=== PATIENT | female | born 1935 | race Caucasian/White ===

== ENCOUNTER 2020-09-04 14:04 | Inpatient (IN) | payer MEDICARE, MEDICAID, SELFPAY ==
[2020-09-04] VITALS (8 sets, daily range): BP systolic 106–151; BP diastolic 47–77; PULSE 71–148; RESP 16–20; TEMP 36.4–37.6; O2SAT 96–99; BMI 22.6
--- NOTE | 2020-09-04 15:43 | ED_ITS ---
HPI - Weakness General Chief complaint: Dizziness Stated complaint: dizzy,sob Time Seen by Provider: 09/04/20 15:42 Source: family Mode of arrival: ambulatory Limitations: no limitations History of Present Illness Complaint: generalized weakness Onset (ago): week(s) (1) Duration: constant Severity: moderate Exacerbating factors: movement Associated symptoms: shortness of breath Related Data Allergies Allergy/AdvReac Type Severity Reaction Status Date / Time ibuprofen [From Motrin] Allergy Mild RASH Verified 09/04/20 16:01 penicillin G [Penicillin G] Allergy Mild RASH Verified 09/04/20 16:01 penicillin V Allergy Unknown Rash Verified 09/04/20 16:01 Motrin Allergy Unknown Rash Uncoded 09/04/20 16:01 Review of Systems Constitutional: Constitutional: Reports no additional constitutional complaints Eyes: Eyes: Reports no additional eye complaints ENT: Reports dizziness Comments: lightheaded Cardiovascular: Cardiovascular: Reports no additional cardiovascular complaints Respiratory: Respiratory: Reports as per HPI Gastrointestinal: Gastrointestinal: Reports no additional gastrointestinal complaints Genitourinary: Genitourinary: Reports no additional female genitourinary complaints Musculoskeletal: Musculoskeletal: Reports no additional musculoskeletal complaints Integumentary/Breasts: Skin/Breast: Denies rash Neurologic: Reports system reviewed and no additional complaints, except as documented, Reports dizziness and Denies Sensory deficit (Neuro) Psychiatric: Psychiatric: Denies anxiety PMF Past Medical History Medical History (Updated 09/04/20 @ 16:46 by Richie Larios MD) Alzheimer's disease Asthma Cardiac arrhythmia Dementia Dizziness H/O cardiac pacemaker Ulcer Social History Social History Alcohol intake: never Smoking Status: Former smoker Use of substances other than those prescribed or required for medical reasons: No Advance Directives: No Advance Directives Information Provided: Yes Physical Exam Vital Signs and I&O and Narrative: Vital Signs and I&O: Vital Signs Temp 97.5 F 09/04/20 16:48 Pulse 83 09/04/20 18:58 Resp 16 09/04/20 18:58 BP 107/47 L 09/04/20 18:58 Pulse Ox 96 09/04/20 18:58 Intake & Output 09/04/20 09/04/20 09/05/20 06:59 18:59 06:59 Weight 50.802 kg Body Mass Index 22.6 Const: Other: elderly General: healthy appearing Nutritional Appearance: average body habitus Orientation/consciousness: oriented to person and patient oriented x3 Limitations: no limitations HENMT: Head: Yes normal to inspection Ears: external ears normal General nose exam: Normal external nose present Mouth: Normal oral and palatal mucosa present and oropharynx normal Throat: Yes posterior oropharynx normal Eyes: General: appearance normal, both eyes and all related structures Neck: Other: supple Neck: Yes normal visual inspection Chest: Chest palpation & inspection: normal inspection of the chest Resp: Auscultation: clear to auscultation bilaterally Cardio: Jugular venous distension: no JVD Rate: tachycardic and Other (Irregular) Rhythm: regular rhythm and abnormal rhythm Heart sounds: S1 normal heart sound present, S2 normal heart sound present and Other heart sounds present (2/6 CATHRYN) GI: Inspection: Yes normal to inspection Palpation (GI): Soft to palpation, nontender and No hepatosplenomegaly present Auscultation: normal bowel sounds : General: Yes no CVA tenderness Back/Spine/Pelvis: Back: no CVA tenderness Skin: General skin exam: no rashes or lesions noted Neuro: General: oriented to person and patient oriented x3 Cranial nerves: Yes CN's II-XII intact bilaterally Motor exam (neuro): 5/5 motor strength present throughout Sensory Exam: No Sensory deficit (Neuro) Extrem: Other: no edema General: Yes normal to inspection Psych: Appearance: grossly normal Course Course Course Narrative: patients heart rate down will give po cardizem and lovenox. Will admit for positive troponins Reevaluation(s) Reevaluation #1: second ekg: atrial fib rate of 80, RBBB, no st or twave changes Reevaluation #2: spoke with Susan Solomon Time: 19:23 MDM - Weakness MDM Narrative Medical decision making narrative: Patient with new afib and NonSTEMI will admit Lab Data Result diagrams: 09/04/20 15:51 09/04/20 15:51 Labs: Lab Results 09/04/20 09/04/20 09/04/20 Range/Units 15:51 15:51 15:51 WBC 6.4 (4.8-10.8) X10*3/uL RBC 3.97 L (4.20-5.50) X10*6/uL Hgb 12.3 (12.0-16.0) g/dl Hct 36.4 L (37-47) % MCV 91.7 (80-98) fL MCH 31.0 (27.0-33.0) pg MCHC 33.8 (31.0-35.0) g/dl RDW 13.0 (11.0-16.0) % Plt Count 251 (160-400) X10*3/uL MPV 9.8 (9.4-12.3) fL Immature Gran % (Auto) 0.3 (0.0-0.4) % Neut % (Auto) 57.4 (45-73) % Lymph % (Auto) 31.6 (20-40) % [place] % (Auto) 8.8 (2-11) % Eos % (Auto) 1.3 (0-4) % Baso % (Auto) 0.6 (0-2) % Neut # (Auto) 3.7 (2.0-8.3) X10*3/uL Lymph # (Auto) 2.0 (1.2-4.9) X10*3/uL [place] # (Auto) 0.6 (0.1-1.2) X10*3/uL Eos # (Auto) 0.1 (0.0-0.4) X10*3/uL Baso # (Auto) 0.0 (0.0-0.2) X10*3/uL Abs Immat Gran (auto) 0.02 (0.00-0.03) X10*3/uL Absolute Nucleated RBC 0.000 (0.0-0.012) X10*3/uL Nucleated RBC % (auto) 0.0 (0.0-0.2) /100WBC Sodium 141 (135-145) mmol/L Potassium 3.3 (3.3-5.1) mmol/l Chloride 103 (96-108) mmol/L Carbon Dioxide 27 (22-29) mmol/L Anion Gap 14 (12-20) BUN 16 (9-16) mg/dL Creatinine 1.11 (0.5-1.4) mg/dL Estim Creat Clear Calc 25.2 Estimated GFR 47 Random Glucose 139 H (60-115) mg/dL Calcium 9.6 (8.4-10.2) mg/dL Troponin I High Sens 441.0 H (<3.5-17.0) ng/L ECG Data Attestation: I personally reviewed and interpreted this ECG as follows: (Initial EKG was afib, rate 150, RBBB, no st or twave changes) ECG interpretation date: 09/04/20 ECG interpretation time: 15:09 Critical Care Time Critical Care Time Critical Care Time: Yes Total Critical Care Time: 35 Attestation: critical care time for reevaluation, speaking to hospitalist and talking to the family Discharge Plan Discharge Clinical Impression: Non-ST elevated myocardial infarction (non-STEMI) Atrial fibrillation Qualifiers: Atrial fibrillation type: unspecified Qualified Code(s): I48.91 - Unspecified atrial fibrillation Patient Disposition: Admitted As Inpatient
--- NOTE | 2020-09-04 15:46 | ECG_ITS ---
Test Reason : REPEAT Blood Pressure : / mmHG Vent. Rate : 082 BPM Atrial Rate : 394 BPM P-R Int : 000 ms QRS Dur : 130 ms QT Int : 402 ms P-R-T Axes : 000 -20 032 degrees QTc Int : 469 ms Atrial fibrillation with occasional ventricular-paced complexes Right bundle branch block Abnormal ECG When compared with ECG of 04-SEP-2020 15:36, Vent. rate has decreased Referred By: Richie Larios Electronically Signed By:HORACIO NATHAN
[2020-09-04 15:57] LABS: MANUAL DIFF FLAG NO
[2020-09-04 15:59] LABS: Basophils Percent Auto 0.6 % (0-2); Eosinophils Absolute Auto 0.1 X10*3/uL (0.0-0.4); Eosinophils Percent Auto 1.3 % (0-4); Hematocrit 36.4 % (37-47); Hemoglobin 12.3 g/dl (12.0-16.0); Imm Gran Abs Auto 0.02 X10*3/uL (0.00-0.03); Imm Gran Pct Auto 0.3 % (0.0-0.4); Lymphocytes Percent Auto 31.6 % (20-40); Mean Corpuscular HGB Conc 33.8 g/dl (31.0-35.0); Mean Corpuscular Volume 91.7 fL (80-98); Mean Platelet Volume 9.8 fL (9.4-12.3); Monocytes Absolute Auto 0.6 X10*3/uL (0.1-1.2); Monocytes Percent Auto 8.8 % (2-11); Neutrophils Absolute Auto 3.7 X10*3/uL (2.0-8.3); Neutrophils Percent Auto 57.4 % (45-73); Platelet Count 251 X10*3/uL (160-400); Red Blood Count 3.97 X10*6/uL (4.20-5.50); White Blood Count 6.4 X10*3/uL (4.8-10.8)
[2020-09-04] MEDS: dilTIAZem HCL 25 MG/5 ML VIAL 10 MG IVPUSH (16:02)
[2020-09-04 16:21] LABS: Anion Gap 14 (12-20); Blood Urea Nitrogen 16 mg/dL (9-16); Calcium 9.6 mg/dL (8.4-10.2); Carbon Dioxide 27 mmol/L (22-29); Chloride 103 mmol/L (96-108); Creatinine Clr Calc Pharmacy 25.2; Estimated Glomerular Filt Rate 47; Glucose Random 139 mg/dL (60-115); Potassium 3.3 mmol/l (3.3-5.1); Sodium 141 mmol/L (135-145)
--- NOTE | 2020-09-04 16:48 | ECG_ITS ---
Test Reason : HIGH HEART RATE Blood Pressure : / mmHG Vent. Rate : 154 BPM Atrial Rate : 153 BPM P-R Int : 000 ms QRS Dur : 126 ms QT Int : 318 ms P-R-T Axes : 000 -37 028 degrees QTc Int : 509 ms Undetermined rhythm Left axis deviation Right bundle branch block Abnormal ECG When compared with ECG of 23-MAY-2019 22:40, Current undetermined rhythm precludes rhythm comparison, needs review Right bundle branch block is now Present Heart rate has increased Referred By: Richie Larios Electronically Signed By:HORACIO NATHAN
[2020-09-04] MEDS: dilTIAZem HCL CD 120 MG CAP.ER.DEG PO (17:21)
[2020-09-04] MEDS: Aspirin Enteric Coated 325 MG TABLET.DR PO (17:22)
[2020-09-04] MEDS: Enoxaparin Sodium 60 MG/0.6 ML SYRINGE 50 MG SUBCUT (17:22)
--- NOTE | 2020-09-04 18:58 | PC.NURSE ---
Report taken from [place], this RN resuming care. Pt found sitting upright in bed with family at bedside, pt is CAOx4, speaking full sentences, denies pain/discomfort. Pt and family aware of plan to repeat EKG and plan for admission. VSS. Continue to monitor.
--- NOTE | 2020-09-04 19:42 | PC.NURSE ---
This RN calling to give report, RN to call back for report.
--- NOTE | 2020-09-04 20:16 | PC.NURSE ---
Report given to [facility] JAMAAL Leone.
--- NOTE | 2020-09-04 20:19 | PC.NURSE ---
Per MD, no repeat Troponin needed prior to transport to floor.
[2020-09-04 21:56] LABS: Hematocrit 32.1 % (37-47); Hemoglobin 10.8 g/dl (12.0-16.0); Mean Corpuscular HGB Conc 33.6 g/dl (31.0-35.0); Mean Corpuscular Volume 92.2 fL (80-98); Mean Platelet Volume 9.9 fL (9.4-12.3); Platelet Count 253 X10*3/uL (160-400); Red Blood Count 3.48 X10*6/uL (4.20-5.50); White Blood Count 6.3 X10*3/uL (4.8-10.8)
[2020-09-04 22:07] LABS: Partial Thromboplastin Time 39.2 SEC (24.1-38.0)
[2020-09-04 22:30] LABS: Troponin-I High Sensitivity 424.8 ng/L (<3.5-17.0)
[2020-09-05] VITALS (10 sets, daily range): BP systolic 116–145; BP diastolic 65–89; PULSE 57–100; RESP 16–20; TEMP 36.4–37.1; O2SAT 93–98
[2020-09-05] MEDS: Enoxaparin Sodium 60 MG/0.6 ML SYRINGE 50 MG SUBCUT (04:57)
[2020-09-05 06:49] LABS: Hematocrit 31.5 % (37-47); Hemoglobin 10.5 g/dl (12.0-16.0); Mean Corpuscular HGB Conc 33.3 g/dl (31.0-35.0); Mean Corpuscular Hemoglobin 30.7 pg (27.0-33.0); Mean Corpuscular Volume 92.1 fL (80-98); Mean Platelet Volume 10.3 fL (9.4-12.3); Platelet Count 246 X10*3/uL (160-400); Red Blood Count 3.42 X10*6/uL (4.20-5.50); Red Cell Distribution Width 12.9 % (11.0-16.0); White Blood Count 5.4 X10*3/uL (4.8-10.8)
[2020-09-05 06:50] LABS: INTERNATIONAL NORM RATIO 1.3 (0.9-1.1); Prothrombin Time 15.5 SEC (10.8-13.0)
[2020-09-05] MEDS: Omeprazole 20 MG CAPSULE.DR 40 MG PO (08:06)
[2020-09-05] MEDS: Multivitamin TABLET 1 TAB PO (08:07)
[2020-09-05] MEDS: Sertraline HCL 50 MG TABLET PO (08:07)
[2020-09-05] MEDS: Aspirin 81 MG TAB.CHEW PO (08:07)
[2020-09-05] MEDS: Atorvastatin Calcium 40 MG TABLET PO (08:10)
--- NOTE | 2020-09-05 09:27 | HP_ITS ---
DATE OF SERVICE: 09/04/2020 CHIEF COMPLAINT: Dizziness. HISTORY OF PRESENT ILLNESS: 85-year-old Yi-speaking woman presenting to the ER with complaints of dizziness. She was accompanied by her daughter, who lives with the patient and takes care of her. According to the patient's daughter, today the patient was giving her a plate and the daughter noticed that she had been using her hands to walk and finally patient told her that she was feeling dizzy. Unfortunately, the patient has Alzheimer and according to the patient's daughter, she does not report abnormal symptoms sometimes. She denied that the patient had any chest pain, shortness of breath, abdominal pain, nausea, vomiting, or diarrhea. Upon arrival to the ER, patient was found to be in atrial fibrillation with rapid ventricular response. Heart rate was in the 120s. The patient does have a history of valve replacement. At that time, she developed a block and a pacemaker was placed. She is currently on Eliquis at home. In the ER, she was given IV diltiazem, full-dose aspirin, therapeutic dose of Lovenox. Her heart rate seemed to stabilize. Repeat echocardiogram showed undetermined rhythm with right bundle-branch block which is chronic. The patient also had an elevated troponin of 441. However, the patient had no complaints of chest pain. The patient will be admitted for further management and treatment of NSTEMI and atrial fibrillation with rapid ventricular response. PAST MEDICAL HISTORY: 1. Diabetes mellitus. 2. Hypertension. 3. Hyperlipidemia. 4. Chronic diastolic congestive heart failure. 5. History of colon polyps. 6. Aortic valve replacement. 7. Pacemaker placement. 8. Cardiac catheterization showing no coronary artery disease. 9. EGD with biopsy. SOCIAL HISTORY: Her daughter lives with her. She does not use any alcohol, tobacco, or illicit drugs. FAMILY HISTORY: No cardiac disease. ALLERGIES: TO IBUPROFEN, PENICILLIN G, AND PENICILLIN V. MEDICATIONS: 1. Atorvastatin calcium 40 mg daily. 2. Clindamycin 300 mg take 2 tablets prior to dental appointments. 3. Bisacodyl 5 mg twice a day as needed. 4. Daily vitamin daily. 5. Dicyclomine 20 mg 3 times a day as needed. 6. Diltiazem 180 mg. 7. Diltiazem CD 120 mg daily. 8. Aricept 5 mg p.o. daily. 9. Eliquis 1 tab b.i.d. 10. Ferrous sulfate 325 mg 3 times a week. 11. Furosemide 20 mg 1 tab daily. 12. Lisinopril 20 mg daily. 13. Pantoprazole sodium. 14. MiraLAX. 15. . 16. Sertraline 50 mg p.o. daily. 17. Ventolin inhaler 2 puffs every 4 to 6 hours as needed. REVIEW OF SYSTEMS: CONSTITUTIONAL: Denies recent fever, chills, or decrease in appetite. RESPIRATORY: Denies any shortness of breath, cough, or sputum production. CARDIOVASCULAR: See HPI. GASTROINTESTINAL: Denies any dysphagia, abdominal pain, nausea, vomiting, or diarrhea. GENITOURINARY: Denies any dysuria, frequency, hematuria. MUSCULOSKELETAL: Denies any joint pain or swelling. NEUROPSYCH: Denies any weakness or seizures. All other systems are reviewed and are negative. PHYSICAL EXAMINATION: CONSTITUTIONAL: Resting in bed. No acute distress. VITAL SIGNS: 107/47, 83, 16, 96% on room air. SKIN: Intact without rash or open sores. HEENT: Head is normocephalic, atraumatic. Eyes, pupils are PERRLA. Sclerae anicteric. Mouth, mucous membranes are intact and moist. NECK: Supple. No lymphadenopathy. No JVD noted. CHEST: Clear to auscultation without wheezes, rhonchi, or rales. HEART: Irregularly irregular; clear S1, S2. No murmurs, rubs, gallops. ABDOMEN: Positive bowel sounds. Soft, nontender. No hepatomegaly or splenomegaly noted. NEURO: Patient is alert and oriented to self. No focal deficits noted. LABORATORY DATA: WBC 6.4, hemoglobin 12.3, hematocrit 36.4, platelets 251. Sodium is 141, potassium is 3.3, chloride is 103, anion gap is 14, BUN is 16, creatinine is 1.11, glucose is 116. Troponin is 441. BNP is 145. ASSESSMENT AND PLAN: 85-year-old woman who was admitted and found to have new onset atrial fibrillation with rapid ventricular response. She also was noted to have possible [id number] elevation myocardial infarction, possibly related to atrial fibrillation versus ischemic changes. EKG does not show any acute ischemic changes at this time and the patient has had no complaints of chest pain. 1. Atrial fibrillation with rapid ventricular response. Likelly the casue of dizziness. The patient received several doses of IV diltiazem. Heart rate seems to be better controlled at this time, but still in atrial fibrillation. She will be admitted to telemetry, Cardiology to consult, echocardiogram, EKG in the morning, trend troponin. The patient is on therapeutic Lovenox, was given initial dose in the ER. 2. Jro-GF-[id number] elevation myocardial infarction. Likeley demand ischemia. Therapeutic Lovenox, Cardiology to follow, echo, aspirin, statin, EKG in the morning. One point is that she did have a clean cath in 2019 so she will likely not need to be on Lovenox. Discuss with cardiology. 3. Diabetes mellitus sliding scale, ADA diet. 4. Hypertension. Low blood pressure. Hold any antihypertensives at this time. 5. History of congestive heart failure. No overt failure at this time. We will hold diuretic due to low blood pressure at this time. 6. Deep vein thrombosis prophylaxis with therapeutic Lovenox. 7. Case discussed with Dr. Michelle. 8. Full code. ANUJA Howell JR/ALEXI / [id number]
--- NOTE | 2020-09-05 09:47 | PM.CNCAR ---
History of Present Illness History of Present Illness Date of Consult: September 05, 2020 Requesting physician: Shay Brown Consult reason: atrial fibrillation Chief complaint: dizzy,sob Narrative: This patient is well-known to me. She has a history of transcatheter aortic valve replacement. Her last appointment in our office was in May this year. At that time, she was doing quite well. Current admission is for complaints of feeling dizzy. Patient states that she has just been feeling very dizzy and this led to the ER visit where she was found to be in atrial fibrillation with rapid rate. Otherwise, she denies any specific symptoms like anginal-type chest pains or shortness of breath or leg swelling or syncopal episodes. It seems that she got some IV Cardizem and then she was admitted. Currently she still atrial fibrillation but she is no longer dizzy. Review of Systems ENT: Reports dizziness Neurologic: Reports system reviewed and no additional complaints, except as documented and Reports dizziness PMFSH Past Medical History Medical History (Updated 09/05/20 @ 09:54 by Max Chaves MD) (HFpEF) heart failure with preserved ejection fraction Alzheimer's disease Asthma Cardiac arrhythmia Dementia Dizziness H/O cardiac pacemaker Mitral valve disease Ulcer Family History Family History (Updated 09/05/20 @ 09:57 by Max Chaves MD) Other Patient's mother is Surgical History Surgical History Status post transcatheter aortic valve replacement (TAVR) using bioprosthesis Social History Social History Household Members: Children Housing: Apartment Do you presently have visiting nurse or other home services: No Alcohol intake: never Smoking Status: Former smoker Tobacco Type: Cigarette Smoked in Last 30 Days: No Patient Interested in Nicotine Replacement: No Patient Given Instructions on How to Stop Smoking: No Second Hand Smoke Exposure: No Use of substances other than those prescribed or required for medical reasons: No Currently Displaying Signs/Symptoms of Drug Intoxication Withdrawal: No Have you been hit, kicked, punched, or otherwise hurt by someone within the past year? If so, by whom?: No Do you feel safe in your current relationship?: No Current Relationship Is there a partner from a previous relationship who is making you feel unsafe now?: No Are you made to feel afraid or neglected: No Advance Directives: No Advance Directives Information Provided: Yes Advance Directives on File: Yes Do you have thoughts of harming others: None Do you have a plan to hurt others: No Plan Recently lost weight without trying: No Meds Allergies Allergy/AdvReac Type Severity Reaction Status Date / Time ibuprofen [From Motrin] Allergy Mild RASH Verified 09/04/20 16:01 penicillin G [Penicillin G] Allergy Mild RASH Verified 09/04/20 16:01 penicillin V Allergy Unknown Rash Verified 09/04/20 16:01 Home Medications Medication Instructions Recorded Confirmed Type albuterol sulfate [Ventolin HFA] 2 puff PO Q4-6H PRN 09/04/20 09/04/20 History apixaban [Eliquis] 2.5 mg PO BID 09/04/20 09/04/20 History atorvastatin 40 mg PO DAILY 09/04/20 09/04/20 History dicyclomine 20 mg PO TID PRN 09/04/20 09/04/20 History diltiazem HCl [Tiadylt ER] 300 mg PO DAILY 09/04/20 09/04/20 History furosemide 20 mg PO DAILY 09/04/20 09/04/20 History lisinopril 40 mg PO DAILY 09/04/20 09/04/20 History multivitamin [Daily-Heather] 1 tab PO DAILY 09/04/20 09/04/20 History pantoprazole 40 mg PO DAILY 09/04/20 09/04/20 History sertraline 50 mg PO DAILY 09/04/20 09/04/20 History Physical Exam Vital Signs and I&O and Narrative: Vital Signs and I&O: Vital Signs Temp 98.0 F 09/05/20 07:52 Pulse 98 09/05/20 07:52 Resp 18 09/05/20 07:52 BP 126/89 09/05/20 07:52 Pulse Ox 98 09/05/20 08:00 Intake & Output 09/04/20 09/05/20 09/05/20 18:59 06:59 18:59 Intake Total 120 / 120 Output Total 200 / 200 Balance -80 / -80 Urine Output (Aver age ml/kg/hr) 0.33 Weight 112 lb 111 lb 15.917 oz Intake: Intake, Oral Brooke unt 120 / 120 Output: Output, Urine Am ount 200 / 200 Other: Number of Unmeas ured Voids 3 Urine Bathroom Urine Color Yellow Stool Bathroom Body Mass Index 22.6 Const: General: cooperative, comfortable and no acute distress Orientation/consciousness: patient oriented x3 HENMT: Other: Unremarkable Neck: Neck: Yes normal visual inspection Chest: Chest palpation & inspection: normal inspection of the chest Resp: Auscultation: clear to auscultation bilaterally, no crackles and no wheezes Cardio: Jugular venous distension: no JVD Palpation: normal PMI Heart sounds: S1 normal heart sound present, S2 normal heart sound present, no gallops, Murmur heart sound present (2/6 CATHRYN aortic area) and no rubs GI: Palpation (GI): Soft to palpation Back/Spine/Pelvis: Other: unremarkable Skin: General skin exam: no rashes or lesions noted Neuro: General: patient oriented x3 Extrem: General: Yes no clubbing, cyanosis or edema Psych: Mental Status: mental status grossly normal Results Labs and Meds Result diagrams: 09/05/20 05:28 09/04/20 15:51 Lab results: Laboratory Results - last 24 hr 09/04/20 09/04/20 09/04/20 15:51 15:51 15:51 WBC 6.4 RBC 3.97 L Hgb 12.3 Hct 36.4 L MCV 91.7 MCH 31.0 MCHC 33.8 RDW 13.0 Plt Count 251 MPV 9.8 Immature Gran % (Auto) 0.3 Neut % (Auto) 57.4 Lymph % (Auto) 31.6 [place] % (Auto) 8.8 Eos % (Auto) 1.3 Baso % (Auto) 0.6 Neut # (Auto) 3.7 Lymph # (Auto) 2.0 [place] # (Auto) 0.6 Eos # (Auto) 0.1 Baso # (Auto) 0.0 Abs Immat Gran (auto) 0.02 Absolute Nucleated RBC 0.000 Nucleated RBC % (auto) 0.0 PT INR APTT Sodium 141 Potassium 3.3 Chloride 103 Carbon Dioxide 27 Anion Gap 14 BUN 16 Creatinine 1.11 Estim Creat Clear Calc 25.2 Estimated GFR 47 Random Glucose 139 H Calcium 9.6 Troponin I High Sens 441.0 H 09/04/20 09/04/2009/04/20 21:23 21:23 21:23 WBC 6.3 RBC 3.48 L Hgb 10.8 L Hct 32.1 L MCV 92.2 MCH 31.0 MCHC 33.6 RDW 13.0 Plt Count 253 MPV 9.9 Immature Gran % (Auto) Neut % (Auto) Lymph % (Auto) [place] % (Auto) Eos % (Auto) Baso % (Auto) Neut # (Auto) Lymph # (Auto) [place] # (Auto) Eos # (Auto) Baso # (Auto) Abs Immat Gran (auto) Absolute Nucleated RBC 0.000 Nucleated RBC % (auto) 0.0 PT INR APTT 39.2 H Sodium Potassium Chloride Carbon Dioxide Anion Gap BUN Creatinine Estim Creat Clear Calc Estimated GFR Random Glucose Calcium Troponin I High Sens 424.8 H 09/05/20 09/05/20 05:28 05:28 WBC 5.4 RBC 3.42 L Hgb 10.5 L Hct 31.5 L MCV 92.1 MCH 30.7 MCHC 33.3 RDW 12.9 Plt Count 246 MPV 10.3 Immature Gran % (Auto) Neut % (Auto) Lymph % (Auto) [place] % (Auto) Eos % (Auto) Baso % (Auto) Neut # (Auto) Lymph # (Auto) [place] # (Auto) Eos # (Auto) Baso # (Auto) Abs Immat Gran (auto) Absolute Nucleated RBC 0.000 Nucleated RBC % (auto) 0.0 PT 15.5 H INR 1.3 H APTT Sodium Potassium Chloride Carbon Dioxide Anion Gap BUN Creatinine Estim Creat Clear Calc Estimated GFR Random Glucose Calcium Troponin I High Sens Assessment and Plan (1) Persistent atrial fibrillation: Status: Acute (2) Non-ST elevated myocardial infarction (non-STEMI): Status: Acute (3) Dizziness: Status: Acute (4) Normally functioning cardiac pacemaker present: Status: Acute (5) Status post transcatheter aortic valve replacement (TAVR) using bioprosthesis: Status: Acute (6) (HFpEF) heart failure with preserved ejection fraction: Status: Acute (7) Mitral valve disease: Status: Acute Patient's dizziness is most likely from her atrial fibrillation with rapid rate. Continue diltiazem. Add digoxin. Continue her home dose of Eliquis. No need for any aspirin. Otherwise, based on the last echocardiogram, no evidence of any prosthetic valve dysfunction. With regard to the elevated troponins, most likely demand related. She underwent cardiac catheterization in 2019. that did not reveal any significant coronary disease. Minimal luminal irregularities only. Can stop the Lovenox. We will follow up with you.
--- NOTE | 2020-09-05 12:13 | MHC.CM.PN ---
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
[2020-09-05] MEDS: Digoxin 0.25 MG TABLET PO ×2 (13:00→17:17)
--- NOTE | 2020-09-05 16:22 | PM.IMPN ---
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 pt reports her dizziness is resolved denies chest pain or sob Review of Systems General - no fevers or chills Cardiovascular - no chest pain, no dizziness Respiratory - no shortness of breath or cough Abdominal- no abdominal pain, nausea, vomiting, diarrhea Physical Exam Vital Signs and I&O and Narrative: Vital Signs and I&O: Vital Signs Temp 98.7 F 09/05/20 12:00 Pulse 100 09/05/20 13:00 Resp 20 09/05/20 12:00 BP 116/87 09/05/20 12:00 Pulse Ox 98 09/05/20 12:00 Intake & Output 09/04/20 09/05/20 09/05/20 18:59 06:59 18:59 Intake Total 120 / 120 240 / 240 Output Total 200 / 200 Balance -80 / -80 240 / 240 Urine Output (Aver age ml/kg/hr) 0.33 0.33 Weight 50.802 kg 50.8 kg Intake: Intake, Oral Brooke unt 120 / 120 240 / 240 Output: Output, Urine Am ount 200 / 200 Other: Breakfast % Eate n 50% Lunch % Eaten 75% Number of Unmeas ured Voids 3 1 Urine Bathroom Bathroom Urine Color Yellow Yellow Stool Bathroom Body Mass Index 22.6 General - no acute distress, appears comfortable Cardiovascular - IRR, S1-S2 Lungs - normal respiratory effort, clear to auscultation bilaterally, no wheezing Abdomen - soft, nontender, no rebound regarding Extremities - no edema bilaterally Neuro - awake and alert, no focal deficits Objective Data Current Medications Generic Name Dose Route Start Last Admin Trade Name Freq PRN Reason Stop Dose Admin Albuterol Sulfate 2 puff 09/04/20 21:16 Albuterol Sulfate 90 Mcg 18 Gm Inhaler INHALE Q4H PRN Shortness Of Breath Atorvastatin Calcium 40 mg 09/05/20 09:00 09/05/20 08:10 Atorvastatin Calcium 40 Mg Tablet PO 40 mg DAILY ANA Administration Digoxin 0.25 mg 09/05/20 11:00 09/05/20 13:00 Digoxin 0.25 Mg Tablet PO 09/06/20 05:01 0.25 mg Q6H ANA Administration Multivitamins/Vitamin C 1 tab 09/05/20 09:00 09/05/20 08:07 Multivitamin Tablet PO 1 tab DAILY ANA Administration Non-Formulary Medication 20 mg 09/04/20 21:16 Dicyclomine PO TID PRN ibs Omeprazole 40 mg 09/05/20 09:00 09/05/20 08:06 Omeprazole 20 Mg Capsule.Dr PO 40 mg DAILY ANA Administration Sertraline HCl 50 mg 09/05/20 09:00 09/05/20 08:07 Sertraline Hcl 50 Mg Tablet PO 50 mg DAILY ANA Administration Labs CBC & Chem 7: 09/05/20 05:28 09/04/20 15:51 Labs: Laboratory Results - last 24 hr 09/04/20 09/04/20 09/04/20 15:51 15:51 21:23 MCV MCH MCHC RDW Plt Count MPV Absolute Nucleated RBC Nucleated RBC % (auto) PT INR APTT Anion Gap 14 Estim Creat Clear Calc 25.2 Estimated GFR 47 Random Glucose 139 H Calcium 9.6 Troponin I High Sens 441.0 H 424.8 H 09/04/20 09/04/20 09/05/20 21:23 21:23 05:28 MCV 92.2 92.1 MCH 31.0 30.7 MCHC 33.6 33.3 RDW 13.0 12.9 Plt Count 253 246 MPV 9.9 10.3 Absolute Nucleated RBC 0.000 0.000 Nucleated RBC % (auto) 0.0 0.0 PT INR APTT 39.2 H Anion Gap Estim Creat Clear Calc Estimated GFR Random Glucose Calcium Troponin I High Sens 09/05/20 05:28 MCV MCH MCHC RDW Plt Count MPV Absolute Nucleated RBC Nucleated RBC % (auto) PT 15.5 H INR 1.3 H APTT Anion Gap Estim Creat Clear Calc Estimated GFR Random Glucose Calcium Troponin I High Sens Progress Note: A&P (1) Atrial fibrillation: Status: Acute Assessment and Plan: This is a 85-year-old female who presented to the hospital with complaints of dizziness and was found to be in AFib with RVR. She is admitted for further workup. 1. Atrial fibrillation with rapid ventricular response PO dig load Cardizem 120mg cd stop lovenox, resume eliquis 2.5mg BID cardiology input appreciated 2. NSTEMI, type 2 likely 2/2 to demand ischemia lovenox stopped 3. DM sliding scale, ADA diet not on any home meds 4. HTN cardizem soft -- hold lisinopril 5. CHF, euvolemic Lasix Full code DVT prophylaxis, Carmelina
[2020-09-05] MEDS: dilTIAZem HCL CD 120 MG CAP.ER.DEG PO (17:17)
[2020-09-05 18:58] LABS: INTERNATIONAL NORM RATIO 1.2 (0.9-1.1); Prothrombin Time 14.5 SEC (10.8-13.0)
[2020-09-05] MEDS: Apixaban 2.5 MG TABLET PO (20:26)
--- NOTE | 2020-09-05 21:45 | P.EN_ITS ---
Event Note Event Note: Admission note: 85 y/o female who presented from home with dizziness. To be admitted due to Afib with RVR. ROS and Physical as documented on H/P. 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
[2020-09-06] VITALS (8 sets, daily range): BP systolic 112–152; BP diastolic 67–70; PULSE 72–88; RESP 17–20; TEMP 36.1–36.8; O2SAT 94–98
[2020-09-06] MEDS: Digoxin 0.25 MG TABLET PO ×2 (00:26→05:52)
[2020-09-06 06:37] LABS: MANUAL DIFF FLAG NO
[2020-09-06 06:54] LABS: Basophils Percent Auto 0.6 % (0-2); Eosinophils Absolute Auto 0.2 X10*3/uL (0.0-0.4); Eosinophils Percent Auto 3.1 % (0-4); Hematocrit 31.8 % (37-47); Hemoglobin 10.7 g/dl (12.0-16.0); Imm Gran Abs Auto 0.03 X10*3/uL (0.00-0.03); Imm Gran Pct Auto 0.4 % (0.0-0.4); Lymphocytes Absolute Auto 1.6 X10*3/uL (1.2-4.9); Lymphocytes Percent Auto 24.1 % (20-40); Mean Corpuscular HGB Conc 33.6 g/dl (31.0-35.0); Mean Corpuscular Hemoglobin 31.5 pg (27.0-33.0); Mean Corpuscular Volume 93.5 fL (80-98); Mean Platelet Volume 10.1 fL (9.4-12.3); Monocytes Absolute Auto 0.6 X10*3/uL (0.1-1.2); Monocytes Percent Auto 8.6 % (2-11); Neutrophils Absolute Auto 4.2 X10*3/uL (2.0-8.3); Neutrophils Percent Auto 63.2 % (45-73); Platelet Count 250 X10*3/uL (160-400); Red Cell Distribution Width 12.8 % (11.0-16.0); White Blood Count 6.7 X10*3/uL (4.8-10.8)
[2020-09-06 07:21] LABS: Blood Urea Nitrogen 7 mg/dL (9-16); Calcium 9.1 mg/dL (8.4-10.2); Creatinine Clr Calc Pharmacy 35.4; Estimated Glomerular Filt Rate > 60; Glucose Fasting 107 mg/dL (60-99)
[2020-09-06 07:35] LABS: Anion Gap 16 (12-20); Carbon Dioxide 25 mmol/L (22-29); Chloride 104 mmol/L (96-108); Potassium 4.3 mmol/l (3.3-5.1); Sodium 141 mmol/L (135-145)
[2020-09-06] MEDS: Omeprazole 20 MG CAPSULE.DR 40 MG PO (09:22)
[2020-09-06] MEDS: Sertraline HCL 50 MG TABLET PO (09:23)
[2020-09-06] MEDS: Multivitamin TABLET 1 TAB PO (09:23)
[2020-09-06] MEDS: Apixaban 2.5 MG TABLET PO (09:23)
[2020-09-06] MEDS: dilTIAZem HCL CD 120 MG CAP.ER.DEG PO (09:23)
[2020-09-06] MEDS: Atorvastatin Calcium 40 MG TABLET PO (09:24)
--- NOTE | 2020-09-06 12:02 | PM.PNCARD ---
Subjective Subjective Interval history: She states that she is no longer feeling dizzy. Denies other complaints like chest pain or shortness of breath or in fact any other cardiac complaints at this time. Physical Exam Vital Signs and I&O: Vital Signs Temp 97 F 09/06/20 11:06 Pulse 72 09/06/20 11:06 Resp 18 09/06/20 11:06 BP 152/70 H 09/06/20 11:06 Pulse Ox 97 09/06/20 11:06 Comfortable, no distress No pallor, icterus or cyanosis HEENT -unremarkable JVD- normal Cardiac- normal heart sounds, 2/6 CATHRYN aortic area Respiratory-normal breath sounds bilaterally, no crackles, no wheeze Abdomen- soft, nontender Neuro- alert and oriented Lower extremities- no significant edema, warm well perfused Progress Note: A&P Assessment and plan (1) Persistent atrial fibrillation: Status: Acute (2) Non-ST elevated myocardial infarction (non-STEMI): Status: Acute (3) Dizziness: Status: Acute (4) Normally functioning cardiac pacemaker present: Status: Acute (5) Status post transcatheter aortic valve replacement (TAVR) using bioprosthesis: Status: Acute (6) (HFpEF) heart failure with preserved ejection fraction: Status: Acute (7) Mitral valve disease: Status: Acute Assessment and Plan: Patient's dizziness is most likely from her atrial fibrillation with rapid rate. Continue diltiazem. Add digoxin. Continue her home dose of Eliquis. No need for any aspirin. Otherwise, based on the last echocardiogram, no evidence of any prosthetic valve dysfunction. With regard to the elevated troponins, most likely demand related. She underwent cardiac catheterization in 2019. that did not reveal any significant coronary disease. Minimal luminal irregularities only. Can stop the Lovenox. Upon discharge, we will arrange followup. Fall Risk Details Current Medications: Current Medications Generic Name Dose Route Start Last Admin Trade Name Freq PRN Reason Stop Dose Admin Albuterol Sulfate 2 puff 09/04/20 21:16 Albuterol Sulfate 90 Mcg 18 Gm Inhaler INHALE Q4H PRN Shortness Of Breath Apixaban 2.5 mg 09/05/20 21:00 09/06/20 09:23 Apixaban 2.5 Mg Tablet PO 2.5 mg BID ANA Administration Atorvastatin Calcium 40 mg 09/05/20 09:00 09/06/20 09:24 Atorvastatin Calcium 40 Mg Tablet PO 40 mg DAILY ANA Administration Dicyclomine HCl 20 mg 09/05/20 17:03 Dicyclomine Hcl 10 Mg Capsule PO TID PRN IBS Diltiazem HCl 120 mg 09/05/20 16:30 09/06/20 09:23 Diltiazem Hcl Cd 120 Mg Cap.Er.Deg PO 120 mg DAILY ANA Administration Protocol Multivitamins/Vitamin C 1 tab 09/05/20 09:00 09/06/20 09:23 Multivitamin Tablet PO 1 tab DAILY ANA Administration Omeprazole 40 mg 09/05/20 09:00 09/06/20 09:22 Omeprazole 20 Mg Capsule.Dr PO 40 mg DAILY ANA Administration Sertraline HCl 50 mg 09/05/20 09:00 09/06/20 09:23 Sertraline Hcl 50 Mg Tablet PO 50 mg DAILY ANA Administration Time Spent With Patient Time: Total time spent is greater than 50% in coordination of care (as documented) at patient's floor/unit and/or counseling patient: Time with patient: 15 - 24 minutes
--- NOTE | 2020-09-06 12:42 | P.DS_ITS ---
DS: Providers Provider Date of admission: 09/04/20 20:02 Primary care physician: Aisha Garcia MD Consults: 09/04/20 20:02 Consult to Cardiology Routine Consulting Provider: [facility] [place] Cardiovascular Services Reason for consultation: NSTEMI Has provider been notified: No DS: Diagnosis Discharge Diagnosis (1) Atrial fibrillation with rapid ventricular response: Status: Acute (2) Non-ST elevated myocardial infarction (non-STEMI): Status: Acute (3) Dizziness: Status: Acute (4) Status post transcatheter aortic valve replacement (TAVR) using bioprosthesis: Status: Acute DS: Summary Hospital Course Hospital Course: HPI From admission H&P: HISTORY OF PRESENT ILLNESS: 85-year-old Barbadian-speaking woman presenting to the ER with complaints of dizziness. She was accompanied by her daughter, who lives with the patient and takes care of her. According to the patient's daughter, today the patient was giving her a plate and the daughter noticed that she had been using her hands to walk and finally patient told her that she was feeling dizzy. Unfortunately, the patient has Alzheimer and according to the patient's daughter, she does not report abnormal symptoms sometimes. She denied that the patient had any chest pain, shortness of breath, abdominal pain, nausea, vomiting, or diarrhea. Upon arrival to the ER, patient was found to be in atrial fibrillation with rapid ventricular response. Heart rate was in the 120s. The patient does have a history of valve replacement. At that time, she developed a block and a pacemaker was placed. She is currently on Eliquis at home. In the ER, she was given IV diltiazem, full-dose aspirin, therapeutic dose of Lovenox. Her heart rate seemed to stabilize. Repeat echocardiogram showed undetermined rhythm with right bundle-branch block which is chronic. The patient also had an elevated troponin of 441. However, the patient had no complaints of chest pain. The patient will be admitted for further management and treatment of NSTEMI and atrial fibrillation with rapid ventricular response. Hospital course patient was initially treated with IV Cardizem in the emergency room and subsequently transitioned to her oral Cardizem (was on Cardizem 300mg at home). her heart rate still remained elevated and she was subsequently initiated on digoxin loading per Cardiology recommendations. With these measures, patient's heart rate improved and dizziness resolved. She will be discharged home on her usual cardiac meds in addition with Digoxin 125 mcg daily. in regards to the patient's elevated troponin, this was deemed secondary to demand ischemia. she was initially treated with treatment dose Lovenox which was discontinued under Cardiology recommendations. She will be resumed on her Eliquis. transferred to longterm facility for short-term rehabilitation was discussed with the patient and the patient's daughter who opted for home with services. Time Spent with Patient Time attestation: Total time spent providing and/or coordinating discharge services: Physical Exam Vital Signs and I&O and Narrative: Vital Signs and I&O: Vital Signs Temp 97 F 09/06/20 11:06 Pulse 72 09/06/20 11:06 Resp 18 09/06/20 11:06 BP 152/70 H 09/06/20 11:06 Pulse Ox 97 09/06/20 11:06 Intake & Output 09/05/20 09/06/20 09/06/20 18:59 06:59 18:59 Intake Total 420 / 860 440 / 860 220 / 220 Output Total 200 / 200 Balance 420 / 859 439 / 859 Urine Output (Aver age ml/kg/hr) 0.00 0.33 Intake: Intake, Oral [place]en unt 420 / 860 440 / 860 220 / 220 Output: Output, Urine Am ount 200 / 200 Other: Breakfast % Eate n 50% 100% Lunch % Eaten 75% Dinner % Eaten 75% Number of Unmeas ured Voids 1 Urine Bathroom Urine Color Yellow Body Mass Index 22.6 DS: Data Data Completed and Pending Labs on day of discharge: Labs from last 24 hours 09/06/20 09/06/20 09/05/20 05:25 05:25 18:35 WBC 6.7 RBC 3.40 L Hgb 10.7 L Hct 31.8 L MCV 93.5 MCH 31.5 MCHC 33.6 RDW 12.8 Plt Count 250 MPV 10.1 Immature Gran % (Auto) 0.4 Neut % (Auto) 63.2 Lymph % (Auto) 24.1 [place] % (Auto) 8.6 Eos % (Auto) 3.1 Baso % (Auto) 0.6 Neut # (Auto) 4.2 Lymph # (Auto) 1.6 [place] # (Auto) 0.6 Eos # (Auto) 0.2 Baso # (Auto) 0.0 Abs Immat Gran (auto) 0.03 Absolute Nucleated RBC 0.000 Nucleated RBC % (auto) 0.0 PT 14.5 H INR 1.2 H Sodium 141 Potassium 4.3 D Chloride 104 Carbon Dioxide 25 Anion Gap 16 BUN 7 L D Creatinine 0.79 Estim Creat Clear Calc 35.4 Estimated GFR > 60 Fasting Glucose 107 H Calcium 9.1 Discharge Plan Discharge Patient Disposition: Home Health Service Referrals: [facility] [Outside] Aisha Garcia MD [Primary Care Provider] - 1 Week (TELE VISIT 09/14/2020 9:30am. with Dr. Ivanna Bustos will call you to discuss your hospital stay) Discharge Medications: New digoxin [Digox] 125 mcg (0.125 mg) tablet 125 mcg PO DAILY Qty: 30 RF: 0 Continued furosemide 20 mg tablet 20 mg PO DAILY RF: 0 multivitamin [Daily-Heather] Tablet 1 tab PO DAILY RF: 0 atorvastatin 40 mg tablet 40 mg PO DAILY RF: 0 diltiazem HCl [Tiadylt ER] 300 mg capsule,extended release 24 hr 300 mg PO DAILY RF: 0 dicyclomine 20 mg tablet 20 mg PO TID PRN (Reason: ibs) RF: 0 pantoprazole 40 mg tablet,delayed release (DR/EC) 40 mg PO DAILY RF: 0 albuterol sulfate [Ventolin HFA] 90 mcg/actuation HFA aerosol inhaler 2 puff PO Q4-6H PRN (Reason: Shortness Of Breath) RF: 0 lisinopril 40 mg tablet 40 mg PO DAILY RF: 0 sertraline 50 mg tablet 50 mg PO DAILY RF: 0 Eliquis 2.5 mg tablet 2.5 mg PO BID RF: 0 Discharge Orders: Discharge Order (Routine); Ordered 09/06/20 Ordered By: Crescencio Zazueta Diet: advance to your usual diet Activity on Discharge: As tolerated Visit Report Forms: Patient Portal Discharge page Care Plan Goals: To stay out of the hospital Health Concerns: Uncontrolled A. Fib Plan of Treatment: Continue your current medications. 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
--- NOTE | 2020-09-06 12:42 | W.MHC.F2F ---
Service Date Service Date: 09/06/20 Encounter Date of encounter: 09/06/20 Reasons for Services Reason for intermediate: medication management and medication treatment Reason for physical therapy: home safety and mobility and therapeutic exercises overseeing care: Dr. Garcia Homebound: Leaving the home is medically contraindicated at this time without the asist of a device and/or another person due th the listed conditions above and below. Certification: Based on the above findings, I certify that this patient is confined to the home and needs intermittent intermediate care, physical therapy and/or speech therapy, or continues to need occupational therapy. The patient is under my care, and I have initiated the establishment of the plan of care. The patient will be followed by a physician who will periodically review the plan of care.
--- NOTE | 2020-09-06 12:47 | MHC.CM.PN ---
pt to be dcd today with hvns
== END 2020-09-06 14:45 | disposition home health service (06) | DRG 281 ==
LOC: HO.ED 19:20 → HO.IMC 20:14
PROVIDERS: Admitting Provider Nurse Practitioner Acute Care; Emergency Provider Emergency Medicine; PCP Family Medicine; Visit Provider Family Medicine
DX: I48.19 Other persistent atrial fibrillation (principal); I21.A1 Myocardial infarction type 2; I50.32 Chronic diastolic (congestive) heart failure; G30.9 Alzheimer's disease, unspecified; F02.80 Dementia in other diseases classified elsewhere, unspecified severity, without behavioral disturbance, psychotic disturbance, mood disturbance, and anxiety; I11.0 Hypertensive heart disease with heart failure; J45.909 Unspecified asthma, uncomplicated; E11.9 Type 2 diabetes mellitus without complications; E78.5 Hyperlipidemia, unspecified; Z95.0 Presence of cardiac pacemaker; Z95.2 Presence of prosthetic heart valve; Z87.891 Personal history of nicotine dependence; Z88.0 Allergy status to penicillin; Z88.6 Allergy status to analgesic agent; Z79.01 Long term (current) use of anticoagulants; Z79.899 Other long term (current) drug therapy
CPT/HCPCS: 36415; 80048; 84484; 85025; 85027; 85610; 85730; 93005; 93010; 96372; 99284; 99291; J1650

== ENCOUNTER → 2020-09-14 12:32 | Outpatient (REF) | payer MEDICARE, MEDICAID, SELFPAY ==
--- NOTE | 2020-09-14 13:30 | ECG_ITS ---
Hook-up date: 2020-09-14 13:03:00 Duration: 47:59:00 Test Indications: PERSISTANT AFIB Medications: 16038 QRS complexes 504 Ventricular ectopics which represent <1 % of total QRS comp. 74 Supraventricular ectopics which represent <1 % of total QRS comp. * Paced QRS complexs which represent % of total QRS comp. VENTRICULAR ECTOPY 530 Isolated 43 Bigeminal Cycles 2 Couplets 0 Runs 0 Beats in Runs * Beats LONGEST at * BPM at :: -- * Beats FASTEST at * BPM at :: -- SUPRAVENTRICULAR ECTOPY 64 Isolated 3 Couplets 1 Runs 4 Beats in Runs 4 Beats LONGEST at 107 BPM at 01:31:08 2020-09-15 4 Beats FASTEST at 107 BPM at 01:31:08 2020-09-15 HEART RATES 68 MIN at 06:55:43 2020-09-15 67 AVG 96 MAX at 13:42:23 2020-09-14 LONGEST RR 1.0960 secs at 18:33:16 2020-09-14 S-T LEVELS Channel 1 - 128 mm at 13:03:00 2020-09-14 - 128 mm at 13:03:00 2020-09-14 Channel 2 - 128 mm at 13:03:00 2020-09-14 - 128 mm at 13:03:00 2020-09-14 Channel 3 - 128 mm at 03:22:21 -- - 128 mm at 03:22:21 Underlying rhythm is sinus; Average ventricular rate 67/min; range 68-96/min; Occasional supraventricular and ventricular ectopy; No evidence of atrial fibrillation; Patient diary not available for review. Referred By: Sohail Porter Overread By: SOHAIL PORTER
== END ==
LOC: HO.CARD 12:32
PROVIDERS: PCP Family Medicine; Visit Provider Internal Medicine
DX: I48.19 Other persistent atrial fibrillation (principal); R42 Dizziness and giddiness
CPT/HCPCS: 93225; 93226

== ENCOUNTER 2020-09-26 10:04 | Outpatient (REF) | payer MEDICARE, MEDICAID, SELFPAY | END 2020-09-26 10:05 | disposition home or self-care (01) | LOC: HO.RESP 10:04 | PROVIDERS: PCP Family Medicine; Visit Provider Family Medicine | DX: J45.990 Exercise induced bronchospasm (principal); R06.00 Dyspnea, unspecified | CPT/HCPCS: 94060; 94727; 94729 ==

== ENCOUNTER → 2020-09-29 10:54 | Outpatient (BNVA) | payer MEDICARE, MEDICAID, SELFPAY | PROVIDERS: PCP Family Medicine; Visit Provider Nurse Practitioner Family | DX: I48.91 Unspecified atrial fibrillation (principal); I10 Essential (primary) hypertension; I21.4 Non-ST elevation (NSTEMI) myocardial infarction; Z95.3 Presence of xenogenic heart valve; Z95.0 Presence of cardiac pacemaker | CPT/HCPCS: 99212 ==

== ENCOUNTER 2020-10-16 20:51 | Emergency (ER) | payer MEDICARE, MEDICAID, SELFPAY ==
--- NOTE | 2020-10-16 21:17 | ECG_ITS ---
Test Reason : SHORTNESS OF BREATH Blood Pressure : / mmHG Vent. Rate : 070 BPM Atrial Rate : 070 BPM P-R Int : 158 ms QRS Dur : 130 ms QT Int : 432 ms P-R-T Axes : 071 -28 019 degrees QTc Int : 466 ms Normal sinus rhythm Right bundle branch block Left axis deviation Abnormal ECG When compared with ECG of 04-SEP-2020 16:57, Sinus rhythm has replaced Atrial fibrillation Electronic ventricular pacemaker is no longer evident Referred By: Alirio Galvin Electronically Signed By:ANTOINE BLACKBURN MD
--- NOTE | 2020-10-16 21:45 | XR_ITS ---
EXAMINATION: XR CHEST CLINICAL INFORMATION: Shortness of breath COMPARISON: Chest x-ray 05/23/2019 TECHNIQUE: Frontal portable view of the chest was obtained. 9:32 PM FINDINGS: Heart size is enlarged. Status post TAVR. Pacemaker leads in right atrium and right ventricle. Chronic mild increased lung markings and peribronchial cuffing similar to prior chest x-ray 05/23/2019. No acute abnormality. There is no focal consolidation. There is no pleural effusion or pneumothorax. XR/XR chest 1V IMPRESSION: No acute abnormality of chest.
--- NOTE | 2020-10-16 21:52 | ED.SOB ---
HPI - SOB/Dyspnea General Chief Complaint: Dyspnea Stated Complaint: Difficulty breathing Time Seen by Provider: 10/16/20 21:17 Source: patient and family Mode of arrival: ambulatory Limitations: language barrier History of Present Illness HPI Narrative: patient has history of atrial fibrillation on Eliquis was doing fine at home today prior to arrival felt dizzy lightheaded and almost fell also complaining of shortness of breath. At this time she feeling better. Denied any cough fever patient does have history of dizziness in the past. Patient denies any palpitation or chest pain at this time patient is feeling better Related Data Home Medications Medication Instructions Recorded Confirmed Eliquis 2.5 mg PO BID 09/04/20 10/16/20 albuterol sulfate [Ventolin HFA] 2 puff PO Q4-6H PRN 09/04/20 10/16/20 atorvastatin 40 mg PO DAILY 09/04/20 10/16/20 furosemide 20 mg PO DAILY 09/04/20 10/16/20 lisinopril 40 mg PO DAILY 09/04/20 10/16/20 multivitamin [Daily-Heather] 1 tab PO DAILY 09/04/20 10/16/20 pantoprazole 40 mg PO DAILY 09/04/20 10/16/20 sertraline 50 mg PO DAILY 09/04/20 10/16/20 digoxin [Digox] 125 mcg PO DAILY 10/16/20 10/16/20 diltiazem HCl [Tiadylt ER] 300 mg PO DAILY 10/16/20 10/16/20 Allergies Allergy/AdvReac Type Severity Reaction Status Date / Time ibuprofen [From Motrin] Allergy Mild RASH Verified 10/16/20 21:53 penicillin G [Penicillin G] Allergy Mild RASH Verified 10/16/20 21:53 penicillin V Allergy Unknown Rash Verified 10/16/20 21:53 Review of Systems Review of Systems: REVIEW OF SYSTEMS: Pertinent positives and negatives are stated above in the history. GEN: no fevers, chills, fatigue HEENT: no nasal congestion, sore throat, ear pain NEURO: no headache, focal weakness PULM: no cough, shortness of breath CV: no chest pain, palpitations, LE edema ABD: no abdominal pain, nausea, vomiting, diarrhea : no dysuria, urgency, frequency SKIN: no rash ROS otherwise negative x 10 PMFSH Past Medical History Medical History (HFpEF) heart failure with preserved ejection fraction Alzheimer's disease Asthma Cardiac arrhythmia Dementia Diabetes mellitus Dizziness GERD (gastroesophageal reflux disease) H/O cardiac pacemaker HLD (hyperlipidemia) HTN (hypertension) Mitral valve disease NSTEMI (non-ST elevated myocardial infarction) Ulcer Surgical History Status post transcatheter aortic valve replacement (TAVR) using bioprosthesis Family History Family History Other Patient's mother is Social History Social History Household Members: Children Housing: Apartment Alcohol intake: never Smoking Status: Former smoker Tobacco Type: Cigarette Second Hand Smoke Exposure: No Advance Directives: No Advance Directives Information Provided: Yes service: No Physical Exam Vital Signs: Vital Signs: Last Vital Signs Temp 99.7 F 10/16/20 21:57 Pulse 79 10/16/20 21:57 Resp 18 10/16/20 21:57 BP 142/29 H 10/16/20 21:57 Pulse Ox 98 10/16/20 21:57 Body Mass Index 22.2 VITAL SIGNS: Reviewed. GENERAL: Well developed, well nourished, in no acute distress. HEAD: Normocephalic/atraumatic, EYES: PERRLA No pallor/icterus noted OROPHARYNX: Oral mucosa moist no oral lesions NECK: Supple, no adenopathy LUNGS: Normal breath sounds. No adventitious sounds or accessory muscle use CARDIOVASCULAR: Regular rate and rhythm without noted murmurs, no JVD or lower extremity edema. ABDOMEN: Soft, non-tender, non-distended with normal bowel sounds. No rigidity. No guarding. No palpable masses or hernias noted MUSCULOSKELETAL: No tenderness, deformities, EXTREMITIES: No cyanosis or edema. SKIN: no rashes, ulcerations, jaundice, pallor, or petechiae NEUROLOGIC: Alert and oriented x 3. Strength and sensation to light touch were grossly intact normal speech Course Course Course Narrative: patient is symptomatic feeling much better with stable labs ambulatory in the ER without any significant dizziness or palpitation will discharge patient home MDM - SOB/Dyspnea Differential Diagnosis Differential diagnosis: Likely congestive heart failure Lab Data Attestation: I reviewed the patient's lab results. Result diagrams: 10/16/20 22:20 10/16/20 23:07 Labs: Lab Results 10/16/20 10/16/20 10/16/20 Range/Units 22:20 22:20 22:20 WBC 8.8 (4.8-10.8) X10*3/uL RBC 3.55 L (4.20-5.50) X10*6/uL Hgb 10.9 L (12.0-16.0) g/dl Hct 33.5 L (37-47) % MCV 94.4 (80-98) fL MCH 30.7 (27.0-33.0) pg MCHC 32.5 (31.0-35.0) g/dl RDW 12.4 (11.0-16.0) % Plt Count 249 (160-400) X10*3/uL MPV 10.1 (9.4-12.3) fL Immature Gran % (Auto) 0.3 (0.0-0.4) % Neut % (Auto) 73.9 H (45-73) % Lymph % (Auto) 16.1 L (20-40) % [place] % (Auto) 7.7 (2-11) % Eos % (Auto) 1.5 (0-4) % Baso % (Auto) 0.5 (0-2) % Lymph # (Auto) 1.4 (1.2-4.9) X10*3/uL [place] # (Auto) 0.7 (0.1-1.2) X10*3/uL Eos # (Auto) 0.1 (0.0-0.4) X10*3/uL Baso # (Auto) 0.0 (0.0-0.2) X10*3/uL Abs Immat Gran (auto) 0.03 (0.00-0.03) X10*3/uL Absolute Neuts (auto) 6.5 (2.0-8.3) X10*3/uL Absolute Nucleated RBC 0.000 (0.0-0.012) X10*3/uL Nucleated RBC % (auto) 0.0 (0.0-0.2) /100WBC Sodium Cancelled Potassium Cancelled Chloride Cancelled Carbon Dioxide Cancelled Anion Gap Cancelled BUN Cancelled Creatinine Cancelled Estim Creat Clear Calc Cancelled Estimated GFR Cancelled Random Glucose Cancelled Calcium Cancelled Total Bilirubin Cancelled Direct Bilirubin Cancelled AST Cancelled ALT Cancelled Alkaline Phosphatase Cancelled Troponin I High Sens 225.3 H (<3.5-17.0) ng/L B-Natriuretic Peptide 265 H (<100) pg/mL Total Protein Cancelled Albumin Cancelled Coronavirus (PCR) (Negative) Influenza Type A (PCR) (Negative) Influenza Type B (PCR) (Negative) RSV RNA Qual (PCR) (Negative) 10/16/20 Range/Units 22:20 WBC (4.8-10.8) X10*3/uL RBC (4.20-5.50) X10*6/uL Hgb (12.0-16.0) g/dl Hct (37-47) % MCV (80-98) fL MCH (27.0-33.0) pg MCHC (31.0-35.0) g/dl RDW (11.0-16.0) % Plt Count (160-400) X10*3/uL MPV (9.4-12.3) fL Immature Gran % (Auto) (0.0-0.4) % Neut % (Auto) (45-73) % Lymph % (Auto) (20-40) % [place] % (Auto) (2-11) % Eos % (Auto) (0-4) % Baso % (Auto) (0-2) % Lymph # (Auto) (1.2-4.9) X10*3/uL [place] # (Auto) (0.1-1.2) X10*3/uL Eos # (Auto) (0.0-0.4) X10*3/uL Baso # (Auto) (0.0-0.2) X10*3/uL Abs Immat Gran (auto) (0.00-0.03) X10*3/uL Absolute Neuts (auto) (2.0-8.3) X10*3/uL Absolute Nucleated RBC (0.0-0.012) X10*3/uL Nucleated RBC % (auto) (0.0-0.2) /100WBC Sodium Potassium Chloride Carbon Dioxide Anion Gap BUN Creatinine Estim Creat Clear Calc Estimated GFR Random Glucose Calcium Total Bilirubin Direct Bilirubin AST ALT Alkaline Phosphatase Troponin I High Sens (<3.5-17.0) ng/L B-Natriuretic Peptide (<100) pg/mL Total Protein Albumin Coronavirus (PCR) NEGATIVE (Negative) Influenza Type A (PCR) NEGATIVE (Negative) Influenza Type B (PCR) NEGATIVE (Negative) RSV RNA Qual (PCR) NEGATIVE (Negative) ECG Data Attestation: I personally reviewed and interpreted this ECG as follows: Prior ECG tracings: available for review Interpretation: normal sinus rhythm right bundle branch block no acute ST T wave changes normal axis no acute ischemia Discharge Plan Discharge Clinical Impression: Dizziness Patient Disposition: Home, Self-Care Instructions: Dizziness (ED) Additional Instructions: continue medications and follow up with primary care doctor. COVID test is negative today and labs are stable please follow-up with [facility] and PCP Prescriptions: No Action furosemide 20 mg tablet 20 mg PO DAILY RF: 0 multivitamin [Daily-Heatehr] Tablet 1 tab PO DAILY RF: 0 atorvastatin 40 mg tablet 40 mg PO DAILY RF: 0 pantoprazole 40 mg tablet,delayed release (DR/EC) 40 mg PO DAILY RF: 0 albuterol sulfate [Ventolin HFA] 90 mcg/actuation HFA aerosol inhaler 2 puff PO Q4-6H PRN (Reason: Shortness Of Breath) RF: 0 lisinopril 40 mg tablet 40 mg PO DAILY RF: 0 sertraline 50 mg tablet 50 mg PO DAILY RF: 0 Eliquis 2.5 mg tablet 2.5 mg PO BID RF: 0 diltiazem HCl [Tiadylt ER] 300 mg Capsule,Extended Release 24 Hr 300 mg PO DAILY RF: 0 digoxin [Digox] 125 mcg (0.125 mg) Tablet 125 mcg PO DAILY RF: 0
[2020-10-16 21:57] VITALS: BP 142/29; BP 150/70; PULSE 79; PULSE 85; RESP 18; TEMP 37.6; O2SAT 98; BMI 22.2
[2020-10-16] MEDS: 0.9 % Sodium Chloride 1,000 ML 999 ML IVCONT (22:22)
[2020-10-16 22:33] LABS: MANUAL DIFF FLAG NO
[2020-10-16 22:36] LABS: Basophils Percent Auto 0.5 % (0-2); Eosinophils Absolute Auto 0.1 X10*3/uL (0.0-0.4); Eosinophils Percent Auto 1.5 % (0-4); Hematocrit 33.5 % (37-47); Hemoglobin 10.9 g/dl (12.0-16.0); Imm Gran Abs Auto 0.03 X10*3/uL (0.00-0.03); Imm Gran Pct Auto 0.3 % (0.0-0.4); Lymphocytes Absolute Auto 1.4 X10*3/uL (1.2-4.9); Lymphocytes Percent Auto 16.1 % (20-40); Mean Corpuscular HGB Conc 32.5 g/dl (31.0-35.0); Mean Corpuscular Hemoglobin 30.7 pg (27.0-33.0); Mean Corpuscular Volume 94.4 fL (80-98); Mean Platelet Volume 10.1 fL (9.4-12.3); Monocytes Absolute Auto 0.7 X10*3/uL (0.1-1.2); Monocytes Percent Auto 7.7 % (2-11); Neutrophils Absolute Auto 6.5 X10*3/uL (2.0-8.3); Neutrophils Percent Auto 73.9 % (45-73); Platelet Count 249 X10*3/uL (160-400); Red Blood Count 3.55 X10*6/uL (4.20-5.50); Red Cell Distribution Width 12.4 % (11.0-16.0); White Blood Count 8.8 X10*3/uL (4.8-10.8)
[2020-10-16 23:12] LABS: Influenza A PCR NEGATIVE (Negative); Influenza B PCR NEGATIVE (Negative); Resp Syncy Virus RNA Qual PCR NEGATIVE (Negative); SARS COV2 PCR INHOUSE NEGATIVE (Negative)
[2020-10-16 23:19] LABS: B Type Natriuretic Peptide 265 pg/mL (<100); Troponin-I High Sensitivity 225.3 ng/L (<3.5-17.0)
[2020-10-16 23:48] LABS: Alanine Aminotransferase 12 U/L (0-31); Albumin Level 4.1 g/dL (3.5-5.0); Alkaline Phosphatase 82 U/L (39-117); Anion Gap 13 (12-20); Aspartate Amino Transferase 22 U/L (5-31); Bilirubin Direct < 0.2 mg/dL (0.0-0.5); Bilirubin Total 0.4 mg/dL (0.0-1.0); Blood Urea Nitrogen 10 mg/dL (9-16); Calcium 8.7 mg/dL (8.4-10.2); Carbon Dioxide 27 mmol/L (22-29); Chloride 105 mmol/L (96-108); Creatinine Clr Calc Pharmacy 37.4; Estimated Glomerular Filt Rate > 60; Glucose Random 98 mg/dL (60-115); Potassium 3.4 mmol/l (3.3-5.1); Sodium 142 mmol/L (135-145); Total Protein 6.7 g/dL (6.5-8.0)
== END 2020-10-17 00:23 | disposition home or self-care (01) ==
PROVIDERS: Emergency Provider Internal Medicine
DX: R06.00 Dyspnea, unspecified (principal); R42 Dizziness and giddiness; F17.210 Nicotine dependence, cigarettes, uncomplicated; Z79.899 Other long term (current) drug therapy; Z71.6 Tobacco abuse counseling; Z20.828 Contact with and (suspected) exposure to other viral communicable diseases; I48.91 Unspecified atrial fibrillation; Z79.01 Long term (current) use of anticoagulants
CPT/HCPCS: 0241U; 36415; 71045; 80048; 80076; 83880; 84484; 85025; 93005; 96360; 99283; 99284

== ENCOUNTER 2020-10-24 09:43 | Outpatient (REF) | payer MEDICARE, MEDICAID, SELFPAY ==
--- NOTE | 2020-10-24 09:45 | CT_ITS ---
EXAMINATION: CT HEAD WITHOUT CONTRAST CLINICAL INFORMATION: Gait disorder COMPARISON: Previous head CT most recent October 2015 TECHNIQUE: Contiguous axial imaging was performed from the skull base to vertex without intravenous administration of contrast. This CT examination was performed using dose optimization techniques as appropriate, variously including the following: *Automated exposure control *Adjustment of mA and/or kV according to patient size (this includes techniques or standardized protocols for targeted exams where dose is matched to indication/reason for exam; i.e. extremities or head) *Use of iterative reconstruction technique DLP: 656 mGy-cm FINDINGS: There is no evidence of an extra-axial collection. There is no evidence of intra-axial or extra-axial hemorrhage. The ventricles and extra-axial CSF spaces are appropriate. There is mild nonspecific periventricular white matter disease. 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 No mass, mass effect or acute infarct is seen. Review of bone windows is normal. No skull fracture is seen. Visualized paranasal sinuses, mastoid air cells and middle ears are clear. 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 Mild nonspecific periventricular white matter disease.
== END 2020-10-24 09:44 | disposition home or self-care (01) ==
LOC: HO.CT 09:43
PROVIDERS: PCP Family Medicine; Visit Provider Psychiatry & Neurology Neurology
DX: R26.9 Unspecified abnormalities of gait and mobility (principal)
CPT/HCPCS: 70450

== ENCOUNTER 2020-11-24 16:24 | Inpatient (IN) | payer MEDICARE, MEDICAID, SELFPAY ==
[2020-11-24 16:29] VITALS: BP 138/62; BP 167/77; PULSE 80; PULSE 88; RESP 16; TEMP 37.3; O2SAT 97; BMI 20.5
--- NOTE | 2020-11-24 16:45 | XR_ITS ---
EXAMINATION: XR CHEST CLINICAL INFORMATION: Dizziness. COMPARISON: Chest 10/16/2020 TECHNIQUE: Frontal view of the chest was obtained. FINDINGS: The lungs are hyperinflated but clear of acute process heart size and vascularity is normal. There are dual pacer electrodes in right atrium and right ventricle. Also visualized and aortic valve stent in place. No gross bony abnormality. XR/XR chest 1V IMPRESSION: Hyperinflated lungs without any acute process.
--- NOTE | 2020-11-24 16:45 | ECG_ITS ---
Test Reason : AMS Blood Pressure : / mmHG Vent. Rate : 074 BPM Atrial Rate : 074 BPM P-R Int : 112 ms QRS Dur : 134 ms QT Int : 420 ms P-R-T Axes : 002 -20 032 degrees QTc Int : 466 ms Normal sinus rhythm Right bundle branch block Abnormal ECG When compared with ECG of 16-OCT-2020 22:57, Criteria for Septal infarct are no longer Present Referred By: Jesenia Stanton Electronically Signed By:VIN JOHNS MD
--- NOTE | 2020-11-24 16:45 | CT_ITS ---
EXAMINATION: CT HEAD WITHOUT CONTRAST CLINICAL INFORMATION: Dizziness. COMPARISON: 10/24/2020 TECHNIQUE: Contiguous axial imaging was performed from the skull base to vertex without intravenous administration of contrast. This CT examination was performed using dose optimization techniques as appropriate, variously including the following: *Automated exposure control *Adjustment of mA and/or kV according to patient size (this includes techniques or standardized protocols for targeted exams where dose is matched to indication/reason for exam; i.e. extremities or head) *Use of iterative reconstruction technique DLP: 555 mGy-cm FINDINGS: The head is rotated to the right. There is no evidence of acute intracranial hemorrhage. No abnormal mass effect or midline shift is seen. No extra-axial fluid collections are identified. There is an old left parietal lobe infarct, appearing similar as compared to the prior study. No acute territorial infarction is seen. No abnormal mass effect or midline shift. Mild, nonspecific periventricular deep white matter disease. No evidence of acute skull fracture. The mastoid air cells and visualized portions of the paranasal sinuses are well aerated. CT/CT head/brain wo con IMPRESSION: Old left parietal infarct, appearing similar as compared to the prior study. No CT evidence of acute intracranial hemorrhage or acute territorial infarction. Nonspecific periventricular white matter disease.
--- NOTE | 2020-11-24 16:46 | ED_ITS ---
HPI - General Adult General Chief complaint: General Medical Stated complaint: chest discomfort/anxiety Time Seen by Provider: 11/24/20 16:43 Source: patient and full time staff interpreter Mode of arrival: ambulatory Limitations: no limitations History of Present Illness HPI narrative: 85-year-old female brought in by ambulance after noticed by family that she was walking unbalanced, patient also was complaining of being dizzy (lightheadedness), patient throw up 1 time at home before arrival. Patient emergency department cleaned that all her symptoms has resolved in asking for water, patient declined headache, neck pain, focal weakness, chest pain, or abdominal pain. Related Data Home Medications Medication Instructions Recorded Confirmed Eliquis 2.5 mg PO BID 09/04/20 10/16/20 albuterol sulfate [Ventolin HFA] 2 puff PO Q4-6H PRN 09/04/20 10/16/20 atorvastatin 40 mg PO DAILY 09/04/20 10/16/20 furosemide 20 mg PO DAILY 09/04/20 10/16/20 lisinopril 40 mg PO DAILY 09/04/20 10/16/20 multivitamin [Daily-Heather] 1 tab PO DAILY 09/04/20 10/16/20 pantoprazole 40 mg PO DAILY 09/04/20 10/16/20 sertraline 50 mg PO DAILY 09/04/20 10/16/20 digoxin [Digox] 125 mcg PO DAILY 10/16/20 10/16/20 diltiazem HCl [Tiadylt ER] 300 mg PO DAILY 10/16/20 10/16/20 Allergies Allergy/AdvReac Type Severity Reaction Status Date / Time ibuprofen [From Motrin] Allergy Mild RASH Verified 10/16/20 21:53 penicillin G [Penicillin G] Allergy Mild RASH Verified 10/16/20 21:53 penicillin V Allergy Unknown Rash Verified 10/16/20 21:53 Review of Systems Review of Systems: All other systems are reviewed and are negative Constitutional: Reports as per HPI and Reports no additional constitutional complaints Eyes: Reports as per HPI and Reports no additional eye complaints Reports system reviewed and no additional complaints, except as documented Cardiovascular: Reports as per HPI and Reports no additional cardiovascular complaints Respiratory: Reports as per HPI and Reports no additional respiratory complaints Gastrointestinal: Reports as per HPI and Reports no additional gastrointestinal complaints Genitourinary: Reports no additional female genitourinary complaints Musculoskeletal: Reports no additional musculoskeletal complaints Skin/Breast: Reports system reviewed and no additional complaints, except as docu Psychiatric: Reports no additional psychiatric complaints Endocrine: Reports no additional endocrine complaints Hematologic/Lymphatic: Reports no additional hematologic/lymphatic complaints Allergic/Immunologic: Reports no additional allergic/immunologic complaints Reports system reviewed and no additional complaints, except as documented and Reports Abnormal speech present [facility] Past Medical History Medical History (HFpEF) heart failure with preserved ejection fraction Alzheimer's disease Asthma Cardiac arrhythmia Dementia Diabetes mellitus Dizziness GERD (gastroesophageal reflux disease) H/O cardiac pacemaker HLD (hyperlipidemia) HTN (hypertension) Mitral valve disease NSTEMI (non-ST elevated myocardial infarction) Ulcer Surgical History Status post transcatheter aortic valve replacement (TAVR) using bioprosthesis Family History Family History Other Patient's mother is Social History Social History Household Members: Children Housing: Apartment Alcohol intake: never Smoking Status: Former smoker Tobacco Type: Cigarette Smoked in Last 30 Days: No Second Hand Smoke Exposure: No Use of substances other than those prescribed or required for medical reasons: No Advance Directives: No Advance Directives Information Provided: Yes service: No Physical Exam Vital Signs: Vital Signs: Last Vital Signs Temp 98.7 F 11/24/20 20:02 Pulse 77 11/24/20 20:02 Resp 22 H 11/24/20 20:02 BP 108/76 11/24/20 20:02 Pulse Ox 97 11/24/20 20:02 Body Mass Index 20.5 Vital signs have been reviewed as normal and appeared to be correct. Blood pressure in the high range. Heart rate normal. Respiration rate normal. Temperature normal. Oxygen saturation normal. Appearance: Alert. Oriented X3. No acute distress. Head: Normal external exam. Normocephalic. Atraumatic. No [place]az signs noted. No raccoon eyes noted Eyes: PERRLA. EOMI. Conjunctiva and sclera normal. Eyelids normal. ENT: EAC normal. TM's Normal. Pharynx normal. Uvula midline. Moist mucous membranes. No trismus noted. No drooling noted. No muffled voice noted. Neck: Normal inspection. Neck supple. FROM. No adenopathy. Thyroid Normal. No meningeal signs. No neck mass noted. CVS: Normal heart rate and rhythm. Heart sound normal. No murmurs noted. Pulses normal throughout. Respiratory: No respiratory distress. Painless inspiration. Breath sounds normal. No wheezes/rales/rhonchi noted. Chest nontender. No accessory muscle usage noted or decreased air movement noted. Abdomen: Soft and nontender. Bowel sounds normal in all 4 quadrants. No distention noted. No organomegaly noted. No visible injury noted. Back: No CVA tenderness. Full range of motion noted. Skin: Skin warm and dry. Normal skin color. Normal skin turgor. No rashes/lesions/lacerations noted. Extremities: No lower extremity edema. Extremities exhibit normal range of motion. Extremities nontender. Neuro: Oriented X 3. No motor deficit. No sensory deficit. Reflexes normal. NIH Stroke Scale Internal: Initial- Upon Arrival Level of Consciousness: Alert Level of Consciousness Questions: Answers both questions correctly Level of Consciousness Commands: Performs both tasks correctly Best Gaze: Normal Visual: No visual loss Facial Palsy: Normal Motor Arm (Right): No drift Motor Arm (Left): No drift Motor Leg (Right): No drift Motor Leg (Left): No drift Limb Ataxia: Absent Sensory: Normal Best Language: No aphasia Dysarthia: Normal Extinction and Inattention: No abnormality Score: 0 Course Course Course Narrative: Assessment and plan. This is an 85-year-old female came in after having short. Of dizziness, nausea, vomiting and witnessed by family for having unsteady gait. 1. Patient neuro exam now is normal, symptoms has resolved, CT head/CTA of the head and neck are unremarkable to explain patient's symptoms. 2. Patient declined chest pain with unremarkable EKG with troponin elevation x2. Medical Decision Making Lab Data Result diagrams: 11/24/20 16:57 11/24/20 16:57 Labs: Lab Results 11/24/20 11/24/20 11/24/20 Range/Units 16:57 16:57 16:57 WBC 6.3 (4.8-10.8) X10*3/uL RBC 3.38 L (4.20-5.50) X10*6/uL Hgb 10.6 L (12.0-16.0) g/dl Hct 31.6 L (37-47) % MCV 93.5 (80-98) fL MCH 31.4 (27.0-33.0) pg MCHC 33.5 (31.0-35.0) g/dl RDW 12.4 (11.0-16.0) % Plt Count 197 (160-400) X10*3/uL MPV 9.4 (9.4-12.3) fL Immature Gran % (Auto) 0.2 (0.0-0.4) % Neut % (Auto) 55.1 (45-73) % Lymph % (Auto) 32.3 (20-40) % [place] % (Auto) 9.0 (2-11) % Eos % (Auto) 2.9 (0-4) % Baso % (Auto) 0.5 (0-2) % Lymph # (Auto) 2.0 (1.2-4.9) X10*3/uL [place] # (Auto) 0.6 (0.1-1.2) X10*3/uL Eos # (Auto) 0.2 (0.0-0.4) X10*3/uL Baso # (Auto) 0.0 (0.0-0.2) X10*3/uL Abs Immat Gran (auto) 0.01 (0.00-0.03) X10*3/uL Absolute Neuts (auto) 3.5 (2.0-8.3) X10*3/uL Absolute Nucleated RBC 0.000 (0.0-0.012) X10*3/uL Nucleated RBC % (auto) 0.0 (0.0-0.2) /100WBC Sodium 137 (135-145) mmol/L Potassium 3.3 (3.3-5.1) mmol/l Chloride 99 (96-108) mmol/L Carbon Dioxide 27 (22-29) mmol/L Anion Gap 14 (12-20) BUN 11 (9-16) mg/dL Creatinine 0.79 (0.5-1.4) mg/dL Estim Creat Clear Calc 41.1 Estimated GFR > 60 Random Glucose 124 H (60-115) mg/dL Calcium 9.2 (8.4-10.2) mg/dL Total Bilirubin 0.4 (0.0-1.0) mg/dL Direct Bilirubin 0.2 (0.0-0.5) mg/dL AST 21 (5-31) U/L ALT 12 (0-31) U/L Alkaline Phosphatase 78 (39-117) U/L Troponin I High Sens 54.6 H D (<3.5-17.0) ng/L B-Natriuretic Peptide 347 H (<100) pg/mL Total Protein 7.0 (6.5-8.0) g/dL Albumin 4.3 (3.5-5.0) g/dL Lipase 33 (8-78) U/L Urine Color Urine Appearance Urine pH (5.0-8.0) Ur Specific [place] (1.005-1.025) Urine Protein (NEG-TRACE) MG/DL Urine Glucose (UA) (NEG) MG/DL Urine Ketones (NEG) MG/DL Urine Blood (NEG) Urine Nitrite (NEG) Ur Leukocyte Esterase (NEG) Urine RBC (0) /HPF Urine WBC (0-4) /HPF Ur Squamous Epith Cells /LPF Amorphous Sediment /LPF Urine Bacteria /LPF Urine Mucus /LPF 11/24/20 11/24/20 Range/Units 18:49 20:00 WBC (4.8-10.8) X10*3/uL RBC (4.20-5.50) X10*6/uL Hgb (12.0-16.0) g/dl Hct (37-47) % MCV (80-98) fL MCH (27.0-33.0) pg MCHC (31.0-35.0) g/dl RDW (11.0-16.0) % Plt Count (160-400) X10*3/uL MPV (9.4-12.3) fL Immature Gran % (Auto) (0.0-0.4) % Neut % (Auto) (45-73) % Lymph % (Auto) (20-40) % [place] % (Auto) (2-11) % Eos % (Auto) (0-4) % Baso % (Auto) (0-2) % Lymph # (Auto) (1.2-4.9) X10*3/uL [place] # (Auto) (0.1-1.2) X10*3/uL Eos # (Auto) (0.0-0.4) X10*3/uL Baso # (Auto) (0.0-0.2) X10*3/uL Abs Immat Gran (auto) (0.00-0.03) X10*3/uL Absolute Neuts (auto) (2.0-8.3) X10*3/uL Absolute Nucleated RBC (0.0-0.012) X10*3/uL Nucleated RBC % (auto) (0.0-0.2) /100WBC Sodium (135-145) mmol/L Potassium (3.3-5.1) mmol/l Chloride (96-108) mmol/L Carbon Dioxide (22-29) mmol/L Anion Gap (12-20) BUN (9-16) mg/dL Creatinine (0.5-1.4) mg/dL Estim Creat Clear Calc Estimated GFR Random Glucose (60-115) mg/dL Calcium (8.4-10.2) mg/dL Total Bilirubin (0.0-1.0) mg/dL Direct Bilirubin (0.0-0.5) mg/dL AST (5-31) U/L ALT (0-31) U/L Alkaline Phosphatase (39-117) U/L Troponin I High Sens 75.1 H (<3.5-17.0) ng/L B-Natriuretic Peptide (<100) pg/mL Total Protein (6.5-8.0) g/dL Albumin (3.5-5.0) g/dL Lipase (8-78) U/L Urine Color STRAW Urine Appearance HAZY Urine pH 7.5 (5.0-8.0) Ur Specific [place] 1.015 (1.005-1.025) Urine Protein NEG (NEG-TRACE) MG/DL Urine Glucose (UA) NEG (NEG) MG/DL Urine Ketones NEG (NEG) MG/DL Urine Blood TRACE (NEG) Urine Nitrite NEG (NEG) Ur Leukocyte Esterase 3+ H (NEG) Urine RBC 1-4 (0) /HPF Urine WBC 15-29 H (0-4) /HPF Ur Squamous Epith Cells TRACE /LPF Amorphous Sediment TRACE /LPF Urine Bacteria TRACE /LPF Urine Mucus TRACE /LPF Imaging Data CT scan - head: Radiologist's impression: IMPRESSION: Old left parietal infarct, appearing similar as compared to the prior study. No CT evidence of acute intracranial hemorrhage or acute territorial infarction. Nonspecific periventricular white matter disease. Chest x-ray: Radiologist's impression: Hyperinflated lungs without any acute process. CTA head and neck: Radiologist's impression: No acute pathology ECG Data Interpretation: Normal sinus rhythm at 74 beats per minutes, left axis deviation, right bundle branch block, nonspecific T-wave flattening in leadIII, AVF. Discharge Plan Discharge Clinical Impression: Brain TIA, Elevated troponin Patient Disposition: Admitted As Inpatient Prescriptions: No Action furosemide 20 mg tablet 20 mg PO DAILY RF: 0 multivitamin [Daily-Heather] Tablet 1 tab PO DAILY RF: 0 atorvastatin 40 mg tablet 40 mg PO DAILY RF: 0 pantoprazole 40 mg tablet,delayed release (DR/EC) 40 mg PO DAILY RF: 0 albuterol sulfate [Ventolin HFA] 90 mcg/actuation HFA aerosol inhaler 2 puff PO Q4-6H PRN (Reason: Shortness Of Breath) RF: 0 lisinopril 40 mg tablet 40 mg PO DAILY RF: 0 sertraline 50 mg tablet 50 mg PO DAILY RF: 0 Eliquis 2.5 mg tablet 2.5 mg PO BID RF: 0 diltiazem HCl [Tiadylt ER] 300 mg Capsule,Extended Release 24 Hr 300 mg PO DAILY RF: 0 digoxin [Digox] 125 mcg (0.125 mg) Tablet 125 mcg PO DAILY RF: 0
[2020-11-24 17:05] LABS: Basophils Percent Auto 0.5 % (0-2); Eosinophils Absolute Auto 0.2 X10*3/uL (0.0-0.4); Eosinophils Percent Auto 2.9 % (0-4); Hematocrit 31.6 % (37-47); Hemoglobin 10.6 g/dl (12.0-16.0); Imm Gran Abs Auto 0.01 X10*3/uL (0.00-0.03); Imm Gran Pct Auto 0.2 % (0.0-0.4); Lymphocytes Percent Auto 32.3 % (20-40); Mean Corpuscular HGB Conc 33.5 g/dl (31.0-35.0); Mean Corpuscular Hemoglobin 31.4 pg (27.0-33.0); Mean Corpuscular Volume 93.5 fL (80-98); Mean Platelet Volume 9.4 fL (9.4-12.3); Monocytes Absolute Auto 0.6 X10*3/uL (0.1-1.2); Neutrophils Absolute Auto 3.5 X10*3/uL (2.0-8.3); Neutrophils Percent Auto 55.1 % (45-73); Platelet Count 197 X10*3/uL (160-400); Red Blood Count 3.38 X10*6/uL (4.20-5.50); Red Cell Distribution Width 12.4 % (11.0-16.0); White Blood Count 6.3 X10*3/uL (4.8-10.8)
[2020-11-24 17:06] LABS: MANUAL DIFF FLAG NO
[2020-11-24 17:28] LABS: Alanine Aminotransferase 12 U/L (0-31); Albumin Level 4.3 g/dL (3.5-5.0); Alkaline Phosphatase 78 U/L (39-117); Anion Gap 14 (12-20); Aspartate Amino Transferase 21 U/L (5-31); Bilirubin Direct 0.2 mg/dL (0.0-0.5); Bilirubin Total 0.4 mg/dL (0.0-1.0); Blood Urea Nitrogen 11 mg/dL (9-16); Calcium 9.2 mg/dL (8.4-10.2); Carbon Dioxide 27 mmol/L (22-29); Chloride 99 mmol/L (96-108); Creatinine Clr Calc Pharmacy 41.1; Estimated Glomerular Filt Rate > 60; Glucose Random 124 mg/dL (60-115); Lipase 33 U/L (8-78); Potassium 3.3 mmol/l (3.3-5.1); Sodium 137 mmol/L (135-145)
[2020-11-24 17:36] LABS: B Type Natriuretic Peptide 347 pg/mL (<100); Troponin-I High Sensitivity 54.6 ng/L (<3.5-17.0)
[2020-11-24 18:49] VITALS: BP 154/69; PULSE 86; RESP 18; O2SAT 97
[2020-11-24 18:58] LABS: Glucose Urine UA NEG (NEG); Leukocyte Esterase Urine 3+ (NEG); Nitrite Urine NEG (NEG); PH 7.5 (5.0-8.0); Specific Gravity - Urine 1.015 (1.005-1.025); Urine Blood TRACE (NEG); Urine Ketones NEG (NEG); Urine Protein NEG (NEG-TRACE)
[2020-11-24 19:06] LABS: Appearance Urine HAZY; Color Urine STRAW
[2020-11-24 19:09] LABS: Amorphous Sediment Urine TRACE /LPF; Bacteria Urine TRACE /LPF; Mucus Urine TRACE /LPF; Squamous Epithelial Cell Urine TRACE /LPF
[2020-11-24 20:02] VITALS: BP 108/76; PULSE 77; RESP 22; TEMP 37.1; O2SAT 97
[2020-11-24 20:42] LABS: Troponin-I High Sensitivity 75.1 ng/L (<3.5-17.0)
--- NOTE | 2020-11-24 21:34 | CT_ITS ---
EXAMINATION: CTA OF THE HEAD AND NECK CLINICAL INFORMATION: Dizziness. COMPARISON: Head CT from 10/24/2020. CTA dated 07/24/2017 TECHNIQUE: Test bolus sequences followed by intravenous administration 70 mL of Omnipaque 350. Helical imaging was performed in the axial plane from the mediastinum to the skull vertex. Delayed postcontrast imaging of the head was also performed. The data was processed at the sleep lab technologist's workstation for generation of MIP sequences. Three-dimensional volume rendered reformatted images were also generated at an offline 3-D workstation. Stenoses are assessed in accordance with NASCET criteria unless otherwise indicated. This CT examination was performed using dose optimization techniques as appropriate, variously including the following: *Automated exposure control *Adjustment of mA and/or kV according to patient size (this includes techniques or standardized protocols for targeted exams where dose is matched to indication/reason for exam; i.e. extremities or head) *Use of iterative reconstruction technique DLP: 1375 mGy-cm. FINDINGS: CTA neck: The imaged aortic arch and origins of the great vessels are patent with mild atherosclerotic wall calcifications. The common carotid arteries are widely patent. The carotid bifurcations are normal. The cervical internal carotid arteries are normal. The vertebral arteries opacify normally and are of normal caliber. Prominent retrodental soft tissue pannus without compression of the lower brainstem or upper cervical spine at the C1-C2 level. Multilevel cervical spondylosis, most severe at C5-C6. The imaged portions of the lungs are clear with mild emphysematous changes. 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 Bilateral security delivery specialist are patent. The internal carotid arteries are of normal caliber. The SAUD and MCA vascular complexes bilaterally are normal. An azygous SAUD is noted. The venous sinuses opacify normally. 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 No abnormal parenchymal or leptomeningeal enhancement. CT/CT angio head neck stroke IMPRESSION: Normal CT angiogram of the head and neck. Imaging findings discussed with Dr. Stanton at 10:52 PM on 11/24/2020.
[2020-11-24] MEDS: iohexoL 350 MG/ML 100 ML INFUS..BTL IV (22:30)
[2020-11-24 23:43] VITALS: BP 150/72; PULSE 74; RESP 20; TEMP 37.1; O2SAT 95
--- NOTE | 2020-11-24 23:52 | PC.NURSE ---
Daughter in law notfified that patient would be admitted to hospital due to elevated labs.
[2020-11-25] VITALS (12 sets, daily range): BP systolic 142–175; BP diastolic 62–93; PULSE 60–94; RESP 16–20; TEMP 36.3–37.1; O2SAT 95–99
--- NOTE | 2020-11-25 | ECG_ITS ---
Test Reason : elevated troponin Blood Pressure : / mmHG Vent. Rate : 067 BPM Atrial Rate : 067 BPM P-R Int : 152 ms QRS Dur : 128 ms QT Int : 436 ms P-R-T Axes : 070 -36 025 degrees QTc Int : 460 ms Normal sinus rhythm Left axis deviation Right bundle branch block Abnormal ECG When compared to the previous EKG of No significant changes seen Referred By: Jamie Arora Electronically Signed By:VIN JOHNS MD
[2020-11-25 00:26] LABS: Influenza A PCR NEGATIVE (Negative); Influenza B PCR NEGATIVE (Negative); Resp Syncy Virus RNA Qual PCR NEGATIVE (Negative); SARS COV2 PCR INHOUSE NEGATIVE (Negative)
--- NOTE | 2020-11-25 05:30 | P.HPHOSP_ITS ---
History of Present Illness Date of Service: 11/25/20 Chief Complaint: Dizziness This is an 85-year-old female with past medical history of heart failure with preserved ejection fraction, Alzheimer's dementia, asthma, diabetes, history of dizziness, hypertension and hyperlipidemia, mitral valve disease, NSTEMI pres ents the hospital with dizziness. History is mostly obtained from ED physician as patient is confused and isn't able to give much history, she is awake alert but her history is all over the place, and cannot keep 1 story straight. It appears the patient was at dinner with her family when she started becoming wobbly, having dizziness, her family were concerned and brought her into the ED. There is no other symptoms or complaints. Patient denies any chest pain palpitations, no dizziness, no nausea vomiting or abdominal pain. No urinary symptoms and no lower extremity edema. Patient denies any shortness of breath cough or sputum production. On arrival to the ED hemodynamically stable with no significant abnormal vitals Labs are significant for WBC count of 6.3, hemoglobin of 10.6 which is around her baseline, high sensitivity troponin of 54 which increased to 75 on repeat, and BNP of 347. Her UA is positive for leukocyte Estrace as well as urine WBC, COVID-[address] significant for old left parietal infarct which was present on previous studies, no CT evidence of acute intracranial hemorrhage or acute territorial infection. CT angiogram shows normal CT angiogram of the head and neck. Patient will be admitted for further management of dizziness/UTI Past medical history: HF, Alzheimer's, asthma, diabetes, hypertension, history of dizziness, hyperlipidemia, mitral valve disease, NSTEMI Past surgical history: Pacemaker Family history: Unknown Social history: Lives with her daughter, walks independently, denies tobacco alcohol or illicit drugs Review of Systems Review of Systems: Yes all other systems are reviewed and are negative [facility] Medical History (Updated 11/25/20 @ 05:37 by Sukhwinder Lorenzo MD) (HFpEF) heart failure with preserved ejection fraction Alzheimer's disease Asthma Cardiac arrhythmia Dementia Diabetes mellitus Dizziness GERD (gastroesophageal reflux disease) H/O cardiac pacemaker HLD (hyperlipidemia) HTN (hypertension) Mitral valve disease NSTEMI (non-ST elevated myocardial infarction) Ulcer Family History Other Patient's mother is Surgical History Status post transcatheter aortic valve replacement (TAVR) using bioprosthesis Social History Household Members: Children Housing: Apartment Alcohol intake: never Smoking Status: Former smoker Tobacco Type: Cigarette Smoked in Last 30 Days: No Second Hand Smoke Exposure: No Use of substances other than those prescribed or required for medical reasons: No Advance Directives: No Advance Directives Information Provided: Yes service: No Meds Allergies Allergy/AdvReac Type Severity Reaction Status Date / Time ibuprofen [From Motrin] Allergy Mild RASH Verified 10/16/20 21:53 penicillin G [Penicillin G] Allergy Mild RASH Verified 10/16/20 21:53 penicillin V Allergy Unknown Rash Verified 10/16/20 21:53 Home Medications Medication Instructions Recorded Confirmed Type Eliquis 2.5 mg PO BID 09/04/20 11/24/20 History albuterol sulfate [Ventolin HFA] 2 puff PO Q4-6H PRN 09/04/20 11/24/20 History atorvastatin 40 mg PO DAILY 09/04/20 11/24/20 History furosemide 20 mg PO DAILY 09/04/20 11/24/20 History lisinopril 40 mg PO DAILY 09/04/20 11/24/20 History multivitamin [Daily-Heather] 1 tab PO DAILY 09/04/20 11/24/20 History pantoprazole 40 mg PO DAILY 09/04/20 11/24/20 History sertraline 50 mg PO DAILY 09/04/20 11/24/20 History digoxin [Digox] 125 mcg PO DAILY 10/16/20 11/24/20 History diltiazem HCl 1 cap PO DAILY 11/24/20 11/24/20 History Physical Exam Vital Signs and Narrative: Vital Signs: Last Vital Signs Temp 97.9 F 11/25/20 04:00 Pulse 63 11/25/20 04:00 Resp 16 11/25/20 04:00 BP 142/64 H 11/25/20 04:00 Pulse Ox 97 11/25/20 04:00 Body Mass Index 20.5 Const: Other: Patient is alert, oriented to self and place, but is unable to give me a straight history about why she came into the ED General: cooperative and no acute distress Eyes: General: appearance normal, both eyes and all related structures Pupils: Equal, round and reactive pupils present Resp: Effort & Inspection: normal respiratory effort and able to speak in complete sentences Cardio: Rate: regular rate Rhythm: regular rhythm GI: Palpation (GI): Soft to palpation Auscultation: normal bowel sounds Skin: General skin exam: no rashes or lesions noted Neuro: Other: Has no neurological deficits Cranial nerves: Yes Equal, round and reactive pupils present Cognition (Neuro): normal cognition Extrem: General: Yes normal to inspection and Yes no pedal edema Results Labs CBC and Chem 7: 11/24/20 16:57 11/24/20 16:57 Labs: Laboratory Results - last 24 hr 11/24/20 11/24/20 11/24/20 16:57 16:57 16:57 MCV 93.5 MCH 31.4 MCHC 33.5 RDW 12.4 Plt Count 197 MPV 9.4 Immature Gran % (Auto) 0.2 Neut % (Auto) 55.1 Lymph % (Auto) 32.3 [place] % (Auto) 9.0 Eos % (Auto) 2.9 Baso % (Auto) 0.5 Lymph # (Auto) 2.0 [place]ies # (Auto) 0.6 Eos # (Auto) 0.2 Baso # (Auto) 0.0 Abs Immat Gran (auto) 0.01 Absolute Neuts (auto) 3.5 Absolute Nucleated RBC 0.000 Nucleated RBC % (auto) 0.0 Anion Gap 14 Estim Creat Clear Calc 41.1 Estimated GFR > 60 Random Glucose 124 H Calcium 9.2 Total Bilirubin 0.4 Direct Bilirubin 0.2 AST 21 ALT 12 Alkaline Phosphatase 78 Troponin I High Sens 54.6 H D B-Natriuretic Peptide 347 H Total Protein 7.0 Albumin 4.3 Lipase 33 Urine Color Urine Appearance Urine pH Ur Specific [place] Urine Protein Urine Glucose (UA) Urine Ketones Urine Blood Urine Nitrite Ur Leukocyte Esterase Urine RBC Urine WBC Ur Squamous Epith Cells Amorphous Sediment Urine Bacteria Urine Mucus Coronavirus (PCR) Influenza Type A (PCR) Influenza Type B (PCR) RSV RNA Qual (PCR) 11/24/20 11/24/20 11/24/20 18:49 20:00 23:45 MCV MCH MCHC RDW Plt Count MPV Immature Gran % (Auto) Neut % (Auto) Lymph % (Auto) [place] % (Auto) Eos % (Auto) Baso % (Auto) Lymph # (Auto) [place] # (Auto) Eos # (Auto) Baso # (Auto) Abs Immat Gran (auto) Absolute Neuts (auto) Absolute Nucleated RBC Nucleated RBC % (auto) Anion Gap Estim Creat Clear Calc Estimated GFR Random Glucose Calcium Total Bilirubin Direct Bilirubin AST ALT Alkaline Phosphatase Troponin I High Sens 75.1 H B-Natriuretic Peptide Total Protein Albumin Lipase Urine Color STRAW Urine Appearance HAZY Urine pH 7.5 Ur Specific [place] 1.015 Urine Protein NEG Urine Glucose (UA) NEG Urine Ketones NEG Urine Blood TRACE Urine Nitrite NEG Ur Leukocyte Esterase 3+ H Urine RBC 1-4 Urine WBC 15-29 H Ur Squamous Epith Cells TRACE Amorphous Sediment TRACE Urine Bacteria TRACE Urine Mucus TRACE Coronavirus (PCR) NEGATIVE Influenza Type A (PCR) NEGATIVE Influenza Type B (PCR) NEGATIVE RSV RNA Qual (PCR) NEGATIVE Imaging Radiologist's Impressions: Impressions Chest X-Ray 11/24/20 16:45 IMPRESSION: Hyperinflated lungs without any acute process. Head CT 11/24/20 16:45 IMPRESSION: Old left parietal infarct, appearing similar as compared to the prior study. No CT evidence of acute intracranial hemorrhage or acute territorial infarction. Nonspecific periventricular white matter disease. Head/Neck CTA 11/24/20 21:34 IMPRESSION: Normal CT angiogram of the head and neck. Imaging findings discussed with Dr. Stanton at 10:52 PM on 11/24/2020. Assessment and Plan (1) Dizziness: Status: Acute (2) UTI (urinary tract infection): Qualifiers: Hematuria presence: without hematuria Urinary tract infection type: acute cystitis Qualified Code(s): N30.00 - Acute cystitis without hematuria Status: Acute (3) Atrial fibrillation: Qualifiers: Atrial fibrillation type: unspecified Qualified Code(s): I48.91 - Unspecified atrial fibrillation Status: Acute (4) (HFpEF) heart failure with preserved ejection fraction: Qualifiers: Heart failure chronicity: chronic Qualified Code(s): I50.32 - Chronic diastolic (congestive) heart failure Status: Acute (5) HTN (hypertension): Qualifiers: Hypertension type: essential hypertension Qualified Code(s): I10 - Essential (primary) hypertension Status: Acute (6) HLD (hyperlipidemia): Qualifiers: Hyperlipidemia type: unspecified Qualified Code(s): E78.5 - Hyperlipidemia, unspecified Status: Acute This is an 85-year-old female with extensive past medical history who presents to the hospital after experiencing dizziness found to have UTI. # dizziness - most likely due to acute infection with UTI - has no evidence of neurological deficits, neurological exam negative, CT head negative, CT angiogram negative, therefore unlikely to have had a TIA Plan: - will obtain orthostatic vitals - treat underlying infection - will hold off on giving IV fluids as patient does not appear to be dehydrated or hypovolemic, pending orthostatic vitals # UTI - leukocyte esterase and urine WBC positive - will start her on ceftriaxone - follow urine cultures # atrial fibrillation - rate controlled - continue digoxin, diltiazem, - continue apixaban # hypertension - stable - continue lisinopril, diltiazem # CHF - does not appear to be in fluid overload - continue Lasix daily, lisinopril, DVT prophylaxis: apixaban
[2020-11-25] MEDS: cefTRIAXone sodium 1 GM in 0.9 % Sodium Chloride 50 ML IV (07:03)
[2020-11-25] MEDS: Furosemide 20 MG TABLET PO (08:41)
[2020-11-25] MEDS: Omeprazole 40 MG CAPSULE.DR PO (08:41)
[2020-11-25] MEDS: lisinopriL 40 MG TABLET PO (08:41)
[2020-11-25] MEDS: Sertraline HCL 50 MG TABLET PO (08:41)
[2020-11-25] MEDS: Multivitamin TABLET 1 TAB PO (08:41)
[2020-11-25] MEDS: 0.9 % Sodium Chloride Flush 3 ML SYRINGE IVFLUSH ×3 (08:42→23:17)
[2020-11-25] MEDS: Apixaban 2.5 MG TABLET PO ×2 (08:42→20:05)
[2020-11-25] MEDS: dilTIAZem HCL CD 120 MG CAP.ER.DEG PO (08:42)
[2020-11-25] MEDS: Atorvastatin Calcium 40 MG TABLET PO (08:42)
[2020-11-25] MEDS: Digoxin 0.125 MG TABLET PO (08:42)
--- NOTE | 2020-11-25 12:46 | PC.NURSE ---
x1 attempt to give report, awaiting callback
--- NOTE | 2020-11-25 13:29 | PC.NURSE ---
x2 attemp to call report- awaiting phone call back from rn. Pt is resting in hallway, ate 50% of meal, denies needs or complaints.
--- NOTE | 2020-11-25 13:31 | PC.NURSE ---
IV R AC present upon report, this rn documented, unknown rn placed.
--- NOTE | 2020-11-25 14:19 | PC.NURSE ---
x3 attempt to give report
[2020-11-25 18:34] LABS: Troponin-I High Sensitivity 306.7 ng/L (<3.5-17.0)
--- NOTE | 2020-11-25 18:52 | PM.EVENT ---
Event Note Date of Service: 11/25/20 Event Note: Patient seen and examined. Admitted this AM with dizziness and now elevated trop. No chest pain. Will repeat ECG. Pt is on Eliquis and will not add aditional anticoagulation, had similar presentation couple of months ago. Will get dcardiology to see in the morning.
[2020-11-26 04:00] VITALS: BP 167/92; PULSE 79; RESP 18; TEMP 36.7; O2SAT 97
[2020-11-26 05:00] LABS: Glucose Urine UA NEG (NEG); Leukocyte Esterase Urine 1+ (NEG); Nitrite Urine NEG (NEG); PH 6.5 (5.0-8.0); Urine Blood NEG (NEG); Urine Ketones NEG (NEG); Urine Protein NEG (NEG-TRACE)
[2020-11-26 05:01] LABS: Appearance Urine CLEAR; Color Urine YELLOW
[2020-11-26] MEDS: cefTRIAXone sodium 1 GM in 0.9 % Sodium Chloride 50 ML IV (05:07)
[2020-11-26 05:18] LABS: Bacteria Urine 1+ /LPF; Mucus Urine 1+ /LPF; Renal Epithelial Cells Urine 1+ /LPF; Squamous Epithelial Cell Urine 1+ /LPF
[2020-11-26 05:52] LABS: MANUAL DIFF FLAG NO
[2020-11-26 05:58] LABS: Basophils Percent Auto 0.6 % (0-2); Eosinophils Absolute Auto 0.3 X10*3/uL (0.0-0.4); Eosinophils Percent Auto 4.3 % (0-4); Hematocrit 33.7 % (37-47); Hemoglobin 11.1 g/dl (12.0-16.0); Imm Gran Abs Auto 0.02 X10*3/uL (0.00-0.03); Imm Gran Pct Auto 0.3 % (0.0-0.4); Lymphocytes Absolute Auto 1.7 X10*3/uL (1.2-4.9); Lymphocytes Percent Auto 24.4 % (20-40); Mean Corpuscular HGB Conc 32.9 g/dl (31.0-35.0); Mean Corpuscular Hemoglobin 30.1 pg (27.0-33.0); Mean Corpuscular Volume 91.3 fL (80-98); Mean Platelet Volume 10.5 fL (9.4-12.3); Monocytes Absolute Auto 0.6 X10*3/uL (0.1-1.2); Monocytes Percent Auto 9.4 % (2-11); Neutrophils Absolute Auto 4.1 X10*3/uL (2.0-8.3); Platelet Count 246 X10*3/uL (160-400); Red Blood Count 3.69 X10*6/uL (4.20-5.50); Red Cell Distribution Width 12.1 % (11.0-16.0); White Blood Count 6.8 X10*3/uL (4.8-10.8)
[2020-11-26 06:23] LABS: Anion Gap 15 (12-20); Blood Urea Nitrogen 11 mg/dL (9-16); Carbon Dioxide 29 mmol/L (22-29); Chloride 100 mmol/L (96-108); Creatinine Clr Calc Pharmacy 41.1; Estimated Glomerular Filt Rate > 60; Glucose Random 102 mg/dL (60-115); Potassium 3.3 mmol/l (3.3-5.1); Sodium 141 mmol/L (135-145)
[2020-11-26 07:49] VITALS: BP 162/82; PULSE 81; RESP 20; TEMP 36.3; O2SAT 97
[2020-11-26 09:35] LABS: Troponin-I High Sensitivity 264.8 ng/L (<3.5-17.0)
[2020-11-26] MEDS: Multivitamin TABLET 1 TAB PO (11:11)
[2020-11-26] MEDS: Furosemide 20 MG TABLET PO (11:12)
[2020-11-26] MEDS: Apixaban 2.5 MG TABLET PO (11:12)
[2020-11-26] MEDS: Sertraline HCL 50 MG TABLET PO (11:12)
[2020-11-26] MEDS: lisinopriL 40 MG TABLET PO (11:12)
[2020-11-26] MEDS: Omeprazole 40 MG CAPSULE.DR PO (11:12)
[2020-11-26] MEDS: Digoxin 0.125 MG TABLET PO (11:12)
[2020-11-26] MEDS: 0.9 % Sodium Chloride Flush 3 ML SYRINGE IVFLUSH (11:12)
[2020-11-26] MEDS: dilTIAZem HCL CD 120 MG CAP.ER.DEG PO (11:12)
[2020-11-26] MEDS: Atorvastatin Calcium 40 MG TABLET PO (11:12)
--- NOTE | 2020-11-26 11:24 | P.CONCA_ITS ---
History of Present Illness History of Present Illness Date of Service: 11/26/20 [facility] Consult reason: atrial fibrillation Chief complaint: dizziness Narrative: Thank you for inviting us in consult on Ashley for mildly elevated troponins. Patient has complex prior cardiovascular history. Patient with prior history of transcatheter aortic valve replacement for aortic stenosis, cardiac pacemaker in-situ for sick sinus syndrome, persistent atrial fibrillation since May, diastolic heart failure, hypertension, Alzheimer's dementia and prior history of non ST elevation myocardial infarction. History today was obtained with help of aerial photograph interpreter. Patient says she was yesterday at home with her [id number] having dinner and then suddenly got dizzy, she describes as the world spinning around. No loss of consciousness. Her daughter caught her and called ambulance to bring her to the emergency room. She was noted to be in atrial fibrillation with controlled ventricular response. Elevated but stable BNP. Her troponins also elevated admission 54.6 and then recur risen to 306.7. In the past when she was admitted she also had similar elevated troponins. Her last echocardiogram which showed an normal LV ejection fraction with LVEF of 65-70% with grade 2 diastolic dysfunction mild mitral stenosis. She has no documented history of prior coronary artery disease but NSTEMI related to atrial fibrillation. Currently she is feeling well and says that she wants to go home. She denies any chest pain, shortness of breath, palpitations with her symptoms of dizziness. Findings consistent with urinary tract infection. Review of Systems Constitutional: Constitutional: Denies chills and Denies fever(s) Eyes: Eyes: Reports no additional eye complaints ENT: Reports system reviewed and no additional complaints, except as documented and Reports dizziness Cardiovascular: Cardiovascular: Denies chest pain, Denies irregular heart rhythm, Denies Loss of Consciousness, Denies palpitations and Denies dyspnea Respiratory: Respiratory: Denies cough and Denies dyspnea Gastrointestinal: Gastrointestinal: Reports no additional gastrointestinal complaints Musculoskeletal: Musculoskeletal: Reports no additional musculoskeletal complaints Neurologic: Reports dizziness and Reports other Psychiatric: Psychiatric: Reports no additional psychiatric complaints Endocrine: Endocrine: Denies palpitations [facility] Past Medical History Medical History (HFpEF) heart failure with preserved ejection fraction Alzheimer's disease Asthma Cardiac arrhythmia Dementia Diabetes mellitus Dizziness GERD (gastroesophageal reflux disease) H/O cardiac pacemaker HLD (hyperlipidemia) HTN (hypertension) Mitral valve disease NSTEMI (non-ST elevated myocardial infarction) Ulcer Family History Family History Other Patient's mother is Surgical History Surgical History Status post transcatheter aortic valve replacement (TAVR) using bioprosthesis Social History Social History Household Members: Family Housing: Apartment Alcohol intake: never Smoking Status: Former smoker Tobacco Type: Cigarette Smoked in Last 30 Days: No Second Hand Smoke Exposure: No Use of substances other than those prescribed or required for medical reasons: No Currently Displaying Signs/Symptoms of Drug Intoxication Withdrawal: No Have you been hit, kicked, punched, or otherwise hurt by someone within the past year? If so, by whom?: No Do you feel safe in your current relationship?: No Is there a partner from a previous relationship who is making you feel unsafe now?: No Are you made to feel afraid or neglected: No Spiritual Healthcare Practices: RELIGIOUS Advance Directives: No Advance Directives Information Provided: Yes Advance Directives on File: No Do you have thoughts of harming others: None Do you have a plan to hurt others: No Plan Recently lost weight without trying: No service: No Meds Allergies Allergy/AdvReac Type Severity Reaction Status Date / Time ibuprofen [From Motrin] Allergy Mild RASH Verified 10/16/20 21:53 penicillin G [Penicillin G] Allergy Mild RASH Verified 10/16/20 21:53 penicillin V Allergy Unknown Rash Verified 10/16/20 21:53 Home Medications Medication Instructions Recorded Confirmed Type Eliquis 2.5 mg PO BID 09/04/20 11/24/20 History albuterol sulfate [Ventolin HFA] 2 puff PO Q4-6H PRN 09/04/20 11/24/20 History atorvastatin 40 mg PO DAILY 09/04/20 11/24/20 History furosemide 20 mg PO DAILY 09/04/20 11/24/20 History lisinopril 40 mg PO DAILY 09/04/20 11/24/20 History multivitamin [Daily-Heather] 1 tab PO DAILY 09/04/20 11/24/20 History pantoprazole 40 mg PO DAILY 09/04/20 11/24/20 History sertraline 50 mg PO DAILY 09/04/20 11/24/20 History digoxin [Digox] 125 mcg PO DAILY 10/16/20 11/24/20 History diltiazem HCl 1 cap PO DAILY 11/24/20 11/24/20 History Physical Exam Vital Signs: Vital Signs: Last Vital Signs Temp 97.4 F 11/26/20 07:49 Pulse 81 11/26/20 07:49 Resp 20 11/26/20 07:49 BP 162/82 H 11/26/20 07:49 Pulse Ox 97 11/26/20 07:49 Body Mass Index 20.5 Const: General: cooperative, comfortable, no acute distress, awake and Physically active Nutritional Appearance: underweight Orientation/consciousness: patient oriented x3 HENMT: Head: Yes normocephalic and Yes atraumatic Eyes: General: appearance normal, both eyes and all related structures Neck: Neck: Yes trachea midline, Yes supple and Yes no JVD Chest: Chest palpation & inspection: normal inspection of the chest Resp: Effort & Inspection: normal respiratory effort Auscultation: clear to auscultation bilaterally Cardio: Jugular venous distension: no JVD Palpation: normal PMI Rate: regular rate Rhythm: regular rhythm Heart sounds: S1 normal heart sound present, S2 normal heart sound present and Other heart sounds present (S4) GI: Auscultation: normal bowel sounds Skin: General skin exam: no rashes or lesions noted Neuro: General: patient oriented x3 and no focal motor deficits Extrem: General: Yes no clubbing, cyanosis or edema Psych: Appearance: grossly normal Results Labs and Meds Result diagrams: 11/26/20 04:39 11/26/20 04:39 Lab results: Laboratory Results - last 24 hr 11/25/20 11/26/20 11/26/20 17:39 04:39 04:39 WBC 6.8 RBC 3.69 L Hgb 11.1 L Hct 33.7 L MCV 91.3 MCH 30.1 MCHC 32.9 RDW 12.1 Plt Count 246 MPV 10.5 Immature Gran % (Auto) 0.3 Neut % (Auto) 61.0 Lymph % (Auto) 24.4 [place] % (Auto) 9.4 Eos % (Auto) 4.3 H Baso % (Auto) 0.6 Lymph # (Auto) 1.7 [place] # (Auto) 0.6 Eos # (Auto) 0.3 Baso # (Auto) 0.0 Abs Immat Gran (auto) 0.02 Absolute Neuts (auto) 4.1 Absolute Nucleated RBC 0.000 Nucleated RBC % (auto) 0.0 Sodium 141 Potassium 3.3 Chloride 100 Carbon Dioxide 29 Anion Gap 15 BUN 11 Creatinine 0.79 Estim Creat Clear Calc 41.1 Estimated GFR > 60 Random Glucose 102 Calcium 9.0 Troponin I High Sens 306.7 H D Urine Color Urine Appearance Urine pH Ur Specific [place] Urine Protein Urine Glucose (UA) Urine Ketones Urine Blood Urine Nitrite Ur Leukocyte Esterase Urine RBC Urine WBC Ur Squamous Epith Cells Ur Renal Epithelial Cell Urine Bacteria Urine Mucus 11/26/20 11/26/20 04:52 08:48 WBC RBC Hgb Hct MCV MCH MCHC RDW Plt Count MPV Immature Gran % (Auto) Neut % (Auto) Lymph % (Auto) [place] % (Auto) Eos % (Auto) Baso % (Auto) Lymph # (Auto) [place] # (Auto) Eos # (Auto) Baso # (Auto) Abs Immat Gran (auto) Absolute Neuts (auto) Absolute Nucleated RBC Nucleated RBC % (auto) Sodium Potassium Chloride Carbon Dioxide Anion Gap BUN Creatinine Estim Creat Clear Calc Estimated GFR Random Glucose Calcium Troponin I High Sens 264.8 H Urine Color YELLOW Urine Appearance CLEAR Urine pH 6.5 Ur Specific [place] 1.020 Urine Protein NEG Urine Glucose (UA) NEG Urine Ketones NEG Urine Blood NEG Urine Nitrite NEG Ur Leukocyte Esterase 1+ H Urine RBC 1-4 Urine WBC 10-14 H Ur Squamous Epith Cells 1+ Ur Renal Epithelial Cell 1+ Urine Bacteria 1+ Urine Mucus 1+ EKG shows normal sinus rhythm with right bundle-branch block with no acute ST T wave changes. Assessment and Plan (1) Elevated troponin: Status: Acute Elevated troponin suggestive of myocardial injury and rise and fall consistent with NSTEMI. However the cause unknown. She does not have any clear ischemic symptoms. No ischemic changes. Question this is secondary to deve lopment of paroxysmal atrial fibrillation episode, see below. Will require ischemic workup as outpatient. Currently not having any obvious symptoms. Could also be secondary to UTI. This is being treated by the hospitalist team. Continue antibiotic therapy. Will perform vaso dilator myocardial perfusion imaging as an outpatient in near future. (2) Paroxysmal atrial fibrillation: Status: Acute Prior history of atrial fibrillation causing dizziness and admission in the hospital. Converted to sinus rhythm with improvement in symptoms. Sudden onset dizziness yesterday question episode of atrial fibrillation. This is unclear. She does not have any symptoms of palpitations. Has no episodes of atrial fibrillation currently. However has done well with rhythm control approach will continue to pursue the same. Will obtain a event monitor to assess for symptomatic episodes of atrial fibrillation that may require further antiarrhythmic drug therapy. Continue full oral anticoagulation, currently on E liquis. (3) Dizziness: Status: Acute Symptoms of dizziness of unclear etiology. Will require further workup with outpatient event monitor. Question correlating with episodes of atrial fibrillation as it has in the past. Also has recurrent elevated troponins and NSTEMI will obtain a myocardial perfusion imaging to assess for myocardial ischemia. Blood pressure is elevated. Consider adding Aldactone therapy to her regimen for better blood pressure control. (4) UTI (urinary tract infection): Qualifiers: Urinary tract infection type: acute cystitis Hematuria presence: without hematuria Qualified Code(s): N30.00 - Acute cystitis without hematuria Status: Acute UTI could also be responsible for elevated troponin symptoms of dizziness. Currently being treated. No evidence of sepsis. Management as per the hospitalist team. Thank you for allowing us to take care of this patient. Will follow up as outpatient
[2020-11-26 12:00] VITALS: BP 152/85; PULSE 92; RESP 18; TEMP 36.2; O2SAT 97
--- NOTE | 2020-11-26 12:02 | P.DS_ITS ---
DS: Providers Provider Date of admission: 11/25/20 00:51 Primary care physician: Unknown Physician Consults: 11/25/20 18:55 Consult to Cardiology Routine Consulting Provider: Samm Sepulveda Reason for consultation: abnormal trop DS: Diagnosis Discharge Diagnosis (1) Elevated troponin: Status: Acute (2) Paroxysmal atrial fibrillation: Status: Acute (3) Dizziness: Status: Acute (4) UTI (urinary tract infection): Status: Acute DS: Medications Discharge Medications Home Medications: Home Medications Medication Instructions Recorded Confirmed Eliquis 2.5 mg PO BID 09/04/20 11/24/20 albuterol sulfate [Ventolin HFA] 2 puff PO Q4-6H PRN 09/04/20 11/24/20 atorvastatin 40 mg PO DAILY 09/04/20 11/24/20 furosemide 20 mg PO DAILY 09/04/20 11/24/20 lisinopril 40 mg PO DAILY 09/04/20 11/24/20 multivitamin [Daily-Heather] 1 tab PO DAILY 09/04/20 11/24/20 pantoprazole 40 mg PO DAILY 09/04/20 11/24/20 sertraline 50 mg PO DAILY 09/04/20 11/24/20 digoxin [Digox] 125 mcg PO DAILY 10/16/20 11/24/20 diltiazem HCl 1 cap PO DAILY 11/24/20 11/24/20 DS: Summary Hospital Course Hospital Course: This is an 85-year-old female with past medical history of heart failure with preserved ejection fraction, Alzheimer's dementia, asthma, diabetes, history of dizziness, hypertension and hyperlipidemia, mitral valve disease, NSTEMI presents the hospital with dizziness. History is mostly obtained from ED physician as patient is confused and isn't able to give much history, she is awake alert but her history is all over the place, and cannot keep 1 story straight. It appears the patient was at dinner with her family when she started becoming wobbly, having dizziness, her family were concerned and brought her into the ED. There is no other symptoms or complaints. Patient denies any chest pain palpitations, no dizziness, no nausea vomiting or abdominal pain. No urinary symptoms and no lower extremity edema. Patient denies any shortness of breath cough or sputum production. On arrival to the ED hemodynamically stable with no significant abnormal vitals Labs are significant for WBC count of 6.3, hemoglobin of 10.6 which is around her baseline, high sensitivity troponin of 54 which increased to 75 on repeat, and BNP of 347. Her UA is positive for leukocyte Estrace as well as urine WBC, COVID-[address] significant for old left parietal infarct which was present on previous studies, no CT evidence of acute intracranial hemorrhage or acute territorial infection. CT angiogram shows normal CT angiogram of the head and neck. Patient will be admitted for further management of dizziness/UTI Past medical history: HF, Alzheimer's, asthma, diabetes, hypertension, history of dizziness, hyperlipidemia, mitral valve disease, NSTEMI Past surgical history: Pacemaker Hospitalist: Dizziness no evidence of arrythmia..The last time she had a similar incidence she was in AFIB with RVR but AFIB has been controlled now controlled. Cardiology will arrange for more work up with Holter on outptient basis. She doesn't have dizziness anymore, even upon ambulation Elevated troponin/NSTEMII: with no chest pain and no ECG changes. Pattern is similar to what happened last time with AFIB with RVR but not clear. She is not havent' pain right and will need further ischemic work up on outpatient [facility]. UTI--culture not growth. Doesn't have fever, WBC is normal has been treated with IV Ceftriaxone for 2 days, and will change to Ceftin for 3 more days. HTN--BP remains high on Lisinopril and Lasix and will Add Aldactone 25 and should have potassium check within a week HFpEF--continue Lasix Time Spent with Patient Time attestation: Total time spent providing and/or coordinating discharge services: Physical Exam Vital Signs: Vital Signs: Last Vital Signs Temp 97.4 F 11/26/20 07:49 Pulse 81 11/26/20 07:49 Resp 20 11/26/20 07:49 BP 162/82 H 11/26/20 07:49 Pulse Ox 97 11/26/20 07:49 Body Mass Index 20.5 General: AO X 3, no acute distress Resp: CTA bilateral CVS: S1,S2,RRR GI: +BS, NT, no distention Skin: No rash Neuro: motor grossly intact Psych: appropriate affect DS: Data Data Completed and Pending Labs on day of discharge: 11/24/20 16:45 ECG 12 lead EKG Stat EKG Documentation DIRECTED CT head/brain wo con Stat XR chest 1V Stat 11/24/20 16:57 B Type Natriuretic Peptide Stat Basic Metabolic Panel Stat Complete Blood Count Auto Diff Stat Lipase Stat Liver Panel Stat Troponin-I High Sensitivity Stat 11/24/20 19:06 Urine Culture Routine 11/24/20 20:00 Troponin-I High Sensitivity Stat 11/24/20 21:34 CT angio head neck stroke Stat 11/24/20 22:30 iohexoL 350 MG/ML [Omnipaque 350 MG/ML] 100 ml IV ONCE ONE 11/24/20 23:45 SARS-CoV2/FLU/RSV Stat 11/25/20 ECG 12 lead EKG Stat 11/25/20 00:41 Transfer Order Routine 11/25/20 06:58 cefTRIAXone sodium [Rocephin] 1 gm .ROUTE .STK-MED ONE 11/25/20 17:39 Troponin-I High Sensitivity Stat 11/25/20 18:55 EKG Documentation DIRECTED 11/26/20 04:39 Basic Metabolic Panel Routine Complete Blood Count Auto Diff Routine 11/26/20 04:59 cefTRIAXone sodium [Rocephin] 1 gm .ROUTE .STK-MED ONE 11/26/20 08:48 Troponin-I High Sensitivity Stat 11/26/20 11:57 Spironolactone [Aldactone] 25 mg PO ONCE ONE Laboratory Last Values WBC 6.8 X10*3/uL (4.8-10.8) 11/26/20 04:39 RBC 3.69 X10*6/uL (4.20-5.50) L 11/26/20 04:39 Hgb 11.1 g/dl (12.0-16.0) L 11/26/20 04:39 Hct 33.7 % (37-47) L 11/26/20 04:39 MCV 91.3 fL (80-98) 11/26/20 04:39 MCH 30.1 pg (27.0-33.0) 11/26/20 04:39 MCHC 32.9 g/dl (31.0-35.0) 11/26/20 04:39 RDW 12.1 % (11.0-16.0) 11/26/20 04:39 Plt Count 246 X10*3/uL (160-400) 11/26/20 04:39 MPV 10.5 fL (9.4-12.3) 11/26/20 04:39 Immature Gran % (Auto) 0.3 % (0.0-0.4) 11/26/20 04:39 Neut % (Auto) 61.0 % (45-73) 11/26/20 04:39 Lymph % (Auto) 24.4 % (20-40) 11/26/20 04:39 [place] % (Auto) 9.4 % (2-11) 11/26/20 04:39 Eos % (Auto) 4.3 % (0-4) H 11/26/20 04:39 Baso % (Auto) 0.6 % (0-2) 11/26/20 04:39 Lymph # (Auto) 1.7 X10*3/uL (1.2-4.9) 11/26/20 04:39 [place] # (Auto) 0.6 X10*3/uL (0.1-1.2) 11/26/20 04:39 Eos # (Auto) 0.3 X10*3/uL (0.0-0.4) 11/26/20 04:39 Baso # (Auto) 0.0 X10*3/uL (0.0-0.2) 11/26/20 04:39 Abs Immat Gran (auto) 0.02 X10*3/uL (0.00-0.03) 11/26/20 04:39 Absolute Neuts (auto) 4.1 X10*3/uL (2.0-8.3) 11/26/20 04:39 Absolute Nucleated RBC 0.000 X10*3/uL (0.0-0.012) 11/26/20 04:39 Nucleated RBC % (auto) 0.0 /100WBC (0.0-0.2) 11/26/20 04:39 Sodium 141 mmol/L (135-145) 11/26/20 04:39 Potassium 3.3 mmol/l (3.3-5.1) 11/26/20 04:39 Chloride 100 mmol/L (96-108) 11/26/20 04:39 Carbon Dioxide 29 mmol/L (22-29) 11/26/20 04:39 Anion Gap 15 (12-20) 11/26/20 04:39 BUN 11 mg/dL (9-16) 11/26/20 04:39 Creatinine 0.79 mg/dL (0.5-1.4) 11/26/20 04:39 Estim Creat Clear Calc 41.1 11/26/20 04:39 Estimated GFR > 60 11/26/20 04:39 Random Glucose 102 mg/dL (60-115) 11/26/20 04:39 Calcium 9.0 mg/dL (8.4-10.2) 11/26/20 04:39 Total Bilirubin 0.4 mg/dL (0.0-1.0) 11/24/20 16:57 Direct Bilirubin 0.2 mg/dL (0.0-0.5) 11/24/20 16:57 AST 21 U/L (5-31) 11/24/20 16:57 ALT 12 U/L (0-31) 11/24/20 16:57 Alkaline Phosphatase 78 U/L (39-117) 11/24/20 16:57 Troponin I High Sens 264.8 ng/L (<3.5-17.0) H 11/26/20 08:48 B-Natriuretic Peptide 347 pg/mL (<100) H 11/24/20 16:57 Total Protein 7.0 g/dL (6.5-8.0) 11/24/20 16:57 Albumin 4.3 g/dL (3.5-5.0) 11/24/20 16:57 Lipase 33 U/L (8-78) 11/24/20 16:57 Urine Color YELLOW 11/26/20 04:52 Urine Appearance CLEAR 11/26/20 04:52 Urine pH 6.5 (5.0-8.0) 11/26/20 04:52 Ur Specific [place] 1.020 (1.005-1.025) 11/26/20 04:52 Urine Protein NEG MG/DL (NEG-TRACE) 11/26/20 04:52 Urine Glucose (UA) NEG MG/DL (NEG) 11/26/20 04:52 Urine Ketones NEG MG/DL (NEG) 11/26/20 04:52 Urine Blood NEG (NEG) 11/26/20 04:52 Urine Nitrite NEG (NEG) 11/26/20 04:52 Ur Leukocyte Esterase 1+ (NEG) H 11/26/20 04:52 Urine RBC 1-4 /HPF (0) 11/26/20 04:52 Urine WBC 10-14 /HPF (0-4) H 11/26/20 04:52 Ur Squamous Epith Cells 1+ /LPF 11/26/20 04:52 Ur Renal Epithelial Cell 1+ /LPF 11/26/20 04:52 Amorphous Sediment TRACE /LPF 11/24/20 18:49 Urine Bacteria 1+ /LPF 11/26/20 04:52 Urine Mucus 1+ /LPF 11/26/20 04:52 Coronavirus (PCR) NEGATIVE (Negative) 11/24/20 23:45 Influenza Type A (PCR) NEGATIVE (Negative) 11/24/20 23:45 Influenza Type B (PCR) NEGATIVE (Negative) 11/24/20 23:45 RSV RNA Qual (PCR) NEGATIVE (Negative) 11/24/20 23:45 Discharge Plan Discharge Anticipated Discharge Date/Time: 11/26/20 11:58 Patient Disposition: Home, Self-Care Referrals: Physician,Unknown [Primary Care Provider] - Discharge Medications: New spironolactone [Aldactone] 25 mg tablet 25 mg PO DAILY Qty: 30 RF: 0 cefuroxime axetil 250 mg tablet 250 mg PO BID Qty: 5 RF: 0 Continued furosemide 20 mg tablet 20 mg PO DAILY RF: 0 multivitamin [Daily-Heather] Tablet 1 tab PO DAILY RF: 0 atorvastatin 40 mg tablet 40 mg PO DAILY RF: 0 pantoprazole 40 mg tablet,delayed release (DR/EC) 40 mg PO DAILY RF: 0 albuterol sulfate [Ventolin HFA] 90 mcg/actuation HFA aerosol inhaler 2 puff PO Q4-6H PRN (Reason: Shortness Of Breath) RF: 0 lisinopril 40 mg tablet 40 mg PO DAILY RF: 0 sertraline 50 mg tablet 50 mg PO DAILY RF: 0 Eliquis 2.5 mg tablet 2.5 mg PO BID RF: 0 digoxin [Digox] 125 mcg (0.125 mg) Tablet 125 mcg PO DAILY RF: 0 diltiazem HCl 120 mg capsule,extended release 24hr 1 cap PO DAILY RF: 0 Discharge Orders: Discharge Order (Routine); Ordered 11/26/20 Ordered By: [facility] Diet: advance to usual diet Activity on Discharge: As tolerated Discharge Date/Time: 11/26/20 14:24 Visit Report Forms: Patient Portal Discharge page Care Plan Goals: To figure out why recurrent dizziness Health Concerns: Recurrent dizzines Plan of Treatment: Follow up with Dr. Sepulveda for holter monitor
[2020-11-26 12:49] VITALS: BP 193/93; PULSE 97
[2020-11-26] MEDS: Spironolactone 25 MG TABLET PO (12:49)
[2020-11-26 13:50] VITALS: BP 157/65; PULSE 80
== END 2020-11-26 14:24 | disposition home or self-care (01) | DRG 689 ==
LOC: HO.ED 23:00 → HO.IMC 11-25 12:40
PROVIDERS: Admitting Provider Internal Medicine; Emergency Provider Emergency Medicine; Visit Provider Internal Medicine
DX: N39.0 Urinary tract infection, site not specified (principal); I21.4 Non-ST elevation (NSTEMI) myocardial infarction; I50.32 Chronic diastolic (congestive) heart failure; I48.0 Paroxysmal atrial fibrillation; K21.9 Gastro-esophageal reflux disease without esophagitis; E78.5 Hyperlipidemia, unspecified; G30.9 Alzheimer's disease, unspecified; F02.80 Dementia in other diseases classified elsewhere, unspecified severity, without behavioral disturbance, psychotic disturbance, mood disturbance, and anxiety; I11.0 Hypertensive heart disease with heart failure; I25.2 Old myocardial infarction; Z20.828 Contact with and (suspected) exposure to other viral communicable diseases; Z88.0 Allergy status to penicillin; Z88.6 Allergy status to analgesic agent; Z79.01 Long term (current) use of anticoagulants; Z79.899 Other long term (current) drug therapy
CPT/HCPCS: 0241U; 36415; 70450; 70496; 70498; 71045; 80048; 80076; 81001; 81003; 83690; 83880; 84484; 85025; 87086; 93005; 99285; J0696; Q9967

== ENCOUNTER → 2021-01-08 14:32 | Outpatient (BNVA) | payer MEDICARE, MEDICAID, SELFPAY | PROVIDERS: Visit Provider Internal Medicine | DX: I48.0 Paroxysmal atrial fibrillation (principal); I50.32 Chronic diastolic (congestive) heart failure; I05.9 Rheumatic mitral valve disease, unspecified; I10 Essential (primary) hypertension; Z95.3 Presence of xenogenic heart valve | CPT/HCPCS: 99212 ==

== ENCOUNTER → 2021-04-11 13:40 | Outpatient (BNVA) | payer MEDICARE, MEDICAID, SELFPAY | PROVIDERS: PCP Nurse Practitioner Primary Care; Referring Provider Nurse Practitioner Primary Care; Visit Provider Internal Medicine | DX: I50.32 Chronic diastolic (congestive) heart failure (principal); I48.0 Paroxysmal atrial fibrillation; I50.9 Heart failure, unspecified; I10 Essential (primary) hypertension; Z95.3 Presence of xenogenic heart valve | CPT/HCPCS: 99212 ==

== ENCOUNTER 2021-04-19 01:26 | Emergency (ER) | payer MEDICARE, MEDICAID, SELFPAY ==
--- NOTE | ~2021-04-19 | XR_ITS ---
EXAMINATION: XR CHEST CLINICAL INFORMATION: Cough COMPARISON: 11/24/2020 TECHNIQUE: Frontal view of the chest was obtained. FINDINGS: Left-sided pacemaker lead tips overlie the right atrium and right ventricle. Lung volumes are symmetric. No focal consolidation is seen. No evidence of pneumothorax, significant pleural effusion, or overt pulmonary edema. Cardiac silhouette remains mildly enlarged. Calcification is present at the aortic arch. Patient is status post TAVR. No acute osseous findings are seen. XR/XR chest 1V IMPRESSION: No acute cardiopulmonary findings.
[2021-04-19 01:46] VITALS: BP 178/67; PULSE 77; RESP 19; TEMP 36.9; O2SAT 95; BMI 21.9
--- NOTE | 2021-04-19 02:51 | ECG_ITS ---
Test Reason : DIZZINESS Blood Pressure : / mmHG Vent. Rate : 068 BPM Atrial Rate : 068 BPM P-R Int : 166 ms QRS Dur : 132 ms QT Int : 440 ms P-R-T Axes : 012 -31 034 degrees QTc Int : 467 ms Normal sinus rhythm Left axis deviation Right bundle branch block Abnormal ECG When compared with ECG of 25-NOV-2020 19:01, No significant change was found Referred By: Radha Monahan Electronically Signed By:VIN JOHNS MD
--- NOTE | 2021-04-19 03:29 | ED_ITS ---
HPI - Dizziness General Chief Complaint: Dizziness Stated Complaint: DIZZINESS Time Seen by Provider: 04/19/21 02:51 Source: patient, family (Daughter) and yard attendant Mode of arrival: ambulatory History of Present Illness HPI Narrative: 86-year-old female who states that she experienced an isolated episode of feeling lightheaded but otherwise has had no further symptoms. She denies as being associated with fever, chills, shortness of breath, chest pain/palpitations, or GI symptoms. She denies any increase in swelling bilateral lower extremities. At this time patient is asymptomatic. Related Data Home Medications Medication Instructions Recorded Confirmed albuterol sulfate [Ventolin HFA] 2 puff PO Q4-6H PRN 09/04/20 04/11/21 atorvastatin 40 mg PO DAILY 09/04/20 04/11/21 lisinopril 40 mg PO DAILY 09/04/20 04/11/21 multivitamin [Daily-Heather] 1 tab PO DAILY 09/04/20 04/11/21 pantoprazole 40 mg PO DAILY 09/04/20 04/11/21 sertraline 50 mg PO DAILY 09/04/20 04/11/21 magnesium oxide 400 mg (241.3 mg 400 mg PO BID 01/08/21 04/11/21 magnesium) tablet dicyclomine 20 mg tablet 20 mg PO TID 04/11/21 04/11/21 diltiazem HCl 300 mg 300 mg PO DAILY 04/11/21 04/11/21 capsule,extended release 24 hr Previous Rx's Medication Instructions Recorded spironolactone [Aldactone] 25 mg PO DAILY #30 tab 11/26/20 apixaban 2.5 mg tablet 2.5 mg PO BID #60 tab 12/18/20 furosemide 20 mg tablet 20 mg PO .As needed #90 tab 04/11/21 cefdinir 300 mg PO BID 7 Days #14 cap 04/19/21 Allergies Allergy/AdvReac Type Severity Reaction Status Date / Time ibuprofen [From Motrin] Allergy Mild RASH Verified 04/11/21 13:41 Penicillins Allergy Unknown RASH Verified 04/11/21 13:41 Review of Systems Review of Systems: Pertinent positives and negatives as stated in HPI 10 point review of systems is otherwise negative. PMF Past Medical History Source: nursing notes reviewed Medical History (HFpEF) heart failure with preserved ejection fraction Alzheimer's disease Asthma Atrial fibrillation Brain TIA Cardiac arrhythmia Chronic heart failure with preserved ejection fraction (HFpEF) Dementia Diabetes mellitus Dizziness Elevated troponin Essential hypertension Fall Gastrointestinal bleeding GERD (gastroesophageal reflux disease) H/O cardiac pacemaker HLD (hyperlipidemia) HTN (hypertension) Mitral valve disease NSTEMI (non-ST elevated myocardial infarction) Paroxysmal atrial fibrillation Ulcer Surgical History History of permanent cardiac pacemaker placement (~08/2019) Status post transcatheter aortic valve replacement (TAVR) using bioprosthesis Family History Family History Other Patient's mother is Social History Social History Household Members: Family Housing: Apartment Do you presently have visiting nurse or other home services: No Alcohol intake: unknown Smoking Status: Former smoker Tobacco Type: Cigarette Second Hand Smoke Exposure: No Use of substances other than those prescribed or required for medical reasons: No Advance Directives: No Advance Directives Information Provided: No service: No Physical Exam Vital Signs: Vital Signs: Last Vital Signs Temp 98.4 F 04/19/21 06:00 Pulse 72 04/19/21 06:00 Resp 14 04/19/21 06:00 BP 138/52 L 04/19/21 06:00 Pulse Ox 95 04/19/21 06:00 Body Mass Index 21.9 VITAL SIGNS: Reviewed. GENERAL: Well developed, well nourished, in no acute distress. HEAD: Normocephalic/atraumatic EYES: PERRLA, EOMI EARS: Ext canals without abnormality NOSE: Nares patent bilateral OROPHARYNX: no oral lesions noted, posterior pharynx clear NECK: Supple, no adenopathy LUNGS: Normal breath sounds. No adventitious sounds or accessory muscle use. SpO 2<95> CARDIOVASCULAR: Regular rate and rhythm without noted murmurs, no JVD or lower extremity edema. ABDOMEN: Soft, non-tender, non-distended with bowel sounds. NEUROLOGIC: Alert and oriented x 4. Strength and sensation to light touch were grossly intact x 4. Course Course Course Narrative: 86-year-old female with history and clinical presentation concerning for possible hypovolemic status, verses UTI, but low clinical suspicion for congestive heart failure or acute cardiac etiology. Review of all investigations without acute findings from baseline, specifically the serial troponins although elevated are not associated with changes on the EKG and are actually lower than prior. This case was discussed with Dr. Sepulveda who agrees that based on these findings patient can be discharged and his office will reach out to set up an appointment for re-evaluation. This was discussed with the daughter who is at bedside and patient was discharged in stable condition with antibiotics for her UTI. MDM - Dizziness Lab Data Result diagrams: 04/19/21 03:51 04/19/21 03:51 Labs: Lab Results 04/19/21 04/19/21 04/19/21 Range/Units 03:51 03:51 03:51 WBC 7.6 (4.8-10.8) X10*3/uL RBC 3.43 L (4.20-5.50) X10*6/uL Hgb 10.4 L (12.0-16.0) g/dl Hct 31.8 L (37-47) % MCV 92.7 (80-98) fL MCH 30.3 (27.0-33.0) pg MCHC 32.7 (31.0-35.0) g/dl RDW 12.7 (11.0-16.0) % Plt Count 213 (160-400) X10*3/uL MPV 9.6 (9.4-12.3) fL Immature Gran % (Auto) 0.4 (0.0-0.4) % Neut % (Auto) 78.1 H (45-73) % Lymph % (Auto) 14.3 L (20-40) % [facility] % (Auto) 5.7 (2-11) % Eos % (Auto) 1.1 (0-4) % Baso % (Auto) 0.4 (0-2) % Lymph # (Auto) 1.1 L (1.2-4.9) X10*3/uL [facility] # (Auto) 0.4 (0.1-1.2) X10*3/uL Eos # (Auto) 0.1 (0.0-0.4) X10*3/uL Baso # (Auto) 0.0 (0.0-0.2) X10*3/uL Abs Immat Gran (auto) 0.03 (0.00-0.03) X10*3/uL Absolute Neuts (auto) 5.9 (2.0-8.3) X10*3/uL Absolute Nucleated RBC 0.000 (0.0-0.012) X10*3/uL Nucleated RBC % (auto) 0.0 (0.0-0.2) /100WBC PT 13.3 H (10.8-13.0) SEC INR 1.1 (0.9-1.1) Sodium 141 (135-145) mmol/L Potassium 3.7 (3.3-5.1) mmol/L Chloride 101 (96-108) mmol/L Carbon Dioxide 30 H (22-29) mmol/L Anion Gap 14 (12-20) BUN 13 (9-16) mg/dL Creatinine 0.90 (0.5-1.4) mg/dL Estim Creat Clear Calc 30.6 Estimated GFR 59 Random Glucose 142 H D (60-115) mg/dL Calcium 9.9 D (8.4-10.2) mg/dL Total Bilirubin 0.2 (0.0-1.0) mg/dL AST 22 (5-31) U/L ALT 18 (0-31) U/L Alkaline Phosphatase 82 (39-117) U/L Troponin I High Sens (<3.5-17.0) ng/L B-Natriuretic Peptide (<100) pg/mL Total Protein 6.9 (6.5-8.0) g/dL Albumin 4.3 (3.5-5.0) g/dL Urine Color Urine Appearance Urine pH (5.0-8.0) Ur Specific [place] (1.005-1.025) Urine Protein (NEG-TRACE) MG/DL Urine Glucose (UA) (NEG) MG/DL Urine Ketones (NEG) MG/DL Urine Blood (NEG) Urine Nitrite (NEG) Ur Leukocyte Esterase (NEG) Urine RBC (0) /HPF Urine WBC (0-4) /HPF Ur Squamous Epith Cells /LPF Urine Bacteria /LPF 04/19/21 04/19/21 04/19/21 Range/Units 03:51 03:51 03:52 WBC (4.8-10.8) X10*3/uL RBC (4.20-5.50) X10*6/uL Hgb (12.0-16.0) g/dl Hct (37-47) % MCV (80-98) fL MCH (27.0-33.0) pg MCHC (31.0-35.0) g/dl RDW (11.0-16.0) % Plt Count (160-400) X10*3/uL MPV (9.4-12.3) fL Immature Gran % (Auto) (0.0-0.4) % Neut % (Auto) (45-73) % Lymph % (Auto) (20-40) % [place] % (Auto) (2-11) % Eos % (Auto) (0-4) % Baso % (Auto) (0-2) % Lymph # (Auto) (1.2-4.9) X10*3/uL [facility] # (Auto) (0.1-1.2) X10*3/uL Eos # (Auto) (0.0-0.4) X10*3/uL Baso # (Auto) (0.0-0.2) X10*3/uL Abs Immat Gran (auto) (0.00-0.03) X10*3/uL Absolute Neuts (auto) (2.0-8.3) X10*3/uL Absolute Nucleated RBC (0.0-0.012) X10*3/uL Nucleated RBC % (auto) (0.0-0.2) /100WBC PT (10.8-13.0) SEC INR (0.9-1.1) Sodium (135-145) mmol/L Potassium (3.3-5.1) mmol/L Chloride (96-108) mmol/L Carbon Dioxide (22-29) mmol/L Anion Gap (12-20) BUN (9-16) mg/dL Creatinine (0.5-1.4) mg/dL Estim Creat Clear Calc Estimated GFR Random Glucose (60-115) mg/dL Calcium (8.4-10.2) mg/dL Total Bilirubin (0.0-1.0) mg/dL AST (5-31) U/L ALT (0-31) U/L Alkaline Phosphatase (39-117) U/L Troponin I High Sens 107.2 H* (<3.5-17.0) ng/L B-Natriuretic Peptide 212 H (<100) pg/mL Total Protein (6.5-8.0) g/dL Albumin (3.5-5.0) g/dL Urine Color YELLOW Urine Appearance CLEAR Urine pH 7.5 (5.0-8.0) Ur Specific [place] 1.020 (1.005-1.025) Urine Protein NEG (NEG-TRACE) MG/DL Urine Glucose (UA) NEG (NEG) MG/DL Urine Ketones NEG (NEG) MG/DL Urine Blood NEG (NEG) Urine Nitrite NEG (NEG) Ur Leukocyte Esterase TRACE H (NEG) Urine RBC 0-2 (0) /HPF Urine WBC 1-4 (0-4) /HPF Ur Squamous Epith Cells 1+ /LPF Urine Bacteria 1+ /LPF 04/19/21 Range/Units 06:37 WBC (4.8-10.8) X10*3/uL RBC (4.20-5.50) X10*6/uL Hgb (12.0-16.0) g/dl Hct (37-47) % MCV (80-98) fL MCH (27.0-33.0) pg MCHC (31.0-35.0) g/dl RDW (11.0-16.0) % Plt Count (160-400) X10*3/uL MPV (9.4-12.3) fL Immature Gran % (Auto) (0.0-0.4) % Neut % (Auto) (45-73) % Lymph % (Auto) (20-40) % [facility] % (Auto) (2-11) % Eos % (Auto) (0-4) % Baso % (Auto) (0-2) % Lymph # (Auto) (1.2-4.9) X10*3/uL [facility] # (Auto) (0.1-1.2) X10*3/uL Eos # (Auto) (0.0-0.4) X10*3/uL Baso # (Auto) (0.0-0.2) X10*3/uL Abs Immat Gran (auto) (0.00-0.03) X10*3/uL Absolute Neuts (auto) (2.0-8.3) X10*3/uL Absolute Nucleated RBC (0.0-0.012) X10*3/uL Nucleated RBC % (auto) (0.0-0.2) /100WBC PT (10.8-13.0) SEC INR (0.9-1.1) Sodium (135-145) mmol/L Potassium (3.3-5.1) mmol/L Chloride (96-108) mmol/L Carbon Dioxide (22-29) mmol/L Anion Gap (12-20) BUN (9-16) mg/dL Creatinine (0.5-1.4) mg/dL Estim Creat Clear Calc Estimated GFR Random Glucose (60-115) mg/dL Calcium (8.4-10.2) mg/dL Total Bilirubin (0.0-1.0) mg/dL AST (5-31) U/L ALT (0-31) U/L Alkaline Phosphatase (39-117) U/L Troponin I High Sens 115.0 H* (<3.5-17.0) ng/L B-Natriuretic Peptide (<100) pg/mL Total Protein (6.5-8.0) g/dL Albumin (3.5-5.0) g/dL Urine Color Urine Appearance Urine pH (5.0-8.0) Ur Specific [place] (1.005-1.025) Urine Protein (NEG-TRACE) MG/DL Urine Glucose (UA) (NEG) MG/DL Urine Ketones (NEG) MG/DL Urine Blood (NEG) Urine Nitrite (NEG) Ur Leukocyte Esterase (NEG) Urine RBC (0) /HPF Urine WBC (0-4) /HPF Ur Squamous Epith Cells /LPF Urine Bacteria /LPF ECG Data Attestation: I personally reviewed and interpreted this ECG as follows: Prior ECG tracings: available for review (11/25/2020 no acute changes on comparison) Interpretation: Sinus rhythm, HR-68, no evidence of acute ischemia, FL and QTC are within normal limits. RBBB is chronically stable. Discharge Plan Discharge Clinical Impression: UTI (urinary tract infection), Light-headedness Patient Disposition: Home, Self-Care Instructions: Dysuria (ED), Lightheadedness (ED) Additional Instructions: Resume all home medications as prescribed. Cardiology will be reaching out and providing you with a follow-up appointment. Return to the emergency room for any acute worsening of symptoms. Prescriptions: New cefdinir 300 mg capsule 300 mg PO BID 7 Days Qty: 14 RF: 0 No Action apixaban [Eliquis] 2.5 mg tablet 2.5 mg PO BID Qty: 60 RF: 5 multivitamin [Daily-Heather] Tablet 1 tab PO DAILY RF: 0 atorvastatin 40 mg tablet 40 mg PO DAILY RF: 0 pantoprazole 40 mg tablet,delayed release (DR/EC) 40 mg PO DAILY RF: 0 albuterol sulfate [Ventolin HFA] 90 mcg/actuation HFA aerosol inhaler 2 puff PO Q4-6H PRN (Reason: Shortness Of Breath) RF: 0 lisinopril 40 mg tablet 40 mg PO DAILY RF: 0 sertraline 50 mg tablet 50 mg PO DAILY RF: 0 spironolactone [Aldactone] 25 mg tablet 25 mg PO DAILY Qty: 30 RF: 0 magnesium oxide 400 mg (241.3 mg magnesium) tablet 400 mg PO BID RF: 0 diltiazem HCl 300 mg capsule,extended release 24hr 300 mg PO DAILY RF: 0 dicyclomine 20 mg tablet 20 mg PO TID RF: 0 furosemide [Lasix] 20 mg tablet 20 mg PO .As needed Qty: 90 RF: 4 Referrals: Physician,Unknown [Primary Care Provider] - 2 days Print Language: Bengali
[2021-04-19 03:58] LABS: Basophils Percent Auto 0.4 % (0-2); Eosinophils Absolute Auto 0.1 X10*3/uL (0.0-0.4); Eosinophils Percent Auto 1.1 % (0-4); Hematocrit 31.8 % (37-47); Hemoglobin 10.4 g/dl (12.0-16.0); Imm Gran Abs Auto 0.03 X10*3/uL (0.00-0.03); Imm Gran Pct Auto 0.4 % (0.0-0.4); Lymphocytes Absolute Auto 1.1 X10*3/uL (1.2-4.9); Lymphocytes Percent Auto 14.3 % (20-40); MANUAL DIFF FLAG NO; Mean Corpuscular HGB Conc 32.7 g/dl (31.0-35.0); Mean Corpuscular Hemoglobin 30.3 pg (27.0-33.0); Mean Corpuscular Volume 92.7 fL (80-98); Mean Platelet Volume 9.6 fL (9.4-12.3); Monocytes Absolute Auto 0.4 X10*3/uL (0.1-1.2); Monocytes Percent Auto 5.7 % (2-11); Neutrophils Absolute Auto 5.9 X10*3/uL (2.0-8.3); Neutrophils Percent Auto 78.1 % (45-73); Platelet Count 213 X10*3/uL (160-400); Red Blood Count 3.43 X10*6/uL (4.20-5.50); Red Cell Distribution Width 12.7 % (11.0-16.0); White Blood Count 7.6 X10*3/uL (4.8-10.8)
[2021-04-19 03:59] LABS: Glucose Urine UA NEG (NEG); Leukocyte Esterase Urine TRACE (NEG); Nitrite Urine NEG (NEG); PH 7.5 (5.0-8.0); UACC Culture Trigger YES; Urine Blood NEG (NEG); Urine Ketones NEG (NEG); Urine Protein NEG (NEG-TRACE)
[2021-04-19 04:00] VITALS: PULSE 61; RESP 15
[2021-04-19 04:03] LABS: INTERNATIONAL NORM RATIO 1.1 (0.9-1.1); Prothrombin Time 13.3 SEC (10.8-13.0)
[2021-04-19 04:03] LABS: Appearance Urine CLEAR; Color Urine YELLOW
[2021-04-19 04:04] LABS: Bacteria Urine 1+ /LPF; RBC Urine 0-2 /HPF (0); Squamous Epithelial Cell Urine 1+ /LPF
[2021-04-19 04:21] LABS: B Type Natriuretic Peptide 212 pg/mL (<100)
[2021-04-19 04:23] LABS: Alanine Aminotransferase 18 U/L (0-31); Albumin Level 4.3 g/dL (3.5-5.0); Alkaline Phosphatase 82 U/L (39-117); Anion Gap 14 (12-20); Aspartate Amino Transferase 22 U/L (5-31); Bilirubin Total 0.2 mg/dL (0.0-1.0); Blood Urea Nitrogen 13 mg/dL (9-16); Calcium 9.9 mg/dL (8.4-10.2); Carbon Dioxide 30 mmol/L (22-29); Chloride 101 mmol/L (96-108); Creatinine Clr Calc Pharmacy 30.6; Estimated Glomerular Filt Rate 59; Glucose Random 142 mg/dL (60-115); Potassium 3.7 mmol/L (3.3-5.1); Sodium 141 mmol/L (135-145); Total Protein 6.9 g/dL (6.5-8.0)
[2021-04-19 04:31] LABS: Troponin-I High Sensitivity 107.2 ng/L (<3.5-17.0)
[2021-04-19 06:00] VITALS: BP 138/52; PULSE 72; RESP 14; TEMP 36.9; O2SAT 95
[2021-04-19 08:00] VITALS: BP 145/72; PULSE 79
== END 2021-04-19 08:53 | disposition home or self-care (01) ==
PROVIDERS: Emergency Provider Student in an Organized Health Care Education/Training Program
DX: N39.0 Urinary tract infection, site not specified (principal); R42 Dizziness and giddiness; I11.0 Hypertensive heart disease with heart failure; I50.9 Heart failure, unspecified; E11.9 Type 2 diabetes mellitus without complications; E78.5 Hyperlipidemia, unspecified; I48.91 Unspecified atrial fibrillation; G30.9 Alzheimer's disease, unspecified; F02.80 Dementia in other diseases classified elsewhere, unspecified severity, without behavioral disturbance, psychotic disturbance, mood disturbance, and anxiety; Z86.73 Personal history of transient ischemic attack (TIA), and cerebral infarction without residual deficits; Z95.0 Presence of cardiac pacemaker; Z95.4 Presence of other heart-valve replacement; Z87.891 Personal history of nicotine dependence; Z79.02 Long term (current) use of antithrombotics/antiplatelets; Z79.899 Other long term (current) drug therapy; Z79.01 Long term (current) use of anticoagulants
CPT/HCPCS: 36415; 71045; 80053; 81001; 81003; 83880; 84484; 85025; 85610; 87086; 93005; 99283; 99285

== ENCOUNTER → 2021-05-01 12:22 | Outpatient (BNVA) | payer MEDICARE, MEDICAID, SELFPAY | PROVIDERS: Visit Provider Internal Medicine | DX: I48.0 Paroxysmal atrial fibrillation (principal); I11.0 Hypertensive heart disease with heart failure; I50.32 Chronic diastolic (congestive) heart failure; I05.9 Rheumatic mitral valve disease, unspecified; R77.8 Other specified abnormalities of plasma proteins; Z95.3 Presence of xenogenic heart valve | CPT/HCPCS: 99212 ==

== ENCOUNTER → 2021-07-02 08:05 | Outpatient (REF) | payer MEDICARE, MEDICAID, SELFPAY ==
--- NOTE | 2021-07-02 08:08 | CA_ITS ---
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 The visually estimated ejection fraction is between 65-70%. - Evidence suggests grade II (moderate) diastolic dysfunction. - The left atrium is severely dilated. - A bioprosthetic aortic valve is present. The prosthetic aortic valve appears to be functioning normally. - There is moderate mitral annular calcification. Findings Left Ventricle Normal left ventricular cavity size. There is mildly increased left ventricular wall thickness. The left ventricular systolic function is normal. The visually estimated ejection fraction is between 65-70%. There is no evidence of regional wall motion abnormalities. E/E prime ratio is >15, consistent with elevated filling pressures. Evidence suggests grade II (moderate) diastolic dysfunction. Right Ventricle Mildly increased right ventricular cavity size. There is normal right ventricular systolic function. Atria The left atrium is severely dilated. The right atrium is normal in size. Aortic Valve A bioprosthetic aortic valve is present. The prosthetic aortic valve appears to be functioning normally. The mean gradient is 13 mmHg. There is no aortic valve regurgitation. Mitral Valve There is moderate mitral annular calcification. There is mild mitral valve regurgitation. There is no mitral valve stenosis. Pulmonic Valve The pulmonic valve was not well visualized. Tricuspid Valve Normal tricuspid valve structure. There is mild to moderate tricuspid valve regurgitation. The right ventricular systolic pressure is 50 mmHg. Moderate pulmonary hypertension is present. Great Vessels The aortic annulus is normal in size. Venous The inferior vena cava is normal in size and collapses greater than 50% with inspiration. Pericardium/Pleural There is a small loculated pericardial effusion overlying the right atrium. There are no definitive echocardiographic findings of tamponade physiology. Prior Study Comparison No significant change compared to prior study dated: 08/02/2020. Measurements 2D Linear Measurements IVSd: 1.03 0.6-0.9/0.6-1.0 cm LVIDd: 3.88 3.9-5.3/4.2-5.9 cm LVIDd Index: 2.77 2.4-3.2/2.2-3.1 cm/m2 LVIDs: 2.61 2.0-3.6 cm LVPWd: 1.13 0.7-1.1 cm Ao Root: 2.40 2.1-3.5 cm LA Diam: 4.20 2.7-3.8/3.0-4.0 cm LAIDs Index: 3.00 1.5-2.3 cm/m2 LV Mass: 168.42 67-162/88-224 g LV Mass Index: 120.30 43-95/49-115 g/m2 LVOT Diam: 1.70 3.0+(-)1.3 cm Mitral Valve MV Pk E: 1.41 MV PK A: 0.95 MV Decel Time: 180.00 E/A: 1.50 E'Lateral: 4.24 E'Medial: 3.81 E/E' Med: 37.00 E/E' Lat: 33.30 PHT: 53.00 MVA PHT: 4.15 Decel Wise: 7.80 Aortic Valve AoV Pk Fredrick: 2.51 AoV Mn Fredrick: 1.63 AoV VTI: 0.54 AoV Pk Grad: 25.00 Aov Mn Grad: 13.00 JOSE LUIS Cont.VTI: 1.03 LVOT LVOT Pk Fredrick: 1.02 LVOT Mn Fredrick: 0.68 LVOT VTI: 0.25 LVOT Pk Grad: 4.00 LVOT Mn Grad: 2.00 LVOT Diam: 1.70 LVOT Area: 2.27 Diastolic Function MV Pk E: 1.41 MV Pk A: 0.95 E/A: 1.50 E'Medial: 3.81 E/E' Med: 37.00 E' Laterial: 4.24 E/E' Lat: 33.30 Right Ventricle TAPSE (mm): 2.65 TVS' Fredrick: 14.80 Tricuspid Valve TR Pk Fredrick: 3.16 TR Pk Grad: 40.00 RVSP: 50.00 Great Vessels Aorta Ao Root-2D: 2.40 2.0-3.7 cm Pulmonary Valve PV Pk Fredrick: 0.94 Peak PV Grad: 4.00 Updated in Other Vendor System with Status of Final Max Chaves MD electronically signed on 07/02/2021 4:20:09 PM with status of Final
== END ==
LOC: HO.CARD 08:05
PROVIDERS: Visit Provider Internal Medicine
DX: Z95.3 Presence of xenogenic heart valve (principal)
CPT/HCPCS: 93306

== ENCOUNTER → 2021-07-18 12:48 | Outpatient (BNVA) | payer MEDICARE, MEDICAID, SELFPAY | PROVIDERS: Visit Provider Internal Medicine | DX: I50.32 Chronic diastolic (congestive) heart failure (principal); I48.0 Paroxysmal atrial fibrillation; I05.9 Rheumatic mitral valve disease, unspecified; I10 Essential (primary) hypertension; R77.8 Other specified abnormalities of plasma proteins; Z95.3 Presence of xenogenic heart valve | CPT/HCPCS: 99212 ==

== ENCOUNTER 2021-08-29 22:20 | Emergency (ER) | payer MEDICARE, MEDICAID, SELFPAY ==
[2021-08-29] VITALS (7 sets, daily range): BP systolic 135–160; BP diastolic 53–65; PULSE 63–65; RESP 16–23; TEMP 37–37.1; O2SAT 95–97; BMI 24.2
--- NOTE | ~2021-08-29 | XR_ITS ---
EXAMINATION: XR CHEST CLINICAL INFORMATION: Chest pain COMPARISON: 04/19/2021 TECHNIQUE: Frontal view of the chest was obtained. FINDINGS: Cardiac leads overlie the chest. Left chest wall pacer with leads over the right atrium and right ventricle. Aortic valvular hardware noted. The lungs are well expanded. Bronchial wall thickening noted. No dense consolidation. No effusion. No pneumothorax. The cardiomediastinal silhouette remains prominent, with a calcified aorta. No acute osseous abnormality. XR/XR chest 1V IMPRESSION: No dense consolidation. Bronchial wall thickening can be seen with a small airways process such as asthma or atypical/viral infection.
--- NOTE | 2021-08-29 22:26 | ECG_ITS ---
Test Reason : CHEST PAIN Blood Pressure : / mmHG Vent. Rate : 064 BPM Atrial Rate : 064 BPM P-R Int : 174 ms QRS Dur : 126 ms QT Int : 430 ms P-R-T Axes : 072 -40 022 degrees QTc Int : 443 ms Normal sinus rhythm Left axis deviation Right bundle branch block Abnormal ECG When compared with ECG of 19-APR-2021 03:20, No significant change was found Referred By: Generic ED Physician Electronically Signed By:HORACIO NATHAN
--- NOTE | 2021-08-29 22:32 | ED_ITS ---
HPI - Chest Pain General Chief Complaint: Chest Pain Stated Complaint: cp Time Seen by Provider: 08/29/21 22:32 Source: patient Mode of arrival: ambulatory Limitations: no limitations History of Present Illness HPI narrative: left sided chest pain for hours, intermittent, sharp, non radiating, with shortness of breath. Known history of CAD with stents. MD complaint: chest pain Pertinent past history: coronary artery disease Onset (ago): hour(s) Timing of current episode: episodic Prior episodes: Yes Onset: during rest and during exertion Pain location: left chest Severity: mild Relieving factors: nothing Exacerbating factors: nothing Related Data Home Medications Medication Instructions Recorded Confirmed albuterol sulfate 90 mcg/actuation 2 puff PO Q4-6H PRN 09/04/20 07/18/21 aerosol inhaler (Ventolin HFA) atorvastatin 40 mg tablet 40 mg PO DAILY 09/04/20 07/18/21 lisinopril 40 mg tablet 40 mg PO DAILY 09/04/20 07/18/21 multivitamin (Daily-Heather) 1 tab PO DAILY 09/04/20 07/18/21 pantoprazole 40 mg tablet,delayed 40 mg PO DAILY 09/04/20 07/18/21 release sertraline 50 mg tablet 50 mg PO DAILY 09/04/20 07/18/21 magnesium oxide 400 mg (241.3 mg 400 mg PO BID 01/08/21 07/18/21 magnesium) tablet dicyclomine 20 mg tablet 20 mg PO TID 04/11/21 07/18/21 diltiazem HCl 300 mg 300 mg PO DAILY 04/11/21 07/18/21 capsule,extended release 24 hr Previous Rx's Medication Instructions Recorded spironolactone 25 mg tablet 25 mg PO DAILY #30 tab 11/26/20 (Aldactone) furosemide 20 mg tablet (Lasix) 20 mg PO .As needed #90 tab 04/11/21 apixaban 2.5 mg tablet (Eliquis) 2.5 mg PO BID 90 Days #180 tab 07/04/21 carvedilol 6.25 mg tablet (Coreg) 6.25 mg PO BID #180 tab 07/18/21 Allergies Allergy/AdvReac Type Severity Reaction Status Date / Time ibuprofen [From Motrin] Allergy Mild RASH Verified 07/18/21 13:16 Penicillins Allergy Unknown RASH Verified 07/18/21 13:16 Review of Systems Constitutional: Constitutional: Reports no additional constitutional complaints Eyes: Eyes: Reports no additional eye complaints ENT: Denies dizziness Cardiovascular: Cardiovascular: Reports no additional cardiovascular complaints Respiratory: Respiratory: Reports as per HPI Gastrointestinal: Gastrointestinal: Reports no additional gastrointestinal complaints Genitourinary: Genitourinary: Reports no additional female genitourinary complaints Musculoskeletal: Musculoskeletal: Reports no additional musculoskeletal complaints Integumentary/Breasts: Skin/Breast: Denies rash Neurologic: Reports system reviewed and no additional complaints, except as documented, Denies dizziness and Denies Sensory deficit (Neuro) Psychiatric: Psychiatric: Denies anxiety [facility] Past Medical History Medical History (HFpEF) heart failure with preserved ejection fraction Alzheimer's disease Asthma Atrial fibrillation Brain TIA Cardiac arrhythmia Chronic heart failure with preserved ejection fraction (HFpEF) Dementia Diabetes mellitus Dizziness Elevated troponin Essential hypertension Fall Gastrointestinal bleeding GERD (gastroesophageal reflux disease) H/O cardiac pacemaker HLD (hyperlipidemia) HTN (hypertension) Mitral valve disease NSTEMI (non-ST elevated myocardial infarction) Paroxysmal atrial fibrillation Ulcer Surgical History History of permanent cardiac pacemaker placement (~08/2019) Status post transcatheter aortic valve replacement (TAVR) using bioprosthesis Family History Family History Other Patient's mother is Social History Social History Household Members: Family Housing: Apartment Do you presently have visiting nurse or other home services: No Alcohol intake: unknown Second Hand Smoke Exposure: No Advance Directives: No Advance Directives Information Provided: No service: No Physical Exam Vital Signs: Vital Signs: Last Vital Signs Temp 98.3 F 08/30/21 01:04 Pulse 76 08/30/21 01:04 Resp 20 08/30/21 01:04 BP 163/65 H 08/30/21 01:04 Pulse Ox 96 08/30/21 01:04 Body Mass Index 24.2 Const: Other: elderly female Nutritional Appearance: average body habitus Orientation/consciousness: oriented to person and patient oriented x3 Limitations: no limitations HENMT: Head: Yes normal to inspection Ears: external ears normal General nose exam: Normal external nose present Mouth: Normal oral and palatal mucosa present and oropharynx normal Throat: Yes posterior oropharynx normal Eyes: General: appearance normal, both eyes and all related structures Neck: Other: supple Neck: Yes normal visual inspection Chest: Chest palpation & inspection: normal inspection of the chest Resp: Auscultation: clear to auscultation bilaterally Cardio: Jugular venous distension: no JVD Rate: regular rate Rhythm: regular rhythm Heart sounds: S1 normal heart sound present and S2 normal heart sound present GI: Inspection: Yes normal to inspection Palpation (GI): Soft to palpation, nontender and No hepatosplenomegaly present Auscultation: normal bowel sounds : General: Yes no CVA tenderness Back/Spine/Pelvis: Back: no CVA tenderness Skin: General skin exam: no rashes or lesions noted Neuro: General: oriented to person and patient oriented x3 Cranial nerves: Yes CN's II-XII intact bilaterally Motor exam (neuro): 5/5 motor strength present throughout Sensory Exam: No Sensory deficit (Neuro) Extrem: General: Yes normal to inspection Psych: Appearance: grossly normal Course Reevaluation(s) Reevaluation #1: troponin 45 patient is pain free, will repeat troponin Time: 23:28 Reevaluation #2: patient with chronic elevation of her troponin, repeat was flat. Unlikely to be cardiac. Will dc home Time: 01:31 [facility] - Chest Pain Lab Data Result diagrams: 08/29/21 22:56 08/29/21 22:56 Labs: Lab Results 08/29/21 08/29/21 08/29/21 Range/Units 22:56 22:56 22:56 WBC 7.9 (4.8-10.8) X10*3/uL RBC 3.39 L (4.20-5.50) X10*6/uL Hgb 10.3 L (12.0-16.0) g/dl Hct 30.8 L (37-47) % MCV 90.9 (80-98) fL MCH 30.4 (27.0-33.0) pg MCHC 33.4 (31.0-35.0) g/dl RDW 12.6 (11.0-16.0) % Plt Count 206 (160-400) X10*3/uL MPV 9.9 (9.4-12.3) fL Immature Gran % (Auto) 0.3 (0.0-0.4) % Neut % (Auto) 68.1 (45-73) % Lymph % (Auto) 19.1 L (20-40) % [place] % (Auto) 10.2 (2-11) % Eos % (Auto) 1.9 (0-4) % Baso % (Auto) 0.4 (0-2) % Lymph # (Auto) 1.5 (1.2-4.9) X10*3/uL [place] # (Auto) 0.8 (0.1-1.2) X10*3/uL Eos # (Auto) 0.2 (0.0-0.4) X10*3/uL Baso # (Auto) 0.0 (0.0-0.2) X10*3/uL Abs Immat Gran (auto) 0.02 (0.00-0.03) X10*3/uL Absolute Neuts (auto) 5.4 (2.0-8.3) X10*3/uL Absolute Nucleated RBC 0.000 (0.0-0.012) X10*3/uL Nucleated RBC % (auto) 0.0 (0.0-0.2) /100WBC Sodium 137 (135-145) mmol/L Potassium 3.8 (3.3-5.1) mmol/L Chloride 105 (96-108) mmol/L Carbon Dioxide 25 (22-29) mmol/L Anion Gap 11 L (12-20) BUN 13 (9-16) mg/dL Creatinine 0.90 (0.5-1.4) mg/dL Estim Creat Clear Calc 32.2 Estimated GFR 59 Random Glucose 119 H (60-115) mg/dL Calcium 9.5 (8.4-10.2) mg/dL Troponin I High Sens 45.0 H* D (<3.5-17.0) ng/L 08/30/21 Range/Units 00:57 WBC (4.8-10.8) X10*3/uL RBC (4.20-5.50) X10*6/uL Hgb (12.0-16.0) g/dl Hct (37-47) % MCV (80-98) fL MCH (27.0-33.0) pg MCHC (31.0-35.0) g/dl RDW (11.0-16.0) % Plt Count (160-400) X10*3/uL MPV (9.4-12.3) fL Immature Gran % (Auto) (0.0-0.4) % Neut % (Auto) (45-73) % Lymph % (Auto) (20-40) % [place] % (Auto) (2-11) % Eos % (Auto) (0-4) % Baso % (Auto) (0-2) % Lymph # (Auto) (1.2-4.9) X10*3/uL [place] # (Auto) (0.1-1.2) X10*3/uL Eos # (Auto) (0.0-0.4) X10*3/uL Baso # (Auto) (0.0-0.2) X10*3/uL Abs Immat Gran (auto) (0.00-0.03) X10*3/uL Absolute Neuts (auto) (2.0-8.3) X10*3/uL Absolute Nucleated RBC (0.0-0.012) X10*3/uL Nucleated RBC % (auto) (0.0-0.2) /100WBC Sodium (135-145) mmol/L Potassium (3.3-5.1) mmol/L Chloride (96-108) mmol/L Carbon Dioxide (22-29) mmol/L Anion Gap (12-20) BUN (9-16) mg/dL Creatinine (0.5-1.4) mg/dL Estim Creat Clear Calc Estimated GFR Random Glucose (60-115) mg/dL Calcium (8.4-10.2) mg/dL Troponin I High Sens 44.8 H* (<3.5-17.0) ng/L ECG Data ECG #1: Interpretation: Sinus 64, RBBB, no st or twave changes Discharge Plan Discharge Clinical Impression: Chest pain Patient Disposition: Home, Self-Care Instructions: Noncardiac Chest Pain (ED) Prescriptions: No Action Eliquis 2.5 mg tablet 2.5 mg PO BID 90 Days Qty: 180 RF: 3 multivitamin [Daily-Heather] Tablet 1 tab PO DAILY RF: 0 atorvastatin 40 mg tablet 40 mg PO DAILY RF: 0 pantoprazole 40 mg tablet,delayed release (DR/EC) 40 mg PO DAILY RF: 0 albuterol sulfate [Ventolin HFA] 90 mcg/actuation HFA aerosol inhaler 2 puff PO Q4-6H PRN (Reason: Shortness Of Breath) RF: 0 lisinopril 40 mg tablet 40 mg PO DAILY RF: 0 sertraline 50 mg tablet 50 mg PO DAILY RF: 0 spironolactone [Aldactone] 25 mg tablet 25 mg PO DAILY Qty: 30 RF: 0 magnesium oxide 400 mg (241.3 mg magnesium) tablet 400 mg PO BID RF: 0 diltiazem HCl 300 mg capsule,extended release 24hr 300 mg PO DAILY RF: 0 dicyclomine 20 mg tablet 20 mg PO TID RF: 0 furosemide [Lasix] 20 mg tablet 20 mg PO .As needed Qty: 90 RF: 4 carvedilol [Coreg] 6.25 mg tablet 6.25 mg PO BID Qty: 180 RF: 4 Referrals: Physician,Unknown [Primary Care Provider] - 5 days
[2021-08-29] MEDS: Nitroglycerin 0.4 MG TAB.SUBL SUBLINGUAL ×2 (22:47→22:55)
[2021-08-29 23:00] LABS: MANUAL DIFF FLAG NO
[2021-08-29 23:01] LABS: Basophils Percent Auto 0.4 % (0-2); Eosinophils Absolute Auto 0.2 X10*3/uL (0.0-0.4); Eosinophils Percent Auto 1.9 % (0-4); Hematocrit 30.8 % (37-47); Hemoglobin 10.3 g/dl (12.0-16.0); Imm Gran Abs Auto 0.02 X10*3/uL (0.00-0.03); Imm Gran Pct Auto 0.3 % (0.0-0.4); Lymphocytes Absolute Auto 1.5 X10*3/uL (1.2-4.9); Lymphocytes Percent Auto 19.1 % (20-40); Mean Corpuscular HGB Conc 33.4 g/dl (31.0-35.0); Mean Corpuscular Hemoglobin 30.4 pg (27.0-33.0); Mean Corpuscular Volume 90.9 fL (80-98); Mean Platelet Volume 9.9 fL (9.4-12.3); Monocytes Absolute Auto 0.8 X10*3/uL (0.1-1.2); Monocytes Percent Auto 10.2 % (2-11); Neutrophils Absolute Auto 5.4 X10*3/uL (2.0-8.3); Neutrophils Percent Auto 68.1 % (45-73); Platelet Count 206 X10*3/uL (160-400); Red Blood Count 3.39 X10*6/uL (4.20-5.50); Red Cell Distribution Width 12.6 % (11.0-16.0); White Blood Count 7.9 X10*3/uL (4.8-10.8)
[2021-08-29 23:13] LABS: Anion Gap 11 (12-20); Blood Urea Nitrogen 13 mg/dL (9-16); Calcium 9.5 mg/dL (8.4-10.2); Carbon Dioxide 25 mmol/L (22-29); Chloride 105 mmol/L (96-108); Creatinine Clr Calc Pharmacy 32.2; Estimated Glomerular Filt Rate 59; Glucose Random 119 mg/dL (60-115); Potassium 3.8 mmol/L (3.3-5.1); Sodium 137 mmol/L (135-145)
[2021-08-29] MEDS: Nitroglycerin 2 % Oint 1 GM Packet 1 INCH TRANSDERMA (23:35)
--- NOTE | 2021-08-30 00:08 | PC.NURSE ---
this nurse assisted pt to bathroom. gait steady. pt denies diziness while ambulating. pt back in bed at this time, on cardiac nurse. call delgadillo in reach.
--- NOTE | 2021-08-30 00:09 | PC.NURSE ---
daughter in law Tricia Brown at bedside . DIL requesting a call regarding pt whether she will be d/c home or admitted to facility after 1am trop redraw.
[2021-08-30 01:04] VITALS: BP 163/65; PULSE 76; RESP 20; TEMP 36.8; O2SAT 96
[2021-08-30 01:29] LABS: Troponin-I High Sensitivity 44.8 ng/L (<3.5-17.0)
== END 2021-08-30 02:20 | disposition home or self-care (01) ==
PROVIDERS: Emergency Provider Emergency Medicine
DX: R07.9 Chest pain, unspecified (principal); I25.10 Atherosclerotic heart disease of native coronary artery without angina pectoris; Z79.899 Other long term (current) drug therapy
CPT/HCPCS: 36415; 71045; 80048; 84484; 85025; 93005; 99284

== ENCOUNTER 2021-09-12 22:08 | Inpatient (IN) | payer MEDICARE, MEDICAID, SELFPAY ==
--- NOTE | ~2021-09-12 | CT_ITS ---
EXAMINATION: CT CHEST WITHOUT CONTRAST CLINICAL INFORMATION: Left chest wall pain on palpation COMPARISON: 12/11/2017 TECHNIQUE: Multidetector volumetric CT imaging of the chest was done. Axial MIP volume rendering provided. Sagittal and coronal reformatted images were obtained. This CT examination was performed using dose optimization techniques as appropriate, variously including the following: *Automated exposure control *Adjustment of mA and/or kV according to patient size (this includes techniques or standardized protocols for targeted exams where dose is matched to indication/reason for exam; i.e. extremities or head) *Use of iterative reconstruction technique DLP: 209 mGy-cm FINDINGS: LUNGS: There is interstitial edema. No significant alveolar edema. Stable 3 mm nodule at the left lung apex. No pneumonitis or parenchymal consolidation. MEDIASTINUM: Marked cardiomegaly. TAVR. Coarse mitral annular calcifications. Dual-lead pacemaker leads appropriately positioned. No pericardial effusion. Great vessels normal caliber. No mediastinal or hilar adenopathy. PLEURA: There is no pleural effusion. No pleural mass or thickening. CHEST WALL/AXILLA: Pacemaker generator along the left chest wall anteriorly. No axillary adenopathy. No soft tissue abnormality. UPPER ABDOMEN: Cholecystectomy. OSSEOUS STRUCTURES: No acute or suspicious osseous abnormalities. No fractures. Endplate osteophytes present throughout the thoracic spine. Vertebral body heights maintained. CT/CT chest wo con IMPRESSION: * No abnormalities with respect to the left chest wall to explain the patient's symptomatology. * No fractures. * Marked cardiomegaly associated with interstitial pulmonary edema.
--- NOTE | ~2021-09-12 | XR_ITS ---
EXAMINATION: XR CHEST CLINICAL INFORMATION: Chest pain COMPARISON: Chest x-ray August 29, 2021 TECHNIQUE: Frontal portable view of the chest was obtained. 10:31 PM FINDINGS: No change in pacemaker lead placement in right atrium and right ventricle. The heart size is enlarged. Status post TAVR. Vascular calcifications of thoracic aorta. There is no acute abnormality. No significant pulmonary vascular congestion. No focal consolidation. The lungs are normally aerated. There is no pleural effusion and there is no pneumothorax. Compared to prior chest x-ray there has been no substantial change. XR/XR chest 1V IMPRESSION: No acute abnormality of chest.
[2021-09-12 22:16] VITALS: BP 158/64; PULSE 66; RESP 18; TEMP 37.1; O2SAT 96
[2021-09-12 22:20] VITALS: BP 146/82; PULSE 69; O2SAT 97; BMI 23.0
--- NOTE | 2021-09-12 22:28 | ECG_ITS ---
Test Reason : CHEST PAIN Blood Pressure : / mmHG Vent. Rate : 060 BPM Atrial Rate : 060 BPM P-R Int : 144 ms QRS Dur : 130 ms QT Int : 444 ms P-R-T Axes : 078 -34 032 degrees QTc Int : 444 ms Atrial-paced rhythm Left axis deviation Right bundle branch block Abnormal ECG No previous ECGs available Referred By: Radha Monahan Electronically Signed By:ANTOINE BLACKBURN MD
--- NOTE | 2021-09-12 23:15 | ED.CHESTPAIN ---
HPI - Chest Pain General Chief Complaint: Chest Pain Stated Complaint: pacemaker pain Time Seen by Provider: 09/12/21 22:27 Source: patient and family (Daughter) History of Present Illness HPI narrative: This is an 86-year-old female with history Alzheimer's, atrial fibrillation, pacemaker placement, heart failure and currently on Eliquis who is brought in by her daughter as patient has been complaining of left-sided chest wall pain since this morning that has not been associated with sore throat, cough, shortness of breath, fevers, chills, nausea, vomiting, abdominal pain. Patient denies increased pain with deep breaths. Related Data Home Medications Medication Instructions Recorded Confirmed albuterol sulfate 90 mcg/actuation 2 puff PO Q4-6H PRN 09/04/20 07/18/21 aerosol inhaler (Ventolin HFA) atorvastatin 40 mg tablet 40 mg PO DAILY 09/04/20 07/18/21 lisinopril 40 mg tablet 40 mg PO DAILY 09/04/20 07/18/21 multivitamin (Daily-Heather) 1 tab PO DAILY 09/04/20 07/18/21 pantoprazole 40 mg tablet,delayed 40 mg PO DAILY 09/04/20 07/18/21 release sertraline 50 mg tablet 50 mg PO DAILY 09/04/20 07/18/21 magnesium oxide 400 mg (241.3 mg 400 mg PO BID 01/08/21 07/18/21 magnesium) tablet dicyclomine 20 mg tablet 20 mg PO TID 04/11/21 07/18/21 diltiazem HCl 300 mg 300 mg PO DAILY 04/11/21 07/18/21 capsule,extended release 24 hr Previous Rx's Medication Instructions Recorded spironolactone 25 mg tablet 25 mg PO DAILY #30 tab 11/26/20 (Aldactone) furosemide 20 mg tablet (Lasix) 20 mg PO .As needed #90 tab 04/11/21 apixaban 2.5 mg tablet (Eliquis) 2.5 mg PO BID 90 Days #180 tab 07/04/21 carvedilol 6.25 mg tablet (Coreg) 6.25 mg PO BID #180 tab 07/18/21 Allergies Allergy/AdvReac Type Severity Reaction Status Date / Time ibuprofen [From Motrin] Allergy Mild RASH Verified 07/18/21 13:16 Penicillins Allergy Unknown RASH Verified 07/18/21 13:16 Review of Systems Review of Systems: Pertinent positives and negatives as stated in the HPI and 10 point review of systems is otherwise negative. [facility] Past Medical History Source: nursing notes reviewed Medical History (HFpEF) heart failure with preserved ejection fraction Alzheimer's disease Asthma Atrial fibrillation Brain TIA Cardiac arrhythmia Chronic heart failure with preserved ejection fraction (HFpEF) Dementia Diabetes mellitus Dizziness Elevated troponin Essential hypertension Fall Gastrointestinal bleeding GERD (gastroesophageal reflux disease) H/O cardiac pacemaker HLD (hyperlipidemia) HTN (hypertension) Mitral valve disease NSTEMI (non-ST elevated myocardial infarction) Paroxysmal atrial fibrillation Ulcer Surgical History History of permanent cardiac pacemaker placement (~08/2019) Status post transcatheter aortic valve replacement (TAVR) using bioprosthesis Family History Family History Other Patient's mother is Social History Social History Household Members: Family Housing: Apartment Do you presently have visiting nurse or other home services: No Alcohol intake: unknown Second Hand Smoke Exposure: No Advance Directives: No service: No Physical Exam Vital Signs: Vital Signs: Last Vital Signs Temp 98.7 F 09/12/21 22:16 Pulse 66 09/12/21 22:16 Resp 18 09/12/21 22:16 BP 158/64 H 09/12/21 22:16 Pulse Ox 96 09/12/21 22:16 Body Mass Index 23.0 VITAL SIGNS: Reviewed. GENERAL: Well developed, well nourished, in no acute distress. HEAD: Normocephalic/atraumatic EYES: PERRLA, EOMI EARS: Ext canals without abnormality NOSE: Nares patent bilateral OROPHARYNX: no oral lesions noted, posterior pharynx clear NECK: Supple, no adenopathy LUNGS:Bibasilar decrease left greater than right, minimal rales and no appreciated wheezing, no tachypnea. SpO2<96>, there is noted chest wall tenderness on palpation without crepitus over the left lateral and lower edges CARDIOVASCULAR: Regular rate and rhythm without noted murmurs, no JVD but bilateral lower extremity 1 to 2+ pitting ABDOMEN: Soft, non-tender, non-distended with bowel sounds. MUSCULOSKELETAL: No tenderness, deformities, or effusions noted on gross inspection. EXTREMITIES: No cyanosis, clubbing or edema. SKIN: Inspection of the skin reveals no rashes, ecchymosis NEUROLOGIC: Alert and oriented x 2. Strength and sensation to light touch were grossly intact x 4, no pronator drift, no facial asymmetry Course Course Course Narrative: 86-year-old female with history and clinical presentation suggestive of possible musculoskeletal/chest wall injury given patient's history of dementia although daughter states that she is unaware of any falls and that her mother was at her brother's house earlier today. Will rule out cardiopulmonary etiologies, but patient is denying shortness of breath at this time. Clinically, patient appears to be in CHF and on review of all investigations there is corroborating findings to support CHF exacerbation. Patient received 40 mg of IV Lasix and this case was discussed with both Cardiology as well as the inpatient hospitalist the latter who accepts admission. MDM - Chest Pain Lab Data Result diagrams: 09/12/21 23:26 09/12/21 23:26 Labs: Lab Results 09/12/21 09/12/21 09/12/21 Range/Units 23:26 23:26 23:26 WBC 5.1 (4.8-10.8) X10*3/uL RBC 3.15 L (4.20-5.50) X10*6/uL Hgb 9.7 L (12.0-16.0) g/dl Hct 29.1 L (37-47) % MCV 92.4 (80-98) fL MCH 30.8 (27.0-33.0) pg MCHC 33.3 (31.0-35.0) g/dl RDW 12.8 (11.0-16.0) % Plt Count 192 (160-400) X10*3/uL MPV 9.7 (9.4-12.3) fL Immature Gran % (Auto) 0.4 (0.0-0.4) % Neut % (Auto) 53.3 (45-73) % Lymph % (Auto) 31.4 (20-40) % [place] % (Auto) 9.4 (2-11) % Eos % (Auto) 4.5 H (0-4) % Baso % (Auto) 1.0 (0-2) % Lymph # (Auto) 1.6 (1.2-4.9) X10*3/uL [place] # (Auto) 0.5 (0.1-1.2) X10*3/uL Eos # (Auto) 0.2 (0.0-0.4) X10*3/uL Baso # (Auto) 0.1 (0.0-0.2) X10*3/uL Abs Immat Gran (auto) 0.02 (0.00-0.03) X10*3/uL Absolute Neuts (auto) 2.7 (2.0-8.3) X10*3/uL Absolute Nucleated RBC 0.000 (0.0-0.012) X10*3/uL Nucleated RBC % (auto) 0.0 (0.0-0.2) /100WBC PT 14.5 H (9.9-13.0) SEC INR 1.3 H (0.9-1.1) Sodium 140 (135-145) mmol/L Potassium 3.7 (3.3-5.1) mmol/L Chloride 106 (96-108) mmol/L Carbon Dioxide 29 (22-29) mmol/L Anion Gap 9 L (12-20) BUN 11 (9-16) mg/dL Creatinine 0.87 (0.5-1.4) mg/dL Estim Creat Clear Calc 31.6 Estimated GFR > 60 Random Glucose 137 H (60-115) mg/dL Calcium 9.3 (8.4-10.2) mg/dL Total Bilirubin < 0.2 (0.0-1.0) mg/dL AST 21 (5-31) U/L ALT 17 (0-31) U/L Alkaline Phosphatase 87 (39-117) U/L Troponin I High Sens (<3.5-17.0) ng/L B-Natriuretic Peptide (<100) pg/mL Total Protein 6.3 L (6.5-8.0) g/dL Albumin 3.9 (3.5-5.0) g/dL Urine Color Urine Appearance Urine pH (5.0-8.0) Ur Specific [place] (1.005-1.025) Urine Protein (NEG-TRACE) MG/DL Urine Glucose (UA) (NEG) MG/DL Urine Ketones (NEG) MG/DL Urine Blood (NEG) Urine Nitrite (NEG) Ur Leukocyte Esterase (NEG) Urine RBC (0) /HPF Urine WBC (0-4) /HPF Ur Squamous Epith Cells /LPF Urine Bacteria /LPF 09/12/21 09/12/21 Range/Units 23:26 23:39 WBC (4.8-10.8) X10*3/uL RBC (4.20-5.50) X10*6/uL Hgb (12.0-16.0) g/dl Hct (37-47) % MCV (80-98) fL MCH (27.0-33.0) pg MCHC (31.0-35.0) g/dl RDW (11.0-16.0) % Plt Count (160-400) X10*3/uL MPV (9.4-12.3) fL Immature Gran % (Auto) (0.0-0.4) % Neut % (Auto) (45-73) % Lymph % (Auto) (20-40) % [place] % (Auto) (2-11) % Eos % (Auto) (0-4) % Baso % (Auto) (0-2) % Lymph # (Auto) (1.2-4.9) X10*3/uL [place] # (Auto) (0.1-1.2) X10*3/uL Eos # (Auto) (0.0-0.4) X10*3/uL Baso # (Auto) (0.0-0.2) X10*3/uL Abs Immat Gran (auto) (0.00-0.03) X10*3/uL Absolute Neuts (auto) (2.0-8.3) X10*3/uL Absolute Nucleated RBC (0.0-0.012) X10*3/uL Nucleated RBC % (auto) (0.0-0.2) /100WBC PT (9.9-13.0) SEC INR (0.9-1.1) Sodium (135-145) mmol/L Potassium (3.3-5.1) mmol/L Chloride (96-108) mmol/L Carbon Dioxide (22-29) mmol/L Anion Gap (12-20) BUN (9-16) mg/dL Creatinine (0.5-1.4) mg/dL Estim Creat Clear Calc Estimated GFR Random Glucose (60-115) mg/dL Calcium (8.4-10.2) mg/dL Total Bilirubin (0.0-1.0) mg/dL AST (5-31) U/L ALT (0-31) U/L Alkaline Phosphatase (39-117) U/L Troponin I High Sens 65.5 H* (<3.5-17.0) ng/L B-Natriuretic Peptide 587 H (<100) pg/mL Total Protein (6.5-8.0) g/dL Albumin (3.5-5.0) g/dL Urine Color STRAW Urine Appearance CLEAR Urine pH 6.0 (5.0-8.0) Ur Specific [place] <= 1.005 (1.005-1.025) Urine Protein NEG (NEG-TRACE) MG/DL Urine Glucose (UA) NEG (NEG) MG/DL Urine Ketones NEG (NEG) MG/DL Urine Blood NEG (NEG) Urine Nitrite NEG (NEG) Ur Leukocyte Esterase TRACE H (NEG) Urine RBC 0 (0) /HPF Urine WBC 0-2 (0-4) /HPF Ur Squamous Epith Cells NONE /LPF Urine Bacteria NONE /LPF ECG Data ECG #1: Attestation: I personally reviewed and interpreted this ECG as follows: Prior ECG tracings: available for review (08/30/2021) Interpretation: Atrial paced rhythm, HR -60, MS/QTC are within normal limits. Discharge Plan Discharge Clinical Impression: CHF exacerbation, Elevated troponin Patient Disposition: Admitted As Inpatient
[2021-09-12 23:32] LABS: Basophils Absolute Auto 0.1 X10*3/uL (0.0-0.2); Eosinophils Absolute Auto 0.2 X10*3/uL (0.0-0.4); Eosinophils Percent Auto 4.5 % (0-4); Hematocrit 29.1 % (37-47); Hemoglobin 9.7 g/dl (12.0-16.0); Imm Gran Abs Auto 0.02 X10*3/uL (0.00-0.03); Imm Gran Pct Auto 0.4 % (0.0-0.4); Lymphocytes Absolute Auto 1.6 X10*3/uL (1.2-4.9); Lymphocytes Percent Auto 31.4 % (20-40); MANUAL DIFF FLAG NO; Mean Corpuscular HGB Conc 33.3 g/dl (31.0-35.0); Mean Corpuscular Hemoglobin 30.8 pg (27.0-33.0); Mean Corpuscular Volume 92.4 fL (80-98); Mean Platelet Volume 9.7 fL (9.4-12.3); Monocytes Absolute Auto 0.5 X10*3/uL (0.1-1.2); Monocytes Percent Auto 9.4 % (2-11); Neutrophils Absolute Auto 2.7 X10*3/uL (2.0-8.3); Neutrophils Percent Auto 53.3 % (45-73); Platelet Count 192 X10*3/uL (160-400); Red Blood Count 3.15 X10*6/uL (4.20-5.50); Red Cell Distribution Width 12.8 % (11.0-16.0); White Blood Count 5.1 X10*3/uL (4.8-10.8)
[2021-09-12 23:38] LABS: INTERNATIONAL NORM RATIO 1.3 (0.9-1.1); Prothrombin Time 14.5 SEC (9.9-13.0)
[2021-09-12 23:48] LABS: Appearance Urine CLEAR; Color Urine STRAW; Glucose Urine UA NEG (NEG); Leukocyte Esterase Urine TRACE (NEG); Nitrite Urine NEG (NEG); Specific Gravity - Urine <= 1.005 (1.005-1.025); UACC Culture Trigger YES; Urine Blood NEG (NEG); Urine Ketones NEG (NEG); Urine Protein NEG (NEG-TRACE)
[2021-09-12 23:48] LABS: Alanine Aminotransferase 17 U/L (0-31); Albumin Level 3.9 g/dL (3.5-5.0); Alkaline Phosphatase 87 U/L (39-117); Anion Gap 9 (12-20); Aspartate Amino Transferase 21 U/L (5-31); Bilirubin Total < 0.2 mg/dL (0.0-1.0); Blood Urea Nitrogen 11 mg/dL (9-16); Calcium 9.3 mg/dL (8.4-10.2); Carbon Dioxide 29 mmol/L (22-29); Chloride 106 mmol/L (96-108); Creatinine Clr Calc Pharmacy 31.6; Estimated Glomerular Filt Rate > 60; Glucose Random 137 mg/dL (60-115); Potassium 3.7 mmol/L (3.3-5.1); Sodium 140 mmol/L (135-145); Total Protein 6.3 g/dL (6.5-8.0)
[2021-09-12 23:54] LABS: RBC Urine 0 /HPF (0); WBC Urine 0-2 /HPF (0-4)
[2021-09-13] VITALS (11 sets, daily range): BP systolic 95–156; BP diastolic 52–77; PULSE 60–72; RESP 15–19; TEMP 36.6–36.7; O2SAT 94–98
[2021-09-13 00:05] LABS: B Type Natriuretic Peptide 587 pg/mL (<100); Troponin-I High Sensitivity 65.5 ng/L (<3.5-17.0)
--- NOTE | 2021-09-13 01:58 | P.HPHOSP_ITS ---
History of Present Illness Date of Service: 09/13/21 Chief Complaint: Chest pain 86-year-old female with a past medical history of hypertension, hyperlipidemia, diabetes, AFib on Eliquis, Alzheimer's dementia, GERD, history of CHF, pacemaker, GERD presented to the hospital with a chief complaint of chest pain. Spoke with the patient's daughter at the bedside as well. Reportedly patient was complaining of chest pain on the left lateral chest wall, sharp in nature, nonradiating no associated lightheadedness dizziness nausea or vomiting. Mentioned that the chest pain improved at the time of my interview. Mentions that she has been complaint with her home medications. Denies any signs of infection like fever chills cough or urinary complaints. Review of all other systems is negative except mentioned above ER course: Per ER team patient's EKG was nonischemic but troponin noted to be 65. Patient had prior mild elevation in troponins; chest pain improved. Imaging showed mild pulmonary congestion. Given Lasix. Admitted to the hospital for further management. ER team mentioned that they also discussed with the cardiology consult. [facility] Medical History (HFpEF) heart failure with preserved ejection fraction Alzheimer's disease Asthma Atrial fibrillation Brain TIA Cardiac arrhythmia Chronic heart failure with preserved ejection fraction (HFpEF) Dementia Diabetes mellitus Dizziness Elevated troponin Essential hypertension Fall Gastrointestinal bleeding GERD (gastroesophageal reflux disease) H/O cardiac pacemaker HLD (hyperlipidemia) HTN (hypertension) Mitral valve disease NSTEMI (non-ST elevated myocardial infarction) Paroxysmal atrial fibrillation Ulcer Family History Other Patient's mother is Pertinent family history: reviewed Surgical History History of permanent cardiac pacemaker placement (~08/2019) Status post transcatheter aortic valve replacement (TAVR) using bioprosthesis Social History Household Members: Family Housing: Apartment Do you presently have visiting nurse or other home services: No Alcohol intake: unknown Second Hand Smoke Exposure: No Advance Directives: No service: No Meds Allergies Allergy/AdvReac Type Severity Reaction Status Date / Time ibuprofen [From Motrin] Allergy Mild RASH Verified 07/18/21 13:16 Penicillins Allergy Unknown RASH Verified 07/18/21 13:16 Active Medications: Current Medications Acetaminophen (Acetaminophen 325 Mg Tablet) 650 mg PO Q6H PRN PRN Reason: Pain, Mild (Pain Scale 1-3) Furosemide (Furosemide 40 Mg/4 Ml Vial) 40 mg IVPUSH DAILY [facility]; Protocol Melatonin (Melatonin 3 Mg Tablet) 6 mg PO BEDTIME PRN PRN Reason: Insomnia Senna (Sennosides 8.6 Mg Tablet) 17.2 mg PO BEDTIME PRN PRN Reason: Constipation Sodium Chloride (0.9 % Sodium Chloride Flush 3 Ml Syringe) 3 ml IVFLUSH QSHIFT [facility] Home Medications Medication Instructions Recorded Confirmed Last Taken Type albuterol sulfate 90 mcg/actuation 2 puff PO Q4-6H PRN 09/04/20 09/13/21 Unknown History aerosol inhaler (Ventolin HFA) atorvastatin 40 mg tablet 40 mg PO DAILY 09/04/20 09/13/21 Unknown History lisinopril 40 mg tablet 40 mg PO DAILY 09/04/20 09/13/21 Unknown History multivitamin (Daily-Heather) 1 tab PO DAILY 09/04/20 09/13/21 Unknown History pantoprazole 40 mg tablet,delayed 40 mg PO DAILY 09/04/20 09/13/21 Unknown History release sertraline 50 mg tablet 50 mg PO DAILY 09/04/20 09/13/21 Unknown History magnesium oxide 400 mg (241.3 mg 400 mg PO BID 01/08/21 09/13/21 Unknown History magnesium) tablet dicyclomine 20 mg tablet 20 mg PO TID 04/11/21 09/13/21 Unknown History diltiazem HCl 300 mg 300 mg PO DAILY 04/11/21 09/13/21 Unknown History capsule,extended release 24 hr Physical Exam Vital Signs and Narrative: Vital Signs: Last Vital Signs Temp 98.7 F 09/12/21 22:16 Pulse 66 09/12/21 22:16 Resp 18 09/12/21 22:16 BP 158/64 H 09/12/21 22:16 Pulse Ox 96 09/12/21 22:16 Body Mass Index 23.0 Gen: Appears be in no acute distress HEENT: NCAT, Moist mucosa. Pulmonary: Fine crackles at the bases CVS: Normal S1-S2 Abdomen: BS+, Soft, Nontender Extremities: Warm well perfused; 1+ pitting edema Neuro: Alert and awake. Grossly nonfocal Results Labs CBC and Chem 7: 09/13/21 02:23 09/13/21 02:23 Labs: Laboratory Results - last 24 hr 09/12/21 09/12/21 09/12/21 23:26 23:26 23:26 MCV 92.4 MCH 30.8 MCHC 33.3 RDW 12.8 Plt Count 192 MPV 9.7 Immature Gran % (Auto) 0.4 Neut % (Auto) 53.3 Lymph % (Auto) 31.4 [place] % (Auto) 9.4 Eos % (Auto) 4.5 H Baso % (Auto) 1.0 Lymph # (Auto) 1.6 [place] # (Auto) 0.5 Eos # (Auto) 0.2 Baso # (Auto) 0.1 Abs Immat Gran (auto) 0.02 Absolute Neuts (auto) 2.7 Absolute Nucleated RBC 0.000 Nucleated RBC % (auto) 0.0 PT 14.5 H INR 1.3 H Anion Gap 9 L Estim Creat Clear Calc 31.6 Estimated GFR > 60 Random Glucose 137 H Calcium 9.3 Total Bilirubin < 0.2 AST 21 ALT 17 Alkaline Phosphatase 87 Troponin I High Sens B-Natriuretic Peptide Total Protein 6.3 L Albumin 3.9 Urine Color Urine Appearance Urine pH Ur Specific [place] Urine Protein Urine Glucose (UA) Urine Ketones Urine Blood Urine Nitrite Ur Leukocyte Esterase Urine RBC Urine WBC Ur Squamous Epith Cells Urine Bacteria 09/12/21 09/12/21 23:26 23:39 MCV MCH MCHC RDW Plt Count MPV Immature Gran % (Auto) Neut % (Auto) Lymph % (Auto) [place] % (Auto) Eos % (Auto) Baso % (Auto) Lymph # (Auto) [place] # (Auto) Eos # (Auto) Baso # (Auto) Abs Immat Gran (auto) Absolute Neuts (auto) Absolute Nucleated RBC Nucleated RBC % (auto) PT INR Anion Gap Estim Creat Clear Calc Estimated GFR Random Glucose Calcium Total Bilirubin AST ALT Alkaline Phosphatase Troponin I High Sens 65.5 H* B-Natriuretic Peptide 587 H Total Protein Albumin Urine Color STRAW Urine Appearance CLEAR Urine pH 6.0 Ur Specific [place] <= 1.005 Urine Protein NEG Urine Glucose (UA) NEG Urine Ketones NEG Urine Blood NEG Urine Nitrite NEG Ur Leukocyte Esterase TRACE H Urine RBC 0 Urine WBC 0-2 Ur Squamous Epith Cells NONE Urine Bacteria NONE Imaging Radiologist's Impressions: Impressions Chest X-Ray 09/12/21 22:28 IMPRESSION: No acute abnormality of chest. Chest CT 09/13/21 00:06 IMPRESSION: * No abnormalities with respect to the left chest wall to explain the patient's symptomatology. * No fractures. * Marked cardiomegaly associated with interstitial pulmonary edema. Assessment and Plan (1) Chronic heart failure with preserved ejection fraction (HFpEF): Status: Acute (2) Diabetes mellitus: Status: Acute (3) Paroxysmal atrial fibrillation: Status: Acute 86-year-old female with a past medical history of hypertension, hyperli pidemia, diabetes, AFib on Eliquis, Alzheimer's dementia, GERD, history of CHF, pacemaker, GERD presented to the hospital with a chief complaint of chest pain. Chest pain: Atypical. Currently improved. Initial troponin 60. Follow-up troponin pending. Monitor on telemetry. CHF: Will keep the patient on Lasix 20 mg IV. Monitor daily weights and I's and O's. Cardiology consult. History of aortic stenosis: Status post TAVR History of AFib: Rate controlled. Continue home Eliquis. History of diabetes: Insulin sliding scale. For all other chronic conditions, home medications will be continued Code status: Full code. Discussed with the patient's daughter. Quality Stroke Does the patient have a stroke diagnosis?: No VTE Prior VTE?: No VTE Risk Level:: Medical - low VTE Device Contraindication: Treatment Not Indicated VTE Drug Contraindication: N/A - Med Ordered
[2021-09-13] MEDS: Furosemide 40 MG/4 ML VIAL IVPUSH (02:30)
[2021-09-13 02:32] LABS: MANUAL DIFF FLAG NO
[2021-09-13 02:33] LABS: Basophils Percent Auto 0.6 % (0-2); Eosinophils Absolute Auto 0.2 X10*3/uL (0.0-0.4); Eosinophils Percent Auto 4.6 % (0-4); Hematocrit 30.5 % (37-47); Imm Gran Abs Auto 0.01 X10*3/uL (0.00-0.03); Imm Gran Pct Auto 0.2 % (0.0-0.4); Lymphocytes Absolute Auto 1.6 X10*3/uL (1.2-4.9); Mean Corpuscular HGB Conc 32.8 g/dl (31.0-35.0); Mean Corpuscular Hemoglobin 30.3 pg (27.0-33.0); Mean Corpuscular Volume 92.4 fL (80-98); Mean Platelet Volume 9.9 fL (9.4-12.3); Monocytes Absolute Auto 0.5 X10*3/uL (0.1-1.2); Monocytes Percent Auto 9.2 % (2-11); Neutrophils Absolute Auto 2.9 X10*3/uL (2.0-8.3); Neutrophils Percent Auto 55.4 % (45-73); Platelet Count 196 X10*3/uL (160-400); Red Cell Distribution Width 12.8 % (11.0-16.0); White Blood Count 5.2 X10*3/uL (4.8-10.8)
[2021-09-13 02:46] LABS: Anion Gap 13 (12-20); Blood Urea Nitrogen 10 mg/dL (9-16); COVID-19 Test Negative (Negative); Calcium 9.7 mg/dL (8.4-10.2); Carbon Dioxide 28 mmol/L (22-29); Chloride 106 mmol/L (96-108); Estimated Glomerular Filt Rate > 60; Glucose Random 125 mg/dL (60-115); Potassium 3.7 mmol/L (3.3-5.1); Sodium 143 mmol/L (135-145)
[2021-09-13 02:56] LABS: Troponin-I High Sensitivity 68.8 ng/L (<3.5-17.0)
[2021-09-13] MEDS: dilTIAZem HCL CD 300 MG CAP.ER.24H PO (07:47)
[2021-09-13] MEDS: Furosemide 20 MG/2 ML VIAL IVPUSH (07:47)
[2021-09-13] MEDS: lisinopriL 40 MG TABLET PO (07:48)
[2021-09-13] MEDS: Dicyclomine HCl 10 MG CAPSULE 20 MG PO ×3 (07:48→20:40)
[2021-09-13] MEDS: Multivitamin TABLET 1 TAB PO (07:48)
[2021-09-13] MEDS: Magnesium Oxide 400 MG TABLET PO ×2 (07:48→20:40)
[2021-09-13] MEDS: Atorvastatin Calcium 40 MG TABLET PO (07:48)
[2021-09-13] MEDS: carvediloL 6.25 MG TABLET PO ×2 (07:48→11:19)
[2021-09-13] MEDS: Sertraline HCL 50 MG TABLET PO (07:49)
[2021-09-13] MEDS: 0.9 % Sodium Chloride Flush 3 ML SYRINGE IVFLUSH (07:49)
[2021-09-13] MEDS: Apixaban 2.5 MG TABLET PO ×2 (07:49→20:40)
--- NOTE | 2021-09-13 07:52 | PHA.MEDREC ---
Pharmacy Consult ? Medication Reconciliation Medication Reconciliation completed by overnight nursing staff. Pharmacy review the med rec. Mookie FarahD
[2021-09-13 08:03] LABS: Glucose, Whole Blood 112 mg/dL (60-115)
[2021-09-13 08:18] LABS: Magnesium 1.4 mg/dL (1.6-2.6)
[2021-09-13] MEDS: Magnesium Sulfate/H2O 2 GM/50 ML PIGGYBACK IV (08:43)
--- NOTE | 2021-09-13 09:11 | PC.NURSE ---
updates to daughter, Sandhya, with patient's permission.
--- NOTE | 2021-09-13 10:16 | PM.CNCAR ---
History of Present Illness History of Present Illness Date of Service: 09/13/21 Requesting physician: Sharad Zuñiga Consult reason: congestive heart failure Chief complaint: CHF Narrative: I was requested to see Ashley in cardiology consultation today because of elevated BNP and CT findings of alveolar pulmonary edema. Patient was brought into the emergency or came into the emergency room because of chest discomfort which was left-sided radiating to the left arm. She denied any shortness of breath, orthopnea, PND, leg edema. However admission troponin was are mildly elevated at 65.5 but flat. A BNP was elevated at 587 which is higher than her baseline. Chest x-ray was reported as normal however her CT scan was suggestive of alveolar pulmonary edema. She was then given Lasix. She says she has been going to the bathroom a lot. She is feeling better. She denies any chest pain currently. Denies any palpitations. Remains in sinus rhythm. Blood pressure is elevated. Her magnesium levels are significantly low. She is on home Lasix on a p.r.n. basis for prior history of diastolic heart failure. She has history of hypertension, paroxysmal atrial fibrillation, cardiac pacemaker Medtronic dual-chamber, transcatheter aortic valve replacement. Last echocardiogram in July showed normally function bioprosthetic valve with normal LV systolic function grade 2 diastolic dysfunction. Review of Systems Constitutional: Constitutional: Reports no additional constitutional complaints Eyes: Eyes: Reports no additional eye complaints Cardiovascular: Cardiovascular: Reports chest pain, Denies lightheadedness, Denies Loss of Consciousness, Denies palpitations, Reports dyspnea on exertion and Denies orthopnea Respiratory: Respiratory: Reports no additional respiratory complaints, Denies chest congestion and Reports dyspnea on exertion Gastrointestinal: Gastrointestinal: Reports no additional gastrointestinal complaints Genitourinary: Genitourinary: Reports no additional female genitourinary complaints Musculoskeletal: Musculoskeletal: Reports no additional musculoskeletal complaints Integumentary/Breasts: Skin/Breast: Reports system reviewed and no additional complaints, except as docu Neurologic: Reports system reviewed and no additional complaints, except as documented Psychiatric: Psychiatric: Reports no additional psychiatric complaints Endocrine: Endocrine: Reports no additional endocrine complaints and Denies palpitations Hematologic/Lymphatic: Hematologic/Lymphatic: Reports no additional hematologic/lymphatic complaints Allergic/Immunologic: Allergic/Immunologic: Reports no additional allergic/immunologic complaints PMFSH Past Medical History Medical History (HFpEF) heart failure with preserved ejection fraction Alzheimer's disease Asthma Atrial fibrillation Brain TIA Cardiac arrhythmia Chronic heart failure with preserved ejection fraction (HFpEF) Dementia Diabetes mellitus Dizziness Elevated troponin Essential hypertension Fall Gastrointestinal bleeding GERD (gastroesophageal reflux disease) H/O cardiac pacemaker HLD (hyperlipidemia) HTN (hypertension) Mitral valve disease NSTEMI (non-ST elevated myocardial infarction) Paroxysmal atrial fibrillation Ulcer Family History Family History Other Patient's mother is Surgical History Surgical History History of permanent cardiac pacemaker placement (~08/2019) Status post transcatheter aortic valve replacement (TAVR) using bioprosthesis Social History Social History Household Members: Family Housing: Apartment Do you presently have visiting nurse or other home services: No Alcohol intake: unknown Second Hand Smoke Exposure: No Advance Directives: No service: No Meds Allergies Allergy/AdvReac Type Severity Reaction Status Date / Time ibuprofen [From Motrin] Allergy Mild RASH Verified 07/18/21 13:16 Penicillins Allergy Unknown RASH Verified 07/18/21 13:16 Active Medications: Current Medications Acetaminophen (Acetaminophen 325 Mg Tablet) 650 mg PO Q6H PRN PRN Reason: Pain, Mild (Pain Scale 1-3) Albuterol Sulfate (Albuterol Sulfate 90 Mcg 8 Gm Inhaler) 2 puff INHALE Q4H PRN PRN Reason: Shortness Of Breath Apixaban (Apixaban 2.5 Mg Tablet) 2.5 mg PO BID [facility] Last Admin: 09/13/21 07:49 Dose: 2.5 mg Documented by: Atorvastatin Calcium (Atorvastatin Calcium 40 Mg Tablet) 40 mg PO DAILY [facility] Last Admin: 09/13/21 07:48 Dose: 40 mg Documented by: Carvedilol (Carvedilol 6.25 Mg Tablet) 6.25 mg PO BIDWM [facility]; Protocol Last Admin: 09/13/21 07:48 Dose: 6.25 mg Documented by: Dextrose (Dextrose 50 % 25 Gm/50 Ml Vial) 25 gm IVPUSH Q15M PRN; Protocol PRN Reason: per Hypoglycemia Standing Ord. Dicyclomine HCl (Dicyclomine Hcl 10 Mg Capsule) 20 mg PO TID [facility] Last Admin: 09/13/21 07:48 Dose: 20 mg Documented by: Diltiazem HCl (Diltiazem Hcl Cd 300 Mg Cap.Er.24h) 300 mg PO DAILY [facility]; Protocol Last Admin: 09/13/21 07:47 Dose: 300 mg Documented by: Furosemide (Furosemide 20 Mg/2 Ml Vial) 20 mg IVPUSH DAILY@0800 [facility]; Protocol Last Admin: 09/13/21 07:47 Dose: 20 mg Documented by: Glucose (Glucose Gel 15 Gm Gel..Gram.) 15 gm PO Q15M PRN; Protocol PRN Reason: per Hypoglycemia Standing Ord. Magnesium Sulfate (Magnesium Sulfate/H2o) 2 gm in 50 mls @ 25 mls/hr IV ONCE ONE Stop: 09/13/21 10:35 Last Admin: 09/13/21 08:43 Dose: 25 mls/hr Documented by: Insulin Human Lispro (Insulin Lispro 100 Unit/Ml 3 Ml Vial) 0 unit SUBCUT QIDACHS [facility]; Protocol Last Admin: 09/13/21 08:38 Dose: Not Given Documented by: Lisinopril (Lisinopril 40 Mg Tablet) 40 mg PO DAILY [facility]; Protocol Last Admin: 09/13/21 07:48 Dose: 40 mg Documented by: Magnesium Oxide (Magnesium Oxide 400 Mg Tablet) 400 mg PO BID [facility] Last Admin: 09/13/21 07:48 Dose: 400 mg Documented by: Melatonin (Melatonin 3 Mg Tablet) 6 mg PO BEDTIME PRN PRN Reason: Insomnia Multivitamins/Vitamin C (Multivitamin Tablet) 1 tab PO DAILY [facility] Last Admin: 09/13/21 07:48 Dose: 1 tab Documented by: Omeprazole (Omeprazole 20 Mg Capsule.Dr) 20 mg PO DAILY@0630 [facility] Last Admin: 09/13/21 07:49 Dose: Not Given Documented by: Senna (Sennosides 8.6 Mg Tablet) 17.2 mg PO BEDTIME PRN PRN Reason: Constipation Sertraline HCl (Sertraline Hcl 50 Mg Tablet) 50 mg PO DAILY [facility] Last Admin: 09/13/21 07:49 Dose: 50 mg Documented by: Sodium Chloride (0.9 % Sodium Chloride Flush 3 Ml Syringe) 3 ml IVFLUSH QSHIFT [facility] Last Admin: 09/13/21 07:49 Dose: 3 ml Documented by: Home Medications Medication Instructions Recorded Confirmed Last Taken Type albuterol sulfate 90 mcg/actuation 2 puff PO Q4-6H PRN 09/04/20 09/13/21 Unknown History aerosol inhaler (Ventolin HFA) atorvastatin 40 mg tablet 40 mg PO DAILY 09/04/20 09/13/21 Unknown History lisinopril 40 mg tablet 40 mg PO DAILY 09/04/20 09/13/21 Unknown History multivitamin (Daily-Heather) 1 tab PO DAILY 09/04/20 09/13/21 Unknown History pantoprazole 40 mg tablet,delayed 40 mg PO DAILY 09/04/20 09/13/21 Unknown History release sertraline 50 mg tablet 50 mg PO DAILY 09/04/20 09/13/21 Unknown History magnesium oxide 400 mg (241.3 mg 400 mg PO BID 01/08/21 09/13/21 Unknown History magnesium) tablet dicyclomine 20 mg tablet 20 mg PO TID 04/11/21 09/13/21 Unknown History diltiazem HCl 300 mg 300 mg PO DAILY 04/11/21 09/13/21 Unknown History capsule,extended release 24 hr Physical Exam Vital Signs: Vital Signs: Last Vital Signs Temp 98.1 F 09/13/21 07:23 Pulse 69 09/13/21 08:44 Resp 19 09/13/21 08:44 BP 154/77 H 09/13/21 08:44 Pulse Ox 94 09/13/21 08:44 Body Mass Index 23.0 Const: General: cooperative, comfortable, no acute distress, alert and awake Nutritional Appearance: thin Orientation/consciousness: patient oriented x3 HENMT: Head: Yes normocephalic and Yes atraumatic Neck: Neck: Yes trachea midline, Yes supple and Yes no JVD Resp: Effort & Inspection: normal respiratory effort Auscultation: clear to auscultation bilaterally Cardio: Jugular venous distension: no JVD Palpation: normal PMI Rate: regular rate Rhythm: regular rhythm Heart sounds: S1 normal heart sound present, S2 normal heart sound present, no click, no gallops, no murmurs and no rubs GI: Auscultation: normal bowel sounds Skin: General skin exam: no rashes or lesions noted Neuro: General: patient oriented x3 and no focal motor deficits Extrem: General: Yes no clubbing, cyanosis or edema Psych: Appearance: grossly normal Results Labs and Meds Result diagrams: 09/13/21 02:23 09/13/21 02:23 Lab results: Laboratory Results - last 24 hr 09/12/21 09/12/21 09/12/21 23:26 23:26 23:26 WBC 5.1 RBC 3.15 L Hgb 9.7 L Hct 29.1 L MCV 92.4 MCH 30.8 MCHC 33.3 RDW 12.8 Plt Count 192 MPV 9.7 Immature Gran % (Auto) 0.4 Neut % (Auto) 53.3 Lymph % (Auto) 31.4 [place] % (Auto) 9.4 Eos % (Auto) 4.5 H Baso % (Auto) 1.0 Lymph # (Auto) 1.6 [place] # (Auto) 0.5 Eos # (Auto) 0.2 Baso # (Auto) 0.1 Abs Immat Gran (auto) 0.02 Absolute Neuts (auto) 2.7 Absolute Nucleated RBC 0.000 Nucleated RBC % (auto) 0.0 PT 14.5 H INR 1.3 H Sodium 140 Potassium 3.7 Chloride 106 Carbon Dioxide 29 Anion Gap 9 L BUN 11 Creatinine 0.87 Estim Creat Clear Calc 31.6 Estimated GFR > 60 POC Glucose Random Glucose 137 H Calcium 9.3 Magnesium Total Bilirubin < 0.2 AST 21 ALT 17 Alkaline Phosphatase 87 Troponin I High Sens B-Natriuretic Peptide Total Protein 6.3 L Albumin 3.9 Urine Color Urine Appearance Urine pH Ur Specific [place] Urine Protein Urine Glucose (UA) Urine Ketones Urine Blood Urine Nitrite Ur Leukocyte Esterase Urine RBC Urine WBC Ur Squamous Epith Cells Urine Bacteria COVID-19 (SUSANA) COVID-19 Clin Com 09/12/21 09/12/21 09/13/21 23:26 23:39 02:21 WBC RBC Hgb Hct MCV MCH MCHC RDW Plt Count MPV Immature Gran % (Auto) Neut % (Auto) Lymph % (Auto) [place] % (Auto) Eos % (Auto) Baso % (Auto) Lymph # (Auto) [place] # (Auto) Eos # (Auto) Baso # (Auto) Abs Immat Gran (auto) Absolute Neuts (auto) Absolute Nucleated RBC Nucleated RBC % (auto) PT INR Sodium Potassium Chloride Carbon Dioxide Anion Gap BUN Creatinine Estim Creat Clear Calc Estimated GFR POC Glucose Random Glucose Calcium Magnesium Total Bilirubin AST ALT Alkaline Phosphatase Troponin I High Sens 65.5 H* 68.8 H* B-Natriuretic Peptide 587 H Total Protein Albumin Urine Color STRAW Urine Appearance CLEAR Urine pH 6.0 Ur Specific [place] <= 1.005 Urine Protein NEG Urine Glucose (UA) NEG Urine Ketones NEG Urine Blood NEG Urine Nitrite NEG Ur Leukocyte Esterase TRACE H Urine RBC 0 Urine WBC 0-2 Ur Squamous Epith Cells NONE Urine Bacteria NONE COVID-19 (SUSANA) COVID-19 [employer] Com 09/13/21 09/13/21 09/13/21 02:23 02:23 02:23 WBC 5.2 RBC 3.30 L Hgb 10.0 L Hct 30.5 L MCV 92.4 MCH 30.3 MCHC 32.8 RDW 12.8 Plt Count 196 MPV 9.9 Immature Gran % (Auto) 0.2 Neut % (Auto) 55.4 Lymph % (Auto) 30.0 [place] % (Auto) 9.2 Eos % (Auto) 4.6 H Baso % (Auto) 0.6 Lymph # (Auto) 1.6 [place] # (Auto) 0.5 Eos # (Auto) 0.2 Baso # (Auto) 0.0 Abs Immat Gran (auto) 0.01 Absolute Neuts (auto) 2.9 Absolute Nucleated RBC 0.000 Nucleated RBC % (auto) 0.0 PT INR Sodium 143 Potassium 3.7 Chloride 106 Carbon Dioxide 28 Anion Gap 13 BUN 10 Creatinine 0.81 Estim Creat Clear Calc 34.0 Estimated GFR > 60 POC Glucose Random Glucose 125 H Calcium 9.7 Magnesium Total Bilirubin AST ALT Alkaline Phosphatase Troponin I High Sens B-Natriuretic Peptide Total Protein Albumin Urine Color Urine Appearance Urine pH Ur Specific [place] Urine Protein Urine Glucose (UA) Urine Ketones Urine Blood Urine Nitrite Ur Leukocyte Esterase Urine RBC Urine WBC Ur Squamous Epith Cells Urine Bacteria COVID-19 (SUSANA) Negative COVID-19 Clin Com See Note 09/13/21 09/13/21 09/13/21 07:32 07:40 07:40 WBC RBC Hgb Hct MCV MCH MCHC RDW Plt Count MPV Immature Gran % (Auto) Neut % (Auto) Lymph % (Auto) [place] % (Auto) Eos % (Auto) Baso % (Auto) Lymph # (Auto) [place] # (Auto) Eos # (Auto) Baso # (Auto) Abs Immat Gran (auto) Absolute Neuts (auto) Absolute Nucleated RBC Nucleated RBC % (auto) PT INR Sodium Potassium Chloride Carbon Dioxide Anion Gap BUN Creatinine Estim Creat Clear Calc Estimated GFR POC Glucose 112 Random Glucose Calcium Magnesium 1.4 L* Total Bilirubin AST ALT Alkaline Phosphatase Troponin I High Sens 66.0 H* B-Natriuretic Peptide Total Protein Albumin Urine Color Urine Appearance Urine pH Ur Specific [place] Urine Protein Urine Glucose (UA) Urine Ketones Urine Blood Urine Nitrite Ur Leukocyte Esterase Urine RBC Urine WBC Ur Squamous Epith Cells Urine Bacteria COVID-19 (SUSANA) COVID-19 Clin Com EKG shows atrially paced rhythm with right bundle-branch block and left axis deviation without acute ST T wave changes. Imaging Radiologist's impression: Impressions Chest X-Ray 09/12/21 22:28 IMPRESSION: No acute abnormality of chest. Chest CT 09/13/21 00:06 IMPRESSION: * No abnormalities with respect to the left chest wall to explain the patient's symptomatology. * No fractures. * Marked cardiomegaly associated with interstitial pulmonary edema. Assessment and Plan (1) CHF exacerbation: Status: Acute Patient presents with chest pain but noted to be in mild heart failure. Clinically appears to be euvolemic and no significant rales however CT scan finding of LV lower edema with elevated BNP compared to a baseline. Chest pain could be related to increase left ventricular end-diastolic pressure and subendocardial ischemia. Troponin release also most likely related to the same. Agree with Lasix IV push 20 mg daily strict intake and output chart. Appears that by tomorrow she should do a lot better. Check BMP and BNP. Would add Aldactone 12.5 mg to her regimen. Better blood pressure control with Aldactone as well as increasing Coreg therapy. Currently maintaining sinus rhythm. Continue the same. Continue full oral anticoagulation. Plan was discussed with the patient. She says she is having some issues at home, consider care management evaluation. Will sign of the case and follow up as outpatient. Thank you for allowing us to partake in her care Procedures Date of Service Date of Service: 09/13/21
--- NOTE | 2021-09-13 10:27 | PC.NURSE ---
Pt up slowly, steady to BR. denies dizziness. is steady on feet. hospital bed provided. Pt has no complaints at this time. unlabored resp. no ectopy on monitor.
--- NOTE | 2021-09-13 10:30 | MHC.CM.PN ---
Addendum entered by Evie Chowdhury 09/13/21 10:39: Patient received Moderna vaccines on 01/11 and 02/08. Original Note: Attempted to meet with patient in regards to discharge planning. Nursing care currently being provided. Spoke with patient's daughter/HCP, Sandhya via telephone at [phone]. Patient lives with Sandhya's sister, refuses to use any assistive devices for mobility and has [employer] hours through [facility]. Sandhya is requesting referral to [facility] when patient is ready for discharge for chronic disease management. Referral made via [employer]. PCP verified as Dr Mujica. Copy of HCP verified to be on file. IMM explained and left at patient's bedside. Patient's family will transport her home when medically stable. Continue to monitor for d/c needs.
[2021-09-13] MEDS: Spironolactone 25 MG TABLET 12.5 MG PO (11:21)
--- NOTE | 2021-09-13 11:36 | HO.PM.IMPN ---
Subjective Subjective Date of Service: 09/13/21 Interval History: Pt interviewed in [place] Chest pain resolved No dyspnea Review of Systems Review of Systems: Yes all other systems are reviewed and are negative Physical Exam Vital Signs: Vital Signs: Last Vital Signs Temp 97.8 F 09/13/21 10:22 Pulse 64 09/13/21 11:21 Resp 18 09/13/21 10:22 BP 139/52 L 09/13/21 11:21 Pulse Ox 98 09/13/21 11:13 Body Mass Index 23.0 Gen: in no acute distress HEENT: sclera anicteric, moist mucus membranes Neck: supple Lungs: clear to auscultation bilaterally Heart: regular rate and rhythm, no murmurs Abd: soft, non-tender, non-distended Ext: no edema Skin: warm/well-perfused Neuro: somewhat disoriented Psych: appropriate affect, impaired insight Objective Data Active Medications Acetaminophen (Acetaminophen 325 Mg Tablet) 650 mg PO Q6H PRN PRN Reason: Pain, Mild (Pain Scale 1-3) Albuterol Sulfate (Albuterol Sulfate 90 Mcg 8 Gm Inhaler) 2 puff INHALE Q4H PRN PRN Reason: Shortness Of Breath Apixaban (Apixaban 2.5 Mg Tablet) 2.5 mg PO BID [facility] Last Admin: 09/13/21 07:49 Dose: 2.5 mg Documented by: JUVE Atorvastatin Calcium (Atorvastatin Calcium 40 Mg Tablet) 40 mg PO DAILY [facility] Last Admin: 09/13/21 07:48 Dose: 40 mg Documented by: JUVE Carvedilol (Carvedilol 12.5 Mg Tablet) 12.5 mg PO BIDWM [facility]; Protocol Dextrose (Dextrose 50 % 25 Gm/50 Ml Vial) 25 gm IVPUSH Q15M PRN; Protocol PRN Reason: per Hypoglycemia Standing Ord. Dicyclomine HCl (Dicyclomine Hcl 10 Mg Capsule) 20 mg PO TID [facility] Last Admin: 09/13/21 07:48 Dose: 20 mg Documented by: JUVE Diltiazem HCl (Diltiazem Hcl Cd 300 Mg Cap.Er.24h) 300 mg PO DAILY [facility]; Protocol Last Admin: 09/13/21 07:47 Dose: 300 mg Documented by: JUVE Furosemide (Furosemide 20 Mg/2 Ml Vial) 20 mg IVPUSH DAILY@0800 [facility]; Protocol Last Admin: 09/13/21 07:47 Dose: 20 mg Documented by: JUVE Glucose (Glucose Gel 15 Gm Gel..Gram.) 15 gm PO Q15M PRN; Protocol PRN Reason: per Hypoglycemia Standing Ord. Insulin Human Lispro (Insulin Lispro 100 Unit/Ml 3 Ml Vial) 0 unit SUBCUT QIDACHS [facility]; Protocol Last Admin: 09/13/21 08:38 Dose: Not Given Documented by: JUVE Non-Admin Reason: No Insulin Coverage Lisinopril (Lisinopril 40 Mg Tablet) 40 mg PO DAILY [facility]; Protocol Last Admin: 09/13/21 07:48 Dose: 40 mg Documented by: JUVE Magnesium Oxide (Magnesium Oxide 400 Mg Tablet) 400 mg PO BID [facility] Last Admin: 09/13/21 07:48 Dose: 400 mg Documented by: JUVE Melatonin (Melatonin 3 Mg Tablet) 6 mg PO BEDTIME PRN PRN Reason: Insomnia Multivitamins/Vitamin C (Multivitamin Tablet) 1 tab PO DAILY [facility] Last Admin: 09/13/21 07:48 Dose: 1 tab Documented by: JUVE Omeprazole (Omeprazole 20 Mg Capsule.Dr) 20 mg PO DAILY@0630 [facility] Last Admin: 09/13/21 07:49 Dose: Not Given Documented by: JUVE Non-Admin Reason: See Note Senna (Sennosides 8.6 Mg Tablet) 17.2 mg PO BEDTIME PRN PRN Reason: Constipation Sertraline HCl (Sertraline Hcl 50 Mg Tablet) 50 mg PO DAILY [facility] Last Admin: 09/13/21 07:49 Dose: 50 mg Documented by: JUVE Sodium Chloride (0.9 % Sodium Chloride Flush 3 Ml Syringe) [facility] Last Admin: 09/13/21 07:49 Dose: 3 ml Documented by: JUVE Spironolactone (Spironolactone 25 Mg Tablet) 12.5 mg PO DAILY [facility]; Protocol Last Admin: 09/13/21 11:21 Dose: 12.5 mg Documented by: AVIVA Labs CBC & Chem 7: 09/13/21 02:23 09/13/21 02:23 Labs: Laboratory Results - last 24 hr 09/12/21 09/12/21 09/12/21 23:26 23:26 23:26 MCV 92.4 MCH 30.8 MCHC 33.3 RDW 12.8 Plt Count 192 MPV 9.7 Immature Gran % (Auto) 0.4 Neut % (Auto) 53.3 Lymph % (Auto) 31.4 [place] % (Auto) 9.4 Eos % (Auto) 4.5 H Baso % (Auto) 1.0 Lymph # (Auto) 1.6 [place] # (Auto) 0.5 Eos # (Auto) 0.2 Baso # (Auto) 0.1 Abs Immat Gran (auto) 0.02 Absolute Neuts (auto) 2.7 Absolute Nucleated RBC 0.000 Nucleated RBC % (auto) 0.0 PT 14.5 H INR 1.3 H Anion Gap 9 L Estim Creat Clear Calc 31.6 Estimated GFR > 60 POC Glucose Random Glucose 137 H Calcium 9.3 Magnesium Total Bilirubin < 0.2 AST 21 ALT 17 Alkaline Phosphatase 87 Troponin I High Sens B-Natriuretic Peptide Total Protein 6.3 L Albumin 3.9 Urine Color Urine Appearance Urine pH Ur Specific [place] Urine Protein Urine Glucose (UA) Urine Ketones Urine Blood Urine Nitrite Ur Leukocyte Esterase Urine RBC Urine WBC Ur Squamous Epith Cells Urine Bacteria COVID-19 ([facility]USANA) COVID-19 Clin Com 09/12/21 09/12/21 09/13/21 23:26 23:39 02:21 MCV MCH MCHC RDW Plt Count MPV Immature Gran % (Auto) Neut % (Auto) Lymph % (Auto) [place] % (Auto) Eos % (Auto) Baso % (Auto) Lymph # (Auto) [place] # (Auto) Eos # (Auto) Baso # (Auto) Abs Immat Gran (auto) Absolute Neuts (auto) Absolute Nucleated RBC Nucleated RBC % (auto) PT INR Anion Gap Estim Creat Clear Calc Estimated GFR POC Glucose Random Glucose Calcium Magnesium Total Bilirubin AST ALT Alkaline Phosphatase Troponin I High Sens 65.5 H* 68.8 H* B-Natriuretic Peptide 587 H Total Protein Albumin Urine Color STRAW Urine Appearance CLEAR Urine pH 6.0 Ur Specific [place] <= 1.005 Urine Protein NEG Urine Glucose (UA) NEG Urine Ketones NEG Urine Blood NEG Urine Nitrite NEG Ur Leukocyte Esterase TRACE H Urine RBC 0 Urine WBC 0-2 Ur Squamous Epith Cells NONE Urine Bacteria NONE COVID-19 (SUSANA) COVID-19 Clin Com 09/13/21 09/13/21 09/13/21 02:23 02:23 02:23 MCV 92.4 MCH 30.3 MCHC 32.8 RDW 12.8 Plt Count 196 MPV 9.9 Immature Gran % (Auto) 0.2 Neut % (Auto) 55.4 Lymph % (Auto) 30.0 [place] % (Auto) 9.2 Eos % (Auto) 4.6 H Baso % (Auto) 0.6 Lymph # (Auto) 1.6 [place] # (Auto) 0.5 Eos # (Auto) 0.2 Baso # (Auto) 0.0 Abs Immat Gran (auto) 0.01 Absolute Neuts (auto) 2.9 Absolute Nucleated RBC 0.000 Nucleated RBC % (auto) 0.0 PT INR Anion Gap 13 Estim Creat Clear Calc 34.0 Estimated GFR > 60 POC Glucose Random Glucose 125 H Calcium 9.7 Magnesium Total Bilirubin AST ALT Alkaline Phosphatase Troponin I High Sens B-Natriuretic Peptide Total Protein Albumin Urine Color Urine Appearance Urine pH Ur Specific [place] Urine Protein Urine Glucose (UA) Urine Ketones Urine Blood Urine Nitrite Ur Leukocyte Esterase Urine RBC Urine WBC Ur Squamous Epith Cells Urine Bacteria COVID-19 (SUSANA) Negative COVID-19 Clin Com See Note 09/13/21 09/13/21 09/13/21 07:32 07:40 07:40 MCV MCH MCHC RDW Plt Count MPV Immature Gran % (Auto) Neut % (Auto) Lymph % (Auto) [place] % (Auto) Eos % (Auto) Baso % (Auto) Lymph # (Auto) [place] # (Auto) Eos # (Auto) Baso # (Auto) Abs Immat Gran (auto) Absolute Neuts (auto) Absolute Nucleated RBC Nucleated RBC % (auto) PT INR Anion Gap Estim Creat Clear Calc Estimated GFR POC Glucose 112 Random Glucose Calcium Magnesium 1.4 L* Total Bilirubin AST ALT Alkaline Phosphatase Troponin I High Sens 66.0 H* B-Natriuretic Peptide Total Protein Albumin Urine Color Urine Appearance Urine pH Ur Specific [place] Urine Protein Urine Glucose (UA) Urine Ketones Urine Blood Urine Nitrite Ur Leukocyte Esterase Urine RBC Urine WBC Ur Squamous Epith Cells Urine Bacteria COVID-19 (SUSANA) COVID-19 Clin Com Assessment and Plan (1) Acute on chronic heart failure with preserved ejection fraction (HFpEF): Status: Acute Assessment and Plan: hospital d#1 86yo F with dementia, DM2, AF, HFpEF, CAD, HTN, with hx PPM + TAVR admitted with chest pain and concern of CHF exacerbation # acute/chronic HFpEF - IV furosemide for 1 more day, recheck BNP and lytes in am and if improved d/c on oral furosemide - needs better BP control; see below # chest pain - Tn-I flat; could be elevated due to CHF; not ACS # HTN, uncontrolled - continue lisinopril + diltiazem; increase carvedilol; start spironolactone # hypoMg - replete, recheck in AM # AF - continue diltiazem + carvedilol - continue apixaban # CAD - continue statin + carvedilol + lisinopril # DM2 - correction-dose lispro # mood disorder - continue sertraline # VTE ppx - apixaban Quality Stroke Does the patient have a stroke diagnosis?: No VTE Prior VTE?: No VTE Risk Level:: Medical - low VTE Device Contraindication: Treatment Not Indicated VTE Drug Contraindication: N/A - Med Ordered
--- NOTE | 2021-09-13 15:31 | PC.NURSE ---
Pt has been sleeping on and off. awake now and sitting upright to eat. tray provided by kitchen had fries, katsup and sloppy lupe. this rn to f/u with kitchen for low sodium try.
--- NOTE | 2021-09-13 21:28 | PC.NURSE ---
Medicated per MAR with 2100 meds. Pt requesting food/drink, provided with such. Pt aware of plan, awaiting bed assignment.
--- NOTE | 2021-09-13 22:13 | PC.NURSE ---
PT ambulated to the bathroom independently with steady gait.
[2021-09-14 00:40] VITALS: BP 151/70; PULSE 69; TEMP 36.4; O2SAT 97
--- NOTE | 2021-09-14 01:54 | PC.NURSE ---
Report given to RN on IMC.
[2021-09-14 02:06] VITALS: BP 144/66; PULSE 69; RESP 18; TEMP 36.1; O2SAT 96
[2021-09-14 02:14] VITALS: BMI 21.4
[2021-09-14 03:40] LABS: Glucose, Whole Blood 144 mg/dL (60-115)
[2021-09-14 06:00] VITALS: BMI 21.4
[2021-09-14] MEDS: Omeprazole 20 MG CAPSULE.DR PO (06:37)
[2021-09-14 07:10] LABS: Anion Gap 12 (12-20); B Type Natriuretic Peptide 355 pg/mL (<100); Blood Urea Nitrogen 17 mg/dL (9-16); Calcium 9.9 mg/dL (8.4-10.2); Carbon Dioxide 33 mmol/L (22-29); Chloride 99 mmol/L (96-108); Creatinine Clr Calc Pharmacy 28.4; Estimated Glomerular Filt Rate 54; Glucose Random 156 mg/dL (60-115); Magnesium 2.1 mg/dL (1.6-2.6); Potassium 3.7 mmol/L (3.3-5.1); Sodium 140 mmol/L (135-145)
[2021-09-14 07:22] VITALS: BP 136/79; PULSE 78; RESP 18; TEMP 37; O2SAT 95
[2021-09-14 07:30] LABS: Glucose, Whole Blood 134 mg/dL (60-115)
[2021-09-14 09:47] VITALS: BP 136/79; PULSE 78; O2SAT 95
[2021-09-14] MEDS: lisinopriL 40 MG TABLET PO (10:34)
[2021-09-14] MEDS: Magnesium Oxide 400 MG TABLET PO (10:35)
[2021-09-14] MEDS: dilTIAZem HCL CD 300 MG CAP.ER.24H PO (10:35)
[2021-09-14] MEDS: Furosemide 20 MG/2 ML VIAL IVPUSH (10:35)
[2021-09-14] MEDS: Dicyclomine HCl 10 MG CAPSULE 20 MG PO (10:36)
[2021-09-14] MEDS: Atorvastatin Calcium 40 MG TABLET PO (10:36)
[2021-09-14] MEDS: Apixaban 2.5 MG TABLET PO (10:36)
[2021-09-14] MEDS: Multivitamin TABLET 1 TAB PO (10:37)
[2021-09-14 10:38] VITALS: BP 142/59; PULSE 68
[2021-09-14] MEDS: Sertraline HCL 50 MG TABLET PO (10:38)
[2021-09-14] MEDS: carvediloL 12.5 MG TABLET PO (10:38)
[2021-09-14] MEDS: 0.9 % Sodium Chloride Flush 3 ML SYRINGE IVFLUSH (10:39)
--- NOTE | 2021-09-14 10:42 | P.F2F_ITS ---
Service Date Service Date: 09/14/21 Encounter Date of encounter: 09/14/21 Reasons for Services Signs and symptoms assessed: CHF Reason for [facility]: CV/CP assess and/or care, medication management, medication treatment and teach disease management Reason for physical therapy: home safety and mobility, therapeutic exercises, gait/transfer training, assess need for DME, ADL training and energy conservation MD Overseeing Care: Ortega Name Homebound: Leaving the home is medically contraindicated at this time without the asist of a device and/or another person due th the listed conditions above and below. Reason homebound: unsteady gait / fall risk and cognitively impaired / unsafe Certification: Based on the above findings, I certify that this patient is confined to the home and needs intermittent [facility] care, physical therapy and/or speech therapy, or continues to need occupational therapy. The patient is under my care, and I have initiated the establishment of the plan of care. The patient will be followed by a physician who will periodically review the plan of care.
--- NOTE | 2021-09-14 11:07 | P.DS_ITS ---
DS: Providers Provider Date of Service: 09/14/21 Date of admission: 09/13/21 01:55 Date of discharge: 09/14/21 Primary care physician: Unknown Physician Consults: 09/13/21 01:55 Consult to Cardiology Routine Consulting Provider: Samm Sepulveda Reason for consultation: chf DS: Diagnosis Discharge Diagnosis (1) Acute on chronic heart failure with preserved ejection fraction (HFpEF): Status: Acute (2) Hypomagnesemia: Status: Acute (3) Essential hypertension: Status: Acute (4) Atypical chest pain: Status: Acute DS: Summary Hospital Course Hospital Course: from admission history and physical by hospitaist Sharad Zuñiga, 09/13/21: 86-year-old female with a past medical history of hypertension, hyperlipidemia, diabetes, AFib on Eliquis, Alzheimer's dementia, GERD, history of CHF, pacemaker, GERD presented to the hospital with a chief complaint of chest pain. Spoke with the patient's daughter at the bedside as well. Reportedly patient was complaining of chest pain on the left lateral chest wall, sharp in nature, nonradiating no associated lightheadedness dizziness nausea or vomiting. Mentioned that the chest pain improved at the time of my interview. Mentions that she has been complaint with her home medications. Denies any signs of infection like fever chills cough or urinary complaints. Review of all other systems is negative except mentioned above ER course: Per ER team patient's EKG was nonischemic but troponin noted to be 65. Patient had prior mild elevation in troponins; chest pain improved.? Imaging showed mild pulmonary congestion.? Given Lasix.? Admitted to the hospital for further management.? ER team mentioned that they also discussed with the cardiology consult. Ms Anderson was admitted to the [facility] and gently diuresed with IV furosemide for suspected CHF exacerbation. Troponin-I was flat and was likely elevated due to CHF, not to ACS. Magnesium was repleted. For better control of hypertension, carvedilol dose was increased and she was started on spironolactone. She was discharged on furosemide 20 mg daily, carvedilol 12.5 mg bid, and spironolactone 12.5 mg daily, with no changes to her other medications. VNA services were arranged. She should follow up with her primary care doctor in 1 week and with her vb developer in 2 weeks. Labs should be draw in 1 week: BNP, BMP, magnesium; all non-fasting. Time Spent with Patient Time attestation: Total time spent providing and/or coordinating discharge services: Discharge coordination time: Greater than 30 minutes Quality: Stroke Does the patient have a stroke diagnosis?: No Physical Exam Vital Signs: Vital Signs: Last Vital Signs Temp 98.6 F 09/14/21 07:22 Pulse 68 09/14/21 10:38 Resp 18 09/14/21 07:22 BP 142/59 H 09/14/21 10:38 Pulse Ox 95 09/14/21 09:47 Body Mass Index 21.4 Gen: in no acute distress HEENT: sclera anicteric, moist mucus membranes Neck: supple Lungs: clear to auscultation bilaterally Heart: regular rate and rhythm, no murmurs Abd: soft, non-tender, non-distended Ext: no edema Skin: warm/well-perfused Neuro: somewhat disoriented, tremor Psych: appropriate affect, impaired insight DS: Data Data Completed and Pending Completed studies during hospitalization [Text1]: Laboratory Results WBC 5.2 X10*3/uL (4.8-10.8) 09/13/21 02:23 RBC 3.30 X10*6/uL (4.20-5.50) L 09/13/21 02:23 Hgb 10.0 g/dl (12.0-16.0) L 09/13/21 02:23 Hct 30.5 % (37-47) L 09/13/21 02:23 MCV 92.4 fL (80-98) 09/13/21 02:23 MCH 30.3 pg (27.0-33.0) 09/13/21 02:23 MCHC 32.8 g/dl (31.0-35.0) 09/13/21 02:23 RDW 12.8 % (11.0-16.0) 09/13/21 02:23 Plt Count 196 X10*3/uL (160-400) 09/13/21 02:23 MPV 9.9 fL (9.4-12.3) 09/13/21 02:23 Immature Gran % (Auto) 0.2 % (0.0-0.4) 09/13/21 02:23 Neut % (Auto) 55.4 % (45-73) 09/13/21 02:23 Lymph % (Auto) 30.0 % (20-40) 09/13/21 02:23 [place] % (Auto) 9.2 % (2-11) 09/13/21 02:23 Eos % (Auto) 4.6 % (0-4) H 09/13/21 02:23 Baso % (Auto) 0.6 % (0-2) 09/13/21 02:23 Lymph # (Auto) 1.6 X10*3/uL (1.2-4.9) 09/13/21 02:23 [place] # (Auto) 0.5 X10*3/uL (0.1-1.2) 09/13/21 02:23 Eos # (Auto) 0.2 X10*3/uL (0.0-0.4) 09/13/21 02:23 Baso # (Auto) 0.0 X10*3/uL (0.0-0.2) 09/13/21 02:23 Abs Immat Gran (auto) 0.01 X10*3/uL (0.00-0.03) 09/13/21 02:23 Absolute Neuts (auto) 2.9 X10*3/uL (2.0-8.3) 09/13/21 02:23 Absolute Nucleated RBC 0.000 X10*3/uL (0.0-0.012) 09/13/21 02:23 Nucleated RBC % (auto) 0.0 /100WBC (0.0-0.2) 09/13/21 02:23 PT 14.5 SEC (9.9-13.0) H 09/12/21 23:26 INR 1.3 (0.9-1.1) H 09/12/21 23:26 Sodium 140 mmol/L (135-145) 09/14/21 06:12 Potassium 3.7 mmol/L (3.3-5.1) 09/14/21 06:12 Chloride 99 mmol/L (96-108) 09/14/21 06:12 Carbon Dioxide 33 mmol/L (22-29) H 09/14/21 06:12 Anion Gap 12 (12-20) 09/14/21 06:12 BUN 17 mg/dL (9-16) H D 09/14/21 06:12 Creatinine 0.97 mg/dL (0.5-1.4) 09/14/21 06:12 Estim Creat Clear Calc 28.4 09/14/21 06:12 Estimated GFR 54 09/14/21 06:12 POC Glucose 158 mg/dL (60-115) H 09/14/21 11:04 Random Glucose 156 mg/dL (60-115) H 09/14/21 06:12 Calcium 9.9 mg/dL (8.4-10.2) 09/14/21 06:12 Magnesium 2.1 mg/dL (1.6-2.6) 09/14/21 06:12 Total Bilirubin < 0.2 mg/dL (0.0-1.0) 09/12/21 23:26 AST 21 U/L (5-31) 09/12/21 23:26 ALT 17 U/L (0-31) 09/12/21 23:26 Alkaline Phosphatase 87 U/L (39-117) 09/12/21 23:26 Troponin I High Sens 66.0 ng/L (<3.5-17.0) H* 09/13/21 07:40 B-Natriuretic Peptide 355 pg/mL (<100) H 09/14/21 06:12 Total Protein 6.3 g/dL (6.5-8.0) L 09/12/21 23:26 Albumin 3.9 g/dL (3.5-5.0) 09/12/21 23:26 Urine Color STRAW 09/12/21 23:39 Urine Appearance CLEAR 09/12/21 23:39 Urine pH 6.0 (5.0-8.0) 09/12/21 23:39 Ur Specific [place] <= 1.005 (1.005-1.025) 09/12/21 23:39 Urine Protein NEG MG/DL (NEG-TRACE) 09/12/21 23:39 Urine Glucose (UA) NEG MG/DL (NEG) 09/12/21 23:39 Urine Ketones NEG MG/DL (NEG) 09/12/21 23:39 Urine Blood NEG (NEG) 09/12/21 23:39 Urine Nitrite NEG (NEG) 09/12/21 23:39 Ur Leukocyte Esterase TRACE (NEG) H 09/12/21 23:39 Urine RBC 0 /HPF (0) 09/12/21 23:39 Urine WBC 0-2 /HPF (0-4) 09/12/21 23:39 Ur Squamous Epith Cells NONE /LPF 09/12/21 23:39 Urine Bacteria NONE /LPF 09/12/21 23:39 COVID-19 (SUSANA) Negative (Negative) 09/13/21 02:23 COVID-19 Clin Com See Note 09/13/21 02:23 Impressions Chest X-Ray 09/12/21 22:28 IMPRESSION: No acute abnormality of chest. Chest CT 09/13/21 00:06 IMPRESSION: * No abnormalities with respect to the left chest wall to explain the patient's symptomatology. * No fractures. * Marked cardiomegaly associated with interstitial pulmonary edema. Discharge Plan Discharge Patient Disposition: Home Health Service Discharge Diagnosis: CHF exacerbation Referrals: Name,MD Ortega [Physician] - 1 Week Samm Sepulveda MD [Physician] - 2 Weeks Discharge Medications: New carvedilol 12.5 mg Tablet 12.5 mg PO BIDWM Qty: 60 RF: 0 spironolactone 25 mg Tablet 12.5 mg PO DAILY Qty: 15 RF: 0 furosemide 20 mg tablet 20 mg PO QAM Qty: 30 RF: 0 Continued Eliquis 2.5 mg tablet 2.5 mg PO BID 90 Days Qty: 180 RF: 3 multivitamin [Daily-Heather] Tablet 1 tab PO DAILY RF: 0 atorvastatin 40 mg tablet 40 mg PO DAILY RF: 0 pantoprazole 40 mg tablet,delayed release (DR/EC) 40 mg PO DAILY RF: 0 albuterol sulfate [Ventolin HFA] 90 mcg/actuation HFA aerosol inhaler 2 puff PO Q4-6H PRN (Reason: Shortness Of Breath) RF: 0 lisinopril 40 mg tablet 40 mg PO DAILY RF: 0 sertraline 50 mg tablet 50 mg PO DAILY RF: 0 magnesium oxide 400 mg (241.3 mg magnesium) tablet 400 mg PO BID RF: 0 diltiazem HCl 300 mg capsule,extended release 24hr 300 mg PO DAILY RF: 0 dicyclomine 20 mg tablet 20 mg PO TID RF: 0 Discontinued furosemide [Lasix] 20 mg tablet 20 mg PO .As needed Qty: 90 RF: 4 carvedilol [Coreg] 6.25 mg tablet 6.25 mg PO BID Qty: 180 RF: 4 Discharge Orders: Discharge Order (Routine); Ordered 09/14/21 Ordered By: Aisha Garcia Diet: advance to usual diet and low salt diet Activity on Discharge: As tolerated Stand Alone Forms: Patient Portal Discharge page Other Ambulatory Orders: Basic Metabolic Panel (Routine) Timeframe: 1 Week Facility: [facility] - Location: Laboratory Ordered By: Aisha Garcia B Type Natriuretic Peptide (Routine) Timeframe: 1 Week Facility: [facility] - Location: Laboratory Ordered By: Aisha Garcia Magnesium (Routine) Timeframe: 1 Week Facility: [facility] - Location: Laboratory Ordered By: Aisha Garcia Care Plan Goals: heart health avoid hospitalization Health Concerns: heart failure with preserved ejection fraction, acute exacerbation uncontrolled hypertension Plan of Treatment: take furosemide 20 mg daily restrict sodium to 2000 mg daily weigh yourself daily and call MD if weight goes up by 5 lb or more start spironolactone 12.5 mg daily increase carvedilol to 12.5 mg twice daily (prior dose 6.25 mg twice daily) see your primary care doctor in 1 week see your vb developer in 2 weeks Assessment: see Discharge Plan Patient Instructions: Heart Failure (DC)
[2021-09-14 11:12] VITALS: BP 140/58; PULSE 68; RESP 18; TEMP 36.7; O2SAT 98
[2021-09-14 11:12] LABS: Glucose, Whole Blood 158 mg/dL (60-115)
[2021-09-14] MEDS: Spironolactone 25 MG TABLET 12.5 MG PO (11:28)
--- NOTE | 2021-09-14 11:36 | PM.PNCARD ---
Subjective Subjective Date of Service: 09/14/21 Principal diagnosis: CHF Interval history: Patient feeling a lot better today. Denies any shortness of breath. Ambulated and underwent physical therapy evaluation. Tolerating her medications. Her BNP has reduced. Review of Systems Constitutional: Reports no additional constitutional complaints Cardiovascular: Reports no additional cardiovascular complaints Respiratory: Reports no additional respiratory complaints Gastrointestinal: Reports no additional gastrointestinal complaints Genitourinary: Reports no additional female genitourinary complaints Musculoskeletal: Reports no additional musculoskeletal complaints Skin/Breast: Reports system reviewed and no additional complaints, except as docu Reports system reviewed and no additional complaints, except as documented Physical Exam Vital Signs: Last Vital Signs Temp 98.1 F 09/14/21 11:12 Pulse 68 09/14/21 11:12 Resp 18 09/14/21 11:12 BP 140/58 H 09/14/21 11:12 Pulse Ox 98 09/14/21 11:12 Body Mass Index 21.4 Const General: cooperative, comfortable, no acute distress, alert and awake Nutritional Appearance: thin Orientation/consciousness: patient oriented x3 Neck Neck: Yes trachea midline, Yes supple and Yes no JVD Resp Effort & Inspection: normal respiratory effort Auscultation: clear to auscultation bilaterally Cardio Jugular venous distension: no JVD Palpation: normal PMI Rate: regular rate Rhythm: regular rhythm Heart sounds: S1 normal heart sound present, S2 normal heart sound present, no click, no gallops and no murmurs GI Auscultation: normal bowel sounds Neuro General: patient oriented x3 and no focal motor deficits Extrem General: Yes no clubbing, cyanosis or edema Results Labs and Meds Result diagrams: 09/13/21 02:23 09/14/21 06:12 Lab results: Laboratory Results - last 24 hr 09/14/21 09/14/21 09/14/21 03:36 06:12 06:12 Sodium 140 Potassium 3.7 Chloride 99 Carbon Dioxide 33 H Anion Gap 12 BUN 17 H D Creatinine 0.97 Estim Creat Clear Calc 28.4 Estimated GFR 54 POC Glucose 144 H Random Glucose 156 H Calcium 9.9 Magnesium 2.1 B-Natriuretic Peptide 355 H 09/14/21 09/14/21 07:24 11:04 Sodium Potassium Chloride Carbon Dioxide Anion Gap BUN Creatinine Estim Creat Clear Calc Estimated GFR POC Glucose 134 H 158 H Random Glucose Calcium Magnesium B-Natriuretic Peptide Progress Note: A&P Assessment and plan (1) Acute on chronic heart failure with preserved ejection fraction (HFpEF): Status: Acute Assessment and Plan: Patient doing much better after IV diuresis. Switch to p.o. diuretics and add Aldactone to her regimen. Blood pressure is better controlled. She is feeling better. Can be discharged home. With recent data can consider addition of empagliflozin to her regimen for heart failure syndrome as well. Continue rhythm control approach. Continue full oral anticoagulation. Will set up for outpatient follow-up. Thank you for allowing us to partake in the care Fall Risk Details Current Medications: Current Medications Acetaminophen (Acetaminophen 325 Mg Tablet) 650 mg PO Q6H PRN PRN Reason: Pain, Mild (Pain Scale 1-3) Albuterol Sulfate (Albuterol Sulfate 90 Mcg 8 Gm Inhaler) 2 puff INHALE Q4H PRN PRN Reason: Shortness Of Breath Apixaban (Apixaban 2.5 Mg Tablet) 2.5 mg PO BID [facility] Last Admin: 09/14/21 10:36 Dose: 2.5 mg Documented by: Atorvastatin Calcium (Atorvastatin Calcium 40 Mg Tablet) 40 mg PO DAILY [facility] Last Admin: 09/14/21 10:36 Dose: 40 mg Documented by: Carvedilol (Carvedilol 12.5 Mg Tablet) 12.5 mg PO BIDWM [facility]; Protocol Last Admin: 09/14/21 10:38 Dose: 12.5 mg Documented by: Dicyclomine HCl (Dicyclomine Hcl 10 Mg Capsule) 20 mg PO TID [facility] Last Admin: 09/14/21 10:36 Dose: 20 mg Documented by: Diltiazem HCl (Diltiazem Hcl Cd 300 Mg Cap.Er.24h) 300 mg PO DAILY [facility]; Protocol Last Admin: 09/14/21 10:35 Dose: 300 mg Documented by: Furosemide (Furosemide 20 Mg/2 Ml Vial) 20 mg IVPUSH DAILY@0800 [facility]; Protocol Last Admin: 09/14/21 10:35 Dose: 20 mg Documented by: Lisinopril (Lisinopril 40 Mg Tablet) 40 mg PO DAILY [facility]; Protocol Last Admin: 09/14/21 10:34 Dose: 40 mg Documented by: Magnesium Oxide (Magnesium Oxide 400 Mg Tablet) 400 mg PO BID [facility] Last Admin: 09/14/21 10:35 Dose: 400 mg Documented by: Melatonin (Melatonin 3 Mg Tablet) 6 mg PO BEDTIME PRN PRN Reason: Insomnia Multivitamins/Vitamin C (Multivitamin Tablet) 1 tab PO DAILY [facility] Last Admin: 09/14/21 10:37 Dose: 1 tab Documented by: Omeprazole (Omeprazole 20 Mg Capsule.) 20 mg PO DAILY@0630 [facility] Last Admin: 09/14/21 06:37 Dose: 20 mg Documented by: Senna (Sennosides 8.6 Mg Tablet) 17.2 mg PO BEDTIME PRN PRN Reason: Constipation Sertraline HCl (Sertraline Hcl 50 Mg Tablet) 50 mg PO DAILY [facility] Last Admin: 09/14/21 10:38 Dose: 50 mg Documented by: Sodium Chloride (0.9 % Sodium Chloride Flush 3 Ml Syringe) 3 ml IVFLUSH QSHIFT [facility] Last Admin: 09/14/21 10:39 Dose: 3 ml Documented by: Spironolactone (Spironolactone 25 Mg Tablet) 12.5 mg PO DAILY [facility]; Protocol Last Admin: 09/14/21 11:28 Dose: 12.5 mg Documented by: Time Spent With Patient Time: Total time spent is greater than 50% in coordination of care (as documented) at patient's floor/unit and/or counseling patient: Time with patient: 15 - 24 minutes Progress Note: Quality Stroke Does the patient have a stroke diagnosis?: No Procedures Date of Service Date of Service: 09/14/21
--- NOTE | 2021-09-14 13:47 | MHC.CM.PN ---
CM NOTIFIED BY PTS NURSE THAT PT HAD IMPLIED SHE DID NOT FEEL SAFE AT HOME. CM MET WITH PT WITH [facility] [employer] [employer]. PT REPORTS SOMETIMES HER DAUGHTER IS RODRIGUEZ PT STATES HER DAUGHTER CAME FROM [place] TO CARE FOR HER FOLLOWING A SURGERY A FEW MONTHS AGO BUT THEN BECAUSE OF COVID DID NOT LEAVE. NOW, SHE REPORTS, HER DAUGHTER LIVES HERE. PT REPORTS THE HOME IS HERS BUT SHE DOES NOT FEEL SHE CAN THROW THE DAUGHTER OUT SHE HAS NO WHERE TO LIVE. PT WAS ADAMANT SHE DOES WANT TO DC HOME, SHE JUST WANTS SOMEONE TO TELL HER DAUGHTER TO TAKE BETTER CARE OF HER. PT THEN STATES, SHE DOES NOT WANT HER DAUGHTER TO KNOW THAT SHE COMPLAINED ABOUT HER CARE. PT REPORTS HER OTHER DAUGHTER WILL BE PICKING HER UP AT DC. PT WILL DC HOME WITH RESUMPTION OF HER [employer] [facility] AND [facility] REFERRALS OFFERED AND DECLINED.
== END 2021-09-14 13:45 | disposition home health service (06) | DRG 291 ==
LOC: HO.ED 22:51 → HO.EDOVER 09-13 02:07 → HO.IMC 09-14 01:08
PROVIDERS: Admitting Provider Hospitalist; Emergency Provider Student in an Organized Health Care Education/Training Program; PCP Internal Medicine Geriatric Medicine; Visit Provider Family Medicine
DX: I11.0 Hypertensive heart disease with heart failure (principal); I50.33 Acute on chronic diastolic (congestive) heart failure; K21.9 Gastro-esophageal reflux disease without esophagitis; G30.9 Alzheimer's disease, unspecified; F02.80 Dementia in other diseases classified elsewhere, unspecified severity, without behavioral disturbance, psychotic disturbance, mood disturbance, and anxiety; Z20.822 Contact with and (suspected) exposure to COVID-19; E78.5 Hyperlipidemia, unspecified; I25.2 Old myocardial infarction; I48.0 Paroxysmal atrial fibrillation; E83.42 Hypomagnesemia; F39 Unspecified mood [affective] disorder; E11.9 Type 2 diabetes mellitus without complications; Z95.2 Presence of prosthetic heart valve; Z95.0 Presence of cardiac pacemaker; Z88.0 Allergy status to penicillin; Z88.6 Allergy status to analgesic agent; Z79.01 Long term (current) use of anticoagulants; Z79.899 Other long term (current) drug therapy
CPT/HCPCS: 36415; 71045; 71250; 80048; 80053; 81001; 82947; 83735; 83880; 84484; 85025; 85610; 87086; 87635; 93005; 97116; 97161; 99285; J1940; J3475

== ENCOUNTER 2021-09-25 11:49 | Outpatient (REF) | payer MEDICARE, MEDICAID, SELFPAY ==
[2021-09-25 12:45] LABS: Anion Gap 15 (12-20); Blood Urea Nitrogen 11 mg/dL (9-16); Carbon Dioxide 24 mmol/L (22-29); Chloride 105 mmol/L (96-108); Estimated Glomerular Filt Rate 49; Glucose Random 177 mg/dL (60-115); Magnesium 1.6 mg/dL (1.6-2.6); Potassium 4.6 mmol/L (3.3-5.1); Sodium 139 mmol/L (135-145)
== END 2021-09-25 11:50 | disposition home or self-care (01) ==
LOC: HO.HVNA 11:49
PROVIDERS: Visit Provider Internal Medicine
DX: I10 Essential (primary) hypertension (principal)
CPT/HCPCS: 36415; 80048; 83735

== ENCOUNTER 2021-09-28 14:38 | Outpatient (REF) | payer MEDICARE, MEDICAID, SELFPAY ==
[2021-09-28 15:03] LABS: B Type Natriuretic Peptide 485 pg/mL (<100)
== END 2021-09-28 14:39 | disposition home or self-care (01) ==
LOC: HO.LNP 14:38
PROVIDERS: Visit Provider Internal Medicine
DX: I50.33 Acute on chronic diastolic (congestive) heart failure (principal)
CPT/HCPCS: 83880

== ENCOUNTER → 2021-10-03 09:08 | Outpatient (BNVA) | payer MEDICARE, MEDICAID, SELFPAY | PROVIDERS: PCP Internal Medicine Geriatric Medicine; Referring Provider Internal Medicine Geriatric Medicine; Visit Provider Internal Medicine | DX: I11.0 Hypertensive heart disease with heart failure (principal); I50.32 Chronic diastolic (congestive) heart failure; I48.0 Paroxysmal atrial fibrillation; I05.9 Rheumatic mitral valve disease, unspecified; R77.8 Other specified abnormalities of plasma proteins; Z95.3 Presence of xenogenic heart valve | CPT/HCPCS: 99212 ==

== ENCOUNTER 2021-10-09 12:32 | Outpatient (REF) | payer MEDICARE, MEDICAID, SELFPAY ==
--- NOTE | ~2021-10-09 | US_ITS ---
EXAMINATION: US VENOUS WITH DOPPLER UPPER EXTREMITY, RIGHT CLINICAL INFORMATION: Right upper extremity pain. COMPARISON: None TECHNIQUE: Ultrasound of the upper extremity is performed using compression sonography and color and pulse Doppler flow with assessment of augmentation of flow. There is also imaging and Doppler assessment of the jugular and subclavian veins. Spectral analysis with color-flow imaging is performed. FINDINGS: Respiratory variation, normal compression, and augmented flow are noted throughout the upper extremity including the axillary, brachial, basilic, cephalic, radial and ulnar veins. There is normal flow in the internal jugular and subclavian veins. There is no visible deep or superficial thrombophlebitis. If the patient's symptoms progress, a followup ultrasound in 5 -7 days might be of value to exclude proximal propagation from a nonvisualized distal arm vein. US/US venous duplex UE RT IMPRESSION: No DVT demonstrated in the right upper extremity.
== END 2021-10-09 12:33 | disposition home or self-care (01) ==
LOC: HO.US 12:32
PROVIDERS: PCP Nurse Practitioner Primary Care; Visit Provider Nurse Practitioner Primary Care
DX: M79.601 Pain in right arm (principal)
CPT/HCPCS: 93971

== ENCOUNTER → 2021-12-12 13:52 | Outpatient (BNVA) | payer MEDICARE, MEDICAID, SELFPAY | PROVIDERS: PCP Nurse Practitioner Primary Care; Referring Provider Nurse Practitioner Primary Care; Visit Provider Internal Medicine | DX: I11.0 Hypertensive heart disease with heart failure (principal); I50.32 Chronic diastolic (congestive) heart failure; I48.0 Paroxysmal atrial fibrillation; I05.9 Rheumatic mitral valve disease, unspecified; R77.8 Other specified abnormalities of plasma proteins; Z79.01 Long term (current) use of anticoagulants; Z79.899 Other long term (current) drug therapy; Z95.3 Presence of xenogenic heart valve | CPT/HCPCS: 99212 ==

== ENCOUNTER 2022-01-22 14:01 | Emergency (ER) | payer MEDICARE, MEDICAID, SELFPAY ==
--- NOTE | ~2022-01-22 | XR_ITS ---
EXAMINATION: XR CHEST CLINICAL INFORMATION: Chest pain COMPARISON: Previous chest x-ray most recent August 2021 TECHNIQUE: Frontal view of the chest was obtained. FINDINGS: The cardiac silhouette is enlarged but stable. There is a left subclavian dual chamber pacemaker that appears unchanged. There is an aortic valve stent graft. There may be pulmonary venous redistribution. The lungs are otherwise clear. There is no pleural effusion or pneumothorax. Visualized bony structures are unremarkable. XR/XR chest 1V IMPRESSION: Stable enlargement of the cardiac silhouette. Question pulmonary venous redistribution.
[2022-01-22 15:11] VITALS: BP 135/54; PULSE 65; RESP 16; TEMP 36.6; O2SAT 95; BMI 21.1
--- NOTE | 2022-01-22 15:16 | ECG_ITS ---
Test Reason : swelling around pacemaker Blood Pressure : / mmHG Vent. Rate : 060 BPM Atrial Rate : 060 BPM P-R Int : 234 ms QRS Dur : 132 ms QT Int : 442 ms P-R-T Axes : 093 -25 019 degrees QTc Int : 442 ms Atrial-paced rhythm with prolonged AV conduction Right bundle branch block Abnormal ECG When compared with ECG of 12-SEP-2021 22:42, No significant changes seen Referred By: Generic ED Physician Electronically Signed By:SOHAIL PORTER
[2022-01-22 16:04] LABS: Hematocrit 32.5 % (37.0-47.0); Mean Corpuscular HGB Conc 33.8 g/dl (31.0-35.0); Mean Corpuscular Hemoglobin 31.3 pg (27.0-33.0); Mean Corpuscular Volume 92.6 fL (80.0-98.0); Mean Platelet Volume 9.3 fL (9.4-12.3); Platelet Count 213 X10*3/uL (160-400); Red Blood Count 3.51 X10*6/uL (4.20-5.50); Red Cell Distribution Width 12.7 % (11.0-16.0); White Blood Count 4.6 X10*3/uL (4.8-10.8)
[2022-01-22 16:18] LABS: Anion Gap 14 (12-20); Blood Urea Nitrogen 22 mg/dL (9-16); Calcium 10.4 mg/dL (8.4-10.2); Carbon Dioxide 21 mmol/L (22-29); Chloride 104 mmol/L (96-108); Estimated Glomerular Filt Rate 32; Glucose Random 125 mg/dL (60-115); Potassium 4.3 mmol/L (3.3-5.1); Sodium 135 mmol/L (135-145)
--- NOTE | 2022-01-22 18:12 | ED_ITS ---
HPI - Chest Pain General Chief Complaint: Chest Pain Stated Complaint: Diarrhea x 1 wk Swelling around Pacemaker Time Seen by Provider: 01/22/22 16:33 Source: patient Mode of arrival: ambulatory Limitations: no limitations History of Present Illness HPI narrative: 86-year-old female history of NSTEMI, AFib, elevated troponin, aortic valve replacement, and pacemaker presents to the ED for left-sided chest pain around pacemaker that's also worse on movement of left arm and torso for 1 week. Patient denies any leg swelling, calf pain, coughing up blood, fever, chills, abdomianl pain or shortness of breath on exertion. patient also states two episodes of diarrhea that resolved on her own. Related Data Home Medications Medication Instructions Recorded Confirmed albuterol sulfate 90 mcg/actuation 2 puff PO Q4-6H PRN 09/04/20 12/12/21 aerosol inhaler (Ventolin HFA) atorvastatin 40 mg tablet 40 mg PO DAILY 09/04/20 12/12/21 lisinopril 40 mg tablet 40 mg PO DAILY 09/04/20 12/12/21 multivitamin (Daily-Heather) 1 tab PO DAILY 09/04/20 12/12/21 pantoprazole 40 mg tablet,delayed 40 mg PO DAILY 09/04/20 12/12/21 release sertraline 50 mg tablet 50 mg PO DAILY 09/04/20 12/12/21 magnesium oxide 400 mg (241.3 mg 400 mg PO BID 01/08/21 12/12/21 magnesium) tablet dicyclomine 20 mg tablet 20 mg PO TID 04/11/21 12/12/21 diltiazem HCl 300 mg 300 mg PO DAILY 04/11/21 12/12/21 capsule,extended release 24 hr furosemide 20 mg tablet 20 mg PO .COMPLEX tab 10/03/21 12/12/21 Previous Rx's Medication Instructions Recorded apixaban 2.5 mg tablet (Eliquis) 2.5 mg PO BID 90 Days #180 tab 07/04/21 spironolactone 25 mg tablet 12.5 mg PO DAILY #15 tab 09/14/21 carvedilol 12.5 mg tablet 12.5 mg PO BIDWM 90 Days #180 tab 10/08/21 Allergies Allergy/AdvReac Type Severity Reaction Status Date / Time ibuprofen [From Motrin] Allergy Mild RASH Verified 12/12/21 14:05 Penicillins Allergy Unknown RASH Verified 12/12/21 14:05 Review of Systems Review of Systems: left sided chest pain around paceamaker that is worse on movement of left upper extremity and torso. two episodes of diarrhea Yes all other systems are reviewed and are negative [facility] Past Medical History Medical History (HFpEF) heart failure with preserved ejection fraction Acute on chronic heart failure with preserved ejection fraction (HFpEF) Alzheimer's disease Asthma Atrial fibrillation Brain TIA Cardiac arrhythmia CHF exacerbation Chronic heart failure with preserved ejection fraction (HFpEF) Dementia Diabetes mellitus Dizziness Elevated troponin Elevated troponin Essential hypertension Fall Gastrointestinal bleeding GERD (gastroesophageal reflux disease) H/O cardiac pacemaker HLD (hyperlipidemia) HTN (hypertension) Mitral valve disease NSTEMI (non-ST elevated myocardial infarction) Paroxysmal atrial fibrillation Ulcer Surgical History History of permanent cardiac pacemaker placement (~08/2019) Status post transcatheter aortic valve replacement (TAVR) using bioprosthesis Family History Family History Other Patient's mother is Social History Social History Household Members: Children Housing: House Do you presently have visiting nurse or other home services: Yes ([employer] two times a week) Alcohol intake: never Patient Tobacco Use Status: Former Tobacco user Second Hand Smoke Exposure: No Advance Directives: No Advance Directives Information Provided: Yes service: No Current occupational status: unemployed Physical Exam Vital Signs: Vital Signs: Last Vital Signs Temp 98.3 F 01/22/22 19:27 Pulse 62 01/22/22 21:47 Resp 16 01/22/22 21:47 BP 139/53 L 01/22/22 21:47 Pulse Ox 96 01/22/22 21:47 BMI result Body Mass Index 21.1 Const: General: cooperative, healthy appearing, comfortable, no acute distress and well developed Orientation/consciousness: patient oriented x3 HENMT: Head: Yes normal to inspection, Yes No palpable skull fracture present, Yes normocephalic, Yes atraumatic and Yes abrasion Eyes: General: appearance normal, both eyes and all related structures Neck: Neck: Yes normal visual inspection, Yes full ROM, Yes no lymphadenopathy, Yes no meningeal signs, Yes trachea midline, Yes supple, No anterior neck swelling and No tender Chest: Chest palpation & inspection: normal inspection of the chest Chest/axillae images: 1. tenderness on palpation. negative for erythema, warmth, ecchymosis, or pus discharge around or on pacemaker. left upper chest wall pain on movement of left upper extremity and torso Resp: Effort & Inspection: normal respiratory effort and able to speak in complete sentences Auscultation: clear to auscultation bilaterally Cardio: Jugular venous distension: no JVD Heart sounds: S1 normal heart sound present and S2 normal heart sound present GI: Inspection: Yes normal to inspection and No abdominal wall ecchymosis Palpation (GI): Soft to palpation, not firm, nontender, no guarding and not rigid : General: No CVA tenderness and Yes no CVA tenderness Back/Spine/Pelvis: Back: no CVA tenderness, No CVA tenderness and No back tenderness Skin: General skin exam: no rashes or lesions noted and elasticity normal Neuro: General: patient oriented x3, gait normal, no meningeal signs and CN's II-XI intact bilaterally Cranial nerves: Yes CN's II-XII intact bilaterally Extrem: Other: Lower extremities negatiive for swelling, pitting edmea, or calf tenderness Psych: Appearance: grossly normal, well kempt and not disheveled Course Course Course Narrative: No signs of infection around pacemaker. Will do cardiac evaluation. EKG ordered. No need for abdominal imaging. Diarrhea resolved. Patient does not have abdominal pain. Reevaluation(s) Reevaluation #1: EKG shows atrial place rhythm. Negative STEMI. Initial troponin came back over 60 which is her baseline. Will do repeat troponin done at [facility]. Coags ordered. Patient CARRIE will do repeat chemistry. Time: 19:08 Reevaluation #2: Second troponin did not increase by 50% .Went to to re-evaluate patient and she feels fine. Patient patient's family member states diarrhea resolved yesterday. Patient does not have any abdominal pain nausea, vomiting, dizziness. Patient presently asymptomatic. not Suspecting pulmonary embolus. Patient denies any pleuritic chest pain, leg swelling, calf pain, coughing up blood, history of PE/DVT, or syncope. Patient denies any long travel recent surgery. Patient on Eliquis. Patient is not in CHF exacerbation. Chest wall muscular pain Time: 22:41 MDM - Chest Pain MDM Narrative Medical decision making narrative: Chest wall pain Lab Data Result diagrams: 01/22/22 15:57 01/22/22 20:26 Labs: Lab Results 01/22/22 01/22/22 01/22/22 Range/Units 15:57 15:57 15:57 WBC 4.6 L (4.8-10.8) X10*3/uL RBC 3.51 L (4.20-5.50) X10*6/uL Hgb 11.0 L (12.0-16.0) g/dl Hct 32.5 L (37.0-47.0) % MCV 92.6 (80.0-98.0) fL MCH 31.3 (27.0-33.0) pg MCHC 33.8 (31.0-35.0) g/dl RDW 12.7 (11.0-16.0) % Plt Count 213 (160-400) X10*3/uL MPV 9.3 L (9.4-12.3) fL Absolute Nucleated RBC 0.000 (0.0-0.012) X10*3/uL Nucleated RBC % (auto) 0.0 (0.0-0.2) /100WBC PT (9.9-13.0) SEC INR (0.9-1.1) APTT (24.1-38.0) SEC Sodium 135 (135-145) mmol/L Potassium 4.3 (3.3-5.1) mmol/L Chloride 104 (96-108) mmol/L Carbon Dioxide 21 L (22-29) mmol/L Anion Gap 14 (12-20) BUN 22 H (9-16) mg/dL Creatinine 1.53 H (0.5-1.4) mg/dL Estim Creat Clear Calc 17.0 Estimated GFR 32 Random Glucose 125 H (60-115) mg/dL Calcium 10.4 H (8.4-10.2) mg/dL Total Bilirubin (0.0-1.0) mg/dL AST (5-31) U/L ALT (0-31) U/L Alkaline Phosphatase (39-117) U/L Troponin I High Sens 67.0 H* (<3.5-17.0) ng/L B-Natriuretic Peptide 280 H (<100) pg/mL Total Protein (6.5-8.0) g/dL Albumin (3.5-5.0) g/dL COVID-19 ([facility]USA[facility]) (Negative) COVID-19 Clin Com 01/22/22 01/22/22 01/22/22 Range/Units 18:47 20:26 20:26 WBC (4.8-10.8) X10*3/uL RBC (4.20-5.50) X10*6/uL Hgb (12.0-16.0) g/dl Hct (37.0-47.0) % MCV (80.0-98.0) fL MCH (27.0-33.0) pg MCHC (31.0-35.0) g/dl RDW (11.0-16.0) % Plt Count (160-400) X10*3/uL MPV (9.4-12.3) fL Absolute Nucleated RBC (0.0-0.012) X10*3/uL Nucleated RBC % (auto) (0.0-0.2) /100WBC PT 17.2 H (9.9-13.0) SEC INR 1.5 H (0.9-1.1) APTT 33.9 (24.1-38.0) SEC Sodium (135-145) mmol/L Potassium (3.3-5.1) mmol/L Chloride (96-108) mmol/L Carbon Dioxide (22-29) mmol/L Anion Gap (12-20) BUN (9-16) mg/dL Creatinine (0.5-1.4) mg/dL Estim Creat Clear Calc Estimated GFR Random Glucose (60-115) mg/dL Calcium (8.4-10.2) mg/dL Total Bilirubin (0.0-1.0) mg/dL AST (5-31) U/L ALT (0-31) U/L Alkaline Phosphatase (39-117) U/L Troponin I High Sens 44.5 H (<3.5-17.0) ng/L B-Natriuretic Peptide (<100) pg/mL Total Protein (6.5-8.0) g/dL Albumin (3.5-5.0) g/dL COVID-19 ([facility]) Negative (Negative) COVID-19 Clin Com See Note 01/22/22 Range/Units 20:26 WBC (4.8-10.8) X10*3/uL RBC (4.20-5.50) X10*6/uL Hgb (12.0-16.0) g/dl Hct (37.0-47.0) % MCV (80.0-98.0) fL MCH (27.0-33.0) pg MCHC (31.0-35.0) g/dl RDW (11.0-16.0) % Plt Count (160-400) X10*3/uL MPV (9.4-12.3) fL Absolute Nucleated RBC (0.0-0.012) X10*3/uL Nucleated RBC % (auto) (0.0-0.2) /100WBC PT (9.9-13.0) SEC INR (0.9-1.1) APTT (24.1-38.0) SEC Sodium 137 (135-145) mmol/L Potassium 4.7 (3.3-5.1) mmol/L Chloride 110 H (96-108) mmol/L Carbon Dioxide 15 L (22-29) mmol/L Anion Gap 17 (12-20) BUN 20 H (9-16) mg/dL Creatinine 1.30 (0.5-1.4) mg/dL Estim Creat Clear Calc 20.0 Estimated GFR 39 Random Glucose 114 (60-115) mg/dL Calcium 9.5 D (8.4-10.2) mg/dL Total Bilirubin 0.5 (0.0-1.0) mg/dL AST 28 (5-31) U/L ALT 12 (0-31) U/L Alkaline Phosphatase 70 (39-117) U/L Troponin I High Sens (<3.5-17.0) ng/L B-Natriuretic Peptide (<100) pg/mL Total Protein 7.0 (6.5-8.0) g/dL Albumin 4.1 (3.5-5.0) g/dL COVID-19 ([facility]) (Negative) COVID-19 Clin Com ECG Data ECG #1: Interpretation: Atrial paced rhythm. Ventricular rate 60. Peer interval 234. QRS 132. QTC 442. Right bundle branch block is chronic Discharge Plan Discharge Clinical Impression: Acute chest wall pain, Atypical chest pain Patient Disposition: Home, Self-Care Instructions: Chest Pain (ED), Chest Wall Pain (ED) Additional Instructions: Kruse electrocardiograma y an?lisis de chucho resultaron negativos para un ataque al coraz?n. La radiograf?a de t?rax result? negativa para neumon?a y negativa para signos de exacerbaci?n de insuficiencia card?brendon. Hisopado COVID negativo. Usted est? a jess para el devante. Regrese al servicio de urgencias inmediatamente si empeora el dolor tor?cico, el dolor abdominal, la dificultad para respirar, la tos con chucho, el dolor tor?cico al inspirar, la hinchaz?n de las piernas, el dolor en la pantorrilla, la tos con chucho, la fiebre, los escalofr?os o cualquier otro s?ntoma preocupante.Por favor, germain un seguimiento con kruse proveedor de atenci?n primaria y cardi?logo. Prescriptions: No Action Eliquis 2.5 mg tablet 2.5 mg PO BID 90 Days Qty: 180 3RF carvedilol 12.5 mg tablet 12.5 mg PO BIDWM 90 Days Qty: 180 3RF Protocol: Hold for SBP/HR < HOLD for SBP < : 90 HOLD for HR < : 60 Rx Instructions: replaces prior dose of 6.25 mg bid multivitamin [Daily-Heather] Tablet 1 tab PO DAILY 0RF atorvastatin 40 mg tablet 40 mg PO DAILY 0RF pantoprazole 40 mg tablet,delayed release (DR/EC) 40 mg PO DAILY 0RF albuterol sulfate [Ventolin HFA] 90 mcg/actuation HFA aerosol inhaler 2 puff PO Q4-6H PRN (Reason: Shortness Of Breath) 0RF lisinopril 40 mg tablet 40 mg PO DAILY 0RF sertraline 50 mg tablet 50 mg PO DAILY 0RF spironolactone 25 mg Tablet 12.5 mg PO DAILY Qty: 15 0RF Protocol: Hold for SBP< HOLD for SBP < : 90 magnesium oxide 400 mg (241.3 mg magnesium) tablet 400 mg PO BID 0RF diltiazem HCl 300 mg capsule,extended release 24hr 300 mg PO DAILY 0RF dicyclomine 20 mg tablet 20 mg PO TID 0RF furosemide 20 mg tablet 20 mg PO .COMPLEX 0RF Rx Instructions: 1.5 tablets am and 1 tablet pm Interventions: ED Discharge Assessment Last Done: 01/22/22 23:01 Discharge Date/Time: 01/22/22 23:03 Print Language: Maori
[2022-01-22 18:44] LABS: B Type Natriuretic Peptide 280 pg/mL (<100)
[2022-01-22] MEDS: 0.9 % Sodium Chloride 1,000 ML 999 ML IV (18:49)
[2022-01-22 19:13] LABS: COVID-19 Test Negative (Negative); IDNOW Serial# 55D5AD1C
[2022-01-22 19:27] VITALS: BP 128/55; PULSE 60; RESP 14; TEMP 36.8; O2SAT 99
--- NOTE | 2022-01-22 20:21 | PC.NURSE ---
PT ALERT, RESPIRATIONS EASY, N/L. SKIN W/D. PT UP AND AMBULATES TO RESTROOM W/O DIFFICULTY WITH STEADY EVEN GAIT WITH ASSISTANCE. WILL CONTINUE TO MONITOR PT.
[2022-01-22 20:41] LABS: INTERNATIONAL NORM RATIO 1.5 (0.9-1.1); Prothrombin Time 17.2 SEC (9.9-13.0)
[2022-01-22 20:43] LABS: Partial Thromboplastin Time 33.9 SEC (24.1-38.0)
[2022-01-22 21:00] LABS: Alanine Aminotransferase 12 U/L (0-31); Albumin Level 4.1 g/dL (3.5-5.0); Alkaline Phosphatase 70 U/L (39-117); Anion Gap 17 (12-20); Aspartate Amino Transferase 28 U/L (5-31); Bilirubin Total 0.5 mg/dL (0.0-1.0); Blood Urea Nitrogen 20 mg/dL (9-16); Calcium 9.5 mg/dL (8.4-10.2); Carbon Dioxide 15 mmol/L (22-29); Chloride 110 mmol/L (96-108); Estimated Glomerular Filt Rate 39; Glucose Random 114 mg/dL (60-115); Potassium 4.7 mmol/L (3.3-5.1); Sodium 137 mmol/L (135-145)
[2022-01-22 21:17] LABS: Troponin-I High Sensitivity 44.5 ng/L (<3.5-17.0)
[2022-01-22 21:47] VITALS: BP 139/53; PULSE 62; RESP 16; O2SAT 96
== END 2022-01-22 23:03 | disposition home or self-care (01) ==
PROVIDERS: Physician Assistant; Emergency Provider Emergency Medicine Emergency Medical Services; PCP Nurse Practitioner Primary Care
DX: R07.89 Other chest pain (principal); Z20.822 Contact with and (suspected) exposure to COVID-19; I11.0 Hypertensive heart disease with heart failure; I50.9 Heart failure, unspecified; E11.9 Type 2 diabetes mellitus without complications; E78.5 Hyperlipidemia, unspecified; I48.91 Unspecified atrial fibrillation; Z95.0 Presence of cardiac pacemaker; Z95.2 Presence of prosthetic heart valve; Z79.01 Long term (current) use of anticoagulants; Z79.02 Long term (current) use of antithrombotics/antiplatelets; Z79.899 Other long term (current) drug therapy
CPT/HCPCS: 36415; 71045; 80048; 80053; 83880; 84484; 85027; 85610; 85730; 87635; 93005; 96360; 99284

== ENCOUNTER 2022-02-19 14:32 | Emergency (ER) | payer MEDICARE, MEDICAID, SELFPAY ==
--- NOTE | ~2022-02-19 | CT_ITS ---
EXAMINATION: CT CERVICAL SPINE WITHOUT CONTRAST CLINICAL INFORMATION: Fall COMPARISON: Previous cervical spine CT October 2016 TECHNIQUE: Axial images through the cervical spine without contrast. Sagittal and coronal reconstructions on the technologist workstation were performed. This CT examination was performed using dose optimization techniques as appropriate, variously including the following: *Automated exposure control *Adjustment of mA and/or kV according to patient size (this includes techniques or standardized protocols for targeted exams where dose is matched to indication/reason for exam; i.e. extremities or head) *Use of iterative reconstruction technique DLP: 230 mGy-cm FINDINGS: The head is tilted to the left and slightly back. Bone alignment is otherwise normal. No fracture or dislocation is seen. There is degenerative spondylosis and degenerative disc disease from C4-C5 to C6-C7, greatest at C5-C6. There are degenerative changes of the C1 dens articulation and significant pannus formation. There is bilateral multilevel facet arthritis, right greater than left. Soft tissues are normal. There is biapical pleural parenchymal scarring. Lung apices are otherwise clear. CT/CT cervical spine wo con IMPRESSION: Degenerative changes. No fracture or dislocation is seen. Fleischner guidelines were followed.
--- NOTE | ~2022-02-19 | CT_ITS ---
EXAMINATION: CT HEAD WITHOUT CONTRAST CLINICAL INFORMATION: Fall. Contusion over left orbit. COMPARISON: Previous head CT October 2020 TECHNIQUE: Contiguous axial imaging was performed from the skull base to vertex without intravenous administration of contrast. This CT examination was performed using dose optimization techniques as appropriate, variously including the following: *Automated exposure control *Adjustment of mA and/or kV according to patient size (this includes techniques or standardized protocols for targeted exams where dose is matched to indication/reason for exam; i.e. extremities or head) *Use of iterative reconstruction technique DLP: 651 mGy-cm FINDINGS: There is no evidence of an extra-axial collection. There is no evidence of intra-axial or extra-axial hemorrhage. The ventricles and extra-axial CSF spaces are normal. There or old left parietal and right cerebellar infarcts. These appear unchanged from 2019 exam. No mass, mass effect or acute infarct is seen. Review at bone windows is normal. No skull fracture is seen. There is soft tissue swelling over the left frontal bone and preseptal soft tissue swelling over the left orbit. CT/CT head/brain wo con IMPRESSION: No acute intracranial findings. 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 Large soft tissue hematoma overlying the left frontal bone resection of the soft tissues of the left orbit.
--- NOTE | ~2022-02-19 | XR_ITS ---
EXAMINATION: XR CHEST CLINICAL INFORMATION: Chest pain COMPARISON: Previous chest x-ray most recent January 2022 TECHNIQUE: Frontal view of the chest was obtained. FINDINGS: The cardiac silhouette is enlarged but stable. There is an aortic valve stent graft. There is left subclavian dual chamber pacemaker. These appear unchanged. The lungs are clear. There is no pleural effusion or pneumothorax. There are degenerative changes of the spine. XR/XR chest 1V IMPRESSION: No evidence for acute disease in the chest.
--- NOTE | ~2022-02-19 | CT_ITS ---
EXAMINATION: CT FACIAL BONES WITHOUT CONTRAST CLINICAL INFORMATION: Fall. Left orbit injury. COMPARISON: Head CT from earlier the same day TECHNIQUE: Axial images through the facial bones without contrast. Sagittal and coronal reconstructions on the technologist workstation were performed. This CT examination was performed using dose optimization techniques as appropriate, variously including the following: *Automated exposure control *Adjustment of mA and/or kV according to patient size (this includes techniques or standardized protocols for targeted exams where dose is matched to indication/reason for exam; i.e. extremities or head) *Use of iterative reconstruction technique DLP: 302 mGy-cm FINDINGS: There is a depressed fracture of the left orbital floor. This is depressed by 3 mm. There is no evidence of entrapment. No other fracture is seen. There is high attenuation soft tissue swelling of the preseptal soft tissues of the left orbit. Post septal orbital soft tissues are normal. Paranasal sinuses are clear. Mastoid air cells and middle ears are clear. The temporomandibular joints are normal. There is high attenuation soft tissue swelling over the left frontal bone. CT/CT facial bones wo con IMPRESSION: Depressed left orbital floor fracture. No evidence of entrapment. High attenuation preseptal soft tissue swelling over the left orbit and left frontal bone suggestive of hematoma.
[2022-02-19 14:48] VITALS: BP 147/57; PULSE 68; RESP 18; TEMP 36.6; O2SAT 98; BMI 20.9
--- NOTE | 2022-02-19 15:08 | ED_ITS ---
HPI - Fall General Chief Complaint: Head Injury Stated Complaint: Fall/facial inj Time Seen by Provider: 02/19/22 15:06 Source: family Mode of arrival: EMS Limitations: language barrier History of Present Illness HPI Narrative: 86-year-old female who is anticoagulated had a fall crossing the road at 14:20 this afternoon. Patient felt dizzy, and fell and hit the left side of her head. She broke her glasses. States she has chest pain when she fell. Patient is on Eliquis. Patient has bruising and swelling around her left eye. She is blind in her left eye. No LOC. Denies any other injuries. MD complaint: fall Onset (ago): hour(s) (2) Fall from: standing Fall witnessed: yes, by family Place fall occurred: street Loss of consciousness: none Symptoms prior to fall: dizziness Location of injury: face Related Data Home Medications Medication Instructions Recorded Confirmed albuterol sulfate 90 mcg/actuation 2 puff PO Q4-6H PRN 09/04/20 12/12/21 aerosol inhaler (Ventolin HFA) atorvastatin 40 mg tablet 40 mg PO DAILY 09/04/20 12/12/21 lisinopril 40 mg tablet 40 mg PO DAILY 09/04/20 12/12/21 multivitamin (Daily-Heather) 1 tab PO DAILY 09/04/20 12/12/21 pantoprazole 40 mg tablet,delayed 40 mg PO DAILY 09/04/20 12/12/21 release sertraline 50 mg tablet 50 mg PO DAILY 09/04/20 12/12/21 magnesium oxide 400 mg (241.3 mg 400 mg PO BID 01/08/21 12/12/21 magnesium) tablet dicyclomine 20 mg tablet 20 mg PO TID 04/11/21 12/12/21 diltiazem HCl 300 mg 300 mg PO DAILY 04/11/21 12/12/21 capsule,extended release 24 hr furosemide 20 mg tablet 20 mg PO .COMPLEX tab 10/03/21 12/12/21 Previous Rx's Medication Instructions Recorded apixaban 2.5 mg tablet (Eliquis) 2.5 mg PO BID 90 Days #180 tab 07/04/21 spironolactone 25 mg tablet 12.5 mg PO DAILY #15 tab 09/14/21 carvedilol 12.5 mg tablet 12.5 mg PO BIDWM 90 Days #180 tab 10/08/21 amoxicillin 875 mg-potassium 1 tab PO BID 10 Days #20 tab 02/19/22 clavulanate 125 mg tablet Allergies Allergy/AdvReac Type Severity Reaction Status Date / Time ibuprofen [From Motrin] Allergy Mild RASH Verified 02/19/22 16:12 Penicillins Allergy Unknown RASH Verified 02/19/22 16:12 Review of Systems Constitutional: Constitutional: Denies body ache(s), Denies chills, Denies fatigue, Denies fever(s), Denies headache(s), Denies malaise and Denies weakness Eyes: Eyes: Denies blurry vision and Denies diplopia ENT: Denies vertigo, Reports dizziness, Denies otalgia, Denies headache(s), Denies mouth pain, Denies post nasal drip and Denies sore throat Cardiovascular: Cardiovascular: Reports chest pain, Denies syncope, Denies leg edema, Denies lightheadedness, Denies Loss of Consciousness, Denies palpitations and Denies dyspnea Respiratory: Respiratory: Denies chest congestion, Denies cough and Denies dyspnea Gastrointestinal: Gastrointestinal: Denies abdominal pain, Denies hematochezia, Denies constipation, Denies diarrhea and Denies vomiting Musculoskeletal: Musculoskeletal: Reports no additional musculoskeletal complaints Neurologic: Denies Abnormal speech present, Denies vertigo, Reports dizziness, Denies syncope, Denies headache(s), Denies seizure-like activity, Denies Sensory deficit (Neuro) and Denies weakness Endocrine: Endocrine: Denies fatigue and Denies palpitations [facility] Past Medical History Medical History (HFpEF) heart failure with preserved ejection fraction Acute on chronic heart failure with preserved ejection fraction (HFpEF) Alzheimer's disease Asthma Atrial fibrillation Brain TIA Cardiac arrhythmia CHF exacerbation Chronic heart failure with preserved ejection fraction (HFpEF) Dementia Diabetes mellitus Dizziness Elevated troponin Elevated troponin Essential hypertension Fall Gastrointestinal bleeding GERD (gastroesophageal reflux disease) H/O cardiac pacemaker HLD (hyperlipidemia) HTN (hypertension) Mitral valve disease NSTEMI (non-ST elevated myocardial infarction) Paroxysmal atrial fibrillation Ulcer Surgical History History of permanent cardiac pacemaker placement (~08/2019) Status post transcatheter aortic valve replacement (TAVR) using bioprosthesis Family History Family History Other Patient's mother is Social History Social History Household Members: Children Housing: House Do you presently have visiting nurse or other home services: Yes ([employer] two times a week) Alcohol intake: never Patient Tobacco Use Status: Former Tobacco user Second Hand Smoke Exposure: No Advance Directives: No Advance Directives Information Provided: Yes service: No Current occupational status: unemployed Physical Exam Vital Signs: Vital Signs: Last Vital Signs Temp 98 F 02/19/22 14:48 Pulse 68 02/19/22 14:48 Resp 18 02/19/22 14:48 BP 147/57 H 02/19/22 14:48 Pulse Ox 98 02/19/22 14:48 BMI result Body Mass Index 20.9 Const: General: alert and awake Nutritional Appearance: cachectic Orientation/consciousness: patient oriented x3 Limitations: no limitations and language barrier HEENT: Head: No Meraz's sign, Yes hematoma and No raccoon eyes Head images: 1. contusion Ears: hearing grossly normal bilaterally, external ears normal, TM's normal bilaterally and EAC's normal General nose exam: Normal external nose present Face and sinus: No crepitus, Yes ecchymosis and Yes Facial tenderness on exam of face and sinuses Mouth: Normal oral and palatal mucosa present Throat: Yes posterior oropharynx normal Eyes: Pupils: Equal, round and reactive pupils present EOM: EOMs intact bilaterally and No Nystagmus present Neck: Neck: Yes full ROM, Yes no lymphadenopathy, Yes no meningeal signs and Yes supple Resp: Effort & Inspection: normal respiratory effort and able to speak in complete sentences Auscultation: clear to auscultation bilaterally, no crackles, no rales, no rhonchi and no wheezes Cardio: Rate: regular rate Rhythm: regular rhythm Heart sounds: S1 normal heart sound present and S2 normal heart sound present GI: Inspection: Yes normal to inspection Palpation (GI): Soft to palpation, nontender, no guarding and not rigid Percussion: Yes normal to percussion Auscultation: normal bowel sounds Skin: Other: ecchymosis and hematoma over left orbit and left forehead Neuro: General: patient oriented x3, moves all extremities, no meningeal signs, no focal motor deficits, CN's II-XI intact bilaterally and Unable to assess gait Cranial nerves: Yes CN's II-XII intact bilaterally, Yes Facial sensation intact/muscles of mastication intact, Yes Equal, round and reactive pupils present, Yes Bilaterally intact EOM present, Yes Nystagmus not present, Yes Normal facial strength present, Yes Midline tongue present, Yes Ability to bilaterally rotate head present, Yes Ability to bilaterally elevate shoulders present and No Nystagmus present Speech: No Abnormal speech present Gait exam (Neuro): Unable to assess gait Motor exam (neuro): 5/5 motor strength present throughout and Pronator motor function not present Sensory Exam: No Sensory deficit (Neuro) Deep tendon reflexes (DTR's): Right brachioradialis reflex intensity grade: 1+, Left brachioradialis reflex intensity grade: 1+, Right patellar reflex intensity grade: 1+ and Left patellar reflex intensity grade: 1+ Coordination: [id number] test normal Pupils: Normal pupillary reactivity/response: bilateral Extrem: General: Yes normal to inspection, Yes full ROM and Yes capillary refill normal Psych: Appearance: grossly normal Affect: normal affect Attitude: cooperative Course Course Course Narrative: 86-year-old female presents for fall onto left side of face. Patient felt dizzy and fel at 2:20 today. Patient originally endorsed chest pain when she fell, but then said she has no chest pain. Patient has a history of congestive heart failure, Alzheimer's, atrial fibrillation on Eliquis, diabetes, hypertension, GERD, cardiac pacemaker, and NSTEMI Will get chest x-ray, EKG, troponin, labs, BNP, INR, magnesium, will CT head, cervical spine, facial bones. Gave Tylenol and 2.5 mg oxycodone for pain Reevaluation(s) Reevaluation #1: EKG is unchanged from EKG 1 month ago, labs are remarkable for troponin of 66.8, BNP 455, potassium 5.2, magnesium 1.6. Will repeat troponin in [address] results. Reevaluation #2: CT shows depressed left orbital floor fracture with no evidence of entrapment. Large soft tissue hematoma. Discussed with Dr Stanton, who suggested starting patient on Augmentin, and having patient follow-up with Dr Joseph, opthmologist Will repeat troponin at 19:05, initial troponin was 66.8. Patient has penicillin allergy in her chart listed as rash, patient has worsening dementia and does not remember what reaction to penicillin was. Will give Augmentin and observe in emergency room as we are waiting for repeat trop onin. Signed pt out to Sunil Burton PA-C, pending repeat trop CT/CT head/brain wo con IMPRESSION: No acute intracranial findings. 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 Large soft tissue hematoma overlying the left frontal bone resection of the soft tissues of the left orbit. CT/CT facial bones wo con IMPRESSION: Depressed left orbital floor fracture. No evidence of entrapment. High attenuation preseptal soft tissue swelling over the left orbit and left frontal bone suggestive of hematoma. CT/CT cervical spine wo con IMPRESSION: Degenerative changes. No fracture or dislocation is seen. MDM - Fall Lab Data Result diagrams: 02/19/22 16:05 02/19/22 16:05 Labs: Lab Results 02/19/22 02/19/22 02/19/22 Range/Units 16:05 16:05 16:05 WBC 6.4 (4.8-10.8) X10*3/uL RBC 3.86 L (4.20-5.50) X10*6/uL Hgb 12.1 (12.0-16.0) g/dl Hct 36.7 L (37.0-47.0) % MCV 95.1 (80.0-98.0) fL MCH 31.3 (27.0-33.0) pg MCHC 33.0 (31.0-35.0) g/dl RDW 12.7 (11.0-16.0) % Plt Count 287 D (160-400) X10*3/uL MPV 10.0 (9.4-12.3) fL Immature Gran % (Auto) 0.5 H (0.0-0.4) % Neut % (Auto) 71.9 (45-73) % Lymph % (Auto) 17.9 L (20-40) % Lane % (Auto) 6.6 (2-11) % Eos % (Auto) 2.5 (0-4) % Baso % (Auto) 0.6 (0-2) % Lymph # (Auto) 1.1 L (1.2-4.9) X10*3/uL Lane # (Auto) 0.4 (0.1-1.2) X10*3/uL Eos # (Auto) 0.2 (0.0-0.4) X10*3/uL Baso # (Auto) 0.0 (0.0-0.2) X10*3/uL Abs Immat Gran (auto) 0.03 (0.00-0.03) X10*3/uL Absolute Neuts (auto) 4.6 (2.0-8.3) x10*3/uL Absolute Nucleated RBC 0.000 (0.0-0.012) X10*3/uL Nucleated RBC % (auto) 0.0 (0.0-0.2) /100WBC APTT (24.1-38.0) SEC Sodium 137 (135-145) mmol/L Potassium 5.2 H (3.3-5.1) mmol/L Chloride 99 (96-108) mmol/L Carbon Dioxide 24 (22-29) mmol/L Anion Gap 19 (12-20) BUN 16 (9-16) mg/dL Creatinine 1.35 (0.5-1.4) mg/dL Estim Creat Clear Calc 20.4 Estimated GFR 37 Random Glucose 146 H (60-115) mg/dL Calcium 10.1 D (8.4-10.2) mg/dL Magnesium 1.6 (1.6-2.6) mg/dL Total Bilirubin 0.6 (0.0-1.0) mg/dL AST 25 (5-31) U/L ALT 14 (0-31) U/L Alkaline Phosphatase 75 (39-117) U/L Troponin I High Sens 66.8 H* D (<3.5-17.0) ng/L B-Natriuretic Peptide 455 H (<100) pg/mL Total Protein 7.8 (6.5-8.0) g/dL Albumin 4.7 (3.5-5.0) g/dL COVID-19 ([facility]) (Negative) COVID-19 Clin Com 03/22/22 03/22/22 Range/Units 16:05 16:05 WBC (4.8-10.8) X10*3/uL RBC (4.20-5.50) X10*6/uL Hgb (12.0-16.0) g/dl Hct (37.0-47.0) % MCV (80.0-98.0) fL MCH (27.0-33.0) pg MCHC (31.0-35.0) g/dl RDW (11.0-16.0) % Plt Count (160-400) X10*3/uL MPV (9.4-12.3) fL Immature Gran % (Auto) (0.0-0.4) % Neut % (Auto) (45-73) % Lymph % (Auto) (20-40) % Lane % (Auto) (2-11) % Eos % (Auto) (0-4) % Baso % (Auto) (0-2) % Lymph # (Auto) (1.2-4.9) X10*3/uL Lane # (Auto) (0.1-1.2) X10*3/uL Eos # (Auto) (0.0-0.4) X10*3/uL Baso # (Auto) (0.0-0.2) X10*3/uL Abs Immat Gran (auto) (0.00-0.03) X10*3/uL Absolute Neuts (auto) (2.0-8.3) x10*3/uL Absolute Nucleated RBC (0.0-0.012) X10*3/uL Nucleated RBC % (auto) (0.0-0.2) /100WBC APTT 33.8 (24.1-38.0) SEC Sodium (135-145) mmol/L Potassium (3.3-5.1) mmol/L Chloride (96-108) mmol/L Carbon Dioxide (22-29) mmol/L Anion Gap (12-20) BUN (9-16) mg/dL Creatinine (0.5-1.4) mg/dL Estim Creat Clear Calc Estimated GFR Random Glucose (60-115) mg/dL Calcium (8.4-10.2) mg/dL Magnesium (1.6-2.6) mg/dL Total Bilirubin (0.0-1.0) mg/dL AST (5-31) U/L ALT (0-31) U/L Alkaline Phosphatase (39-117) U/L Troponin I High Sens (<3.5-17.0) ng/L B-Natriuretic Peptide (<100) pg/mL Total Protein (6.5-8.0) g/dL Albumin (3.5-5.0) g/dL COVID-19 ([facility]) Negative (Negative) COVID-19 Clin Com See Note ECG Data Interpretation: Normal sinus at a rate of 60, urine sample 150, QRS 40, QTC 434, left axis dev iation, right bundle-branch block, no ST depression or elevation. Similar to prior EKG Discharge Plan Discharge Clinical Impression: Fall, Facial contusion, Orbit fracture, left, Facial hematoma Patient Disposition: Still a Patient Instructions: Facial Fracture (ED), Fall Prevention (ED), Hematoma (ED), Facial Contusion (ED) Additional Instructions: Please call Dr Joseph tomorrow for an appointment tomorrow. His number is [phone]. He is an eye doctor. Please fill your prescription for antibiotics and start them tomorrow morning. You already had your dose tonight here in the emergency room. Please use ice over your left eye, 10 minutes on at a time. Please sleep with the head of the bed elevated. Please call your primary care provider to discuss what to do about your anticoagulation medicine tomorrow. Prescriptions: New amoxicillin-pot clavulanate 875-125 mg tablet 1 tab PO BID 10 Days Qty: 20 0RF No Action Eliquis 2.5 mg tablet 2.5 mg PO BID 90 Days Qty: 180 3RF carvedilol 12.5 mg tablet 12.5 mg PO BIDWM 90 Days Qty: 180 3RF Protocol: Hold for SBP/HR < HOLD for SBP < : 90 HOLD for HR < : 60 Rx Instructions: replaces prior dose of 6.25 mg bid multivitamin [Daily-Heather] Tablet 1 tab PO DAILY 0RF atorvastatin 40 mg tablet 40 mg PO DAILY 0RF pantoprazole 40 mg tablet,delayed release (DR/EC) 40 mg PO DAILY 0RF albuterol sulfate [Ventolin HFA] 90 mcg/actuation HFA aerosol inhaler 2 puff PO Q4-6H PRN (Reason: Shortness Of Breath) 0RF lisinopril 40 mg tablet 40 mg PO DAILY 0RF sertraline 50 mg tablet 50 mg PO DAILY 0RF spironolactone 25 mg Tablet 12.5 mg PO DAILY Qty: 15 0RF Protocol: Hold for SBP< HOLD for SBP < : 90 magnesium oxide 400 mg (241.3 mg magnesium) tablet 400 mg PO BID 0RF diltiazem HCl 300 mg capsule,extended release 24hr 300 mg PO DAILY 0RF dicyclomine 20 mg tablet 20 mg PO TID 0RF furosemide 20 mg tablet 20 mg PO .COMPLEX 0RF Rx Instructions: 1.5 tablets am and 1 tablet pm Referrals: Faustino Joseph [Physician] - 2 days (left depressed orbital fracture, no entrapment )
--- NOTE | 2022-02-19 15:18 | ECG_ITS ---
Test Reason : FALL Blood Pressure : / mmHG Vent. Rate : 060 BPM Atrial Rate : 060 BPM P-R Int : 158 ms QRS Dur : 130 ms QT Int : 434 ms P-R-T Axes : 083 -30 022 degrees QTc Int : 434 ms Atrial paced rhythm Left axis deviation Right bundle branch block Abnormal ECG When compared with ECG of 22-JAN-2022 15:46, No significant changes seen Referred By: Syl Millard Electronically Signed By:Chito Juárez
[2022-02-19 16:09] LABS: MANUAL DIFF FLAG NO
[2022-02-19 16:12] LABS: Basophils Percent Auto 0.6 % (0-2); Eosinophils Absolute Auto 0.2 X10*3/uL (0.0-0.4); Eosinophils Percent Auto 2.5 % (0-4); Hematocrit 36.7 % (37.0-47.0); Hemoglobin 12.1 g/dl (12.0-16.0); Imm Gran Abs Auto 0.03 X10*3/uL (0.00-0.03); Imm Gran Pct Auto 0.5 % (0.0-0.4); Lymphocytes Absolute Auto 1.1 X10*3/uL (1.2-4.9); Lymphocytes Percent Auto 17.9 % (20-40); Mean Corpuscular Hemoglobin 31.3 pg (27.0-33.0); Mean Corpuscular Volume 95.1 fL (80.0-98.0); Monocytes Absolute Auto 0.4 X10*3/uL (0.1-1.2); Monocytes Percent Auto 6.6 % (2-11); Neutrophils Absolute Auto 4.6 x10*3/uL (2.0-8.3); Neutrophils Percent Auto 71.9 % (45-73); Platelet Count 287 X10*3/uL (160-400); Red Blood Count 3.86 X10*6/uL (4.20-5.50); Red Cell Distribution Width 12.7 % (11.0-16.0); White Blood Count 6.4 X10*3/uL (4.8-10.8)
[2022-02-19 16:19] LABS: Partial Thromboplastin Time 33.8 SEC (24.1-38.0)
[2022-02-19 16:25] LABS: Alanine Aminotransferase 14 U/L (0-31); Albumin Level 4.7 g/dL (3.5-5.0); Alkaline Phosphatase 75 U/L (39-117); Anion Gap 19 (12-20); Aspartate Amino Transferase 25 U/L (5-31); Bilirubin Total 0.6 mg/dL (0.0-1.0); Blood Urea Nitrogen 16 mg/dL (9-16); Calcium 10.1 mg/dL (8.4-10.2); Carbon Dioxide 24 mmol/L (22-29); Chloride 99 mmol/L (96-108); Creatinine Clr Calc Pharmacy 20.4; Estimated Glomerular Filt Rate 37; Glucose Random 146 mg/dL (60-115); Magnesium 1.6 mg/dL (1.6-2.6); Potassium 5.2 mmol/L (3.3-5.1); Sodium 137 mmol/L (135-145); Total Protein 7.8 g/dL (6.5-8.0)
[2022-02-19 16:28] LABS: COVID-19 Test Negative (Negative)
[2022-02-19 16:36] LABS: B Type Natriuretic Peptide 455 pg/mL (<100); Troponin-I High Sensitivity 66.8 ng/L (<3.5-17.0)
[2022-02-19] MEDS: Acetaminophen 325 MG TABLET 650 MG PO (16:48)
[2022-02-19] MEDS: oxyCODONE HCl Immed Release 5 MG TABLET 2.5 MG PO (16:48)
[2022-02-19] MEDS: Amoxicillin/Potassium Clav 875 MG TABLET PO (18:00)
[2022-02-19 19:55] VITALS: BP 155/81; PULSE 62; RESP 12; TEMP 37; O2SAT 96
[2022-02-19] MEDS: Ondansetron ODT 4 MG TAB.RAPDIS TRANSLINGU (20:09)
[2022-02-19 20:20] LABS: Troponin-I High Sensitivity 62.9 ng/L (<3.5-17.0)
[2022-02-19 20:27] LABS: Appearance Urine CLEAR; Color Urine YELLOW; Glucose Urine UA NEG (NEG); Leukocyte Esterase Urine NEG (NEG); Nitrite Urine NEG (NEG); PH 6.5 (5.0-8.0); Urine Blood NEG (NEG); Urine Ketones NEG (NEG); Urine Protein NEG (NEG-TRACE)
--- NOTE | 2022-02-19 20:30 | PC.NURSE ---
CONNOR Renteria aware and geospatial scientist notified of critical results.
--- NOTE | 2022-02-19 21:36 | PC.NURSE ---
superficial wound above left eye cleansed with NS, bacitracin applied and covered with DPD
== END 2022-02-19 21:37 | disposition home or self-care (01) ==
PROVIDERS: Physician Assistant; Emergency Provider Emergency Medicine; PCP Nurse Practitioner Primary Care
DX: S00.83XA Contusion of other part of head, initial encounter (principal); S02.32XA Fracture of orbital floor, left side, initial encounter for closed fracture; W01.0XXA Fall on same level from slipping, tripping and stumbling without subsequent striking against object, initial encounter; I10 Essential (primary) hypertension; I48.19 Other persistent atrial fibrillation; Y93.01 Activity, walking, marching and hiking; Y92.414 Local residential or business street as the place of occurrence of the external cause; Y99.9 Unspecified external cause status; Z20.822 Contact with and (suspected) exposure to COVID-19; Z95.3 Presence of xenogenic heart valve; Z95.0 Presence of cardiac pacemaker; Z79.01 Long term (current) use of anticoagulants; Z79.02 Long term (current) use of antithrombotics/antiplatelets
CPT/HCPCS: 36415; 70450; 70486; 71045; 72125; 80053; 81003; 83735; 83880; 84484; 85025; 85730; 87635; 93005; 99284

== ENCOUNTER 2022-04-10 10:31 | Outpatient (REF) | payer MEDICARE, MEDICAID, SELFPAY ==
--- NOTE | ~2022-04-10 | XR_ITS ---
EXAMINATION: XR DORSAL SPINE CLINICAL INFORMATION: Reason for Exam PAIN IN THORACIC SPINE,DORSALGIA,HX OF FALLING COMPARISON: None available at the time of this dictation. TECHNIQUE: Frontal and lateral, swimmer's view. FINDINGS: There is no evidence of fracture or dislocation. The vertebral bodies maintain normal height and alignment. Narrowing of intervertebral disc spaces suggest underlying degenerative disc disease. The paravertebral soft tissues are unremarkable. Included adjacent lungs are clear. Heart is enlarged. There is aortic stent and dual electrode cardiac device. XR/XR thoracic spine 3V IMPRESSION: No radiographic evidence of acute fracture. Narrowing of intervertebral disc spaces suggest underlying degenerative disc disease. Cardiomegaly, aortic stent. Cardiac device.
== END 2022-04-10 10:32 | disposition home or self-care (01) ==
LOC: HO.XRAY 10:31
PROVIDERS: Absent Provider Nurse Practitioner Primary Care; PCP Nurse Practitioner Primary Care; Referring Provider Nurse Practitioner Primary Care; Visit Provider Internal Medicine
DX: M54.6 Pain in thoracic spine (principal); M54.9 Dorsalgia, unspecified; Z91.81 History of falling; I50.32 Chronic diastolic (congestive) heart failure; I48.0 Paroxysmal atrial fibrillation; I05.9 Rheumatic mitral valve disease, unspecified; I10 Essential (primary) hypertension; R77.8 Other specified abnormalities of plasma proteins; Z95.3 Presence of xenogenic heart valve
CPT/HCPCS: 72072; 99212

== ENCOUNTER → 2022-06-13 09:54 | Outpatient (BNVA) | payer MEDICARE, MEDICAID, SELFPAY | PROVIDERS: PCP Nurse Practitioner Primary Care; Referring Provider Nurse Practitioner Primary Care; Visit Provider Internal Medicine | DX: I48.19 Other persistent atrial fibrillation (principal); R94.31 Abnormal electrocardiogram [ECG] [EKG] | CPT/HCPCS: 93005 ==

== ENCOUNTER 2022-06-21 13:41 | Emergency (ER) | payer MEDICARE, MEDICAID, SELFPAY ==
--- NOTE | ~2022-06-21 | XR_ITS ---
EXAMINATION: XR CHEST CLINICAL INFORMATION: Shortness of breath COMPARISON: 02/19/2022 TECHNIQUE: Frontal view of the chest was obtained. FINDINGS: Patient status post TAVR and left chest wall bipolar pacemaker. The heart is enlarged. Calcifications in the mitral valve annulus are present. There is no evidence of infiltrates, pleural effusions or lung masses. . XR/XR chest 1V IMPRESSION: No acute intrathoracic disease
[2022-06-21 13:46] VITALS: BP 134/44; PULSE 90; O2SAT 100; BMI 15.6
[2022-06-21 13:51] VITALS: BP 128/73; PULSE 84; RESP 14; O2SAT 96
[2022-06-21 13:53] VITALS: BP 128/73; PULSE 81; RESP 18; TEMP 36.9; O2SAT 100
--- NOTE | 2022-06-21 13:54 | ECG_ITS ---
Test Reason : CP Blood Pressure : / mmHG Vent. Rate : 071 BPM Atrial Rate : 187 BPM P-R Int : 000 ms QRS Dur : 150 ms QT Int : 462 ms P-R-T Axes : 000 -57 031 degrees QTc Int : 502 ms Ventricular-paced rhythm Abnormal ECG When compared with ECG of 19-FEB-2022 16:12, V pacing present now. Referred By: Generic ED Physician Electronically Signed By:Chito Juárez
--- NOTE | 2022-06-21 14:23 | ED_ITS ---
HPI - Chest Pain General Chief Complaint: Chest Pain Stated Complaint: CHEST PAIN Time Seen by Provider: 06/21/22 14:23 Source: patient Mode of arrival: ambulatory Limitations: other (Dementia) History of Present Illness HPI narrative: Patient history of hypertension AFib status post pacemaker, TAVR on Eliquis, bowen brought by daughter as patient told [employer]IER that she been having chest pain earlier today also complain of shortness of breath for at this time patient not complaining of any shortness breath or chest pain complaining of overall weakness Related Data Home Medications Medication Instructions Recorded Confirmed albuterol sulfate 90 mcg/actuation 2 puff PO Q4-6H PRN Shortness Of 09/04/20 04/10/22 aerosol inhaler (Ventolin HFA) Breath atorvastatin 40 mg tablet 40 mg PO DAILY 09/04/20 04/10/22 lisinopril 40 mg tablet 40 mg PO DAILY 09/04/20 04/10/22 multivitamin (Daily-Heather tablet) 1 tab PO DAILY 09/04/20 04/10/22 sertraline 50 mg tablet 50 mg PO DAILY 09/04/20 04/10/22 magnesium oxide 400 mg (241.3 mg 400 mg PO BID 01/08/21 04/10/22 magnesium) tablet furosemide 20 mg tablet 20 mg PO .COMPLEX 10/03/21 04/10/22 ferrous sulfate 325 mg (65 mg 325 mg PO DAILY 04/10/22 04/10/22 iron) tablet,delayed release pantoprazole 20 mg tablet,delayed 20 mg PO DAILY 04/10/22 04/10/22 release Previous Rx's Medication Instructions Recorded carvedilol 12.5 mg tablet 12.5 mg PO BIDWM 90 days #180 tabs 10/08/21 diltiazem HCl 180 mg 180 mg PO DAILY #30 caps 06/05/22 capsule,extended release 24 hr spironolactone 25 mg tablet 12.5 mg PO DAILY 90 days #45 tabs 06/07/22 apixaban 2.5 mg tablet (Eliquis) 2.5 mg PO BID #180 tabs 06/10/22 amiodarone 200 mg tablet 200 mg PO DAILY 90 days #90 tabs 06/21/22 Allergies Allergy/AdvReac Type Severity Reaction Status Date / Time ibuprofen [From Motrin] Allergy Mild RASH Verified 04/10/22 10:34 Penicillins Allergy Unknown RASH Verified 04/10/22 10:34 Review of Systems Review of Systems: Yes all other systems are reviewed and are negative [facility] Past Medical History Medical History (HFpEF) heart failure with preserved ejection fraction Acute on chronic heart failure with preserved ejection fraction (HFpEF) Alzheimer's disease Asthma Atrial fibrillation Brain TIA Cardiac arrhythmia CHF exacerbation Chronic heart failure with preserved ejection fraction (HFpEF) Dementia Diabetes mellitus Dizziness Elevated troponin Elevated troponin Essential hypertension Fall Gastrointestinal bleeding GERD (gastroesophageal reflux disease) H/O cardiac pacemaker HLD (hyperlipidemia) HTN (hypertension) Mitral valve disease NSTEMI (non-ST elevated myocardial infarction) Paroxysmal atrial fibrillation Ulcer Surgical History History of permanent cardiac pacemaker placement (~08/2019) Status post transcatheter aortic valve replacement (TAVR) using bioprosthesis Family History Family History Other Patient's mother is Social History Social History Household Members: Children Housing: House Do you presently have visiting nurse or other home services: Yes ([employer] two times a week) Alcohol intake: never Patient Tobacco Use Status: Former Tobacco user Second Hand Smoke Exposure: No Advance Directives: No Advance Directives Information Provided: Yes service: No Current occupational status: unemployed Physical Exam Vital Signs: Vital Signs: Last Vital Signs Temp 97.5 F 06/21/22 18:00 Pulse 75 06/21/22 18:00 Resp 16 06/21/22 18:00 BP 148/86 H 06/21/22 18:00 Pulse Ox 98 06/21/22 18:00 O2 Del Method 06/21/22 18:00 BMI result Body Mass Index 15.6 Appearance: Alert. Oriented X1-2. No acute distress. Demented Eyes: PERRLA, No Nystagmus ENT: Pharynx normal. Oral Mucosa moist Neck: Normal inspection. Neck supple. CVS: Normal heart rate and rhythm. Pulses normal. Respiratory: No respiratory distress. Equal air entry bilateral, no wheezing/rales/rhonchi Abdomen: Soft and nontender. Bowel sounds are present, no mass palpable, no CVA tenderness Skin: Skin warm and dry. Normal skin color. Normal skin turgor. Extremities: No lower extremity edema. No calf tenderness Neuro: Oriented X 3. No motor deficit. No sensory deficit.No cerebellar signs , cranial nerves II-XII intact MDM - Chest Pain MDM Narrative Medical decision making narrative: Patient slightly congested on auscultation saturating 96% at room air BNP slightly elevated to 800 patient walked to the bathroom without any significant shortness of breath feeling much better at this time advised to continue same medication follow with PCP Lab Data Attestation: I reviewed the patient's lab results. Result diagrams: 06/21/22 14:37 06/21/22 15:03 Labs: Lab Results 06/21/22 06/21/22 06/21/22 Range/Units 14:37 14:37 14:37 WBC 6.6 (4.8-10.8) X10*3/uL RBC 3.37 L (4.20-5.50) X10*6/uL Hgb 10.7 L (12.0-16.0) g/dl Hct 32.1 L (37.0-47.0) % MCV 95.3 (80.0-98.0) fL MCH 31.8 (27.0-33.0) pg MCHC 33.3 (31.0-35.0) g/dl RDW 12.5 (11.0-16.0) % Plt Count 234 (160-400) X10*3/uL MPV 9.3 L (9.4-12.3) fL Immature Gran % (Auto) 0.3 (0.0-0.4) % Neut % (Auto) 73.6 H (45-73) % Lymph % (Auto) 14.3 L (20-40) % Glenn % (Auto) 8.0 (2-11) % Eos % (Auto) 3.2 (0-4) % Baso % (Auto) 0.6 (0-2) % Lymph # (Auto) 1.0 L (1.2-4.9) X10*3/uL Glenn # (Auto) 0.5 (0.1-1.2) X10*3/uL Eos # (Auto) 0.2 (0.0-0.4) X10*3/uL Baso # (Auto) 0.0 (0.0-0.2) X10*3/uL Abs Immat Gran (auto) 0.02 (0.00-0.03) X10*3/uL Absolute Neuts (auto) 4.9 (2.0-8.3) x10*3/uL Absolute Nucleated RBC 0.000 (0.0-0.012) X10*3/uL Nucleated RBC % (auto) 0.0 (0.0-0.2) /100WBC Sodium (135-145) mmol/L Potassium (3.3-5.1) mmol/L Chloride (96-108) mmol/L Carbon Dioxide (22-29) mmol/L Anion Gap (12-20) BUN (9-16) mg/dL Creatinine (0.5-1.4) mg/dL Estim Creat Clear Calc Estimated GFR Random Glucose (60-115) mg/dL Calcium (8.4-10.2) mg/dL Total Bilirubin (0.0-1.0) mg/dL AST (5-31) U/L ALT (0-31) U/L Alkaline Phosphatase (39-117) U/L Troponin I High Sens 45.6 H (<3.5-17.0) ng/L B-Natriuretic Peptide 863 H (<100) pg/mL Total Protein (6.5-8.0) g/dL Albumin (3.5-5.0) g/dL Urine Color Urine Appearance Urine pH (5.0-8.0) Ur Specific [place] (1.005-1.025) Urine Protein (NEG-TRACE) MG/DL Urine Glucose (UA) (NEG) MG/DL Urine Ketones (NEG) MG/DL Urine Blood (NEG) Urine Nitrite (NEG) Ur Leukocyte Esterase (NEG) COVID-19 (SUSANA) Negative (Negative) COVID-19 Clin Com See Note 06/21/22 06/21/22 06/21/22 Range/Units 15:03 16:07 18:35 WBC (4.8-10.8) X10*3/uL RBC (4.20-5.50) X10*6/uL Hgb (12.0-16.0) g/dl Hct (37.0-47.0) % MCV (80.0-98.0) fL MCH (27.0-33.0) pg MCHC (31.0-35.0) g/dl RDW (11.0-16.0) % Plt Count (160-400) X10*3/uL MPV (9.4-12.3) fL Immature Gran % (Auto) (0.0-0.4) % Neut % (Auto) (45-73) % Lymph % (Auto) (20-40) % Glenn % (Auto) (2-11) % Eos % (Auto) (0-4) % Baso % (Auto) (0-2) % Lymph # (Auto) (1.2-4.9) X10*3/uL Glenn # (Auto) (0.1-1.2) X10*3/uL Eos # (Auto) (0.0-0.4) X10*3/uL Baso # (Auto) (0.0-0.2) X10*3/uL Abs Immat Gran (auto) (0.00-0.03) X10*3/uL Absolute Neuts (auto) (2.0-8.3) x10*3/uL Absolute Nucleated RBC (0.0-0.012) X10*3/uL Nucleated RBC % (auto) (0.0-0.2) /100WBC Sodium 135 (135-145) mmol/L Potassium 4.4 (3.3-5.1) mmol/L Chloride 101 (96-108) mmol/L Carbon Dioxide 23 (22-29) mmol/L Anion Gap 15 (12-20) BUN 16 (9-16) mg/dL Creatinine 1.26 (0.5-1.4) mg/dL Estim Creat Clear Calc 17.9 Estimated GFR 40 Random Glucose 139 H (60-115) mg/dL Calcium 9.5 (8.4-10.2) mg/dL Total Bilirubin 0.6 (0.0-1.0) mg/dL AST 34 H (5-31) U/L ALT 35 H (0-31) U/L Alkaline Phosphatase 80 (39-117) U/L Troponin I High Sens 24.1 H (<3.5-17.0) ng/L B-Natriuretic Peptide (<100) pg/mL Total Protein 6.9 (6.5-8.0) g/dL Albumin 4.2 (3.5-5.0) g/dL Urine Color STRAW Urine Appearance CLEAR Urine pH 6.5 (5.0-8.0) Ur Specific [place] <= 1.005 (1.005-1.025) Urine Protein NEG (NEG-TRACE) MG/DL Urine Glucose (UA) NEG (NEG) MG/DL Urine Ketones NEG (NEG) MG/DL Urine Blood NEG (NEG) Urine Nitrite NEG (NEG) Ur Leukocyte Esterase NEG (NEG) COVID-19 (SUSANA) (Negative) COVID-19 Clin Com ECG Data ECG #1: Attestation: I personally reviewed and interpreted this ECG as follows: Interpretation: Ventricularly paced rhythm heart rate 71 beats per min no acute ST-T changes no acute ischemia Discharge Plan Discharge Clinical Impression: Chest pain, Congestive cardiac failure Patient Disposition: Home, Self-Care Instructions: Heart Failure (ED), Chest Pain (ED) Additional Instructions: Continue medications as prescribed including the water pill follow-up with your PCP/general partner Prescriptions: No Action carvedilol 12.5 mg tablet 12.5 mg PO BIDWM 90 Days Qty: 180 3RF Protocol: Hold for SBP/HR < HOLD for SBP < : 90 HOLD for HR < : 60 Rx Instructions: replaces prior dose of 6.25 mg bid diltiazem HCl 180 mg capsule,extended release 24hr 180 mg PO DAILY Qty: 30 5RF spironolactone 25 mg tablet 12.5 mg PO DAILY 90 Days Qty: 45 1RF Protocol: Hold for SBP< HOLD for SBP < : 90 Rx Instructions: Take 1/2 tab daily Eliquis 2.5 mg tablet 2.5 mg PO BID Qty: 180 3RF amiodarone 200 mg tablet 200 mg PO DAILY 90 Days Qty: 90 1RF multivitamin [Daily-Heather] Tablet 1 tab PO DAILY atorvastatin 40 mg tablet 40 mg PO DAILY albuterol sulfate [Ventolin HFA] 90 mcg/actuation HFA aerosol inhaler 2 puff PO Q4-6H PRN (Reason: Shortness Of Breath) lisinopril 40 mg tablet 40 mg PO DAILY sertraline 50 mg tablet 50 mg PO DAILY magnesium oxide 400 mg (241.3 mg magnesium) tablet 400 mg PO BID furosemide 20 mg tablet 20 mg PO .COMPLEX Rx Instructions: 1.5 tablets am and 1 tablet pm ferrous sulfate 325 mg (65 mg iron) tablet,delayed release (DR/EC) 325 mg PO DAILY pantoprazole 20 mg tablet,delayed release (DR/EC) 20 mg PO DAILY
[2022-06-21 14:41] LABS: MANUAL DIFF FLAG NO
[2022-06-21 14:44] LABS: Basophils Percent Auto 0.6 % (0-2); Eosinophils Absolute Auto 0.2 X10*3/uL (0.0-0.4); Eosinophils Percent Auto 3.2 % (0-4); Hematocrit 32.1 % (37.0-47.0); Hemoglobin 10.7 g/dl (12.0-16.0); Imm Gran Abs Auto 0.02 X10*3/uL (0.00-0.03); Imm Gran Pct Auto 0.3 % (0.0-0.4); Lymphocytes Percent Auto 14.3 % (20-40); Mean Corpuscular HGB Conc 33.3 g/dl (31.0-35.0); Mean Corpuscular Hemoglobin 31.8 pg (27.0-33.0); Mean Corpuscular Volume 95.3 fL (80.0-98.0); Mean Platelet Volume 9.3 fL (9.4-12.3); Monocytes Absolute Auto 0.5 X10*3/uL (0.1-1.2); Neutrophils Absolute Auto 4.9 x10*3/uL (2.0-8.3); Neutrophils Percent Auto 73.6 % (45-73); Platelet Count 234 X10*3/uL (160-400); Red Blood Count 3.37 X10*6/uL (4.20-5.50); Red Cell Distribution Width 12.5 % (11.0-16.0); White Blood Count 6.6 X10*3/uL (4.8-10.8)
--- NOTE | 2022-06-21 14:54 | PC.NURSE ---
Pt comes in via EMS w/daughter with c/o CP which began this AM. Daughter is her primary caregiver as pt has dementia at baseline. Pt is Alert, ambulatory with standy by assit. SR on monitor at this time. IV established via EMS in R arm. No complaints of pain at this time, call delgadillo within reach. Awaiting further orders. Will continue to monitor.
[2022-06-21 14:59] LABS: COVID-19 Test Negative (Negative); IDNOW Serial# 16C4AD1C
[2022-06-21 15:03] LABS: B Type Natriuretic Peptide 863 pg/mL (<100); Troponin-I High Sensitivity 45.6 ng/L (<3.5-17.0)
[2022-06-21 15:30] LABS: Alanine Aminotransferase 35 U/L (0-31); Albumin Level 4.2 g/dL (3.5-5.0); Alkaline Phosphatase 80 U/L (39-117); Anion Gap 15 (12-20); Aspartate Amino Transferase 34 U/L (5-31); Bilirubin Total 0.6 mg/dL (0.0-1.0); Blood Urea Nitrogen 16 mg/dL (9-16); Calcium 9.5 mg/dL (8.4-10.2); Carbon Dioxide 23 mmol/L (22-29); Chloride 101 mmol/L (96-108); Creatinine Clr Calc Pharmacy 17.9; Estimated Glomerular Filt Rate 40; Glucose Random 139 mg/dL (60-115); Potassium 4.4 mmol/L (3.3-5.1); Sodium 135 mmol/L (135-145); Total Protein 6.9 g/dL (6.5-8.0)
[2022-06-21 16:00] VITALS: BP 126/80; PULSE 75; RESP 20; TEMP 36.9; O2SAT 98
[2022-06-21 16:22] LABS: Appearance Urine CLEAR; Color Urine STRAW; Glucose Urine UA NEG (NEG); Leukocyte Esterase Urine NEG (NEG); Nitrite Urine NEG (NEG); PH 6.5 (5.0-8.0); Specific Gravity - Urine <= 1.005 (1.005-1.025); Urine Blood NEG (NEG); Urine Ketones NEG (NEG); Urine Protein NEG (NEG-TRACE)
[2022-06-21 18:00] VITALS: BP 148/86; PULSE 75; RESP 16; TEMP 36.4; O2SAT 98
[2022-06-21 19:03] LABS: Troponin-I High Sensitivity 24.1 ng/L (<3.5-17.0)
--- NOTE | 2022-06-21 20:10 | PC.NURSE ---
assumed care of pt at 1900
== END 2022-06-21 17:51 | disposition home or self-care (01) ==
PROVIDERS: Emergency Provider Internal Medicine
DX: R07.9 Chest pain, unspecified (principal); I11.0 Hypertensive heart disease with heart failure; I50.9 Heart failure, unspecified; R06.02 Shortness of breath; Z20.822 Contact with and (suspected) exposure to COVID-19; E11.9 Type 2 diabetes mellitus without complications; E78.5 Hyperlipidemia, unspecified; I48.0 Paroxysmal atrial fibrillation; Z95.0 Presence of cardiac pacemaker; Z95.4 Presence of other heart-valve replacement; Z86.73 Personal history of transient ischemic attack (TIA), and cerebral infarction without residual deficits; Z79.01 Long term (current) use of anticoagulants; Z79.02 Long term (current) use of antithrombotics/antiplatelets; Z79.899 Other long term (current) drug therapy; Z87.891 Personal history of nicotine dependence
CPT/HCPCS: 36415; 71045; 80053; 81003; 83880; 84484; 85025; 87635; 93005; 99283; 99285

== ENCOUNTER → 2022-06-25 13:08 | Outpatient (BNVA) | payer MEDICARE, MEDICAID, SELFPAY | PROVIDERS: Visit Provider Internal Medicine | DX: I11.0 Hypertensive heart disease with heart failure (principal); I50.32 Chronic diastolic (congestive) heart failure; I48.0 Paroxysmal atrial fibrillation; I05.9 Rheumatic mitral valve disease, unspecified; R77.8 Other specified abnormalities of plasma proteins; Z95.3 Presence of xenogenic heart valve | CPT/HCPCS: 99212 ==

== ENCOUNTER 2022-08-20 10:43 | Emergency (ER) | payer MEDICARE, MEDICAID, SELFPAY ==
--- NOTE | ~2022-08-20 | XR_ITS ---
EXAMINATION: XR CHEST CLINICAL INFORMATION: Asthma exacerbation COMPARISON: 06/21/2022 TECHNIQUE: 2 views of the chest were obtained. FINDINGS: The heart remains enlarged. There is no evidence of CHF. A left chest wall bipolar pacemaker is again seen as is a TAVR. No infiltrates, pleural effusions or lung masses are seen. XR/XR chest 2V IMPRESSION: No acute intrathoracic disease.
[2022-08-20 10:53] VITALS: BP 120/57; PULSE 60; RESP 18; TEMP 36.6; O2SAT 97; BMI 19.2
[2022-08-20 11:19] LABS: COVID-19 Test Negative (Negative)
--- NOTE | 2022-08-20 13:22 | ECG_ITS ---
Test Reason : chest discomfort Blood Pressure : / mmHG Vent. Rate : 060 BPM Atrial Rate : 060 BPM P-R Int : 226 ms QRS Dur : 134 ms QT Int : 472 ms P-R-T Axes : 000 -44 039 degrees QTc Int : 472 ms Atrial-paced rhythm with prolonged AV conduction Left axis deviation Right bundle branch block Abnormal ECG When compared with ECG of 21-JUN-2022 13:58, Electronic atrial pacemaker has replaced Electronic ventricular pacemaker Referred By: Vicki Fraga Electronically Signed By:HORACIO NATHAN
--- NOTE | 2022-08-20 13:23 | ED_ITS ---
HPI - Asthma General Chief Complaint: Asthma Stated Complaint: asthma, sob Time Seen by Provider: 08/20/22 12:30 Source: patient and family Mode of arrival: ambulatory Limitations: altered mental status (baseline confusion secondary to alzheimers) History of Present Illness HPI Narrative: 86-year-old female with history Alzheimer's, asthma, atrial fibrillation, pacemaker placement, TAVR, heart failure and currently on Eliquis here with complaints of episode of SOB which occurred at rest last evening and improved with albuterol MDI with second episode this morning also improved with MDI. No reports of chest pain, cough, fevers, chills, rhinorrhea or recent illnesses. Has been compliant with lasix and eliquis. No recent weight gain. Family does notice both lower legs get swollen at nighttime but no reports of calf pain. Related Data Home Medications Medication Instructions Recorded Confirmed albuterol sulfate 90 mcg/actuation 2 puff PO Q4-6H PRN Shortness Of 09/04/20 06/25/22 aerosol inhaler (Ventolin HFA) Breath atorvastatin 40 mg tablet 40 mg PO DAILY 09/04/20 06/25/22 lisinopril 40 mg tablet 40 mg PO DAILY 09/04/20 06/25/22 multivitamin (Daily-Heather tablet) 1 tab PO DAILY 09/04/20 06/25/22 sertraline 50 mg tablet 50 mg PO DAILY 09/04/20 06/25/22 magnesium oxide 400 mg (241.3 mg 400 mg PO BID 01/08/21 06/25/22 magnesium) tablet furosemide 20 mg tablet 20 mg PO .COMPLEX 10/03/21 06/25/22 ferrous sulfate 325 mg (65 mg 325 mg PO DAILY 04/10/22 06/25/22 iron) tablet,delayed release pantoprazole 20 mg tablet,delayed 20 mg PO DAILY 04/10/22 06/25/22 release Previous Rx's Medication Instructions Recorded carvedilol 12.5 mg tablet 12.5 mg PO BIDWM 90 days #180 tabs 10/08/21 diltiazem HCl 180 mg 180 mg PO DAILY #30 caps 06/05/22 capsule,extended release 24 hr spironolactone 25 mg tablet 12.5 mg PO DAILY 90 days #45 tabs 06/07/22 apixaban 2.5 mg tablet (Eliquis) 2.5 mg PO BID #180 tabs 06/10/22 amiodarone 200 mg tablet 200 mg PO DAILY 90 days #90 tabs 06/21/22 furosemide 40 mg tablet 40 mg PO DAILY #7 tabs 08/20/22 Allergies Allergy/AdvReac Type Severity Reaction Status Date / Time ibuprofen [From Motrin] Allergy Mild RASH Verified 04/10/22 10:34 Penicillins Allergy Unknown RASH Verified 04/10/22 10:34 Review of Systems Review of Systems: Yes all other systems are reviewed and are negative Constitutional: Constitutional: Reports no additional constitutional complaints, Denies body ache(s), Denies chills, Denies fever(s), Denies headache(s) and Denies weakness Eyes: Eyes: Reports no additional eye complaints and Denies change in vision ENT: Reports system reviewed and no additional complaints, except as documented, Denies dizziness, Denies headache(s), Denies nasal congestion, Fidencio es nasal discharge and Denies neck pain Cardiovascular: Cardiovascular: Reports no additional cardiovascular complaints, Denies chest pain, Denies leg edema and Reports dyspnea Respiratory: Respiratory: Reports no additional respiratory complaints, Denies cough and Reports dyspnea Gastrointestinal: Gastrointestinal: Reports no additional gastrointestinal complaints, Denies abdominal pain, Denies diarrhea, Denies nausea and Denies vomiting Genitourinary: Genitourinary: Reports no additional female genitourinary complaints and Denies urinary incontinence Musculoskeletal: Musculoskeletal: Reports no additional musculoskeletal complaints, Denies back pain, Denies arthralgias, Denies joint swelling, Denies neck pain, Denies numbness and Denies tingling Integumentary/Breasts: Skin/Breast: Reports system reviewed and no additional complaints, except as docu and Denies rash Neurologic: Reports system reviewed and no additional complaints, except as documented, Denies Abnormal speech present, Denies dizziness, Denies headache(s), Denies numbness, Denies tingling and Denies weakness [facility] Past Medical History Attestation statement: The following information was validated with the patient. Source: old records reviewed and nursing notes reviewed Medical History (HFpEF) heart failure with preserved ejection fraction Acute on chronic heart failure with preserved ejection fraction (HFpEF) Alzheimer's disease Asthma Atrial fibrillation Brain TIA Cardiac arrhythmia CHF exacerbation Chronic heart failure with preserved ejection fraction (HFpEF) Dementia Diabetes mellitus Dizziness Elevated troponin Elevated troponin Essential hypertension Fall Gastrointestinal bleeding GERD (gastroesophageal reflux disease) H/O cardiac pacemaker HLD (hyperlipidemia) HTN (hypertension) Mitral valve disease NSTEMI (non-ST elevated myocardial infarction) Paroxysmal atrial fibrillation Ulcer Surgical History History of permanent cardiac pacemaker placement (~08/2019) Status post transcatheter aortic valve replacement (TAVR) using bioprosthesis Family History Family History Other Patient's mother is Social History Social History Household Members: Children Housing: House Do you presently have visiting nurse or other home services: Yes ([employer] two times a week) Alcohol intake: never Patient Tobacco Use Status: Former Tobacco user Second Hand Smoke Exposure: No Advance Directives: Yes Advance Directives on File: Yes Advance Directives Date on File: 08/20/22 service: No Current occupational status: unemployed Physical Exam Vital Signs: Vital Signs: Last Vital Signs Temp 98 F 08/20/22 10:53 Pulse 60 08/20/22 15:23 Resp 18 08/20/22 10:53 BP 112/47 L 08/20/22 15:23 Pulse Ox 95 08/20/22 15:23 O2 Del Method 08/20/22 15:23 BMI result Body Mass Index 19.2 Const: General: cooperative, healthy appearing, comfortable and no acute distress Orientation/consciousness: patient oriented x3 Limitations: no limitations HEENT: Head: Yes normal to inspection Ears: hearing grossly normal bilaterally General nose exam: Normal external nose present Face and sinus: Yes normal facial exam Mouth: Normal oral and palatal mucosa present Throat: Yes posterior oropharynx normal Eyes: General: appearance normal, both eyes and all related structures Pupils: Equal, round and reactive pupils present Neck: Neck: Yes normal visual inspection Chest: Chest palpation & inspection: normal inspection of the chest Resp: Effort & Inspection: normal respiratory effort Auscultation: clear to auscultation bilaterally Cardio: Rate: regular rate Rhythm: regular rhythm Peripheral pulses: Peripheral pulses 2+ throughout GI: Inspection: Yes normal to inspection Palpation (GI): Soft to palpation and nontender Auscultation: normal bowel sounds Back/Spine/Pelvis: Thoracic/Lumbar Spine: thoracic and lumbar spine normal to inspection Skin: General skin exam: no rashes or lesions noted Neuro: General: patient oriented x3, no focal motor deficits and normal sensation to monofilament Cranial nerves: Yes Equal, round and reactive pupils present Cognition (Neuro): normal cognition Speech: No Abnormal speech present Gait exam (Neuro): Normal gait present Motor exam (neuro): 5/5 motor strength present throughout Extrem: General: Yes normal to inspection, Yes no pedal edema and Yes no calf tenderness Course Course Course Narrative: Reviewed labs. Elevated troponin at 50.4. Previous troponins have been elevated. No CP. Will trend and repeat troponin. EKG shows no ischemic changes. BNP elevated at 1238. She is on 20 mg lasix daily. No reports of weight gain. No LE edema on exam. Family does report she has some at night time. No overt symptoms fluid overload. Will perform ambulatory oxygen saturation. Reevaluation(s) Reevaluation #1: 1540-Patient walked with pulse ox >95% and no tachypnea Reevaluation #2: 1700-Repeat troponin unchanged from previous. Low concern for ACS. troponins seem chronically elevated. I did discuss this case with Dr Yap my attending physician. Likely mild CHF overload. Will increase dose of lasix to 40mg daily x 7 days then patient may resume dose of 20mg daily. Follow-up with cardiology outpatient. Family will bring her back for any worsening symptoms. MDM - Asthma MDM Narrative Medical decision making narrative: 87 yo female here with 2 episodes of SOB which occurred at rest improved with albuterol in last 12 hrs. No recent illness. No associated palpations, cough, fever, chest pain. Compliant with all medications per family. Does have dementia so can be unreliable historian per family. VSS. LS CTA. I do no appreciate any wheezing. Will check covid screen, EKG, labs, CXR Consider CHF, ACS, PNA, asthma exacerbation Medical Records Attestation: I reviewed the patient's medical records. Lab Data Attestation: I reviewed the patient's lab results. Result diagrams: 08/20/22 13:30 08/20/22 13:30 Labs: Lab Results 08/20/22 08/20/22 08/20/22 Range/Units 10:57 13:30 13:30 WBC 5.7 (4.8-10.8) X10*3/uL RBC 3.47 L (4.20-5.50) X10*6/uL Hgb 10.3 L (12.0-16.0) g/dl Hct 32.7 L (37.0-47.0) % MCV 94.2 (80.0-98.0) fL MCH 29.7 (27.0-33.0) pg MCHC 31.5 (31.0-35.0) g/dl RDW 13.4 (11.0-16.0) % Plt Count 201 (160-400) X10*3/uL MPV 9.1 L (9.4-12.3) fL Immature Gran % (Auto) 0.5 H (0.0-0.4) % Neut % (Auto) 71.7 (45-73) % Lymph % (Auto) 16.4 L (20-40) % [place] % (Auto) 8.8 (2-11) % Eos % (Auto) 1.9 (0-4) % Baso % (Auto) 0.7 (0-2) % Lymph # (Auto) 0.9 L (1.2-4.9) X10*3/uL [place] # (Auto) 0.5 (0.1-1.2) X10*3/uL Eos # (Auto) 0.1 (0.0-0.4) X10*3/uL Baso # (Auto) 0.0 (0.0-0.2) X10*3/uL Abs Immat Gran (auto) 0.03 (0.00-0.03) X10*3/uL Absolute Neuts (auto) 4.1 (2.0-8.3) x10*3/uL Absolute Nucleated RBC 0.000 (0.0-0.012) X10*3/uL Nucleated RBC % (auto) 0.0 (0.0-0.2) /100WBC Sodium 140 (135-145) mmol/L Potassium 4.3 (3.3-5.1) mmol/L Chloride 102 (96-108) mmol/L Carbon Dioxide 27 (22-29) mmol/L Anion Gap 15 (12-20) BUN 20 H (9-16) mg/dL Creatinine 1.35 (0.5-1.4) mg/dL Estim Creat Clear Calc 17.9 Estimated GFR 37 Random Glucose 109 (60-115) mg/dL Calcium 10.5 H D (8.4-10.2) mg/dL Total Bilirubin 0.6 (0.0-1.0) mg/dL Direct Bilirubin 0.3 (0.0-0.5) mg/dL AST 33 H (5-31) U/L ALT 29 (0-31) U/L Alkaline Phosphatase 79 (39-117) U/L Troponin I High Sens (<3.5-17.0) ng/L B-Natriuretic Peptide (<100) pg/mL Total Protein 7.1 (6.5-8.0) g/dL Albumin 4.1 (3.5-5.0) g/dL COVID-19 ([facility]) Negative (Negative) COVID-19 Clin Com See Note 08/20/22 08/20/22 Range/Units 13:30 16:24 WBC (4.8-10.8) X10*3/uL RBC (4.20-5.50) X10*6/uL Hgb (12.0-16.0) g/dl Hct (37.0-47.0) % MCV (80.0-98.0) fL MCH (27.0-33.0) pg MCHC (31.0-35.0) g/dl RDW (11.0-16.0) % Plt Count (160-400) X10*3/uL MPV (9.4-12.3) fL Immature Gran % (Auto) (0.0-0.4) % Neut % (Auto) (45-73) % Lymph % (Auto) (20-40) % [place] % (Auto) (2-11) % Eos % (Auto) (0-4) % Baso % (Auto) (0-2) % Lymph # (Auto) (1.2-4.9) X10*3/uL [place] # (Auto) (0.1-1.2) X10*3/uL Eos # (Auto) (0.0-0.4) X10*3/uL Baso # (Auto) (0.0-0.2) X10*3/uL Abs Immat Gran (auto) (0.00-0.03) X10*3/uL Absolute Neuts (auto) (2.0-8.3) x10*3/uL Absolute Nucleated RBC (0.0-0.012) X10*3/uL Nucleated RBC % (auto) (0.0-0.2) /100WBC Sodium (135-145) mmol/L Potassium (3.3-5.1) mmol/L Chloride (96-108) mmol/L Carbon Dioxide (22-29) mmol/L Anion Gap (12-20) BUN (9-16) mg/dL Creatinine (0.5-1.4) mg/dL Estim Creat Clear Calc Estimated GFR Random Glucose (60-115) mg/dL Calcium (8.4-10.2) mg/dL Total Bilirubin (0.0-1.0) mg/dL Direct Bilirubin (0.0-0.5) mg/dL AST (5-31) U/L ALT (0-31) U/L Alkaline Phosphatase (39-117) U/L Troponin I High Sens 50.4 H* D 44.0 H (<3.5-17.0) ng/L B-Natriuretic Peptide 1238 H (<100) pg/mL Total Protein (6.5-8.0) g/dL Albumin (3.5-5.0) g/dL COVID-19 ([facility]) (Negative) COVID-19 Clin Com Imaging Data Chest x-ray: Attestation: I personally reviewed and interpreted this imaging study as follows: Radiologist's impression: MINATION: XR CHEST CLINICAL INFORMATION: Asthma exacerbation COMPARISON: 06/21/2022 TECHNIQUE: 2 views of the chest were obtained. FINDINGS: The heart remains enlarged. There is no evidence of CHF. A left chest wall bipolar pacemaker is again seen as is a TAVR. No infiltrates, pleural effusions or lung masses are seen. XR/XR chest 2V IMPRESSION: No acute intrathoracic disease. ECG Data Attestation: I personally reviewed and interpreted this ECG as follows: ECG interpretation date: 08/20/22 ECG interpretation time: 13:39 Interpretation: atrial paced rhythm rate 60 Discharge Plan Discharge Clinical Impression: CHF (congestive heart failure) Patient Disposition: Home, Self-Care Instructions: Heart Failure (DC) Additional Instructions: Take 40mg of lasix for the next [address] Chaves for a follow-up appointment in the next 1-2 weeks Return for worsening for shortness of breath, chest pain as discussed Low salt diet Prescriptions: New furosemide 40 mg tablet 40 mg PO DAILY Qty: 7 0RF No Action carvedilol 12.5 mg tablet 12.5 mg PO BIDWM 90 Days Qty: 180 3RF Protocol: Hold for SBP/HR < HOLD for SBP < : 90 HOLD for HR < : 60 Rx Instructions: replaces prior dose of 6.25 mg bid diltiazem HCl 180 mg capsule,extended release 24hr 180 mg PO DAILY Qty: 30 5RF spironolactone 25 mg tablet 12.5 mg PO DAILY 90 Days Qty: 45 1RF Protocol: Hold for SBP< HOLD for SBP < : 90 Rx Instructions: Take 1/2 tab daily Eliquis 2.5 mg tablet 2.5 mg PO BID Qty: 180 3RF amiodarone 200 mg tablet 200 mg PO DAILY 90 Days Qty: 90 1RF multivitamin [Daily-Heather] Tablet 1 tab PO DAILY atorvastatin 40 mg tablet 40 mg PO DAILY albuterol sulfate [Ventolin HFA] 90 mcg/actuation HFA aerosol inhaler 2 puff PO Q4-6H PRN (Reason: Shortness Of Breath) lisinopril 40 mg tablet 40 mg PO DAILY sertraline 50 mg tablet 50 mg PO DAILY magnesium oxide 400 mg (241.3 mg magnesium) tablet 400 mg PO BID furosemide 20 mg tablet 20 mg PO .COMPLEX Rx Instructions: 1.5 tablets am and 1 tablet pm ferrous sulfate 325 mg (65 mg iron) tablet,delayed release (DR/EC) 325 mg PO DAILY pantoprazole 20 mg tablet,delayed release (DR/EC) 20 mg PO DAILY Referrals: Max Chaves MD [Physician] - 1 week
[2022-08-20 13:36] LABS: MANUAL DIFF FLAG NO
[2022-08-20 13:38] LABS: Basophils Percent Auto 0.7 % (0-2); Eosinophils Absolute Auto 0.1 X10*3/uL (0.0-0.4); Eosinophils Percent Auto 1.9 % (0-4); Hematocrit 32.7 % (37.0-47.0); Hemoglobin 10.3 g/dl (12.0-16.0); Imm Gran Abs Auto 0.03 X10*3/uL (0.00-0.03); Imm Gran Pct Auto 0.5 % (0.0-0.4); Lymphocytes Absolute Auto 0.9 X10*3/uL (1.2-4.9); Lymphocytes Percent Auto 16.4 % (20-40); Mean Corpuscular HGB Conc 31.5 g/dl (31.0-35.0); Mean Corpuscular Hemoglobin 29.7 pg (27.0-33.0); Mean Corpuscular Volume 94.2 fL (80.0-98.0); Mean Platelet Volume 9.1 fL (9.4-12.3); Monocytes Absolute Auto 0.5 X10*3/uL (0.1-1.2); Monocytes Percent Auto 8.8 % (2-11); Neutrophils Absolute Auto 4.1 x10*3/uL (2.0-8.3); Neutrophils Percent Auto 71.7 % (45-73); Platelet Count 201 X10*3/uL (160-400); Red Blood Count 3.47 X10*6/uL (4.20-5.50); Red Cell Distribution Width 13.4 % (11.0-16.0); White Blood Count 5.7 X10*3/uL (4.8-10.8)
[2022-08-20 14:10] LABS: Alanine Aminotransferase 29 U/L (0-31); Albumin Level 4.1 g/dL (3.5-5.0); Alkaline Phosphatase 79 U/L (39-117); Anion Gap 15 (12-20); Aspartate Amino Transferase 33 U/L (5-31); Bilirubin Direct 0.3 mg/dL (0.0-0.5); Bilirubin Total 0.6 mg/dL (0.0-1.0); Blood Urea Nitrogen 20 mg/dL (9-16); Calcium 10.5 mg/dL (8.4-10.2); Carbon Dioxide 27 mmol/L (22-29); Chloride 102 mmol/L (96-108); Creatinine Clr Calc Pharmacy 17.9; Estimated Glomerular Filt Rate 37; Glucose Random 109 mg/dL (60-115); Potassium 4.3 mmol/L (3.3-5.1); Sodium 140 mmol/L (135-145); Total Protein 7.1 g/dL (6.5-8.0)
[2022-08-20 14:19] LABS: B Type Natriuretic Peptide 1238 pg/mL (<100); Troponin-I High Sensitivity 50.4 ng/L (<3.5-17.0)
[2022-08-20 15:15] VITALS: BP 124/52; PULSE 60; O2SAT 95
[2022-08-20 15:23] VITALS: BP 112/47; PULSE 60; O2SAT 95
== END 2022-08-20 17:49 | disposition home or self-care (01) ==
PROVIDERS: Emergency Medicine; Nurse Practitioner Family; Emergency Provider Emergency Medicine Emergency Medical Services; PCP Nurse Practitioner Primary Care
DX: I50.9 Heart failure, unspecified (principal); J45.909 Unspecified asthma, uncomplicated; R06.02 Shortness of breath; Z20.822 Contact with and (suspected) exposure to COVID-19; Z79.899 Other long term (current) drug therapy; Z87.891 Personal history of nicotine dependence
CPT/HCPCS: 36415; 71046; 80048; 80076; 83880; 84484; 85025; 87635; 93005; 99283; 99284

== ENCOUNTER → 2022-08-26 12:33 | Outpatient (BNVA) | payer MEDICARE, MEDICAID, SELFPAY | PROVIDERS: PCP Nurse Practitioner Primary Care; Visit Provider Internal Medicine | DX: I48.0 Paroxysmal atrial fibrillation (principal); I50.32 Chronic diastolic (congestive) heart failure; Z95.3 Presence of xenogenic heart valve; I50.33 Acute on chronic diastolic (congestive) heart failure; I05.9 Rheumatic mitral valve disease, unspecified; I10 Essential (primary) hypertension; R77.8 Other specified abnormalities of plasma proteins | CPT/HCPCS: 99212 ==

== ENCOUNTER 2022-08-30 10:27 | Outpatient (REF) | payer MEDICARE, MEDICAID, SELFPAY ==
[2022-08-30 11:53] LABS: Anion Gap 16 (12-20); B Type Natriuretic Peptide 730 pg/mL (<100); Blood Urea Nitrogen 18 mg/dL (9-16); Calcium 9.9 mg/dL (8.4-10.2); Carbon Dioxide 26 mmol/L (22-29); Chloride 101 mmol/L (96-108); Estimated Glomerular Filt Rate 34; Glucose Random 118 mg/dL (60-115); Potassium 4.8 mmol/L (3.3-5.1); Sodium 138 mmol/L (135-145)
[2022-08-30 12:07] LABS: TSH reflex Free T4 2.07 uIU/mL (0.32-4.0)
== END 2022-08-30 10:28 | disposition home or self-care (01) ==
LOC: HO.LAB 10:27
PROVIDERS: PCP Nurse Practitioner Primary Care; Visit Provider Internal Medicine
DX: I50.32 Chronic diastolic (congestive) heart failure (principal); I48.0 Paroxysmal atrial fibrillation; Z95.3 Presence of xenogenic heart valve
CPT/HCPCS: 36415; 80048; 83880; 84443

== ENCOUNTER → 2022-09-05 08:22 | Outpatient (REF) | payer MEDICARE, MEDICAID, SELFPAY ==
--- NOTE | 2022-09-05 08:25 | CA_ITS ---
Transthoracic Echocardiogram Patient (Last, First, Middle): Ashley Anderson, Gender: Female Date of : 1935 Age: 87 Procedure Date: 09/05/2022 Procedure Type: Transthoracic Echocardiogram Location: OP Height: 149.86 cm Weight: 40.82 kg BSA: 1.31 m2 Heart Rate: 60 bpm BP: 119 / 60 mmHg Rv Repairer: TO Referring MD: Max Chaves MD Code Enforcement Supervisor: Samm Sepulveda MD Symptoms: Z95.3 - Presence of xenogenic heart valve Study Quality: Fair ECG Rhythm: Sinus Conclusions: - 1. Normal LV systolic function with grade 2 diastolic dysfunction 2. Severely dilated left atrium 3. Normally function bioprosthetic aortic valve 4. Severe mitral calcification with [id number] mitral regurgitation 5. Moderately severe tricuspid regurgitation with moderately severe elevation of right ventricular systolic pressure 6. No gross pericardial effusion Findings Left Ventricle Normal left ventricular size, thickness, and systolic function. The visually estimated ejection fraction is between 60-65%. Spectral Doppler is indicative of a pseudonormal filling pattern. Elevated left ventricular end diastolic pressure. E/E prime ratio is >15, consistent with elevated filling pressures. Evidence suggests grade II (moderate) diastolic dysfunction. Right Ventricle Normal right ventricular cavity size and systolic function. Atria The left atrium is severely dilated. There is no evidence of interatrial shunt. The right atrium is moderately dilated. Aortic Valve A bioprosthetic aortic valve is present. The prosthetic aortic valve appears to be functioning normally. The mean gradient is 12 mmHg. There is no aortic valve regurgitation. the valve is well seated without abnormal rocking motion Mitral Valve There is moderate anterior and posterior mitral leaflet thickening. There is severe mitral annular calcification. There is mild to moderate mitral valve regurgitation. There is no mitral valve stenosis. Pulmonic Valve The pulmonic valve is likely normal. Tricuspid Valve Normal tricuspid valve structure. There is moderate to severe tricuspid valve regurgitation. Mildly elevated right atrial pressure. Moderate to severe pulmonary hypertension is present. Great Vessels The aorta was not well visualized. The pulmonary artery was not well visualized. Venous The inferior vena cava is mildly dilated and collapses less than 50% with inspiration. Pericardium/Pleural There is no evidence of pericardial effusion. Prior Study Comparison Changes noted compared to prior study dated: 07/02/2021. RV systolic pressure is elevated in moderate to severe range Measurements 2D Linear Measurements IVSd: 0.92 0.6-0.9/0.6-1.0 cm LVIDd: 3.61 3.9-5.3/4.2-5.9 cm LVIDd Index: 2.76 2.4-3.2/2.2-3.1 cm/m2 LVIDs: 1.92 2.0-3.6 cm LVPWd: 0.99 0.7-1.1 cm LA Diam: 3.50 2.7-3.8/3.0-4.0 cm LAIDs Index: 2.67 1.5-2.3 cm/m2 LV Mass: 125.43 67-162/88-224 g LV Mass Index: 95.75 43-95/49-115 g/m2 LVOT Diam: 1.70 3.0+(-)1.3 cm Mitral Valve MV VTI: 0.53 MV Pk Fredrick: 1.75 MV Mn Fredrick: 0.84 MV Pk Grad: 12.00 MV Mn Grad: 3.00 MV Pk E: 1.37 MV PK A: 0.77 MV Decel Time: 316.00 E/A: 1.80 E'Lateral: 6.09 E'Medial: 5.77 E/E' Med: 23.70 E/E' Lat: 22.50 PHT: 93.00 MVA PHT: 2.37 MVA Continuity: 0.98 Decel Hooker: 4.34 Aortic Valve AoV Pk Fredrick: 2.50 AoV Mn Fredrick: 1.63 AoV VTI: 0.51 AoV Pk Grad: 25.00 Aov Mn Grad: 12.00 JOSE LUIS Cont.VTI: 1.01 LVOT LVOT Pk Fredrick: 1.12 LVOT Mn Fredrick: 0.75 LVOT VTI: 0.23 LVOT Pk Grad: 5.00 LVOT Mn Grad: 3.00 LVOT Diam: 1.70 LVOT Area: 2.27 Diastolic Function MV Pk E: 1.37 MV Pk A: 0.77 E/A: 1.80 E'Medial: 5.77 E/E' Med: 23.70 E' Laterial: 6.09 E/E' Lat: 22.50 Right Ventricle TAPSE (mm): 20.60 TVS' Fredrick: 11.70 Tricuspid Valve TR Pk Fredrick: 3.72 TR Pk Grad: 55.00 RA Press: 8.00 RVSP: 63.00 Updated in Other Vendor System with Status of Final Samm Sepulveda MD electronically signed on 09/06/2022 12:41:46 PM with status of Final
== END ==
LOC: HO.CARD 08:22
PROVIDERS: Visit Provider Internal Medicine
DX: Z95.3 Presence of xenogenic heart valve (principal)
CPT/HCPCS: 93306

== ENCOUNTER → 2022-09-10 13:40 | Outpatient (BNVA) | payer MEDICARE, MEDICAID, SELFPAY | PROVIDERS: PCP Nurse Practitioner Primary Care; Referring Provider Nurse Practitioner Primary Care; Visit Provider Internal Medicine | DX: Z45.018 Encounter for adjustment and management of other part of cardiac pacemaker (principal); I11.0 Hypertensive heart disease with heart failure; I50.32 Chronic diastolic (congestive) heart failure; I48.0 Paroxysmal atrial fibrillation; I36.1 Nonrheumatic tricuspid (valve) insufficiency; R77.8 Other specified abnormalities of plasma proteins; I27.20 Pulmonary hypertension, unspecified; Z95.3 Presence of xenogenic heart valve | CPT/HCPCS: 93280; 99212 ==

== ENCOUNTER → 2022-12-12 10:01 | Outpatient (BNVA) | payer MEDICARE, MEDICAID, SELFPAY | PROVIDERS: PCP Nurse Practitioner Primary Care; Referring Provider Nurse Practitioner Primary Care; Visit Provider Internal Medicine | DX: I11.0 Hypertensive heart disease with heart failure (principal); I50.32 Chronic diastolic (congestive) heart failure; I05.9 Rheumatic mitral valve disease, unspecified; I48.0 Paroxysmal atrial fibrillation; I36.1 Nonrheumatic tricuspid (valve) insufficiency; I27.20 Pulmonary hypertension, unspecified; R77.8 Other specified abnormalities of plasma proteins; Z95.3 Presence of xenogenic heart valve | CPT/HCPCS: 93005; 99212 ==

== ENCOUNTER 2023-05-02 15:35 | Emergency (ER) | payer MEDICARE, MEDICAID, SELFPAY ==
--- NOTE | ~2023-05-02 | XR_ITS ---
EXAMINATION: XR CHEST CLINICAL INFORMATION: Chest pain COMPARISON: 08/20/2022 TECHNIQUE: 2 views of the chest were obtained. FINDINGS: Left chest wall pacer remains in place. Aortic valvular hardware. The lungs are well expanded. No dense consolidation. No edema or effusion. No pneumothorax. The cardiomediastinal silhouette is unchanged, with a calcified aorta. XR/XR chest 2V IMPRESSION: No acute pulmonary finding.
--- NOTE | 2023-05-02 15:40 | ED_ITS ---
HPI - General Adult General Chief complaint: General Medical Stated complaint: chest pain Time Seen by Provider: 05/02/23 19:04 Related Data Home Medications Medication Instructions Recorded Confirmed albuterol sulfate 90 mcg/actuation 2 puff PO Q4-6H PRN Shortness Of 09/04/20 12/12/22 aerosol inhaler (Ventolin HFA) Breath atorvastatin 40 mg tablet 40 mg PO DAILY 09/04/20 12/12/22 multivitamin (Daily-Heather tablet) 1 tab PO DAILY 09/04/20 12/12/22 sertraline 50 mg tablet 50 mg PO DAILY 09/04/20 12/12/22 magnesium oxide 400 mg (241.3 mg 400 mg PO BID 01/08/21 12/12/22 magnesium) tablet ferrous sulfate 325 mg (65 mg 325 mg PO DAILY 04/10/22 12/12/22 iron) tablet,delayed release pantoprazole 20 mg tablet,delayed 20 mg PO DAILY 04/10/22 12/12/22 release furosemide 20 mg tablet 20 mg PO DAILY 09/10/22 12/12/22 Previous Rx's Medication Instructions Recorded apixaban 2.5 mg tablet (Eliquis) 2.5 mg PO BID #180 tabs 06/10/22 diltiazem HCl 180 mg 180 mg PO QAM #30 caps 10/28/22 capsule,extended release 24 hr amiodarone 200 mg tablet 200 mg PO QPM #90 tabs 11/29/22 spironolactone 25 mg tablet 12.5 mg PO QAM #45 tabs 11/29/22 carvedilol 12.5 mg tablet 12.5 mg PO BIDWM 90 days #180 tabs 12/13/22 Allergies Allergy/AdvReac Type Severity Reaction Status Date / Time ibuprofen [From Motrin] Allergy Mild RASH Verified 12/12/22 10:31 Penicillins Allergy Unknown RASH Verified 12/12/22 10:31 [facility] Past Medical History Medical History (HFpEF) heart failure with preserved ejection fraction Acute on chronic heart failure with preserved ejection fraction (HFpEF) Alzheimer's disease Asthma Atrial fibrillation Brain TIA Cardiac arrhythmia CHF exacerbation Chronic heart failure with preserved ejection fraction (HFpEF) Dementia Diabetes mellitus Dizziness Elevated troponin Elevated troponin Essential hypertension Fall Gastrointestinal bleeding GERD (gastroesophageal reflux disease) H/O cardiac pacemaker HLD (hyperlipidemia) HTN (hypertension) Mitral valve disease NSTEMI (non-ST elevated myocardial infarction) Paroxysmal atrial fibrillation Ulcer Surgical History History of permanent cardiac pacemaker placement (~08/2019) Status post transcatheter aortic valve replacement (TAVR) using bioprosthesis Family History Family History Other Patient's mother is Social History Social History Household Members: Children Housing: House Do you presently have visiting nurse or other home services: Yes ([employer] two times a week) Alcohol intake: never Patient Tobacco Use Status: Former Tobacco user Second Hand Smoke Exposure: No Advance Directives: Yes Advance Directives on File: Yes Advance Directives Date on File: 08/20/22 service: No Current occupational status: unemployed Physical Exam ED Vital Signs: Vital Signs - 24 hr 05/02/23 15:41 05/02/23 19:31 Temperature 98.1 F 98.3 F Pulse Rate 60 60 Respiratory Rate 18 16 Blood Pressure 134/62 146/63 H Pulse Oximetry 98 97 Oxygen Delivery Method Room Air Room Air BMI result Body Mass Index 19.8 Course Course Course Narrative: RME performed by Anisha Husain PA-C. Patient is an 88 year old assigned female at presenting to the emergency department with chest pain. Labs, imaging, swabs ordered. Patient placed back in the waiting room pending room availability and results. Medical Decision Making Medical Decision Making [facility] Narrative: -patient's troponin x2 are flat, at baseline. Patient is asymptomatic. -EKG my interpretation: Atrial paced, heart rate 60, bifascicular block, QTC 502, no changes from previous EKG in 2021 -patient states that she feels very well and would like to be discharged home. Lab Data [facility] Lab Attestation statement: I reviewed the patient's lab results. 05/02/23 17:12 05/02/23 17:12 Labs: Lab Results 05/02/23 05/02/23 05/02/23 Range/Units 17:12 17:12 17:12 WBC 6.6 (4.8-10.8) X10*3/uL RBC 3.70 L (4.20-5.50) X10*6/uL Hgb 11.9 L (12.0-16.0) g/dl Hct 36.1 L (37.0-47.0) % MCV 97.6 (80.0-98.0) fL MCH 32.2 (27.0-33.0) pg MCHC 33.0 (31.0-35.0) g/dl RDW 12.6 (11.0-16.0) % Plt Count 277 D (160-400) X10*3/uL MPV 9.4 (9.4-12.3) fL Immature Gran % (Auto) 0.6 H (0.0-0.4) % Neut % (Auto) 69.4 (45-73) % Lymph % (Auto) 17.4 L (20-40) % [place] % (Auto) 9.3 (2-11) % Eos % (Auto) 2.4 (0-4) % Baso % (Auto) 0.9 (0-2) % Lymph # (Auto) 1.1 L (1.2-4.9) X10*3/uL [place] # (Auto) 0.6 (0.1-1.2) X10*3/uL Eos # (Auto) 0.2 (0.0-0.4) X10*3/uL Baso # (Auto) 0.1 (0.0-0.2) X10*3/uL Abs Immat Gran (auto) 0.04 H (0.00-0.03) X10*3/uL Absolute Neuts (auto) 4.6 (2.0-8.3) x10*3/uL Absolute Nucleated RBC 0.000 (0.0-0.012) X10*3/uL Nucleated RBC % (auto) 0.0 (0.0-0.2) /100WBC VBG pH (7.32-7.43) VBG pCO2 mmHg VBG pO2 mmHg VBG HCO3 (22-26) mmol/L VBG O2 Saturation % VBG Base Excess mmol/L Sodium 130 L (135-145) mmol/L Potassium 4.9 (3.3-5.1) mmol/L Chloride 96 (96-108) mmol/L Carbon Dioxide 25 (22-29) mmol/L Anion Gap 14 (12-20) BUN 19 H (9-16) mg/dL Creatinine 1.49 H (0.5-1.4) mg/dL Estim Creat Clear Calc 17.8 Estimated GFR 33 Random Glucose 152 H (60-115) mg/dL Calcium 9.9 (8.4-10.2) mg/dL Magnesium 2.0 (1.6-2.6) mg/dL Total Bilirubin 0.6 (0.0-1.0) mg/dL AST 59 H (5-31) U/L ALT 66 H (0-31) U/L Alkaline Phosphatase 131 H (39-117) U/L Troponin I High Sens 29.6 H (<3.5-17.0) ng/L B-Natriuretic Peptide (<100) pg/mL Total Protein 7.5 (6.5-8.0) g/dL Albumin 4.3 (3.5-5.0) g/dL COVID-19 ([facility]) (Negative) COVID-19 Clin Com 05/02/23 05/02/23 05/02/23 Range/Units 17:12 17:12 17:14 WBC (4.8-10.8) X10*3/uL RBC (4.20-5.50) X10*6/uL Hgb (12.0-16.0) g/dl Hct (37.0-47.0) % MCV (80.0-98.0) fL MCH (27.0-33.0) pg MCHC (31.0-35.0) g/dl RDW (11.0-16.0) % Plt Count (160-400) X10*3/uL MPV (9.4-12.3) fL Immature Gran % (Auto) (0.0-0.4) % Neut % (Auto) (45-73) % Lymph % (Auto) (20-40) % [place] % (Auto) (2-11) % Eos % (Auto) (0-4) % Baso % (Auto) (0-2) % Lymph # (Auto) (1.2-4.9) X10*3/uL [place] # (Auto) (0.1-1.2) X10*3/uL Eos # (Auto) (0.0-0.4) X10*3/uL Baso # (Auto) (0.0-0.2) X10*3/uL Abs Immat Gran (auto) (0.00-0.03) X10*3/uL Absolute Neuts (auto) (2.0-8.3) x10*3/uL Absolute Nucleated RBC (0.0-0.012) X10*3/uL Nucleated RBC % (auto) (0.0-0.2) /100WBC VBG pH 7.39 (7.32-7.43) VBG pCO2 49 mmHg VBG pO2 33 mmHg VBG HCO3 30 H (22-26) mmol/L VBG O2 Saturation 53.0 % VBG Base Excess 4.6 mmol/L Sodium (135-145) mmol/L Potassium (3.3-5.1) mmol/L Chloride (96-108) mmol/L Carbon Dioxide (22-29) mmol/L Anion Gap (12-20) BUN (9-16) mg/dL Creatinine (0.5-1.4) mg/dL Estim Creat Clear Calc Estimated GFR Random Glucose (60-115) mg/dL Calcium (8.4-10.2) mg/dL Magnesium (1.6-2.6) mg/dL Total Bilirubin (0.0-1.0) mg/dL AST (5-31) U/L ALT (0-31) U/L Alkaline Phosphatase (39-117) U/L Troponin I High Sens (<3.5-17.0) ng/L B-Natriuretic Peptide 352 H (<100) pg/mL Total Protein (6.5-8.0) g/dL Albumin (3.5-5.0) g/dL COVID-19 ([facility]) Negative (Negative) COVID-19 Clin Com See Note 05/02/23 Range/Units 19:45 WBC (4.8-10.8) X10*3/uL RBC (4.20-5.50) X10*6/uL Hgb (12.0-16.0) g/dl Hct (37.0-47.0) % MCV (80.0-98.0) fL MCH (27.0-33.0) pg MCHC (31.0-35.0) g/dl RDW (11.0-16.0) % Plt Count (160-400) X10*3/uL MPV (9.4-12.3) fL Immature Gran % (Auto) (0.0-0.4) % Neut % (Auto) (45-73) % Lymph % (Auto) (20-40) % [place] % (Auto) (2-11) % Eos % (Auto) (0-4) % Baso % (Auto) (0-2) % Lymph # (Auto) (1.2-4.9) X10*3/uL [place] # (Auto) (0.1-1.2) X10*3/uL Eos # (Auto) (0.0-0.4) X10*3/uL Baso # (Auto) (0.0-0.2) X10*3/uL Abs Immat Gran (auto) (0.00-0.03) X10*3/uL Absolute Neuts (auto) (2.0-8.3) x10*3/uL Absolute Nucleated RBC (0.0-0.012) X10*3/uL Nucleated RBC % (auto) (0.0-0.2) /100WBC VBG pH (7.32-7.43) VBG pCO2 mmHg VBG pO2 mmHg VBG HCO3 (22-26) mmol/L VBG O2 Saturation % VBG Base Excess mmol/L Sodium (135-145) mmol/L Potassium (3.3-5.1) mmol/L Chloride (96-108) mmol/L Carbon Dioxide (22-29) mmol/L Anion Gap (12-20) BUN (9-16) mg/dL Creatinine (0.5-1.4) mg/dL Estim Creat Clear Calc Estimated GFR Random Glucose (60-115) mg/dL Calcium (8.4-10.2) mg/dL Magnesium (1.6-2.6) mg/dL Total Bilirubin (0.0-1.0) mg/dL AST (5-31) U/L ALT (0-31) U/L Alkaline Phosphatase (39-117) U/L Troponin I High Sens 28.8 H (<3.5-17.0) ng/L B-Natriuretic Peptide (<100) pg/mL Total Protein (6.5-8.0) g/dL Albumin (3.5-5.0) g/dL COVID-19 ([facility]) (Negative) COVID-19 Clin Com Discharge Plan Discharge Clinical Impression: Atypical chest pain Patient Disposition: Home, Self-Care Instructions: Chest Pain (ED) Additional Instructions: Please follow-up with your primary care physician tomorrow. If you have any worsening or new symptoms, please return to the emergency room or call 911 Prescriptions: No Action Eliquis 2.5 mg tablet 2.5 mg PO BID Qty: 180 3RF diltiazem HCl 180 mg capsule,extended release 24hr 180 mg PO QAM Qty: 30 11RF spironolactone 25 mg tablet 12.5 mg PO QAM Qty: 45 3RF amiodarone 200 mg tablet 200 mg PO QPM Qty: 90 3RF carvedilol 12.5 mg tablet 12.5 mg PO BIDWM 90 Days Qty: 180 3RF Protocol: Hold for SBP/HR < HOLD for SBP < : 90 HOLD for HR < : 60 Rx Instructions: replaces prior dose of 6.25 mg bid multivitamin [Daily-Heather] Tablet 1 tab PO DAILY atorvastatin 40 mg tablet 40 mg PO DAILY albuterol sulfate [Ventolin HFA] 90 mcg/actuation HFA aerosol inhaler 2 puff PO Q4-6H PRN (Reason: Shortness Of Breath) sertraline 50 mg tablet 50 mg PO DAILY magnesium oxide 400 mg (241.3 mg magnesium) tablet 400 mg PO BID ferrous sulfate 325 mg (65 mg iron) tablet,delayed release (DR/EC) 325 mg PO DAILY pantoprazole 20 mg tablet,delayed release (DR/EC) 20 mg PO DAILY furosemide 20 mg tablet 20 mg PO DAILY
[2023-05-02 15:41] VITALS: BP 134/62; PULSE 60; RESP 18; TEMP 36.7; O2SAT 98; BMI 19.8
--- NOTE | 2023-05-02 15:41 | ECG_ITS ---
Test Reason : chest pain Blood Pressure : / mmHG Vent. Rate : 060 BPM Atrial Rate : 060 BPM P-R Int : 280 ms QRS Dur : 152 ms QT Int : 502 ms P-R-T Axes : 000 -57 050 degrees QTc Int : 502 ms Atrial-paced rhythm with prolonged AV conduction Right bundle branch block Left anterior fascicular block Bifascicular block Lateral infarct , age undetermined Abnormal ECG When compared with ECG of 20-AUG-2022 13:39, No significant change was found Referred By: Anisha Husain Electronically Signed By:VIN JOHNS MD
--- NOTE | 2023-05-02 17:14 | MHC.EDTECH ---
PT EKG TAKEN AND WAS READ BY PROVIDER ,BLOOD DRAWN AND COVID SWAB COLLECTED AND SENT TO LAB .
[2023-05-02 17:16] LABS: MANUAL DIFF FLAG NO
[2023-05-02 17:21] LABS: VBG Base Excess 4.6 mmol/L; VBG HCO3 30 mmol/L (22-26); VBG pCO2 49 mmHg; VBG pH 7.39 (7.32-7.43); VBG pO2 33 mmHg
[2023-05-02 17:23] LABS: Basophils Absolute Auto 0.1 X10*3/uL (0.0-0.2); Basophils Percent Auto 0.9 % (0-2); Eosinophils Absolute Auto 0.2 X10*3/uL (0.0-0.4); Eosinophils Percent Auto 2.4 % (0-4); Hematocrit 36.1 % (37.0-47.0); Hemoglobin 11.9 g/dl (12.0-16.0); Imm Gran Abs Auto 0.04 X10*3/uL (0.00-0.03); Imm Gran Pct Auto 0.6 % (0.0-0.4); Lymphocytes Absolute Auto 1.1 X10*3/uL (1.2-4.9); Lymphocytes Percent Auto 17.4 % (20-40); Mean Corpuscular Hemoglobin 32.2 pg (27.0-33.0); Mean Corpuscular Volume 97.6 fL (80.0-98.0); Mean Platelet Volume 9.4 fL (9.4-12.3); Monocytes Absolute Auto 0.6 X10*3/uL (0.1-1.2); Monocytes Percent Auto 9.3 % (2-11); Neutrophils Absolute Auto 4.6 x10*3/uL (2.0-8.3); Neutrophils Percent Auto 69.4 % (45-73); Platelet Count 277 X10*3/uL (160-400); Red Cell Distribution Width 12.6 % (11.0-16.0); White Blood Count 6.6 X10*3/uL (4.8-10.8)
[2023-05-02 17:29] LABS: Venous Blood Gas Refer to POC result
[2023-05-02 17:34] LABS: COVID-19 Test Negative (Negative); IDNOW Serial# 9DB6401D
[2023-05-02 17:38] LABS: Alanine Aminotransferase 66 U/L (0-31); Albumin Level 4.3 g/dL (3.5-5.0); Alkaline Phosphatase 131 U/L (39-117); Anion Gap 14 (12-20); Aspartate Amino Transferase 59 U/L (5-31); Bilirubin Total 0.6 mg/dL (0.0-1.0); Blood Urea Nitrogen 19 mg/dL (9-16); Calcium 9.9 mg/dL (8.4-10.2); Carbon Dioxide 25 mmol/L (22-29); Chloride 96 mmol/L (96-108); Creatinine Clr Calc Pharmacy 17.8; Estimated Glomerular Filt Rate 33; Glucose Random 152 mg/dL (60-115); Potassium 4.9 mmol/L (3.3-5.1); Sodium 130 mmol/L (135-145); Total Protein 7.5 g/dL (6.5-8.0)
[2023-05-02 17:41] LABS: B Type Natriuretic Peptide 352 pg/mL (<100)
[2023-05-02 17:45] LABS: Troponin-I High Sensitivity 29.6 ng/L (<3.5-17.0)
[2023-05-02 19:31] VITALS: BP 146/63; PULSE 60; RESP 16; TEMP 36.8; O2SAT 97
[2023-05-02 20:13] LABS: Troponin-I High Sensitivity 28.8 ng/L (<3.5-17.0)
--- NOTE | 2023-05-02 21:01 | PC.NURSE ---
assumed care of pt pt aox4 no apparent distress resting quietly with daughter at bedside
--- NOTE | 2023-05-02 21:28 | PC.NURSE ---
Discharge instructions given/explained to pt No apparent distress aox4 ambulates safely and independently chest pain resolved
== END 2023-05-02 21:28 | disposition home or self-care (01) ==
PROVIDERS: Physician Assistant Medical; Emergency Provider Emergency Medicine; PCP Nurse Practitioner Primary Care
DX: R07.89 Other chest pain (principal); Z20.822 Contact with and (suspected) exposure to COVID-19; E11.9 Type 2 diabetes mellitus without complications; I11.0 Hypertensive heart disease with heart failure; I50.9 Heart failure, unspecified; E78.5 Hyperlipidemia, unspecified; I48.0 Paroxysmal atrial fibrillation; Z95.0 Presence of cardiac pacemaker; Z87.891 Personal history of nicotine dependence; Z86.73 Personal history of transient ischemic attack (TIA), and cerebral infarction without residual deficits; Z79.01 Long term (current) use of anticoagulants; Z79.899 Other long term (current) drug therapy; Z79.02 Long term (current) use of antithrombotics/antiplatelets
CPT/HCPCS: 36415; 71046; 80053; 82803; 83735; 83880; 84484; 85025; 87635; 93005; 99283; 99284

== ENCOUNTER 2023-05-26 13:58 | Outpatient (REF) | payer MEDICARE, MEDICAID, SELFPAY ==
[2023-05-26 16:38] LABS: TSH reflex Free T4 1.33 uIU/mL (0.32-4.0)
== END 2023-05-26 13:59 | disposition home or self-care (01) ==
LOC: HO.LAB 13:58
PROVIDERS: PCP Nurse Practitioner Primary Care; Referring Provider Nurse Practitioner Primary Care; Visit Provider Internal Medicine
DX: I11.0 Hypertensive heart disease with heart failure (principal); I50.32 Chronic diastolic (congestive) heart failure; I48.0 Paroxysmal atrial fibrillation; I36.1 Nonrheumatic tricuspid (valve) insufficiency; I27.20 Pulmonary hypertension, unspecified; R77.8 Other specified abnormalities of plasma proteins
CPT/HCPCS: 36415; 84443; 93005; 99212

== ENCOUNTER 2023-07-18 12:10 | Emergency (ER) | payer OTHER, SELFPAY ==
--- NOTE | ~2023-07-18 | XR_ITS ---
EXAMINATION: XR CHEST CLINICAL INFORMATION: Shortness of breath. COMPARISON: 05/02/2023 chest radiographs. TECHNIQUE: 2 views of the chest were obtained. FINDINGS: Support devices: Left-sided pacemaker device appears in good position. The lungs are clear. No pleural effusion. The heart is mildly enlarged. Mitral and/or calcifications are seen. An aortic valve prosthesis is seen in place. The mediastinal structures are unremarkable. XR/XR chest 2V IMPRESSION: Mild cardiomegaly without significant change. No acute cardiopulmonary process.
--- NOTE | 2023-07-18 12:12 | ECG_ITS ---
Test Reason : cp Blood Pressure : / mmHG Vent. Rate : 060 BPM Atrial Rate : 060 BPM P-R Int : 244 ms QRS Dur : 140 ms QT Int : 468 ms P-R-T Axes : 000 -44 024 degrees QTc Int : 468 ms Atrial-paced rhythm with prolonged AV conduction Left axis deviation Right bundle branch block Abnormal ECG When compared with ECG of 02-MAY-2023 16:59, No significant change was found Referred By: Anisha Husain Electronically Signed By:HORACIO NATHAN
[2023-07-18 12:25] VITALS: BP 120/53; PULSE 60; RESP 19; TEMP 36.6; O2SAT 98; BMI 21.9
--- NOTE | 2023-07-18 12:26 | ED.GENADULT ---
HPI - General Adult General Chief complaint: Chest Pain Stated complaint: chest pain / sob Source: patient and old records reviewed Mode of arrival: wheelchair Limitations: no limitations History of Present Illness HPI narrative: Patient is an 88 year old assigned female at with an extensive cardiac history presenting to the emergency department today with chest pain and shortness of breath. Patient states that over the last 24 hours she has had chest pain and shortness of breath. Patient denies any dizziness, lightheadedness, abdominal pain, nausea, vomiting, fever, chills, blurry vision, double vision, loss of vision, back pain, night sweats, pain with urination, increased urinary frequency, increased urinary urgency, blood in her urine or stool, syncope or a near syncopal episode, recent trauma or falls, bowel incontinence, bladder incontinence, bowel retention, bladder retention, or any other complaints at this time. Onset (ago): day(s) (1) Location: chest Severity: mild Severity scale (1-10): 3 Quality: aching and dull Pain Consistency: constant Relieving factors: none Exacerbating factors: none Associated symptoms: shortness of breath Treatments prior to arrival: none Related Data Home Medications Medication Instructions Recorded Confirmed albuterol sulfate 90 mcg/actuation 2 puff PO Q4-6H PRN Shortness Of 09/04/20 05/26/23 aerosol inhaler (Ventolin HFA) Breath atorvastatin 40 mg tablet 40 mg PO DAILY 09/04/20 05/26/23 multivitamin (Daily-Heather tablet) 1 tab PO DAILY 09/04/20 05/26/23 sertraline 50 mg tablet 50 mg PO DAILY 09/04/20 05/26/23 magnesium oxide 400 mg (241.3 mg 400 mg PO BID 01/08/21 05/26/23 magnesium) tablet ferrous sulfate 325 mg (65 mg 325 mg PO DAILY 04/10/22 05/26/23 iron) tablet,delayed release pantoprazole 20 mg tablet,delayed 20 mg PO DAILY 04/10/22 05/26/23 release furosemide 20 mg tablet 20 mg PO DAILY 09/10/22 05/26/23 Previous Rx's Medication Instructions Recorded diltiazem HCl 180 mg 180 mg PO QAM #30 caps 10/28/22 capsule,extended release 24 hr amiodarone 200 mg tablet 200 mg PO QPM #90 tabs 11/29/22 spironolactone 25 mg tablet 12.5 mg PO QAM #45 tabs 11/29/22 carvedilol 12.5 mg tablet 12.5 mg PO BIDWM 90 days #180 tabs 12/13/22 apixaban 2.5 mg tablet (Eliquis) 2.5 mg PO BID #180 tabs 06/09/23 Allergies Allergy/AdvReac Type Severity Reaction Status Date / Time ibuprofen [From Motrin] Allergy Mild RASH Verified 07/18/23 12:25 Penicillins Allergy Unknown RASH Verified 07/18/23 12:25 Review of Systems Constitutional: Constitutional: Reports no additional constitutional complaints, Denies chills, Denies fever(s) and Denies night sweats Eyes: Eyes: Reports no additional eye complaints, Denies blurry vision, Denies change in vision, Denies diplopia, Denies eye discharge, Denies loss of vision and Denies eye pain ENT: Denies dizziness Cardiovascular: Cardiovascular: Reports no additional cardiovascular complaints, Reports chest pain, Denies lightheadedness, Denies Loss of Consciousness and Reports dyspnea Respiratory: Respiratory: Reports no additional respiratory complaints and Reports dyspnea Gastrointestinal: Gastrointestinal: Reports no additional gastrointestinal complaints, Denies abdominal pain, Denies melena, Denies hematochezia, Denies change in bowel habits and Denies change in stool character Genitourinary: Genitourinary: Denies hematuria, Denies urinary frequency, Denies dysuria, Denies urinary incontinence, Denies urinary hesitancy and Denies urinary urgency Musculoskeletal: Musculoskeletal: Reports no additional musculoskeletal complaints, Denies numbness and Denies tingling Neurologic: Denies dizziness, Denies loss of vision, Denies numbness and Denies tingling Psychiatric: Psychiatric: Reports no additional psychiatric complaints Endocrine: Endocrine: Reports no additional endocrine complaints Hematologic/Lymphatic: Hematologic/Lymphatic: Reports no additional hematologic/lymphatic complaints Allergic/Immunologic: Allergic/Immunologic: Reports no additional allergic/immunologic complaints PMFSH Past Medical History Attestation statement: The following information was validated with the patient. Source: old records reviewed and nursing notes reviewed Medical History (HFpEF) heart failure with preserved ejection fraction Acute on chronic heart failure with preserved ejection fraction (HFpEF) Alzheimer's disease Asthma Atrial fibrillation Atypical chest pain Brain TIA Cardiac arrhythmia CHF exacerbation Chronic heart failure with preserved ejection fraction (HFpEF) Dementia Diabetes mellitus Dizziness Elevated troponin Elevated troponin Elevated troponin Essential hypertension Fall Gastrointestinal bleeding GERD (gastroesophageal reflux disease) H/O cardiac pacemaker HLD (hyperlipidemia) HTN (hypertension) Hypomagnesemia Mitral valve disease Normally functioning cardiac pacemaker present NSTEMI (non-ST elevated myocardial infarction) Paroxysmal atrial fibrillation Ulcer UTI (urinary tract infection) Surgical History History of permanent cardiac pacemaker placement (~08/2019) Status post transcatheter aortic valve replacement (TAVR) using bioprosthesis Family History Family History Other Patient's mother is Social History Social History Household Members: Children Housing: House Do you presently have visiting nurse or other home services: Yes ([employer] two times a week) Alcohol intake: never Patient Tobacco Use Status: Former Tobacco user Second Hand Smoke Exposure: No Advance Directives: Yes Advance Directives on File: Yes Advance Directives Date on File: 08/20/22 service: No Current occupational status: unemployed Physical Exam ED Vital Signs: Vital Signs - 24 hr 07/18/23 12:25 Temperature 98 F Pulse Rate 60 Respiratory Rate 19 Blood Pressure 120/53 L Pulse Oximetry 98 BMI result Body Mass Index 21.9 Const General: cooperative, no acute distress, alert and awake Nutritional Appearance: well nourished Orientation/consciousness: patient oriented x3 Limitations: no limitations [facility] Head: Yes normal to inspection and Yes atraumatic Ears: hearing grossly normal bilaterally and external ears normal General nose exam: Normal external nose present, no nasal discharge noted and no epistaxis Face and sinus: Yes normal facial exam, No abrasion and No laceration Mouth: Normal oral and palatal mucosa present, no drooling and no muffled voice Eyes General: appearance normal, both eyes and all related structures Periorbital: periorbital findings normal Eyelids: Yes eyelids normal Conjunctivae: conjunctivae normal Pupils: Equal, round and reactive pupils present EOM: EOMs intact bilaterally Neck Neck: Yes normal visual inspection, Yes full ROM and Yes no lymphadenopathy Chest Chest palpation & inspection: normal inspection of the chest Resp Effort & Inspection: normal respiratory effort and able to speak in complete sentences GI Inspection: Yes normal to inspection Neuro General: patient oriented x3 and moves all extremities Cranial nerves: Yes Equal, round and reactive pupils present Cognition (Neuro): normal cognition Motor exam (neuro): 5/5 motor strength present throughout Sensory Exam: Normal double simultaneous stimulation for sensation Coordination: [id number] test normal Extrem General: Yes normal to inspection, Yes full ROM and Yes capillary refill normal Psych Appearance: grossly normal Mental Status: mental status grossly normal Affect: normal affect Attitude: cooperative Thought process: Normal thought process present Thought content: Normal thought content present Insight: Good insight present (Psych) Course Course Course Narrative: RME performed by Anisha Husain PA-C. Patient is an 88 year old assigned female at presenting to the emergency department with chest pain and shortness of breath. Labs, imaging, and swab ordered. Patient placed back in the waiting room pending room availability and results. Medical Decision Making Medical Decision Making [facility] Narrative: Patient is an 88 year old assigned female at with an extensive cardiac history presenting to the emergency department today with chest pain and shortness of breath. Patient's limited physical exam performed in triage was unremarkable. Patient's blood work showed an elevated troponin of 37.7 and an elevated BNP of 489. The rest of the patient's labs were grossly normal. Patient's EKG was unremarkable. Patient's chest x-ray showed no acute process. Patient eloped from the department before myself or any of the other emergency department providers could explain to the patient her physical exam findings, test results, need or lack there of for further testing, treatment options or treatment plans. Differential Diagnosis Differential Diagnoses: The differential diagnosis associated with the presentation includes STEMI NSTEMI Chest pain Atypical chest pain CHF Admission/Observation Consideration of admission/observation: Escalation of care including admission/observation considered Patient would have been admitted to the hospital had her work up had any findings where hospital admission was appropriate, her clinical presentation warranted hospital admission, and she hadn't eloped from the department. Lab Data [facility] Lab Attestation statement: I reviewed the patient's lab results. My interpretation of these results are in the MDM portion of this note. 07/18/23 12:22 07/18/23 12:22 Labs: Lab Results 07/18/23 07/18/23 07/18/23 Range/Units 12:22 12:22 12:22 WBC 6.4 (4.8-10.8) X10*3/uL RBC 3.43 L (4.20-5.50) X10*6/uL Hgb 11.4 L (12.0-16.0) g/dl Hct 34.3 L (37.0-47.0) % MCV 100.0 H (80.0-98.0) fL MCH 33.2 H (27.0-33.0) pg MCHC 33.2 (31.0-35.0) g/dl RDW 12.4 (11.0-16.0) % Plt Count 224 (160-400) X10*3/uL MPV 9.5 (9.4-12.3) fL Immature Gran % (Auto) 0.5 H (0.0-0.4) % Neut % (Auto) 74.6 H (45-73) % Lymph % (Auto) 14.3 L (20-40) % Stephenson % (Auto) 7.8 (2-11) % Eos % (Auto) 2.0 (0-4) % Baso % (Auto) 0.8 (0-2) % Lymph # (Auto) 0.9 L (1.2-4.9) X10*3/uL Stephenson # (Auto) 0.5 (0.1-1.2) X10*3/uL Eos # (Auto) 0.1 (0.0-0.4) X10*3/uL Baso # (Auto) 0.1 (0.0-0.2) X10*3/uL Abs Immat Gran (auto) 0.03 (0.00-0.03) X10*3/uL Absolute Neuts (auto) 4.8 (2.0-8.3) x10*3/uL Absolute Nucleated RBC 0.000 (0.0-0.012) X10*3/uL Nucleated RBC % (auto) 0.0 (0.0-0.2) /100WBC Sodium 137 (135-145) mmol/L Potassium 4.7 (3.3-5.1) mmol/L Chloride 103 (96-108) mmol/L Carbon Dioxide 25 (22-29) mmol/L Anion Gap 14 (12-20) BUN 18 H (9-16) mg/dL Creatinine 1.39 (0.5-1.4) mg/dL Estim Creat Clear Calc 17.0 Estimated GFR 36 Random Glucose 159 H (60-115) mg/dL Calcium 10.0 (8.4-10.2) mg/dL Magnesium 2.0 (1.6-2.6) mg/dL Total Bilirubin 0.4 (0.0-1.0) mg/dL AST 55 H (5-31) U/L ALT 56 H (0-31) U/L Alkaline Phosphatase 81 (39-117) U/L Troponin I High Sens 37.7 H (<3.5-17.0) ng/L B-Natriuretic Peptide (<100) pg/mL Total Protein 6.8 (6.5-8.0) g/dL Albumin 4.0 (3.5-5.0) g/dL COVID-19 ([facility]) (Negative) COVID-19 Clin Com 07/18/23 07/18/23 Range/Units 12:22 12:22 WBC (4.8-10.8) X10*3/uL RBC (4.20-5.50) X10*6/uL Hgb (12.0-16.0) g/dl Hct (37.0-47.0) % MCV (80.0-98.0) fL MCH (27.0-33.0) pg MCHC (31.0-35.0) g/dl RDW (11.0-16.0) % Plt Count (160-400) X10*3/uL MPV (9.4-12.3) fL Immature Gran % (Auto) (0.0-0.4) % Neut % (Auto) (45-73) % Lymph % (Auto) (20-40) % Stephenson % (Auto) (2-11) % Eos % (Auto) (0-4) % Baso % (Auto) (0-2) % Lymph # (Auto) (1.2-4.9) X10*3/uL Stephenson # (Auto) (0.1-1.2) X10*3/uL Eos # (Auto) (0.0-0.4) X10*3/uL Baso # (Auto) (0.0-0.2) X10*3/uL Abs Immat Gran (auto) (0.00-0.03) X10*3/uL Absolute Neuts (auto) (2.0-8.3) x10*3/uL Absolute Nucleated RBC (0.0-0.012) X10*3/uL Nucleated RBC % (auto) (0.0-0.2) /100WBC Sodium (135-145) mmol/L Potassium (3.3-5.1) mmol/L Chloride (96-108) mmol/L Carbon Dioxide (22-29) mmol/L Anion Gap (12-20) BUN (9-16) mg/dL Creatinine (0.5-1.4) mg/dL Estim Creat Clear Calc Estimated GFR Random Glucose (60-115) mg/dL Calcium (8.4-10.2) mg/dL Magnesium (1.6-2.6) mg/dL Total Bilirubin (0.0-1.0) mg/dL AST (5-31) U/L ALT (0-31) U/L Alkaline Phosphatase (39-117) U/L Troponin I High Sens (<3.5-17.0) ng/L B-Natriuretic Peptide 498 H (<100) pg/mL Total Protein (6.5-8.0) g/dL Albumin (3.5-5.0) g/dL COVID-19 ([facility]) Negative (Negative) COVID-19 Clin Com See Note Independent Interpretation I performed an independent interpretation of an: EKG and Plain X-Ray Interpretation: My interpretation is in agreement with the radiologist's impression of this imaging study. EXAMINATION: XR CHEST CLINICAL INFORMATION: Shortness of breath. COMPARISON: 05/02/2023 chest radiographs. TECHNIQUE: 2 views of the chest were obtained. FINDINGS: Support devices: Left-sided pacemaker device appears in good position. The lungs are clear. No pleural effusion. The heart is mildly enlarged. Mitral and/or calcifications are seen. An aortic valve prosthesis is seen in place. The mediastinal structures are unremarkable. XR/XR chest 2V IMPRESSION: Mild cardiomegaly without significant change. No acute cardiopulmonary process. Dictated By: Dontae Sigala MD Signed By: Electronically signed by Dontae Sigala MD 07/18/23 1324 Vent. Rate: 060 BPM ? ? Atrial Rate: 060 BPM P-R Int: 244 ms? QRS Dur: 140 ms QT Int: 468 ms ? ? ? P-R-T Axes: 000 -44 024 degrees QTc Int: 468 ms ? Atrial-paced rhythm with prolonged AV conduction Left axis deviation Right bundle branch block Abnormal ECG When compared with ECG of 02-MAY-2023 16:59, No significant change was found ? Electronically Signed By:HORACIO PHAM DOFACP Dictated By: Horacio Pham DO Signed By: Electronically signed by Horacio Pham DO 07/18/23 1642 Radiology Impression Discussion of test interpretation with radiology: I have reviewed the radiologist's reading. External Record Review External record reviewed: Office record and Outpatient record Chronic Conditions Patient?s care impacted by: Hypertension Discharge Plan Discharge Clinical Impression: Chest pain Patient Disposition: Elopement Prescriptions: No Action diltiazem HCl 180 mg capsule,extended release 24hr 180 mg PO QAM Qty: 30 11RF spironolactone 25 mg tablet 12.5 mg PO QAM Qty: 45 3RF amiodarone 200 mg tablet 200 mg PO QPM Qty: 90 3RF carvedilol 12.5 mg tablet 12.5 mg PO BIDWM 90 Days Qty: 180 3RF Protocol: Hold for SBP/HR < HOLD for SBP < : 90 HOLD for HR < : 60 Rx Instructions: replaces prior dose of 6.25 mg bid Eliquis 2.5 mg tablet 2.5 mg PO BID Qty: 180 3RF multivitamin [Daily-Heather] Tablet 1 tab PO DAILY atorvastatin 40 mg tablet 40 mg PO DAILY albuterol sulfate [Ventolin HFA] 90 mcg/actuation HFA aerosol inhaler 2 puff PO Q4-6H PRN (Reason: Shortness Of Breath) sertraline 50 mg tablet 50 mg PO DAILY magnesium oxide 400 mg (241.3 mg magnesium) tablet 400 mg PO BID ferrous sulfate 325 mg (65 mg iron) tablet,delayed release (DR/EC) 325 mg PO DAILY pantoprazole 20 mg tablet,delayed release (DR/EC) 20 mg PO DAILY furosemide 20 mg tablet 20 mg PO DAILY Discharge Date/Time: 07/18/23 15:44
[2023-07-18 12:28] LABS: MANUAL DIFF FLAG NO
[2023-07-18 12:32] LABS: Basophils Absolute Auto 0.1 X10*3/uL (0.0-0.2); Basophils Percent Auto 0.8 % (0-2); Eosinophils Absolute Auto 0.1 X10*3/uL (0.0-0.4); Hematocrit 34.3 % (37.0-47.0); Hemoglobin 11.4 g/dl (12.0-16.0); Imm Gran Abs Auto 0.03 X10*3/uL (0.00-0.03); Imm Gran Pct Auto 0.5 % (0.0-0.4); Lymphocytes Absolute Auto 0.9 X10*3/uL (1.2-4.9); Lymphocytes Percent Auto 14.3 % (20-40); Mean Corpuscular HGB Conc 33.2 g/dl (31.0-35.0); Mean Corpuscular Hemoglobin 33.2 pg (27.0-33.0); Mean Platelet Volume 9.5 fL (9.4-12.3); Monocytes Absolute Auto 0.5 X10*3/uL (0.1-1.2); Monocytes Percent Auto 7.8 % (2-11); Neutrophils Absolute Auto 4.8 x10*3/uL (2.0-8.3); Neutrophils Percent Auto 74.6 % (45-73); Platelet Count 224 X10*3/uL (160-400); Red Blood Count 3.43 X10*6/uL (4.20-5.50); Red Cell Distribution Width 12.4 % (11.0-16.0); White Blood Count 6.4 X10*3/uL (4.8-10.8)
[2023-07-18 12:43] LABS: COVID-19 Test Negative (Negative); IDNOW Serial# BCCEAD1C
[2023-07-18 12:46] LABS: Alanine Aminotransferase 56 U/L (0-31); Alkaline Phosphatase 81 U/L (39-117); Anion Gap 14 (12-20); Aspartate Amino Transferase 55 U/L (5-31); Bilirubin Total 0.4 mg/dL (0.0-1.0); Blood Urea Nitrogen 18 mg/dL (9-16); Carbon Dioxide 25 mmol/L (22-29); Chloride 103 mmol/L (96-108); Estimated Glomerular Filt Rate 36; Glucose Random 159 mg/dL (60-115); Potassium 4.7 mmol/L (3.3-5.1); Sodium 137 mmol/L (135-145); Total Protein 6.8 g/dL (6.5-8.0)
[2023-07-18 12:53] LABS: Troponin-I High Sensitivity 37.7 ng/L (<3.5-17.0)
[2023-07-18 14:16] LABS: B Type Natriuretic Peptide 498 pg/mL (<100)
== END 2023-07-18 15:44 | disposition left against medical advice (07) ==
PROVIDERS: Physician Assistant Medical; Emergency Provider Emergency Medicine Emergency Medical Services
DX: R07.9 Chest pain, unspecified (principal); R06.02 Shortness of breath; Z20.822 Contact with and (suspected) exposure to COVID-19; E11.9 Type 2 diabetes mellitus without complications; I11.0 Hypertensive heart disease with heart failure; I50.33 Acute on chronic diastolic (congestive) heart failure; E78.5 Hyperlipidemia, unspecified; I48.0 Paroxysmal atrial fibrillation; G30.9 Alzheimer's disease, unspecified; F02.80 Dementia in other diseases classified elsewhere, unspecified severity, without behavioral disturbance, psychotic disturbance, mood disturbance, and anxiety; Z95.0 Presence of cardiac pacemaker; Z79.899 Other long term (current) drug therapy
CPT/HCPCS: 36415; 71046; 80053; 83735; 83880; 84484; 85025; 87635; 93005; 99283

== ENCOUNTER 2023-07-31 09:31 | Emergency (ER) | payer MEDICARE, SELFPAY ==
--- NOTE | ~2023-07-31 | CT_ITS ---
EXAMINATION: CT CERVICAL SPINE WITHOUT CONTRAST CLINICAL INFORMATION: Neck pain status post fall. COMPARISON: None available. TECHNIQUE: Multiple axial images were obtained of the cervical spine without administration of intravenous contrast. Coronal and sagittal reformatted images were obtained. This CT examination was performed using dose optimization techniques as appropriate, variously including the following: *Automated exposure control *Adjustment of mA and/or kV according to patient size (this includes techniques or standardized protocols for targeted exams where dose is matched to indication/reason for exam; i.e. extremities or head) *Use of iterative reconstruction technique DLP: 793 mGy-cm FINDINGS: There is straightening of the normal cervical lordosis with normal spinal alignment. Severe degenerative disc disease is seen at C5-C6 with severe disc space narrowing, sclerosis and adjacent endplates. Mild to moderate marginal osteophyte formation and mild bilateral neural foraminal narrowing. Mild degenerative disc disease is seen at C4-C5 and C6-C7 as well. The odontoid process is intact. Moderate articulating degenerative changes are seen anteriorly with associated mild deformity. Mild to moderate multilevel bilateral facet arthropathy is seen. The spinous and transverse processes are seen. The cervical soft tissues are unremarkable. There is no lymphadenopathy. The thyroid gland is unremarkable. The lung apices are clear with mild biapical pleural thickening and scarring. CT/CT cervical spine wo IV con IMPRESSION: 1. Straightening of the normal cervical lordosis may be secondary to positioning and/or muscle spasm. 2. Multilevel degenerative changes without acute abnormality.
--- NOTE | ~2023-07-31 | CT_ITS ---
EXAMINATION: CT HEAD WITHOUT CONTRAST CLINICAL INFORMATION: Acute head injury, on blood thinners. COMPARISON: None available. TECHNIQUE: Contiguous axial imaging was performed from the skull base to vertex without intravenous administration of contrast. Coronal and sagittal reformatted images were obtained. This CT examination was performed using dose optimization techniques as appropriate, variously including the following: *Automated exposure control *Adjustment of mA and/or kV according to patient size (this includes techniques or standardized protocols for targeted exams where dose is matched to indication/reason for exam; i.e. extremities or head) *Use of iterative reconstruction technique DLP: 793 mGy-cm FINDINGS: There is mild widening of the cortical sulci and associated ventriculomegaly. The lateral ventricles are symmetrical. The third and fourth ventricles are in their normal midline position. The basilar and prepontine cisterns are unremarkable. Encephalomalacia is again seen in the left parietal lobe without significant change. There is no acute intra or extracerebral abnormality. There is no mass effect or midline shift. Sections through the bony calvarium are unremarkable. The orbits are intact. The paranasal sinuses are clear. The mastoid air cells are clear. CT/CT head/brain wo IV con IMPRESSION: No acute intracranial pathology.
[2023-07-31 09:43] VITALS: BP 183/93; PULSE 60; RESP 18; TEMP 36.5; O2SAT 97
--- NOTE | 2023-07-31 10:01 | ED.FALL ---
HPI - Fall General Chief Complaint: Fall Stated Complaint: Fell/ head injury 07/31 Time Seen by Provider: 07/31/23 09:44 Source: patient and family Mode of arrival: ambulatory Limitations: no limitations History of Present Illness HPI Narrative: 80-year-old female with history anticoagulation presents after a fall. Patient had a mechanical fall while walking on the sidewalk. She fell backwards hitting her head without loss of consciousness. She has minimal pain. There is no clear relieving or exacerbating features. She denies any nausea, vomiting, significant headache, vision changes, focal neurologic deficits. She has not yet taken her medications today. Patient denies any significant neck pain, numbness, tingling or focal weakness. Patient denied any prodrome such as chest pain, palpitations, lightheadedness, etc.. Related Data Home Medications Medication Instructions Recorded Confirmed albuterol sulfate 90 mcg/actuation 2 puff PO Q4-6H PRN Shortness Of 09/04/20 05/26/23 aerosol inhaler (Ventolin HFA) Breath atorvastatin 40 mg tablet 40 mg PO DAILY 09/04/20 05/26/23 multivitamin (Daily-Heather tablet) 1 tab PO DAILY 09/04/20 05/26/23 sertraline 50 mg tablet 50 mg PO DAILY 09/04/20 05/26/23 magnesium oxide 400 mg (241.3 mg 400 mg PO BID 01/08/21 05/26/23 magnesium) tablet ferrous sulfate 325 mg (65 mg 325 mg PO DAILY 04/10/22 05/26/23 iron) tablet,delayed release pantoprazole 20 mg tablet,delayed 20 mg PO DAILY 04/10/22 05/26/23 release furosemide 20 mg tablet 20 mg PO DAILY 09/10/22 05/26/23 Previous Rx's Medication Instructions Recorded diltiazem HCl 180 mg 180 mg PO QAM #30 caps 10/28/22 capsule,extended release 24 hr amiodarone 200 mg tablet 200 mg PO QPM #90 tabs 11/29/22 spironolactone 25 mg tablet 12.5 mg PO QAM #45 tabs 11/29/22 carvedilol 12.5 mg tablet 12.5 mg PO BIDWM 90 days #180 tabs 12/13/22 apixaban 2.5 mg tablet (Eliquis) 2.5 mg PO BID #180 tabs 06/09/23 Allergies Allergy/AdvReac Type Severity Reaction Status Date / Time ibuprofen [From Motrin] Allergy Mild RASH Verified 07/31/23 09:49 Penicillins Allergy Unknown RASH Verified 07/31/23 09:49 Review of Systems Review of Systems: CONSTITUTIONAL: Denies weight loss, fever and chills. HEENT: Denies changes in vision and hearing. RESPIRATORY: Denies SOB and cough. CV: Denies palpitations no CP. GI: Denies abdominal pain, nausea, vomiting and diarrhea. : Denies dysuria and urinary frequency. MSK: Denies myalgia and joint pain. SKIN: Denies rash and pruritus. NEUROLOGICAL: Denies headache and syncope. PSYCHIATRIC: Denies recent changes in mood. Denies anxiety and depression. All other ROS are negative unless in HPI PMFSH Past Medical History Medical History (HFpEF) heart failure with preserved ejection fraction Acute on chronic heart failure with preserved ejection fraction (HFpEF) Alzheimer's disease Asthma Atrial fibrillation Atypical chest pain Brain TIA Cardiac arrhythmia CHF exacerbation Chronic heart failure with preserved ejection fraction (HFpEF) Dementia Diabetes mellitus Dizziness Elevated troponin Elevated troponin Elevated troponin Essential hypertension Fall Gastrointestinal bleeding GERD (gastroesophageal reflux disease) H/O cardiac pacemaker HLD (hyperlipidemia) HTN (hypertension) Hypomagnesemia Mitral valve disease Normally functioning cardiac pacemaker present NSTEMI (non-ST elevated myocardial infarction) Paroxysmal atrial fibrillation Ulcer UTI (urinary tract infection) Surgical History History of permanent cardiac pacemaker placement (~08/2019) Status post transcatheter aortic valve replacement (TAVR) using bioprosthesis Family History Family History Other Patient's mother is Social History Social History Household Members: Children Housing: House Do you presently have visiting nurse or other home services: Yes (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) Alcohol intake: never Patient Tobacco Use Status: Former Tobacco user Second Hand Smoke Exposure: No Advance Directives: Yes Advance Directives on File: Yes Advance Directives Date on File: 08/20/22 service: No Current occupational status: unemployed Physical Exam Vital Signs: Vital Signs: Last Vital Signs Temp 97.7 F 07/31/23 09:43 Pulse 60 07/31/23 09:43 Resp 18 07/31/23 09:43 BP 183/93 H 07/31/23 09:43 Pulse Ox 97 07/31/23 09:43 O2 Del Method Room Air 07/31/23 09:43 BMI result Body Mass Index 20.0 GEN: Well developed, no acute distress, alert, oriented HEENT: Normocephalic, atraumatic, normal external ears, nose appears normal, no oropharyngeal edema or exudates Eyes: Normal to appearance Neck: Supple, no lymphadenopathy Respiratory: Talks in complete sentences, no respiratory distress, clear to auscultation bilaterally Cardiovascular: Regular rate and rhythm, no murmurs rubs , fixed split S2 Abdomen: Soft, nontender, nondistended, no guarding, no rebound Back: No CVA tenderness Extremities: No clubbing cyanosis or edema Neurologic: No focal neurologic deficits, cranial nerves 2-12 intact, strength is 5/5 bilaterally Skin: No rash Course Course Course Narrative: it is 11:42 a.m.. The workup is complete. Patient's imaging studies are unremarkable for acute traumatic injury of the cervical spine or neck. Will re-evaluate her blood pressure. Will recommend close follow-up with the primary care provider for medication adjustment regarding hypertension. All questions were addressed and answered. All results were discussed. Medications Administered Discontinued Medications Generic Name Dose Route Start Last Admin Trade Name Freq PRN Reason Stop Dose Admin Acetaminophen 975 mg 07/31/23 09:50 07/31/23 10:12 Acetaminophen 325 Mg Tablet PO 07/31/23 09:51 975 mg ONCE ONE Administration Medical Decision Making Medical Decision Making [facility] Narrative: 80-year-old female presents after an accidental mechanical fall. She did hit her head. She is on blood thinning medications. Differential diagnosis includes head injury, concussion, intracranial hemorrhage such as subdural, epidural or subarachnoid hemorrhage. Plan CT scan head and cervical spine especially given H and anticoagulation. Patient received Tylenol for her mild headache. Differential Diagnosis Differential Diagnoses: The differential diagnosis associated with the presentation includes ( See above) Admission/Observation Consideration of admission/observation: Escalation of care including admission/observation considered Independent Interpretation I performed an independent interpretation of an: CT Scan ( head: No acute traumatic injury, cervical spine, no acute traumatic injury) Radiology Impression Discussion of test interpretation with radiology: I have reviewed the radiologist's reading. Radiologist Impression: CT/CT cervical spine wo IV con IMPRESSION: 1.? Straightening of the normal cervical lordosis may be secondary to positioning and/or muscle spasm. 2.? Multilevel degenerative changes without acute abnormality. ? ? Dictated By: Dontae Sigala MD Signed By: <Electronically signed by Dontae Sigala MD in [place]> 07/31/[address]/CT head/brain wo IV con IMPRESSION: No acute intracranial pathology. Dictated By: Dontae Sigala MD Signed By: <Electronically signed by Dontae Sigala MD in [place]> 07/31/23 1137 Independent Historian Clinical information obtained from an independent historian. History obtained from or confirmed by: Other ( family) Prescription Management I considered prescription management with: Pain Medication Discharge Plan Discharge Clinical Impression: Acute head injury, Chronic anticoagulation, Essential hypertension Patient Disposition: Home, Self-Care Instructions: Head Injury (ED), Blood Thinners (ED) Additional Instructions: Follow-up with your primary care provider regarding her blood pressure monitoring. Prescriptions: No Action diltiazem HCl 180 mg capsule,extended release 24hr 180 mg PO QAM Qty: 30 11RF spironolactone 25 mg tablet 12.5 mg PO QAM Qty: 45 3RF amiodarone 200 mg tablet 200 mg PO QPM Qty: 90 3RF carvedilol 12.5 mg tablet 12.5 mg PO BIDWM 90 Days Qty: 180 3RF Protocol: Hold for SBP/HR < HOLD for SBP < : 90 HOLD for HR < : 60 Rx Instructions: replaces prior dose of 6.25 mg bid Eliquis 2.5 mg tablet 2.5 mg PO BID Qty: 180 3RF multivitamin [Daily-Heather] Tablet 1 tab PO DAILY atorvastatin 40 mg tablet 40 mg PO DAILY albuterol sulfate [Ventolin HFA] 90 mcg/actuation HFA aerosol inhaler 2 puff PO Q4-6H PRN (Reason: Shortness Of Breath) sertraline 50 mg tablet 50 mg PO DAILY magnesium oxide 400 mg (241.3 mg magnesium) tablet 400 mg PO BID ferrous sulfate 325 mg (65 mg iron) tablet,delayed release (DR/EC) 325 mg PO DAILY pantoprazole 20 mg tablet,delayed release (DR/EC) 20 mg PO DAILY furosemide 20 mg tablet 20 mg PO DAILY Referrals: Physician,Unknown J [Physician] - ( primary care provider in 2-3 days if needed)
[2023-07-31] MEDS: Acetaminophen 325 MG TABLET 975 MG PO (10:12)
--- NOTE | 2023-07-31 12:02 | PC.NURSE ---
Cleared for dicharge. Discharge instructions reviewed w/ pt and daughter. Denies pain on d/c
== END 2023-07-31 12:02 | disposition home or self-care (01) ==
PROVIDERS: Emergency Provider Emergency Medicine; PCP Nurse Practitioner Primary Care
DX: S09.90XA Unspecified injury of head, initial encounter (principal); W01.0XXA Fall on same level from slipping, tripping and stumbling without subsequent striking against object, initial encounter; I11.0 Hypertensive heart disease with heart failure; I50.33 Acute on chronic diastolic (congestive) heart failure; Y93.01 Activity, walking, marching and hiking; Y92.480 Sidewalk as the place of occurrence of the external cause; Y99.9 Unspecified external cause status; E78.5 Hyperlipidemia, unspecified; I48.91 Unspecified atrial fibrillation; Z87.891 Personal history of nicotine dependence; Z95.0 Presence of cardiac pacemaker; Z86.73 Personal history of transient ischemic attack (TIA), and cerebral infarction without residual deficits; Z79.899 Other long term (current) drug therapy; Z79.01 Long term (current) use of anticoagulants
CPT/HCPCS: 70450; 72125; 99283; 99284

== ENCOUNTER 2023-08-18 09:26 | Day surgery (SDC) | payer OTHER, SELFPAY ==
[2023-08-14 13:24] VITALS: BMI 22.8
--- NOTE | 2023-08-15 08:33 | MHC.SHP ---
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 No changes have occurred unless specified. Time Spent With Patient Time: Total time managing care of this patient today ____ minutes.
[2023-08-18 10:16] VITALS: BP 164/83; PULSE 60; RESP 16; TEMP 36.6; O2SAT 96
--- NOTE | 2023-08-18 10:32 | P.CONAN_ITS ---
HPI - Anesthesia Eval Consult details Narrative: 88 F for left eye retrobulbar injection TAVR , sTEMI , a fib As per retail operations specialist optimized to proceed with procedure . [facility] Active Problems Active Problems: All Active Problems (Updated 08/18/23 @ 10:14 by Cathleen Herrera RN) Nonrheumatic tricuspid valve regurgitation (Acute) Pulmonary hypertension (Acute) Essential hypertension (Acute) Atrial fibrillation with rapid ventricular response (Acute) Persistent atrial fibrillation (Acute) Chronic heart failure with preserved ejection fraction (HFpEF) (Acute) Acute on chronic heart failure with preserved ejection fraction (HFpEF) (Acute) Dizziness (Acute) NSTEMI (non-ST elevated myocardial infarction) (Acute) Mitral valve disease (Acute) Status post transcatheter aortic valve replacement (TAVR) using bioprosthesis (Acute) Past Medical History Medical History (Updated 08/18/23 @ 10:14 by Cathleen Herrera RN) Atypical chest pain Hypomagnesemia Acute on chronic heart failure with preserved ejection fraction (HFpEF) CHF exacerbation Gastrointestinal bleeding Fall Chronic heart failure with preserved ejection fraction (HFpEF) Paroxysmal atrial fibrillation Elevated troponin UTI (urinary tract infection) Elevated troponin Brain TIA GERD (gastroesophageal reflux disease) NSTEMI (non-ST elevated myocardial infarction) Diabetes mellitus HLD (hyperlipidemia) HTN (hypertension) Mitral valve disease (HFpEF) heart failure with preserved ejection fraction Normally functioning cardiac pacemaker present Atrial fibrillation Ulcer Asthma H/O cardiac pacemaker Cardiac arrhythmia Dizziness Alzheimer's disease Dementia Family History Family History Other Patient's mother is Family history of problems with anesthesia: No Surgical History Surgical History (Updated 08/18/23 @ 10:14 by Cathleen Herrera RN) Hx of esophagogastroduodenoscopy History of permanent cardiac pacemaker placement (~08/2019) Status post transcatheter aortic valve replacement (TAVR) using bioprosthesis History of Problems with Anesthesia: No Social History Social History Household Members: Children Housing: House Do you presently have visiting nurse or other home services: Yes (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) Alcohol intake: never Patient Tobacco Use Status: Former Tobacco user Quit Date: >40 yrs Second Hand Smoke Exposure: No Use of substances other than those prescribed or required for medical reasons: No Are you DNR?: No Advance Directives: No Advance Directives Information Provided: Yes Advance Directives Date on File: 08/20/22 service: No Current occupational status: unemployed Meds Allergies Allergy/AdvReac Type Severity Reaction Status Date / Time ibuprofen [From Motrin] Allergy Mild RASH Verified 08/18/23 10:34 Penicillins Allergy Unknown RASH Verified 08/18/23 10:34 clindamycin Allergy Unknown Verified 08/18/23 10:34 Active Medications: Current Medications Povidone Iodine (Povidone Iodine 5 % Ophth Soln 30 Ml Bottle) 1 appl EYE-LEFT PREOP PRN PRN Reason: Pre-Op Surgical Implant Prophy Home Medications Medication Instructions Recorded Confirmed Last Taken Type albuterol sulfate 90 mcg/actuation 2 puff PO Q4-6H PRN Shortness Of 09/04/20 08/18/23 Unknown History aerosol inhaler (Ventolin HFA) Breath atorvastatin 40 mg tablet 40 mg PO DAILY 09/04/20 08/18/23 Unknown History multivitamin (Daily-Heather tablet) 1 tab PO DAILY 09/04/20 08/18/23 Unknown History sertraline 50 mg tablet 50 mg PO DAILY 09/04/20 08/18/23 08/18/23 History magnesium oxide 400 mg (241.3 mg 400 mg PO BID 01/08/21 08/18/23 Unknown History magnesium) tablet ferrous sulfate 325 mg (65 mg 325 mg PO DAILY 04/10/22 08/18/23 Unknown History iron) tablet,delayed release pantoprazole 20 mg tablet,delayed 20 mg PO DAILY 04/10/22 08/18/23 08/18/23 History release furosemide 20 mg tablet 20 mg PO DAILY 09/10/22 08/18/23 Unknown History Exam Exam Date and Time: August 18, 2023 1032 Height,Weight and Vital Signs: Height 4 ft 7 in Weight 44.452 kg Last Vital Signs Temp 97.8 F 08/18/23 10:16 Pulse 60 08/18/23 10:16 Resp 16 08/18/23 10:16 BP 164/83 H 08/18/23 10:16 Pulse Ox 96 08/18/23 10:16 O2 Del Method Room Air 08/18/23 10:16 Airway Mallampati Class: III Denture: Upper Loose/Missing/Broken Teeth: Yes Assessment and Plan Assessment Anesthesia Assessment: Anesthesia Plan Discussed and Chart Reviewed Final Anesthetic Review Family History of Problems with Anesthesia: No History of Problems with Anesthesia: No NPO: Yes ASA Class: IV Final Preanesthetic Review: Meds/Isabel Chart Reviewed, Consent Obtained/Reviewed and Anes Risks/Benef Reviewed Patient Risk: High Procedure Risk: Intermediate Anesthetic Plan Anesthetic Plan: MAC: Disposition: Standard PACU
[2023-08-18 11:57] VITALS: BP 159/66; PULSE 60; RESP 16; TEMP 36.6; O2SAT 96
--- NOTE | 2023-08-19 14:26 | OP_ITS ---
DATE OF SERVICE: 08/18/2023 SURGEON: Faustino Joseph MD PREOPERATIVE DIAGNOSIS: Blind painful, left eye. POSTOPERATIVE DIAGNOSIS: Blind painful, left eye. PROCEDURE PERFORMED: ESTIMATED BLOOD LOSS: COMPLICATIONS: ANESTHESIA: MAC with local. ASSISTANTS: SPECIMENS: DESCRIPTION OF PROCEDURE: After obtaining informed consent, the patient was brought to the operating room suite and placed in the supine position. After adequate sedation, the left eye was prepped and draped in usual sterile fashion. A 27-gauze needle was utilized to gain access to the left retrobulbar space followed by placement of 1 cc of 1% lidocaine. After waiting a few moments, absolute alcohol was injected into the left orbital retrobulbar space. The patient tolerated the procedure well. Erythromycin was then placed on the eye and the left eye was patched. The patient tolerated procedure well and will be seen in followup. Faustino Joseph MD KH/MODL / [id number]
== END 2023-08-18 12:15 | disposition home or self-care (01) ==
PROVIDERS: PCP Nurse Practitioner Primary Care; Visit Provider Ophthalmology
PROC: (CPT 67505; principal; 2023-08-18 12:00)
DX: H40.42 Glaucoma secondary to eye inflammation, left eye (principal); H54.62 Unqualified visual loss, left eye, normal vision right eye; E11.22 Type 2 diabetes mellitus with diabetic chronic kidney disease; I13.0 Hypertensive heart and chronic kidney disease with heart failure and stage 1 through stage 4 chronic kidney disease, or unspecified chronic kidney disease; N18.9 Chronic kidney disease, unspecified; I50.33 Acute on chronic diastolic (congestive) heart failure; I48.0 Paroxysmal atrial fibrillation; H25.13 Age-related nuclear cataract, bilateral; G30.9 Alzheimer's disease, unspecified; F02.80 Dementia in other diseases classified elsewhere, unspecified severity, without behavioral disturbance, psychotic disturbance, mood disturbance, and anxiety; Z95.0 Presence of cardiac pacemaker; Z95.3 Presence of xenogenic heart valve; Z86.73 Personal history of transient ischemic attack (TIA), and cerebral infarction without residual deficits; Z87.891 Personal history of nicotine dependence; Z79.899 Other long term (current) drug therapy; Z79.01 Long term (current) use of anticoagulants
CPT/HCPCS: 67505; J3010

== ENCOUNTER → 2023-08-26 23:59 | Outpatient (BNV) | payer OTHER, SELFPAY ==
--- NOTE | 2023-08-28 15:38 | MHC.OFFVIS ---
Intake Intake Visit Reasons: Remote device check- [employer] Allergies ibuprofen [From Motrin] Allergy (Mild, Verified 08/18/23 10:34) RASH Penicillins Allergy (Unknown, Verified 08/18/23 10:34) RASH clindamycin Allergy (Verified 08/18/23 10:34) Unknown [facility] Medical History (Updated 08/18/23 @ 10:14 by Cathleen Herrera, RN) Atypical chest pain Hypomagnesemia Acute on chronic heart failure with preserved ejection fraction (HFpEF) CHF exacerbation Gastrointestinal bleeding Fall Chronic heart failure with preserved ejection fraction (HFpEF) Paroxysmal atrial fibrillation Elevated troponin UTI (urinary tract infection) Elevated troponin Brain TIA GERD (gastroesophageal reflux disease) NSTEMI (non-ST elevated myocardial infarction) Diabetes mellitus HLD (hyperlipidemia) HTN (hypertension) Mitral valve disease (HFpEF) heart failure with preserved ejection fraction Normally functioning cardiac pacemaker present Atrial fibrillation Ulcer Asthma H/O cardiac pacemaker Cardiac arrhythmia Dizziness Alzheimer's disease Dementia Surgical History (Updated 08/18/23 @ 10:14 by Cathleen Herrera, RN) Hx of esophagogastroduodenoscopy History of permanent cardiac pacemaker placement (~08/2019) Status post transcatheter aortic valve replacement (TAVR) using bioprosthesis Family History Other Patient's mother is Social History Household Members: Children Housing: House Do you presently have visiting nurse or other home services: 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 Overall normal device function. [id number] Cardiac Device Interrogation, pacemaker Procedure code (CPT) selection complete Assessment & Plan Assessment & Plan (1) Persistent atrial fibrillation: Code(s): I48.19 - Other persistent atrial fibrillation Coding Level of Care Code Procedure Only Diagnoses Persistent atrial fibrillation I48.19 CPT Codes Cardiac Device Check - Cardiac Device 12: [id number] Cardiac Device Interrogation, pacemaker ([id number])
== END ==
PROVIDERS: PCP Nurse Practitioner Primary Care; Visit Provider Internal Medicine
DX: I48.19 Other persistent atrial fibrillation (principal); Z95.0 Presence of cardiac pacemaker
CPT/HCPCS: 93294

== ENCOUNTER 2023-11-14 13:45 | Outpatient (REF) | payer MEDICARE, SELFPAY ==
--- NOTE | ~2023-11-14 | XR_ITS ---
EXAMINATION: Lumbar spine and right hip. CLINICAL INDICATION: Injury. Pain. COMPARISON: None. TECHNIQUE: Lumbar spine 3 views. Right hip 2 views. FINDINGS: Lumbar spine: There is normal lumbar lordosis. The vertebral heights, alignment is normal. Mild loss of L5/S1 disc height. Rest of the disc heights is normal. There is no visible acute fracture, dislocation or subluxation seen. No aggressive lytic or sclerotic process seen. The paravertebral soft tissues are normal. Right hip: The right hip joint space is maintained normal. No visible acute fracture, dislocation or subluxation seen. No bony erosive changes. The soft tissues are normal. XR/XR hip RT min 2V IMPRESSION: 1. Mild degenerative disc changes L5-S1 disc level. No visible acute fracture, dislocation or subluxation seen. 2. Unremarkable right hip exam.
--- NOTE | ~2023-11-14 | XR_ITS ---
EXAMINATION: Lumbar spine and right hip. CLINICAL INDICATION: Injury. Pain. COMPARISON: None. TECHNIQUE: Lumbar spine 3 views. Right hip 2 views. FINDINGS: Lumbar spine: There is normal lumbar lordosis. The vertebral heights, alignment is normal. Mild loss of L5/S1 disc height. Rest of the disc heights is normal. There is no visible acute fracture, dislocation or subluxation seen. No aggressive lytic or sclerotic process seen. The paravertebral soft tissues are normal. Right hip: The right hip joint space is maintained normal. No visible acute fracture, dislocation or subluxation seen. No bony erosive changes. The soft tissues are normal. XR/XR lumbar spine 2-3V IMPRESSION: 1. Mild degenerative disc changes L5-S1 disc level. No visible acute fracture, dislocation or subluxation seen. 2. Unremarkable right hip exam.
== END 2023-11-14 13:46 | disposition home or self-care (01) ==
LOC: HO.HHCX 13:45
PROVIDERS: Visit Provider Internal Medicine
DX: M54.50 Low back pain, unspecified (principal); M25.551 Pain in right hip
CPT/HCPCS: 72100; 73502

== ENCOUNTER → 2023-11-26 23:59 | Outpatient (BNV) | payer MEDICARE, SELFPAY ==
--- NOTE | 2023-12-01 18:30 | MHC.OFFVIS ---
Intake Intake Visit Reasons: Remote Device Check- Medtronic Allergies ibuprofen [From Motrin] Allergy (Mild, Verified 08/18/23 10:34) RASH Penicillins Allergy (Unknown, Verified 08/18/23 10:34) RASH clindamycin Allergy (Verified 08/18/23 10:34) Unknown [facility] Medical History (Updated 08/18/23 @ 10:14 by Cathleen Herrera, RN) Atypical chest pain Hypomagnesemia Acute on chronic heart failure with preserved ejection fraction (HFpEF) CHF exacerbation Gastrointestinal bleeding Fall Chronic heart failure with preserved ejection fraction (HFpEF) Paroxysmal atrial fibrillation Elevated troponin UTI (urinary tract infection) Elevated troponin Brain TIA GERD (gastroesophageal reflux disease) NSTEMI (non-ST elevated myocardial infarction) Diabetes mellitus HLD (hyperlipidemia) HTN (hypertension) Mitral valve disease (HFpEF) heart failure with preserved ejection fraction Normally functioning cardiac pacemaker present Atrial fibrillation Ulcer Asthma H/O cardiac pacemaker Cardiac arrhythmia Dizziness Alzheimer's disease Dementia Surgical History (Updated 08/18/23 @ 10:14 by Cathleen Herrera, RN) Hx of esophagogastroduodenoscopy History of permanent cardiac pacemaker placement (~08/2019) Status post transcatheter aortic valve replacement (TAVR) using bioprosthesis Family History Other Patient's mother is Social History Household Members: Children Housing: House Do you presently have visiting nurse or other home services: Yes (WELDING TECHNICIAN two times a week) Alcohol intake: never Patient Tobacco Use Status: Former Tobacco user Quit Date: >40 yrs Second Hand Smoke Exposure: No Advance Directives Date on File: 08/20/22 service: No Current occupational status: unemployed Office Procedures Cardiac Device Check Cardiac Device Check Details: Date of service- 11/26/2023 ; Battery life >9 years; normal lead parameters; AP >97%; SINTER MACHINE OPERATOR >2%; no significant arrhythmias. Overall normal device function. [id number] Cardiac Device Interrogation, pacemaker Procedure code (CPT) selection complete Assessment & Plan Assessment & Plan (1) Atrial fibrillation with rapid ventricular response: Code(s): I48.91 - Unspecified atrial fibrillation Plan x Coding Level of Care Code Procedure Only Diagnoses Atrial fibrillation with rapid ventricular response I48.91 CPT Codes Cardiac Device Check - Cardiac Device 12: [id number] Cardiac Device Interrogation, pacemaker ([id number])
== END ==
PROVIDERS: PCP Nurse Practitioner Primary Care; Visit Provider Internal Medicine
DX: I48.91 Unspecified atrial fibrillation (principal); Z95.0 Presence of cardiac pacemaker
CPT/HCPCS: 93294

== ENCOUNTER 2024-01-22 09:05 | Outpatient (REF) | payer MEDICARE, SELFPAY ==
[2024-01-22 11:03] LABS: B Type Natriuretic Peptide 667 pg/mL (<100)
[2024-01-22 11:17] LABS: Anion Gap 13 (12-20); Blood Urea Nitrogen 12 mg/dL (9-16); Calcium 9.9 mg/dL (8.4-10.2); Carbon Dioxide 27 mmol/L (22-29); Chloride 103 mmol/L (96-108); Estimated Glomerular Filt Rate 46; Glucose Random 115 mg/dL (60-115); Potassium 4.6 mmol/L (3.3-5.1); Sodium 138 mmol/L (135-145)
== END 2024-01-22 09:06 | disposition home or self-care (01) ==
LOC: HO.LAB 09:05
PROVIDERS: PCP Nurse Practitioner Primary Care; Visit Provider Internal Medicine
DX: I11.0 Hypertensive heart disease with heart failure (principal); I50.32 Chronic diastolic (congestive) heart failure; I48.0 Paroxysmal atrial fibrillation; I05.9 Rheumatic mitral valve disease, unspecified; I36.1 Nonrheumatic tricuspid (valve) insufficiency; I27.20 Pulmonary hypertension, unspecified; R77.8 Other specified abnormalities of plasma proteins; Z95.3 Presence of xenogenic heart valve; Z79.899 Other long term (current) drug therapy
CPT/HCPCS: 36415; 80048; 83880; 93005; 99212

== ENCOUNTER 2024-01-22 09:05 | Outpatient (AMB) | payer MEDICARE, SELFPAY ==
[2024-01-22 09:09] VITALS: BP 118/60; PULSE 60; O2SAT 96; BMI 24.9
--- NOTE | 2024-01-22 09:09 | A.OFFVIS_ITS ---
Intake Vital Signs 01/22/24 09:09 Height 4 ft 7 in Weight 107 lb 2.314 oz BMI 24.9 BP 118/60 Blood Pressure Location Lt brachial Position Sitting Pulse 60 Pulse Source Pulse Oximeter Pulse Oximetry (%) 96 Oxygen Delivery Method Room Air Intake Visit Reasons: 4 month follow up Intake Note: Pt presents to the office today for a 4 month follow up with EKG. Allergies ibuprofen [From Motrin] Allergy (Mild, Verified 01/22/24 09:12) RASH Penicillins Allergy (Unknown, Verified 01/22/24 09:12) RASH clindamycin Allergy (Verified 01/22/24 09:12) Unknown Medication List - Last Reconciled 01/22/24 by Max Chaves MD albuterol sulfate 90 mcg/actuation (Ventolin HFA) 2 puffs PO Q4-6H PRN amiodarone 200 mg PO QPM apixaban (Eliquis) 2.5 mg PO BID atorvastatin 40 mg PO DAILY carvedilol 12.5 mg PO BID diltiazem HCl 180 mg PO QAM furosemide (Lasix) 20 mg PO DAILY magnesium oxide 400 mg PO BID multivitamin (Daily-Heather tablet) 1 tab PO DAILY pantoprazole 20 mg PO DAILY sertraline 50 mg PO DAILY spironolactone 12.5 mg (1/2 x 25 mg) PO QAM HPI HPI Comments History of Present Illness Details Ashley returns for follow-up regarding her numerous cardiac issues including TAVR, chronic diastolic heart failure, difficult to control hypertension, paroxysmal atrial fibrillation among others. Daughter states that furosemide was stopped by Nephrology couple of weeks ago. Possibly because of elevated creatinine but not clear. Incidentally, she has also been feeling unwell after that. Not clear if it is something different like a respiratory viral infection or not. Patient states she is coughing and wheezing. Cannot rule out heart failure either. She is frail, elderly with many co-morbidities overall. However, seems to be getting along okay in spite of all these. Daughter is here for the appointment as well. [facility] Medical History Atypical chest pain Hypomagnesemia Acute on chronic heart failure with preserved ejection fraction (HFpEF) CHF exacerbation Gastrointestinal bleeding Fall Chronic heart failure with preserved ejection fraction (HFpEF) Paroxysmal atrial fibrillation Elevated troponin UTI (urinary tract infection) Elevated troponin Brain TIA GERD (gastroesophageal reflux disease) NSTEMI (non-ST elevated myocardial infarction) Diabetes mellitus HLD (hyperlipidemia) HTN (hypertension) Mitral valve disease (HFpEF) heart failure with preserved ejection fraction Normally functioning cardiac pacemaker present Atrial fibrillation Ulcer Asthma H/O cardiac pacemaker Cardiac arrhythmia Dizziness Alzheimer's disease Dementia Surgical History Hx of esophagogastroduodenoscopy History of permanent cardiac pacemaker placement (~08/2019) Status post transcatheter aortic valve replacement (TAVR) using bioprosthesis Family History Other Patient's mother is Social History Household Members: Children Housing: House Do you presently have visiting nurse or other home services: Yes (COTTON JAMMER two times a week) Alcohol intake: never Patient Tobacco Use Status: Former Tobacco user Quit Date: >40 yrs Second Hand Smoke Exposure: No Advance Directives Date on File: 08/20/22 service: No Current occupational status: unemployed Review of Systems Const All systems reviewed & are unremarkable except as noted in HPI and below Reports as per HPI and Reports no additional complaints Eyes Reports as per HPI and Denies no additional complaints ENT Denies no additional complaints and Reports as per HPI Card Denies chest pain at rest, Denies lightheadedness and Denies palpitations Resp Reports wheezing GI Reports as per HPI and Denies no additional complaints Reports as per HPI Musc Reports no additional complaints and Reports as per HPI Skin/Breast Reports system reviewed and no additional complaints, except as documented Neuro Reports no additional complaints and Reports as per HPI Psych Reports no additional complaints and Reports as per HPI Endo Reports no additional complaints, Reports as per HPI and Denies palpitations Cooper/Lymph Reports no additional complaints and Reports as per HPI Aller/Immun Reports no additional complaints, Reports as per HPI and Reports wheezing Physical Exam Vital Signs: Last Vital Signs Pulse 60 01/22/24 09:09 BP 118/60 01/22/24 09:09 Pulse Ox 96 01/22/24 09:09 Oxygen Delivery Method Room Air 01/22/24 09:09 BMI result Body Mass Index 24.9 Const General: comfortable and no acute distress Orientation/consciousness: patient oriented x3 HEENT Other: Unremarkable Head: Yes normal to inspection Neck Neck: Yes normal visual inspection Chest Chest palpation & inspection: normal inspection of the chest Resp Other: Few basal crackles. Cardio Palpation: normal PMI Heart sounds: S1 normal heart sound present, S2 normal heart sound present, no gallops, Murmur heart sound present systolic II/ and at the right sternal border and no rubs GI Palpation (GI): Soft to palpation Back/Spine/Pelvis Other: unremarkable Skin General skin exam: no rashes or lesions noted Neuro General: patient oriented x3 Extrem General: Yes normal to inspection Psych Mental Status: mental status grossly normal Office Procedures EKG Details: EKG with atrial paced rhythm at 60/Min; right bundle-branch block/left anterior fascicular block. [id number], Complete Assessment & Plan Assessment & Plan (1) Chronic heart failure with preserved ejection fraction (HFpEF): Code(s): I50.32 - Chronic diastolic (congestive) heart failure Plan: She can resume Lasix that was recently stopped. Not clear if her wheezing is truly heart failure or something else. Check labs. (2) Status post transcatheter aortic valve replacement (TAVR) using bioprosthesis: Code(s): Z95.3 - Presence of xenogenic heart valve Plan: Per last echocardiogram in 2021, normally functioning bioprosthetic aortic valve. (3) Paroxysmal atrial fibrillation: Code(s): I48.0 - Paroxysmal atrial fibrillation Plan: Continue amiodarone. Continue with anticoagulation. (4) Mitral valve disease: Code(s): I05.9 - Rheumatic mitral valve disease, unspecified Plan: Echocardiogram with severe mitral annular calcification, roco-is-onigqcyi regurgitation. No significant stenosis. She is really not a candidate for any mitral valve procedures. (5) Nonrheumatic tricuspid valve regurgitation: Code(s): I36.1 - Nonrheumatic tricuspid (valve) insufficiency Plan: Recent echocardiogram with moderate to severe tricuspid regurgitation. Continue diuretics. Not a candidate for any valve interventions. (6) Pulmonary hypertension: Code(s): I27.20 - Pulmonary hypertension, unspecified Plan: Echocardiogram shows moderate to severe pulmonary hypertension. Likely all from left heart issues. Not suitable for any advanced therapies. Diuretics only. (7) Essential hypertension: Code(s): I10 - Essential (primary) hypertension Plan: Stable. No changes. (8) Elevated troponin: Code(s): R77.8 - Other specified abnormalities of plasma proteins Plan: She has chronically elevated troponins, but cardiac catheterization from 2019 showed only minimal luminal irregularities. Considering her age and numerous comorbidities, dementia, frailty, do not advise any aggressive care. Plan Discussed with daughter. Orders: Orders Basic Metabolic Panel Today I50.32 - Chronic diastolic (congestive) heart failure B Type Natriuretic Peptide Today I50.32 - Chronic diastolic (congestive) heart failure, I50.9 - Heart failure, unspecified Coding Level of Care Code Est Pt Level 4 (01659) Diagnoses Chronic heart failure with preserved ejection fraction (HFpEF) I50.32 Status post transcatheter aortic valve replacement (TAVR) using bioprosthesis Z95.3 Paroxysmal atrial fibrillation I48.0 Mitral valve disease I05.9 Nonrheumatic tricuspid valve regurgitation I36.1 Pulmonary hypertension I27.20 Essential hypertension I10 Elevated troponin R77.8 CPT Codes EKG - CPT: 15417-[id number], Complete ([id number])
== END 2024-01-22 09:32 | disposition home or self-care (01) ==
PROVIDERS: PCP Nurse Practitioner Primary Care; Visit Provider Internal Medicine
DX: I50.32 Chronic diastolic (congestive) heart failure (principal); Z95.3 Presence of xenogenic heart valve; I48.0 Paroxysmal atrial fibrillation; I05.9 Rheumatic mitral valve disease, unspecified; I36.1 Nonrheumatic tricuspid (valve) insufficiency; I27.20 Pulmonary hypertension, unspecified; I10 Essential (primary) hypertension; R77.8 Other specified abnormalities of plasma proteins
CPT/HCPCS: 93010; 99214

== ENCOUNTER 2024-01-29 10:06 | Outpatient (REF) | payer MEDICARE, SELFPAY ==
--- NOTE | ~2024-01-29 | XR_ITS ---
EXAMINATION: XR KNEE, RIGHT CLINICAL INFORMATION: Medial right knee pain and swelling. No injury. Patient unable to stand. Both AP views done supine with Tunnel and lateral. COMPARISON: Right knee radiographs of May 31, 2016. TECHNIQUE: 4 views are provided by the technologist. AP, axial, and lateral are technologically acceptable. 2 additional AP views are non-diagnostic. The technologist stated that evaluation limited as the patient was unable to stand and therefore both AP views done supine with Tunnel and lateral. Repeat views could be obtained at no charge to the patient if clinically indicated and patient is able. FINDINGS: AP, axial, and lateral views only demonstrate trace joint effusion. The bones are diffusely demineralized. Posterior soft tissue calcifications are likely vascular. Small tricompartmental osteophytes. Medial and lateral compartments are preserved. XR/XR knee RT 3V IMPRESSION: Mild degenerative changes. AP, axial, and lateral are technologically acceptable. 2 additional AP views are nondiagnostic. The technologist stated that evaluation limited as the patient was unable to stand and therefore both AP views done supine with Tunnel and lateral. Repeat views could be obtained at no charge to the patient if clinically indicated and patient is able.
== END 2024-01-29 10:07 | disposition home or self-care (01) ==
LOC: HO.HHCX 10:06
PROVIDERS: Visit Provider Nurse Practitioner Primary Care
DX: M25.561 Pain in right knee (principal); M25.461 Effusion, right knee
CPT/HCPCS: 73562

== ENCOUNTER → 2024-02-25 23:59 | Outpatient (BNV) | payer MEDICARE, SELFPAY ==
--- NOTE | 2024-03-03 12:41 | A.OFFVIS_ITS ---
Intake Intake Visit Reasons: Remote Device Check- Medtronic Allergies ibuprofen [From Motrin] Allergy (Mild, Verified 01/22/24 09:12) RASH Penicillins Allergy (Unknown, Verified 01/22/24 09:12) RASH clindamycin Allergy (Verified 01/22/24 09:12) Unknown [facility] Medical History Atypical chest pain Hypomagnesemia Acute on chronic heart failure with preserved ejection fraction (HFpEF) CHF exacerbation Gastrointestinal bleeding Fall Chronic heart failure with preserved ejection fraction (HFpEF) Paroxysmal atrial fibrillation Elevated troponin UTI (urinary tract infection) Elevated troponin Brain TIA GERD (gastroesophageal reflux disease) NSTEMI (non-ST elevated myocardial infarction) Diabetes mellitus HLD (hyperlipidemia) HTN (hypertension) Mitral valve disease (HFpEF) heart failure with preserved ejection fraction Normally functioning cardiac pacemaker present Atrial fibrillation Ulcer Asthma H/O cardiac pacemaker Cardiac arrhythmia Dizziness Alzheimer's disease Dementia Surgical History Hx of esophagogastroduodenoscopy History of permanent cardiac pacemaker placement (~08/2019) Status post transcatheter aortic valve replacement (TAVR) using bioprosthesis Family History Other Patient's mother is Social History Household Members: Children Housing: House Do you presently have visiting nurse or other home services: Yes (DATABASES SOFTWARE CONSULTANT two times a week) Alcohol intake: never Patient Tobacco Use Status: Former Tobacco user Quit Date: >40 yrs Second Hand Smoke Exposure: No Advance Directives Date on File: 08/20/22 service: No Current occupational status: unemployed Office Procedures Cardiac Device Check Cardiac Device Check Details: Date of service- 02/25/2024 ; Battery life >9 years; normal lead parameters; AP >99%; ADMISSIONS COUNSELOR 0.8%; no significant arrhythmias. Overall normal device function. [id number] Cardiac Device Interrogation, pacemaker Procedure code (CPT) selection complete Assessment & Plan Assessment & Plan (1) Persistent atrial fibrillation: Code(s): I48.19 - Other persistent atrial fibrillation Plan x Coding Level of Care Code Procedure Only Diagnoses Persistent atrial fibrillation I48.19 CPT Codes Cardiac Device Check - Cardiac Device 12: [id number] Cardiac Device Interrogation, pacemaker ([id number])
== END ==
PROVIDERS: PCP Nurse Practitioner Primary Care; Visit Provider Internal Medicine
DX: I48.19 Other persistent atrial fibrillation (principal); Z95.0 Presence of cardiac pacemaker
CPT/HCPCS: 93294

== ENCOUNTER 2024-04-13 14:56 | Outpatient (AMB) | payer MEDICARE, SELFPAY ==
[2024-04-13 14:59] VITALS: BP 120/60; PULSE 60; BMI 24.0
--- NOTE | 2024-04-13 14:59 | MHC.OFFVIS ---
Vital Signs 04/13/24 14:59 Height 4 ft 7 in Weight 103 lb 2.821 oz BMI 24.0 BP 120/60 Blood Pressure Location Lt brachial Position Sitting Pulse 60 Intake Visit Reasons: 3 month follow up Manager Presentation Required: Yes Manager Presentation Name: mallory/ daughter Accompanied by: Daughter Allergies ibuprofen [From Motrin] Allergy (Mild, Verified 01/22/24 09:12) RASH Penicillins Allergy (Unknown, Verified 01/22/24 09:12) RASH clindamycin Allergy (Verified 01/22/24 09:12) Unknown Medication List - Last Reconciled 04/13/24 by Max Chaves MD albuterol sulfate 90 mcg/actuation (Ventolin HFA) 2 puffs PO Q4-6H PRN amiodarone 200 mg PO QPM apixaban (Eliquis) 2.5 mg PO BID atorvastatin 40 mg PO DAILY carvedilol 12.5 mg PO BID diltiazem HCl CD 180 mg PO QAM furosemide (Lasix) 20 mg PO DAILY magnesium oxide 400 mg PO BID multivitamin (Daily-Heather tablet) 1 tab PO DAILY pantoprazole 20 mg PO DAILY sertraline 50 mg PO DAILY spironolactone 12.5 mg (1/2 x 25 mg) PO QAM HPI Comments Details: Ashley returns for follow-up regarding her numerous cardiac issues including TAVR, chronic diastolic heart failure, difficult to control hypertension, paroxysmal atrial fibrillation among others. Overall, she remains quite frail. Daughter is with her and she states she is doing fine for the most part. No specific cardiac concerns. Lot of her issues are from age and frailty. [facility] Medical History Atypical chest pain Hypomagnesemia Acute on chronic heart failure with preserved ejection fraction (HFpEF) CHF exacerbation Gastrointestinal bleeding Fall Chronic heart failure with preserved ejection fraction (HFpEF) Paroxysmal atrial fibrillation Elevated troponin UTI (urinary tract infection) Elevated troponin Brain TIA GERD (gastroesophageal reflux disease) NSTEMI (non-ST elevated myocardial infarction) Diabetes mellitus HLD (hyperlipidemia) HTN (hypertension) Mitral valve disease (HFpEF) heart failure with preserved ejection fraction Normally functioning cardiac pacemaker present Atrial fibrillation Ulcer Asthma H/O cardiac pacemaker Cardiac arrhythmia Dizziness Alzheimer's disease Dementia Surgical History Hx of esophagogastroduodenoscopy History of permanent cardiac pacemaker placement (~08/2019) Status post transcatheter aortic valve replacement (TAVR) using bioprosthesis Family History Other Patient's mother is Social History Household Members: Children Housing: House Do you presently have visiting nurse or other home services: Yes (ONLINE MARKETING STRATEGIST two times a week) Alcohol intake: never Patient Tobacco Use Status: Former Tobacco user Quit Date: >40 yrs Second Hand Smoke Exposure: No Advance Directives Date on File: 08/20/22 service: No Current occupational status: unemployed Review of Systems Const Denies chills, Denies fatigue, Denies fever(s), Denies frequent falls, Denies weakness, Denies weight gain and Denies weight loss ENT Denies dizziness Card Denies chest pain, Denies leg edema, Denies lightheadedness, Denies palpitations, Denies dyspnea and Denies dyspnea on exertion Resp Denies cough, Denies dyspnea and Denies dyspnea on exertion GI Denies hematochezia Musc Denies abnormal gait, Denies muscle weakness, Denies numbness, Denies radiating pain into limb and Denies tingling Neuro Denies abnormal gait, Denies dizziness, Denies frequent falls, Denies numbness, Denies tingling and Denies weakness Endo Denies fatigue and Denies palpitations Physical Exam Vital Signs: Last Vital Signs Pulse 60 04/13/24 14:59 BP 120/60 04/13/24 14:59 BMI result Body Mass Index 24.0 Const General: comfortable and no acute distress Orientation/consciousness: patient oriented x3 HEENT Other: Unremarkable Head: Yes normal to inspection Neck Neck: Yes normal visual inspection Chest Chest palpation & inspection: normal inspection of the chest Resp Other: Few basal crackles. Cardio Palpation: normal PMI Heart sounds: S1 normal heart sound present, S2 normal heart sound present, no gallops, Murmur heart sound present systolic II/ and at the right sternal border and no rubs GI Palpation (GI): Soft to palpation Back/Spine/Pelvis Other: unremarkable Skin General skin exam: no rashes or lesions noted Neuro General: patient oriented x3 Extrem General: Yes normal to inspection Psych Mental Status: mental status grossly normal Office Procedures EKG Details: EKG with atrial paced rhythm at 60/Min; right bundle-branch block and left anterior fascicular block. Corrected QT 486 milliseconds. [id number], Complete Assessment & Plan Assessment & Plan (1) Chronic heart failure with preserved ejection fraction (HFpEF): Code(s): I50.32 - Chronic diastolic (congestive) heart failure Category: Medical Plan: Stable. Continue the current dose of diuretics. (2) Status post transcatheter aortic valve replacement (TAVR) using bioprosthesis: Code(s): Z95.3 - Presence of xenogenic heart valve Category: Surgical Plan: Per last echocardiogram in 2021, normally functioning bioprosthetic aortic valve. At her age and frailty, will minimize testing. (3) Paroxysmal atrial fibrillation: Code(s): I48.0 - Paroxysmal atrial fibrillation Category: Medical Plan: Continue amiodarone. Continue with anticoagulation. Request for TSH given to patient. [facility] if that is easier for her. (4) Mitral valve disease: Code(s): I05.9 - Rheumatic mitral valve disease, unspecified Category: Medical Plan: Echocardiogram with severe mitral annular calcification, [id number] regurgitation. No significant stenosis. She is really not a candidate for any mitral valve procedures. (5) Nonrheumatic tricuspid valve regurgitation: Code(s): I36.1 - Nonrheumatic tricuspid (valve) insufficiency Category: Medical Plan: Echocardiogram with moderate to severe tricuspid regurgitation. Continue diuretics. Not a candidate for any valve interventions. (6) Pulmonary hypertension: Code(s): I27.20 - Pulmonary hypertension, unspecified Category: Medical Plan: Echocardiogram shows moderate to severe pulmonary hypertension. Likely all from left heart issues. Not suitable for any advanced therapies. Diuretics only. (7) Essential hypertension: Code(s): I10 - Essential (primary) hypertension Category: Medical Plan: Stable. No changes. (8) Elevated troponin: Code(s): R77.8 - Other specified abnormalities of plasma proteins Category: Medical Plan: She has chronically elevated troponins, but cardiac catheterization from 2019 showed only minimal luminal irregularities. Considering her age and numerous comorbidities, dementia, frailty, do not advise any aggressive care. Plan Discussed with daughter. Orders: Orders TSH reflex Free T4 Today I48.0 - Paroxysmal atrial fibrillation, I50.32 - Chronic diastolic (congestive) heart failure Coding Level of Care Code Est Pt Level 4 (35539) Diagnoses Chronic heart failure with preserved ejection fraction (HFpEF) I50.32 Status post transcatheter aortic valve replacement (TAVR) using bioprosthesis Z95.3 Paroxysmal atrial fibrillation I48.0 Mitral valve disease I05.9 Nonrheumatic tricuspid valve regurgitation I36.1 Pulmonary hypertension I27.20 Essential hypertension I10 Elevated troponin R77.8 CPT Codes EKG - CPT: 31804-[id number], Complete ([id number])
== END 2024-04-13 15:21 | disposition home or self-care (01) ==
LOC: HO.HCS 14:57
PROVIDERS: PCP Nurse Practitioner Primary Care; Visit Provider Internal Medicine
DX: I50.32 Chronic diastolic (congestive) heart failure (principal); Z95.3 Presence of xenogenic heart valve; I48.0 Paroxysmal atrial fibrillation; I05.9 Rheumatic mitral valve disease, unspecified; I36.1 Nonrheumatic tricuspid (valve) insufficiency; I27.20 Pulmonary hypertension, unspecified; I10 Essential (primary) hypertension; R77.8 Other specified abnormalities of plasma proteins
CPT/HCPCS: 93010; 99214

== ENCOUNTER → 2024-04-13 14:56 | Outpatient (BNVA) | payer MEDICARE, SELFPAY | PROVIDERS: PCP Nurse Practitioner Primary Care; Visit Provider Internal Medicine | DX: I11.0 Hypertensive heart disease with heart failure (principal); I50.32 Chronic diastolic (congestive) heart failure; I48.0 Paroxysmal atrial fibrillation; I05.9 Rheumatic mitral valve disease, unspecified; I36.1 Nonrheumatic tricuspid (valve) insufficiency; I27.20 Pulmonary hypertension, unspecified; R77.8 Other specified abnormalities of plasma proteins; Z95.3 Presence of xenogenic heart valve; Z79.01 Long term (current) use of anticoagulants; Z79.899 Other long term (current) drug therapy | CPT/HCPCS: 93005; 99212 ==

== ENCOUNTER → 2024-05-25 23:59 | Outpatient (BNV) | payer MEDICARE, SELFPAY ==
--- NOTE | 2024-06-06 11:26 | MHC.OFFVIS ---
Intake Visit Reasons: Remote Device Check- [employer]tr[employer] Allergies ibuprofen [From Motrin] Allergy (Mild, Verified 01/22/24 09:12) RASH Penicillins Allergy (Unknown, Verified 01/22/24 09:12) RASH clindamycin Allergy (Verified 01/22/24 09:12) Unknown [facility] Medical History Atypical chest pain Hypomagnesemia Acute on chronic heart failure with preserved ejection fraction (HFpEF) CHF exacerbation Gastrointestinal bleeding Fall Chronic heart failure with preserved ejection fraction (HFpEF) Paroxysmal atrial fibrillation Elevated troponin UTI (urinary tract infection) Elevated troponin Brain TIA GERD (gastroesophageal reflux disease) NSTEMI (non-ST elevated myocardial infarction) Diabetes mellitus HLD (hyperlipidemia) HTN (hypertension) Mitral valve disease (HFpEF) heart failure with preserved ejection fraction Normally functioning cardiac pacemaker present Atrial fibrillation Ulcer Asthma H/O cardiac pacemaker Cardiac arrhythmia Dizziness Alzheimer's disease Dementia Surgical History Hx of esophagogastroduodenoscopy History of permanent cardiac pacemaker placement (~08/2019) Status post transcatheter aortic valve replacement (TAVR) using bioprosthesis Family History Other Patient's mother is Social History Household Members: Children Housing: House Do you presently have visiting nurse or other home services: Yes (NURSE PRACTITIONER PHYSICIAN ASSISTANT two times a week) Alcohol intake: never Patient Tobacco Use Status: Former Tobacco user Second Hand Smoke Exposure: No Advance Directives Date on File: 08/20/22 service: No Current occupational status: unemployed Office Procedures Cardiac Device Check Cardiac Device Check Details: Date of service- 05/25/2024 ; Battery life >9 years; normal lead parameters; AP >99%; CUSTOMER ACCOUNT REPRESENTATIVE 0.1%; no significant arrhythmias. Overall normal device function. [id number] Cardiac Device Interrogation, pacemaker Procedure code (CPT) selection complete Assessment & Plan Assessment & Plan (1) Bradycardia: Code(s): R00.1 - Bradycardia, unspecified Category: Medical Plan x Coding Level of Care Code Procedure Only Diagnoses Bradycardia R00.1 CPT Codes Cardiac Device Check - Cardiac Device 12: [id number] Cardiac Device Interrogation, pacemaker ([id number])
== END ==
PROVIDERS: PCP Nurse Practitioner Primary Care; Visit Provider Internal Medicine
DX: R00.1 Bradycardia, unspecified (principal); Z95.0 Presence of cardiac pacemaker
CPT/HCPCS: 93294

== ENCOUNTER 2024-06-28 10:17 | Outpatient (REF) | payer MEDICARE, SELFPAY ==
[2024-06-28 12:19] LABS: TSH reflex Free T4 1.79 uIU/mL (0.32-4.0)
[2024-06-28 12:28] LABS: Anion Gap 13 (12-20); Blood Urea Nitrogen 12 mg/dL (9-16); Calcium 9.8 mg/dL (8.4-10.2); Carbon Dioxide 24 mmol/L (22-29); Chloride 103 mmol/L (96-108); Cholesterol 101 mg/dL (<200); Estimated Glomerular Filt Rate 36; Glucose Random 148 mg/dL (60-115); HDL Cholesterol 38 mg/dL (>40); LDL Cholesterol Calculated 39 mg/dL (<100); Potassium 4.1 mmol/L (3.3-5.1); Sodium 136 mmol/L (135-145); Triglycerides 122 mg/dL (<150)
[2024-07-01 02:29] LABS: TS Negative Control Passed; TS Panel A 2; TS Panel B 0; TS Positive Control Passed; TSpotTB Negative (Negative)
== END 2024-06-28 10:18 | disposition home or self-care (01) ==
LOC: HO.HHCL 10:17
PROVIDERS: Internal Medicine; Visit Provider Nurse Practitioner Primary Care
DX: Z00.00 Encounter for general adult medical examination without abnormal findings (principal); I50.32 Chronic diastolic (congestive) heart failure; E11.69 Type 2 diabetes mellitus with other specified complication; E78.5 Hyperlipidemia, unspecified; I48.0 Paroxysmal atrial fibrillation
CPT/HCPCS: 36415; 80048; 80061; 84443; 86481

== ENCOUNTER → 2024-08-24 23:59 | Outpatient (BNV) | payer MEDICARE, SELFPAY ==
--- NOTE | 2024-08-29 14:20 | A.OFFVIS_ITS ---
Intake Visit Reasons: Remote Device Check- [employer] Allergies ibuprofen [From Motrin] Allergy (Mild, Verified 01/22/24 09:12) RASH Penicillins Allergy (Unknown, Verified 01/22/24 09:12) RASH clindamycin Allergy (Verified 01/22/24 09:12) Unknown [facility], [facility] Medical History (Updated 08/29/24 @ 14:22 by Max Chaves MD) Atypical chest pain Hypomagnesemia Acute on chronic heart failure with preserved ejection fraction (HFpEF) CHF exacerbation Gastrointestinal bleeding Fall Chronic heart failure with preserved ejection fraction (HFpEF) Paroxysmal atrial fibrillation Elevated troponin UTI (urinary tract infection) Elevated troponin Brain TIA GERD (gastroesophageal reflux disease) NSTEMI (non-ST elevated myocardial infarction) Diabetes mellitus HLD (hyperlipidemia) HTN (hypertension) Mitral valve disease (HFpEF) heart failure with preserved ejection fraction Normally functioning cardiac pacemaker present Atrial fibrillation Ulcer Asthma H/O cardiac pacemaker Cardiac arrhythmia Dizziness Alzheimer's disease Dementia Surgical History Hx of esophagogastroduodenoscopy History of permanent cardiac pacemaker placement (~08/2019) Status post transcatheter aortic valve replacement (TAVR) using bioprosthesis Family History Other Patient's mother is Social History Household Members: Children Housing: House Do you presently have visiting nurse or other home services: Yes ([employer] two times a week) Alcohol intake: never Patient Tobacco Use Status: Former Tobacco user Second Hand Smoke Exposure: No Advance Directives Date on File: 08/20/22 service: No Current occupational status: unemployed Office Procedures Cardiac Device Check Cardiac Device Check Details: Date of service- 08/24/2024 ; Battery life >8 years; normal lead parameters; AP 80%; [employer]AL 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 Overall normal device function. [id number] Cardiac Device Interrogation, pacemaker Procedure code (CPT) selection complete Assessment & Plan Assessment & Plan (1) Pacemaker: Code(s): Z95.0 - Presence of cardiac pacemaker Category: Medical (2) Bradycardia: Code(s): R00.1 - Bradycardia, unspecified Category: Medical (3) Paroxysmal atrial fibrillation: Code(s): I48.0 - Paroxysmal atrial fibrillation Category: Medical Plan x Coding Level of Care Code Procedure Only Diagnoses Pacemaker Z95.0 Bradycardia R00.1 Paroxysmal atrial fibrillation I48.0 CPT Codes Cardiac Device Check - Cardiac Device 12: [id number] Cardiac Device Interrogation, pacemaker ([id number])
== END ==
PROVIDERS: PCP Nurse Practitioner Primary Care; Visit Provider Internal Medicine
DX: I48.0 Paroxysmal atrial fibrillation (principal); R00.1 Bradycardia, unspecified; Z95.0 Presence of cardiac pacemaker
CPT/HCPCS: 93294